=== PATIENT | male | born 1990 | race African-American/Black ===

== ENCOUNTER 2016-07-01 16:32 | Emergency (ER) | payer BC, OTHER ==
[2016-07-01 16:49] VITALS: BP 129/77; PULSE 90; RESP 16; TEMP 98.4
[2016-07-01] MEDS ORDERED: KETOROLAC 60 MG/2 ML VIAL IM STA (17:01)
[2016-07-01] MEDS ORDERED: ORPHENADRINE 30 MG/ML 2 ML VIAL IM STA (17:01)
--- NOTE | 2016-07-01 17:17 | ED ---
General Adult HPI - General Chief complaint: Back Pain/Injury Stated complaint: Back pain Time Seen by Provider: 07/01/16 16:53 Source: patient, RN notes reviewed Mode of arrival: ambulatory Limitations: no limitations - History of Present Illness Initial comments: This is a 25-year-old male who presents with lower back pain. Patient states the pain started when he bent over and stood back up this morning. Patient states he has taken Motrin 800s for the pain but this has not helped. Patient has been ambulating without difficulty. Patient denies any fall or trauma to the back. Patient denies any change in bowel or bladder function or loss of sensation to the saddle area. Patient denies any numbness/weakness/tingling to bilateral lower extremities. Patient denies any recent radicular pain, fever, chills, shortness breath, chest pain, abdominal pain, nausea/vomiting/diarrhea, hematuria, headache, or visual changes, or any other complaints. - Related Data Home Medications Medication Instructions Recorded Confirmed Insulin Detemir [Levemir] 50 unit SQ DAILY 08/29/14 07/01/16 Insulin Lispro [humaLOG Kwikpen] See Protocol SQ AC-TID 12/19/15 07/01/16 Previous Rx's Medication Instructions Recorded Cyclobenzaprine [Flexeril] 5 mg PO HS 3 Days 07/01/16 Allergies Allergy/AdvReac Type Severity Reaction Status Date / Time No Known Allergies Allergy Verified 07/01/16 18:01 Review of Systems ROS Statement: Those systems with pertinent positive or pertinent negative responses have been documented in the HPI. ROS Other: All systems not noted in ROS Statement are negative. Past Medical History Past Medical History: Diabetes Mellitus Additional Past Medical History / Comment(s): STATED HAD SEIZURE WHEN BS WAS TO LOW, History of Any Multi-Drug Resistant Organisms: None Reported Past Surgical History: No Surgical Hx Reported Additional Past Surgical History / Comment(s): TOOTH EXTRACTED IN PAST AND YESTERDAY HAD A PUS POCKET NEAR FRONT TOOTH LANCED/DRAINED. Past Anesthesia/Blood Transfusion Reactions: No Reported Reaction Past Psychological History: No Psychological Hx Reported Smoking Status: Current every day smoker Past Alcohol Use History: None Reported Additional Past Alcohol Use History / Comment(s): STARTED SMOKING AT AGE 15- SMOKES 1 PPD Past Drug Use History: None Reported - Past Family History Father Family Medical History: No Reported History Mother Family Medical History: Asthma General Exam - General Exam Comments Initial Comments: General: The patient is awake and alert, in no distress, and does not appear acutely ill. Neck: The neck is supple, there is no tenderness or JVD. Cardiovascular: There is a regular rate and rhythm. No murmur, rub or gallop is appreciated. Respiratory: Lungs are clear to auscultation, respirations are non-labored, breath sounds are equal. No wheezes, stridor, rales, or rhonchi. Musculoskeletal: There is mild tenderness to palpation of the lumbar spine, patient has full range of motion, strength 5/5 and Sensation intact. Posterior tibial pulses 2+ bilaterally. Neurological: A&O x 3. CN II-XII intact, There are no obvious motor or sensory deficits. Coordination appears grossly intact. Speech is normal. Skin: Skin is warm and dry and no rashes or lesions are noted. Psychiatric: Normal mood and affect. Limitations: no limitations Course Vital Signs 07/01/16 16:45 Temperature 98.4 F Pulse Rate 90 Respiratory 16 Rate Blood Pressure 129/77 O2 Sat by Pulse 98 Oximetry Medical Decision Making - Medical Decision Making This is a 25-year-old male who presents with lower back pain. On physical exam patient is neurologically intact. There is mild tenderness to palpation of the lumbar spine, patient has full range of motion, strength 5/5 and Sensation intact. Posterior tibial pulses 2+ bilaterally. Patient was given Toradol and Norflex in the [facility] today. I discussed continuation of Motrin and Tylenol along with heating pads and ice packs. Patient will be given a three-day prescription for Flexeril to take at night and I discussed sedation effects. I discussed return parameters.Discussed that patient should follow up with PCP in one to 2 days or return to the [facility] for any worsening symptoms or for any further concerns. Patient was receptive to this plan and patient will be discharged home. Disposition Clinical Impression: Mechanical back pain, Muscle spasm of back Disposition: HOME SELF-CARE Condition: Good Instructions: Acute Low Back Pain (ED) Additional Instructions: Please continue Motrin and Tylenol. Please use ice packs and heating pads to the area. Please use Flexeril as prescribed. Please do not take Flexeril while driving or while drinking alcohol as it can make you drowsy. Please use medication as discussed. Please follow-up with family doctor in the next 2 days of symptoms have not improved. Please return to emergency room if the symptoms increase or worsen or for any other concerns. Prescriptions: Cyclobenzaprine [Flexeril] 5 mg PO HS 3 Days Referrals: Óscar Jackson MD [Primary Care Provider] - 1-2 days Time of Disposition: 17:07
== END 2016-07-01 17:32 | disposition home or self-care (01) ==
LOC: EC 16:32
DX: M62.830 Muscle spasm of back (principal); E11.9 Type 2 diabetes mellitus without complications; F17.200 Nicotine dependence, unspecified, uncomplicated; Z79.4 Long term (current) use of insulin
CPT/HCPCS: 99282; 96372 ×2; J2360; J1885

== ENCOUNTER 2016-08-07 20:46 | Emergency (ER) | payer OTHER ==
[2016-08-07 20:56] VITALS: BP 144/88; PULSE 87; RESP 20; TEMP 99
[2016-08-07] MEDS ORDERED: ACETAMINOPHEN TAB 325 MG TAB PO STA (21:18)
[2016-08-07] MEDS ORDERED: traMADol 50 MG TAB PO STA (21:18)
--- NOTE | 2016-08-07 21:18 | ED ---
Back Pain HPI - General Chief Complaint: Back Pain/Injury Stated Complaint: Back Pain Time Seen by Provider: 08/07/16 21:03 Source: patient Limitations: no limitations - History of Present Illness Initial Comments: This patient is 25-year-old man who presents with bilateral mid back pain that is been coming on since yesterday, worse today and the patient states that it has the same sensation as "if you had scattered all day and your back was too tight to take your skates off." The patient states that the pain is constant, aching, and worse with bending or with sitting. The intensity is moderate. It is better with remaining still. He was driving to work [id number] and the sitting position made the pain worse so he came here to be evaluated. MD Complaint: back pain Onset/Timin -: days(s) Similar Symptoms Previously: Yes Place: home Radiation: none Severity: moderate Quality: aching Consistency: constant Improves With: immobilization Worsens With: sitting upright, other (Bending) Context: bending Associated Symptoms: denies other symptoms Treatments Prior to Arrival: NSAIDS (Ibuprofen resulted in minimal improvement) - Related Data Home Medications Medication Instructions Recorded Confirmed Insulin Detemir [Levemir] 50 unit SQ DAILY 08/29/14 08/07/16 Insulin Lispro [humaLOG Kwikpen] See Protocol SQ AC-TID 12/19/15 08/07/16 Previous Rx's Medication Instructions Recorded Ibuprofen [Motrin] 600 mg PO Q8HR PRN #20 tab 08/07/16 Methocarbamol [Robaxin-750] 750 mg PO TID PRN #30 tablet 08/07/16 Allergies Allergy/AdvReac Type Severity Reaction Status Date / Time No Known Allergies Allergy Verified 08/07/16 20:56 Review of Systems ROS Statement: Those systems with pertinent positive or pertinent negative responses have been documented in the HPI. ROS Other: All systems not noted in ROS Statement are negative. Constitutional: Denies: fever, chills, weakness Respiratory: Denies: cough, dyspnea Cardiovascular: Denies: chest pain, palpitations, edema Gastrointestinal: Denies: abdominal pain, vomiting, diarrhea Genitourinary: Denies: dysuria, hematuria, testicular pain Musculoskeletal: Reports: as per HPI, back pain Skin: Denies: rash Neurological: Denies: headache, weakness, numbness, paresthesias Past Medical History Past Medical History: Diabetes Mellitus Additional Past Medical History / Comment(s): STATED HAD SEIZURE WHEN BS WAS TO LOW, History of Any Multi-Drug Resistant Organisms: None Reported Past Surgical History: No Surgical Hx Reported Additional Past Surgical History / Comment(s): TOOTH EXTRACTED IN PAST AND YESTERDAY HAD A PUS POCKET NEAR FRONT TOOTH LANCED/DRAINED. Past Anesthesia/Blood Transfusion Reactions: No Reported Reaction Past Psychological History: No Psychological Hx Reported Smoking Status: Current every day smoker Past Alcohol Use History: None Reported Additional Past Alcohol Use History / Comment(s): STARTED SMOKING AT AGE 15- SMOKES 1 PPD Past Drug Use History: None Reported - Past Family History Father Family Medical History: No Reported History Mother Family Medical History: Asthma General Exam Limitations: no limitations General appearance: alert, in no apparent distress Head exam: Present: atraumatic, normocephalic Eye exam: Present: normal appearance Respiratory exam: Present: normal lung sounds bilaterally. Absent: respiratory distress, wheezes, rales, rhonchi, stridor Cardiovascular Exam: Present: regular rate, normal rhythm, normal heart sounds. Absent: systolic murmur, diastolic murmur, rubs, gallop GI/Abdominal exam: Present: soft. Absent: distended, tenderness, guarding, rebound, mass Extremities exam: Present: full ROM Back exam: Present: normal inspection, paraspinal tenderness. Absent: CVA tenderness (R), CVA tenderness (L), vertebral tenderness, rash noted Neurological exam: Present: alert, reflexes normal. Absent: motor sensory deficit Skin exam: Present: warm, dry, intact, normal color. Absent: rash Course Vital Signs 08/07/16 20:54 Temperature 99 F Pulse Rate 87 Respiratory 20 Rate Blood Pressure 144/88 O2 Sat by Pulse 98 Oximetry Disposition Clinical Impression: Strain of mid-back Disposition: HOME SELF-CARE Condition: Fair Instructions: Back Pain (ED) Prescriptions: Ibuprofen [Motrin] 600 mg PO Q8HR PRN #20 tab PRN Reason: Pain Methocarbamol [Robaxin-750] 750 mg PO TID PRN #30 tablet PRN Reason: pain Referrals: Óscar Jackson MD [Primary Care Provider] - 1-2 days
== END 2016-08-07 21:37 | disposition home or self-care (01) ==
LOC: EC 20:46
DX: S29.012A Strain of muscle and tendon of back wall of thorax, initial encounter (principal); E11.9 Type 2 diabetes mellitus without complications; F17.200 Nicotine dependence, unspecified, uncomplicated; Z79.4 Long term (current) use of insulin; X50.1XXA Overexertion from prolonged static or awkward postures, initial encounter; Y92.009 Unspecified place in unspecified non-institutional (private) residence as the place of occurrence of the external cause
CPT/HCPCS: 99283

== ENCOUNTER 2016-09-01 23:05 | Emergency (ER) | payer OTHER ==
[2016-09-01 23:10] VITALS: BP 123/72; PULSE 87; RESP 20; TEMP 98.3
[2016-09-01 23:24] LABS: Glucose,Whole Blood 112 mg/dL (75-99)
--- NOTE | 2016-09-01 23:33 | ED ---
Recheck HPI - General Chief Complaint: Recheck/Abnormal Lab/Rx Stated Complaint: low blood sugar Time Seen by Provider: 09/01/16 23:17 Source: patient, RN notes reviewed, old records reviewed Mode of arrival: ambulatory Limitations: no limitations - History of Present Illness Initial Comments: Is a 25-year-old male presents emergency Department with an episode of low blood sugar at work. Patient reports that he is an insulin-dependent diabetic. He reports that last time he took his blood sugar and check that was at 3 PM. He reports he did not eat as much as he usually does today. 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 Patient ate a Snickers and his blood sugar was checked in triage and was 112. Patient does not appear to be in any acute distress at this time. He has no other physical complaints. - Related Data Home Medications Medication Instructions Recorded Confirmed Insulin Detemir [Levemir] 50 unit SQ QAM 08/29/14 09/01/16 Insulin Lispro [humaLOG Kwikpen] See Protocol SQ AC-TID 12/19/15 09/01/16 Cyanocobalamin (Vitamin B-12) 1,000 mcg PO DAILY 09/01/16 09/01/16 [Vitamin B-12] Allergies Allergy/AdvReac Type Severity Reaction Status Date / Time No Known Allergies Allergy Verified 09/01/16 23:19 Review of Systems ROS Statement: Those systems with pertinent positive or pertinent negative responses have been documented in the HPI. ROS Other: All systems not noted in ROS Statement are negative. Past Medical History Past Medical History: Diabetes Mellitus Additional Past Medical History / Comment(s): STATED HAD SEIZURE WHEN BS WAS TO LOW, History of Any Multi-Drug Resistant Organisms: None Reported Past Surgical History: No Surgical Hx Reported Additional Past Surgical History / Comment(s): TOOTH EXTRACTED IN PAST AND YESTERDAY HAD A PUS POCKET NEAR FRONT TOOTH LANCED/DRAINED. Past Anesthesia/Blood Transfusion Reactions: No Reported Reaction Past Psychological History: No Psychological Hx Reported Smoking Status: Current every day smoker Past Alcohol Use History: None Reported Additional Past Alcohol Use History / Comment(s): STARTED SMOKING AT AGE 15- SMOKES 1 PPD Past Drug Use History: None Reported - Past Family History Father Family Medical History: No Reported History Mother Family Medical History: Asthma General Exam - General Exam Comments Initial Comments: Well-appearing 25-year-old male, no distress. Limitations: no limitations General appearance: alert, in no apparent distress Head exam: Present: atraumatic, normocephalic, normal inspection Eye exam: Present: normal appearance, PERRL, EOMI. Absent: scleral icterus, conjunctival injection, periorbital swelling ENT exam: Present: normal exam, mucous membranes moist Neck exam: Present: normal inspection. Absent: tenderness, meningismus, lymphadenopathy Respiratory exam: Present: normal lung sounds bilaterally. Absent: respiratory distress, wheezes, rales, rhonchi, stridor Cardiovascular Exam: Present: regular rate, normal rhythm, normal heart sounds. Absent: systolic murmur, diastolic murmur, rubs, gallop, clicks GI/Abdominal exam: Present: soft, normal bowel sounds. Absent: distended, tenderness, guarding, rebound, rigid Extremities exam: Present: normal inspection, full ROM, normal capillary refill. Absent: tenderness, pedal edema, joint swelling, calf tenderness Back exam: Present: normal inspection Neurological exam: Present: alert, oriented X3, CN II-XII intact Psychiatric exam: Present: normal affect, normal mood Skin exam: Present: warm, dry, intact, normal color. Absent: rash Course Vital Signs 09/01/16 23:08 Temperature 98.3 F Pulse Rate 87 Respiratory 20 Rate Blood Pressure 123/72 O2 Sat by Pulse 99 Oximetry - Reevaluation(s) Reevaluation #1: 09/01/16 23:59 Patient was reevaluated and blood sugar is now 200. Patient reports is feeling better. Patient will be discharged at this time. Medical Decision Making - Medical Decision Making This is a 25-year-old male presenting to emergency room she bled a low blood sugar work. Patient was given juice and food when he came to emergency department. Patient will be reevaluated. He has no other physical complaints at this time. was given juice and a sandwich. Patient's blood sugar now is 200. Patient will be discharged directed. Patient advised to keep glucose tablets on hand. Follow-up with her primary care physician within the next 1-2 days. Return to emergency department if any alarming signs or symptoms occur. - Lab Data Lab Results 09/01/16 Range/Units 23:12 POC Glucose (mg/dL) 112 H (75-99) mg/dL POC Glu [employer] Disposition Clinical Impression: Hypoglycemia Disposition: HOME SELF-CARE Condition: Good Instructions: Hypoglycemia in a Person with Diabetes (ED) Additional Instructions: Patient advised to rest, increase fluids and food intake. Follow-up with her primary care provider. Continue to dose insulin on a sliding scale as directed. Patient also advised to keep glucose tablets handy. Referrals: Óscar Jackson MD [Primary Care Provider] - 1-2 days Time of Disposition: 00:00
[2016-09-02] LABS: Glucose,Whole Blood 201 mg/dL (75-99)
== END 2016-09-02 00:07 | disposition home or self-care (01) ==
LOC: EC 23:05
DX: E11.649 Type 2 diabetes mellitus with hypoglycemia without coma (principal); F17.200 Nicotine dependence, unspecified, uncomplicated; Z79.4 Long term (current) use of insulin; Z79.899 Other long term (current) drug therapy
CPT/HCPCS: 36415; 99284

== ENCOUNTER 2016-10-08 04:31 | Emergency (ER) | payer OTHER ==
[2016-10-08 04:39] VITALS: BP 126/73; PULSE 66; RESP 16; TEMP 97.2
[2016-10-08 04:40] LABS: Glucose,Whole Blood 36 mg/dL (75-99)
[2016-10-08 04:40] LABS: Glucose,Whole Blood 34 mg/dL (75-99)
--- NOTE | 2016-10-08 05:04 | ED ---
General Adult HPI - General Chief complaint: Recheck/Abnormal Lab/Rx Stated complaint: low sugar Time Seen by Provider: 10/08/16 04:42 Source: patient, RN notes reviewed, old records reviewed Mode of arrival: ambulatory Limitations: no limitations - History of Present Illness Initial comments: This is a 26-year-old male the ER for evaluation of low blood sugar, diabetic hypoglycemia. Patient is on insulin. Patient has history of multiple ER visits for similar symptoms, was not acting appropriate work, checked his blood pressure and some to the ER for further evaluation and treatment. Patient is awake and alert, blood sugar on arrival to emergency room is 37 - Related Data Home Medications Medication Instructions Recorded Confirmed Insulin Detemir [Levemir] 50 unit SQ QAM 08/29/14 09/01/16 Insulin Lispro [humaLOG Kwikpen] See Protocol SQ AC-TID 12/19/15 09/01/16 Cyanocobalamin (Vitamin B-12) 1,000 mcg PO DAILY 09/01/16 09/01/16 [Vitamin B-12] Allergies Allergy/AdvReac Type Severity Reaction Status Date / Time No Known Allergies Allergy Verified 10/08/16 04:39 Review of Systems ROS Statement: Those systems with pertinent positive or pertinent negative responses have been documented in the HPI. ROS Other: All systems not noted in ROS Statement are negative. Past Medical History Past Medical History: Diabetes Mellitus Additional Past Medical History / Comment(s): STATED HAD SEIZURE WHEN BS WAS TO LOW, History of Any Multi-Drug Resistant Organisms: None Reported Past Surgical History: No Surgical Hx Reported Additional Past Surgical History / Comment(s): TOOTH EXTRACTED IN PAST AND YESTERDAY HAD A PUS POCKET NEAR FRONT TOOTH LANCED/DRAINED. Past Anesthesia/Blood Transfusion Reactions: No Reported Reaction Past Psychological History: No Psychological Hx Reported Smoking Status: Current every day smoker Past Alcohol Use History: None Reported Past Drug Use History: None Reported - Past Family History Father Family Medical History: No Reported History Mother Family Medical History: Asthma General Exam Limitations: no limitations General appearance: alert, in no apparent distress Head exam: Present: atraumatic, normocephalic, normal inspection Eye exam: Present: normal appearance, PERRL, EOMI. Absent: scleral icterus, conjunctival injection, periorbital swelling ENT exam: Present: normal exam, mucous membranes moist Neck exam: Present: normal inspection. Absent: tenderness, meningismus, lymphadenopathy Respiratory exam: Present: normal lung sounds bilaterally. Absent: respiratory distress, wheezes, rales, rhonchi, stridor Cardiovascular Exam: Present: regular rate, normal rhythm, normal heart sounds. Absent: systolic murmur, diastolic murmur, rubs, gallop, clicks GI/Abdominal exam: Present: soft, normal bowel sounds. Absent: distended, tenderness, guarding, rebound, rigid Extremities exam: Present: normal inspection, full ROM, normal capillary refill. Absent: tenderness, pedal edema, joint swelling, calf tenderness Back exam: Present: normal inspection Neurological exam: Present: alert, oriented X3, CN II-XII intact Psychiatric exam: Present: normal affect, normal mood Skin exam: Present: warm, dry, intact, normal color. Absent: rash Course Vital Signs 10/08/16 04:32 Temperature 97.2 F L Pulse Rate 66 Respiratory 16 Rate Blood Pressure 126/73 O2 Sat by Pulse 100 Oximetry Medical Decision Making - Medical Decision Making 26-year-old male to the ER with recurrent diabetic hypoglycemia, patient was able to eat here in the emergency room, completely awake alert asking to be discharged home - Lab Data Lab Results 10/08/16 10/08/16 10/08/16 Range/Units 04:36 04:37 05:06 POC Glucose (mg/dL) 34 L 36 L 63 L (75-99) mg/dL POC Glu [employer] Luis Armando Fermin David [place], [place] 10/08/16 10/08/16 Range/Units 05:31 06:07 POC Glucose (mg/dL) 165 H 231 H (75-99) mg/dL POC Glu [employer] Kelsy Chung [place] Disposition Clinical Impression: Diabetic hypoglycemia Disposition: HOME SELF-CARE Condition: Good Instructions: Hypoglycemia in a Person with Diabetes (ED) Referrals: Óscar Jackson MD [Primary Care Provider] - 1-2 days
[2016-10-08 05:09] LABS: Glucose,Whole Blood 63 mg/dL (75-99)
[2016-10-08 05:34] LABS: Glucose,Whole Blood 165 mg/dL (75-99)
[2016-10-08 06:08] LABS: Glucose,Whole Blood 231 mg/dL (75-99)
== END 2016-10-08 07:15 | disposition home or self-care (01) ==
LOC: EC 04:31
DX: E11.649 Type 2 diabetes mellitus with hypoglycemia without coma (principal); F17.200 Nicotine dependence, unspecified, uncomplicated; Z79.4 Long term (current) use of insulin; Z79.899 Other long term (current) drug therapy
CPT/HCPCS: 36415; 99283

== ENCOUNTER 2017-02-22 17:09 | Emergency (ER) | payer BC, OTHER ==
[2017-02-22 17:19] VITALS: PULSE 70; RESP 18
[2017-02-22 17:28] LABS: Glucose,Whole Blood 85 mg/dL (75-99)
--- NOTE | 2017-02-22 17:36 | ED ---
General Adult HPI - General Chief complaint: Recheck/Abnormal Lab/Rx Stated complaint: Hypoglycemia Time Seen by Provider: 02/22/17 17:26 Source: EMS Mode of arrival: EMS Limitations: no limitations - History of Present Illness Initial comments: 26-year-old male patient with past medical history significant for type 1 diabetes presents to the emergency department today for evaluation after having an unresponsive episode at home. Patient states that his girlfriend told him that he was sitting on the couch staring off into space and would not respond to her. EMS states upon arrival patient's blood sugar was 48. They state that they did administer one amp of dextrose 50%, patient's blood sugar went up to 176 and his mentation did improve. Patient states that he currently is feeling well, just chilled. He states that he occasionally does have hypoglycemic episodes. He states that he ate only a small amount of steak to eat early this morning. He states his last insulin administration was this morning before eating. He believes this occurred because he did not eat enough today. He denies any recent illness or change in medications. Patient denies any recent rash, fever, shortness breath, chest pain, abdominal pain, nausea, vomiting, diarrhea, constipation, back pain, numbness, tingling, dizziness, weakness, hematuria, dysuria, urinary urgency, urinary frequency, headache, visual changes , or any other complaints. - Related Data Home Medications Medication Instructions Recorded Confirmed Insulin Detemir [Levemir] 50 unit SQ QAM 08/29/14 02/22/17 Insulin Lispro [humaLOG Kwikpen] See Protocol SQ AC-TID 12/19/15 02/22/17 Dextroamphetamine/Amphetamine 20 mg PO DAILY 02/22/17 02/22/17 [Adderall] HYDROcodone/APAP 10-325MG [[place] 1 tab PO DAILY PRN 02/22/17 02/22/17 10-325] Multivitamins, Thera [Multivitamin 1 tab PO DAILY 02/22/17 02/22/17 (formulary)] Pregabalin [Lyrica] 100 mg PO BID 02/22/17 02/22/17 Allergies Allergy/AdvReac Type Severity Reaction Status Date / Time No Known Allergies Allergy Verified 02/22/17 18:01 Review of Systems ROS Statement: Those systems with pertinent positive or pertinent negative responses have been documented in the HPI. ROS Other: All systems not noted in ROS Statement are negative. Past Medical History Past Medical History: Diabetes Mellitus Additional Past Medical History / Comment(s): STATED HAD SEIZURE WHEN BS WAS TO LOW, History of Any Multi-Drug Resistant Organisms: None Reported Past Surgical History: No Surgical Hx Reported Additional Past Surgical History / Comment(s): TOOTH EXTRACTED IN PAST AND YESTERDAY HAD A PUS POCKET NEAR FRONT TOOTH LANCED/DRAINED. Past Anesthesia/Blood Transfusion Reactions: No Reported Reaction Past Psychological History: No Psychological Hx Reported Smoking Status: Current every day smoker Past Alcohol Use History: None Reported Past Drug Use History: None Reported - Past Family History Father Family Medical History: No Reported History Mother Family Medical History: Asthma General Exam Limitations: no limitations General appearance: alert, in no apparent distress, other (This is a well- developed, well-nourished adult male patient in no acute distress. Vital signs upon presentation are temperature 98.1F, pulse 70, respirations 18, blood pressure 138/87, pulse ox 100% on room air.) Head exam: Present: atraumatic, normocephalic, normal inspection Eye exam: Present: normal appearance, PERRL, EOMI. Absent: scleral icterus, conjunctival injection, periorbital swelling ENT exam: Present: normal exam, normal oropharynx, mucous membranes moist Respiratory exam: Present: normal lung sounds bilaterally. Absent: respiratory distress, wheezes, rales, rhonchi, stridor Cardiovascular Exam: Present: regular rate, normal rhythm, normal heart sounds. Absent: systolic murmur, diastolic murmur, rubs, gallop, clicks GI/Abdominal exam: Present: soft, normal bowel sounds. Absent: distended, tenderness, guarding, rebound, rigid Neurological exam: Present: alert, oriented X3, CN II-XII intact, other ( Strength in all 4 cavities is 5/5. Patient is acutely responsive with fluid speech.) Psychiatric exam: Present: normal affect, normal mood Skin exam: Present: warm, dry, intact, normal color. Absent: rash Course Vital Signs 02/22/17 02/22/17 17:17 18:59 Temperature 98.1 F 98.0 F Pulse Rate 70 70 Respiratory 18 18 Rate Blood Pressure 138/87 115/75 O2 Sat by Pulse 100 98 Oximetry Medical Decision Making - Medical Decision Making 26-year-old male patient presents to the emergency department today for evaluation after having an episode of unresponsiveness at home. Patient's significant other reported that he was sitting on the couch staring off into space and was unresponsive. Upon EMS arrival patient was found to be hypoglycemic at 48. He was given an amp of D50 and symptoms did improve. Physical exam was unremarkable. Patient was alert and acutely responsive. Neurologically intact. Blood sugar upon arrival to our department was 85. Patient was given food to eat. Patient remained stable throughout stay. Vital signs stable. Blood sugar at discharge is 153. Other labs were reviewed and were unremarkable. Patient did report that he had not eaten throughout the day, only meal was a small cube steak early in the morning. He'll be discharged home at this time with instructions to eat small frequent meals throughout the day. He is instructed to monitor his blood sugars closely. He is instructed to follow-up with his primary care physician for recheck in 1-2 days. He is instructed to return here immediately for any new, worsening, or concerning symptoms. He verbalizes understanding and agrees with this plan. - Lab Data Result diagrams: 02/22/17 17:43 02/22/17 17:43 Lab Results 02/22/17 02/22/17 02/22/17 Range/Units 17:26 17:43 17:43 WBC 12.3 H (3.8-10.6) k/uL RBC 5.54 (4.30-5.90) m/uL Hgb 16.7 (13.0-17.5) gm/dL Hct 53.0 (39.0-53.0) % MCV 95.7 (80.0-100.0) fL MCH 30.2 (25.0-35.0) pg MCHC 31.5 (31.0-37.0) g/dL RDW 13.1 (11.5-15.5) % Plt Count 250 (150-450) k/uL Neutrophils % 82 % Lymphocytes % 12 % Monocytes % 4 % Eosinophils % 2 % Basophils % 1 % Neutrophils # 10.1 H (1.3-7.7) k/uL Lymphocytes # 1.5 (1.0-4.8) k/uL Monocytes # 0.5 (0-1.0) k/uL Eosinophils # 0.2 (0-0.7) k/uL Basophils # 0.1 (0-0.2) k/uL Sodium 143 (137-145) mmol/L Potassium 4.2 (3.5-5.1) mmol/L Chloride 103 (98-107) mmol/L Carbon Dioxide 31 H (22-30) mmol/L Anion Gap 9 mmol/L BUN 12 (9-20) mg/dL Creatinine 0.90 (0.66-1.25) mg/dL Est GFR (MDRD) Af Amer >60 (>60 ml/min/1.73 sqM) Est GFR (MDRD) Non-Af >60 (>60 ml/min/1.73 sqM) Glucose 74 (74-99) mg/dL POC Glucose (mg/dL) 85 (75-99) mg/dL POC Glu Crusher Feeder ID Maureen Mccoy Calcium 9.8 (8.4-10.2) mg/dL Total Bilirubin 1.1 (0.2-1.3) mg/dL AST 36 (17-59) U/L ALT 38 (21-72) U/L Alkaline Phosphatase 89 (38-126) U/L Total Protein 7.7 (6.3-8.2) g/dL Albumin 4.4 (3.5-5.0) g/dL 02/22/17 Range/Units 18:29 WBC (3.8-10.6) k/uL RBC (4.30-5.90) m/uL Hgb (13.0-17.5) gm/dL Hct (39.0-53.0) % MCV (80.0-100.0) fL MCH (25.0-35.0) pg MCHC (31.0-37.0) g/dL RDW (11.5-15.5) % Plt Count (150-450) k/uL Neutrophils % % Lymphocytes % % Monocytes % % Eosinophils % % Basophils % % Neutrophils # (1.3-7.7) k/uL Lymphocytes # (1.0-4.8) k/uL Monocytes # (0-1.0) k/uL Eosinophils # (0-0.7) k/uL Basophils # (0-0.2) k/uL Sodium (137-145) mmol/L Potassium (3.5-5.1) mmol/L Chloride (98-107) mmol/L Carbon Dioxide (22-30) mmol/L Anion Gap mmol/L BUN (9-20) mg/dL Creatinine (0.66-1.25) mg/dL Est GFR (MDRD) Af Amer (>60 ml/min/1.73 sqM) Est GFR (MDRD) Non-Af (>60 ml/min/1.73 sqM) Glucose (74-99) mg/dL POC Glucose (mg/dL) 153 H (75-99) mg/dL POC Glu Crusher Feeder ID Adeola Agustin Calcium (8.4-10.2) mg/dL Total Bilirubin (0.2-1.3) mg/dL AST (17-59) U/L ALT (21-72) U/L Alkaline Phosphatase (38-126) U/L Total Protein (6.3-8.2) g/dL Albumin (3.5-5.0) g/dL Disposition Clinical Impression: Hypoglycemia Disposition: HOME SELF-CARE Condition: Good Instructions: Hypoglycemia in a Person with Diabetes (ED) Additional Instructions: Make sure you are eating appropriate amounts of food when taking insulin. Monitor blood sugars closely at home. Follow-up with your primary care physician for recheck in 1-2 days. Return here immediately for any new, worsening, or concerning symptoms. Referrals: Óscar Jackson MD [Primary Care Provider] - 1-2 days Time of Disposition: 18:33
[2017-02-22 17:52] LABS: Basophils # (A) 0.1 k/uL (0-0.2); Basophils % (A) 1 %; CH 30.6; CHCM 32.1; Eosinophils # (A) 0.2 k/uL (0-0.7); Eosinophils % (A) 2 %; HDW 2.13; HGB 16.7 gm/dL (13.0-17.5); Luc # (Auto) 0.05; Luc % (Auto) 0; Lymphocytes # (A) 1.5 k/uL (1.0-4.8); Lymphocytes % (A) 12 %; MCH 30.2 pg (25.0-35.0); MCHC 31.5 g/dL (31.0-37.0); MCV 95.7 fL (80.0-100.0); Mean Platelet Volume 7.6; Monocytes # (A) 0.5 k/uL (0-1.0); Monocytes % (A) 4 %; Neutrophils # (A) 10.1 k/uL (1.3-7.7); Neutrophils % (A) 82 %; RBC 5.54 m/uL (4.30-5.90); RDW 13.1 % (11.5-15.5); WBC 12.3 k/uL (3.8-10.6); WBC (Perox) 12.25
[2017-02-22 18:11] LABS: ALT 38 U/L (21-72); AST 36 U/L (17-59); Alkaline Phosphatase 89 U/L (38-126); Anion Gap 9 mmol/L; Blood Urea Nitrogen 12 mg/dL (9-20); Calcium 9.8 mg/dL (8.4-10.2); Carbon Dioxide 31 mmol/L (22-30); Chloride 103 mmol/L (98-107); Glucose 74 mg/dL (74-99); Non-African American GFR(MDRD) >60 (>60 ml/min/1.73 sqM); Potassium 4.2 mmol/L (3.5-5.1); Sodium 143 mmol/L (137-145); Total Bilirubin 1.1 mg/dL (0.2-1.3); Total Protein 7.7 g/dL (6.3-8.2)
[2017-02-22 18:30] LABS: Glucose,Whole Blood 153 mg/dL (75-99)
[2017-02-22 19:00] VITALS: BP 115/75; TEMP 98
== END 2017-02-22 19:00 | disposition home or self-care (01) ==
LOC: EC 17:09
DX: E10.649 Type 1 diabetes mellitus with hypoglycemia without coma (principal); F17.200 Nicotine dependence, unspecified, uncomplicated; Z79.4 Long term (current) use of insulin; Z79.899 Other long term (current) drug therapy
CPT/HCPCS: 36415; 80053; 85025; 99285

== ENCOUNTER 2017-02-26 14:51 | Emergency (ER) | payer BC, OTHER ==
[2017-02-26 14:55] LABS: Glucose,Whole Blood 88 mg/dL (75-99)
[2017-02-26 15:03] VITALS: RESP 18
--- NOTE | 2017-02-26 15:05 | ED ---
General Adult HPI - General Chief complaint: Recheck/Abnormal Lab/Rx Stated complaint: Hypoglycemia Time Seen by Provider: 02/26/17 14:56 Source: patient, EMS, RN notes reviewed, old records reviewed Mode of arrival: EMS Limitations: no limitations - History of Present Illness Initial comments: Chief complaint and history of present illness a 26-year-old male brought in because of hypoglycemic reaction. The patient has had insulin-dependent diabetes for long period of time. He reports he gave himself insulin this morning but wasn't hungry didn't eat. In the EMS was called to his location sugar was 38. IV was started he received IV glucose. Recheck blood sugar was 111 around emergency room 88. The patient will have this rechecked while here and he'll be given something to eat. The patient has no other complaints or problems. He knows that he must eat if he takes his insulin. - Related Data Home Medications Medication Instructions Recorded Confirmed Insulin Detemir [Levemir] 50 unit SQ QAM 08/29/14 02/26/17 Insulin Lispro [humaLOG Kwikpen] 25 units SQ AC-TID 12/19/15 02/26/17 Multivitamins, Thera [Multivitamin 1 tab PO DAILY 02/22/17 02/26/17 (formulary)] Allergies Allergy/AdvReac Type Severity Reaction Status Date / Time No Known Allergies Allergy Verified 02/26/17 15:21 Review of Systems ROS Statement: Those systems with pertinent positive or pertinent negative responses have been documented in the HPI. Review of systems. No complaint of headache visual acuity changes no chest pain shortness breath GI/ problems no neuro deficits. All systems were reviewed. Past medical problems significant for insulin diabetes mellitus. Patient reports family history significant for grandmother had lung cancer. Patient denies any ALLERGIES. He smokes cigarettes. Denies alcohol use. Encouraged to stop smoking. ROS Other: All systems not noted in ROS Statement are negative. Past Medical History Past Medical History: Diabetes Mellitus Additional Past Medical History / Comment(s): STATED HAD SEIZURE WHEN BS WAS TO LOW, History of Any Multi-Drug Resistant Organisms: None Reported Past Surgical History: No Surgical Hx Reported Additional Past Surgical History / Comment(s): TOOTH EXTRACTED IN PAST AND YESTERDAY HAD A PUS POCKET NEAR FRONT TOOTH LANCED/DRAINED. Past Anesthesia/Blood Transfusion Reactions: No Reported Reaction Past Psychological History: No Psychological Hx Reported Smoking Status: Current every day smoker Past Alcohol Use History: None Reported Past Drug Use History: None Reported - Past Family History Father Family Medical History: No Reported History Mother Family Medical History: Asthma General Exam - General Exam Comments Initial Comments: General: The patient is awake and alert, in no distress, and does not appear acutely ill. She was given IV glucose by EMS in response to a low blood sugar of only 38. Eye: Pupils are equal, round and reactive to light, extra-ocular movements are intact ; there is normal conjunctiva bilaterally. No signs of icterus. Ears, nose, mouth and throat: There are moist mucous membranes and no oral lesions. Neck: The neck is supple, there is no tenderness. Cardiovascular: There is a regular rate and rhythm. No murmur, rub or gallop is appreciated. Respiratory: Lungs are clear to auscultation, respirations are non-labored, breath sounds are equal. No wheezes, stridor, rales, or rhonchi. Gastrointestinal: Soft, non-distended, non-tender abdomen without masses or organomegaly noted. There is no rebound or guarding present. No CVA tenderness. Bowel sounds are unremarkable. Back: There is no tenderness to palpation in the midline. There is no obvious deformity. No rashes noted. Musculoskeletal: Normal ROM, no tenderness, There is no pedal edema. There is no calf tenderness or swelling. Sensation intact. Neurological: No neuro deficits Skin: Skin is warm and dry and no rashes or lesions are noted. Psychiatric: Cooperative, appropriate mood & affect, normal judgment. Limitations: no limitations Course Vital Signs 02/26/17 14:56 Temperature 97.6 F Pulse Rate 76 Respiratory 18 Rate Blood Pressure 135/90 O2 Sat by Pulse 99 Oximetry Medical Decision Making - Medical Decision Making Patient's blood sugar dipped slightly after coming emergency room. Recovered with food. Stabilized patient was discharged with blood sugar 146. Advised to check his sugar frequently eat properly administer insulin properly. Follow up family physician return emergency room as needed - Lab Data Lab Results 02/26/17 02/26/17 02/26/17 Range/Units 14:54 15:44 16:14 POC Glucose (mg/dL) 88 69 L 86 (75-99) mg/dL POC Glu Communications Controller Aliza Mccoy Danielle [place]heart, Aliza 02/26/17 Range/Units 16:35 POC Glucose (mg/dL) 146 H (75-99) mg/dL POC Glu Communications Controller ID Aliza Bolanos Disposition Clinical Impression: Hypoglycemic reaction to insulin Disposition: HOME SELF-CARE Condition: Stable Instructions: Hypoglycemia in a Person with Diabetes (ED) Additional Instructions: Eat regularly. Check sugar readily. Administer insulin correctly. follow-up family doctor Referrals: Ócsar Jackson MD [Primary Care Provider] - 1-2 days Time of Disposition: 17:00
[2017-02-26 15:46] LABS: Glucose,Whole Blood 69 mg/dL (75-99)
[2017-02-26 16:15] LABS: Glucose,Whole Blood 86 mg/dL (75-99)
[2017-02-26 16:37] LABS: Glucose,Whole Blood 146 mg/dL (75-99)
[2017-02-26 17:09] VITALS: BP 128/67; PULSE 84; TEMP 98.8
== END 2017-02-26 17:08 | disposition home or self-care (01) ==
LOC: EC 14:51
DX: E11.649 Type 2 diabetes mellitus with hypoglycemia without coma (principal); T38.3X5A Adverse effect of insulin and oral hypoglycemic [antidiabetic] drugs, initial encounter; F17.200 Nicotine dependence, unspecified, uncomplicated; Z79.4 Long term (current) use of insulin; Z79.899 Other long term (current) drug therapy
CPT/HCPCS: 36415; 99284

== ENCOUNTER 2017-05-24 12:59 | Inpatient (IN) | payer BC, OTHER ==
[2017-05-24] MEDS ORDERED: ONDANSETRON 4 MG/2 ML VIAL IVP STA (13:46)
--- NOTE | 2017-05-24 13:49 | ED ---
General Adult HPI - General Chief complaint: Nausea/Vomiting/Diarrhea Stated complaint: fever/vomiting Time Seen by Provider: 05/24/17 13:27 Source: patient Mode of arrival: ambulatory Limitations: no limitations - History of Present Illness Initial comments: Patient is a 26-year-old male with a history of type 1 diabetes presents with a chief complaint of nausea and vomiting since 1 this morning. Patient cannot identify any inciting incident. There are no aggravating or alleviating factors. Patient states that he can't keep anything down by mouth, and that he throws up 5 minutes after he tries to eat or drink anything. Timing is been constant since onset. - Related Data Home Medications Medication Instructions Recorded Confirmed INSULIN LISPRO (humaLOG) [humaLOG] 25 mg PO AC-TID 05/24/17 05/24/17 Insulin Glargine [Lantus] 30 units SQ DAILY 05/24/17 05/24/17 Allergies Allergy/AdvReac Type Severity Reaction Status Date / Time No Known Allergies Allergy Verified 05/24/17 13:28 Review of Systems ROS Statement: Those systems with pertinent positive or pertinent negative responses have been documented in the HPI. ROS Other: All systems not noted in ROS Statement are negative. Gastrointestinal: Reports: nausea, vomiting Past Medical History Past Medical History: Diabetes Mellitus Additional Past Medical History / Comment(s): STATED HAD SEIZURE WHEN BS WAS TO LOW, History of Any Multi-Drug Resistant Organisms: None Reported Past Surgical History: No Surgical Hx Reported Additional Past Surgical History / Comment(s): TOOTH EXTRACTED IN PAST AND YESTERDAY HAD A PUS POCKET NEAR FRONT TOOTH LANCED/DRAINED. Past Anesthesia/Blood Transfusion Reactions: No Reported Reaction Past Psychological History: No Psychological Hx Reported Smoking Status: Current every day smoker Past Alcohol Use History: None Reported Past Drug Use History: None Reported - Past Family History Father Family Medical History: No Reported History Mother Family Medical History: Asthma General Exam Limitations: no limitations General appearance: alert, in no apparent distress Head exam: Present: atraumatic, normocephalic Eye exam: Present: normal appearance ENT exam: Present: mucous membranes moist Respiratory exam: Present: normal lung sounds bilaterally, other (Tachypnea). Absent: respiratory distress Cardiovascular Exam: Present: normal rhythm, tachycardia GI/Abdominal exam: Present: soft, tenderness (Epigastric tenderness). Absent: distended Rectal exam: Present: deferred Neurological exam: Present: alert, oriented X3 Psychiatric exam: Present: normal affect, normal mood Skin exam: Present: warm, dry, intact Course Vital Signs 05/24/17 05/24/17 05/24/17 13:05 16:07 18:07 Temperature 99.0 F 98.0 F Pulse Rate 92 56 L Respiratory 22 17 Rate Blood Pressure 130/77 112/53 O2 Sat by Pulse 100 99 Oximetry 05/24/17 05/24/17 19:47 20:52 Temperature Pulse Rate 94 99 Respiratory 18 18 Rate Blood Pressure 128/63 127/68 O2 Sat by Pulse 97 98 Oximetry Medical Decision Making - Medical Decision Making Patient presents with a chief complaint of nausea and vomiting started this morning. Given a history of type 1 diabetes, the patient will basic labs and a VBG to rule out glucose currently DKA. On initial examination, patient is to, and appears uncomfortable. Patient will be given IV fluids. Lab evaluation of this patient shows evidence of DKA. Initial anion gap is 27, VBG shows acidosis with a pH of 7.21, ketones are present. Initial glucose is just over 500. Patient was given initial insulin bolus and started on a drip. IV fluid boluses were given. Patient has one hour glucose checks ordered, and every 4 hour electrolytes. Patient is admitted to Dr. Adams with consult to Dr. Garner. I spoke with Dr. Garner regarding this patient's case. Currently there are no ICU beds available. DKA management will be initiated in the emergency department. 8:59 PM Glucose currently under 300, patient was started on D5 normal. Continue insulin drip, continue monitoring electrolytes. Keep patient nothing by mouth. Currently pending repeat electrolytes. On reevaluation, the patient appears much improved. This case will be signed out to overnight provider as no ICU beds are available currently. - Lab Data Result diagrams: 05/24/17 14:30 05/24/17 18:23 Lab Results 05/24/17 05/24/17 05/24/17 Range/Units 14:30 14:30 15:25 WBC 13.6 H (3.8-10.6) k/uL RBC 5.53 (4.30-5.90) m/uL Hgb 16.9 (13.0-17.5) gm/dL Hct 54.6 H (39.0-53.0) % MCV 98.6 (80.0-100.0) fL MCH 30.6 (25.0-35.0) pg MCHC 31.0 (31.0-37.0) g/dL RDW 11.6 (11.5-15.5) % Plt Count 314 (150-450) k/uL Neutrophils % 87 % Lymphocytes % 9 % Monocytes % 2 % Eosinophils % 1 % Basophils % 0 % Neutrophils # 11.9 H (1.3-7.7) k/uL Lymphocytes # 1.2 (1.0-4.8) k/uL Monocytes # 0.3 (0-1.0) k/uL Eosinophils # 0.1 (0-0.7) k/uL Basophils # 0.0 (0-0.2) k/uL VBG pH 7.21 L (7.31-7.41) VBG pCO2 37 (37-51) mmHg VBG HCO3 14 L (24-28) mmol/L Sodium 137 (137-145) mmol/L Potassium 5.5 H (3.5-5.1) mmol/L Chloride 96 L (98-107) mmol/L Carbon Dioxide 14 L (22-30) mmol/L Anion Gap 27 mmol/L BUN 24 H (9-20) mg/dL Creatinine 1.18 (0.66-1.25) mg/dL Est GFR (MDRD) Af Amer >60 (>60 ml/min/1.73 sqM) Est GFR (MDRD) Non-Af >60 (>60 ml/min/1.73 sqM) Glucose 508 H* (74-99) mg/dL Calcium 10.6 H (8.4-10.2) mg/dL Urine Color Urine Appearance (Clear) Urine pH (5.0-8.0) Ur Specific [place] (1.001-1.035) Urine Protein (Negative) Urine Glucose (UA) (Negative) Urine Ketones (Negative) Urine Blood (Negative) Urine Nitrite (Negative) Urine Bilirubin (Negative) Urine Urobilinogen (<2.0) mg/dL Ur Leukocyte Esterase (Negative) Acetone, Qual Positive (Negative) 05/24/17 Range/Units 15:25 WBC (3.8-10.6) k/uL RBC (4.30-5.90) m/uL Hgb (13.0-17.5) gm/dL Hct (39.0-53.0) % MCV (80.0-100.0) fL MCH (25.0-35.0) pg MCHC (31.0-37.0) g/dL RDW (11.5-15.5) % Plt Count (150-450) k/uL Neutrophils % % Lymphocytes % % Monocytes % % Eosinophils % % Basophils % % Neutrophils # (1.3-7.7) k/uL Lymphocytes # (1.0-4.8) k/uL Monocytes # (0-1.0) k/uL Eosinophils # (0-0.7) k/uL Basophils # (0-0.2) k/uL VBG pH (7.31-7.41) VBG pCO2 (37-51) mmHg VBG HCO3 (24-28) mmol/L Sodium (137-145) mmol/L Potassium (3.5-5.1) mmol/L Chloride (98-107) mmol/L Carbon Dioxide (22-30) mmol/L Anion Gap mmol/L BUN (9-20) mg/dL Creatinine (0.66-1.25) mg/dL Est GFR (MDRD) Af Amer (>60 ml/min/1.73 sqM) Est GFR (MDRD) Non-Af (>60 ml/min/1.73 sqM) Glucose (74-99) mg/dL Calcium (8.4-10.2) mg/dL Urine Color Light Yellow Urine Appearance Clear (Clear) Urine pH 5.0 (5.0-8.0) Ur Specific [place] 1.018 (1.001-1.035) Urine Protein Trace H (Negative) Urine Glucose (UA) 4+ H (Negative) Urine Ketones 4+ H (Negative) Urine Blood Negative (Negative) Urine Nitrite Negative (Negative) Urine Bilirubin Negative (Negative) Urine Urobilinogen <2.0 (<2.0) mg/dL Ur Leukocyte Esterase Negative (Negative) Acetone, Qual (Negative) Disposition Clinical Impression: DKA, type 1, DKA (diabetic ketoacidoses) Disposition: ADMITTED IP TO THIS HOSP Condition: Fair Decision to Admit Reason: Admit from EC - Out of Hospital Transfer - Req. Specs Out of Hospital Transfer - Requested Specifics: Adult ICU
[2017-05-24 14:41] LABS: Basophils % (A) 0 %; Eosinophils # (A) 0.1 k/uL (0-0.7); Eosinophils % (A) 1 %; HCT 54.6 % (39.0-53.0); HGB 16.9 gm/dL (13.0-17.5); Lymphocytes # (A) 1.2 k/uL (1.0-4.8); Lymphocytes % (A) 9 %; MCH 30.6 pg (25.0-35.0); MCV 98.6 fL (80.0-100.0); Mean Platelet Volume 7.5; Monocytes # (A) 0.3 k/uL (0-1.0); Monocytes % (A) 2 %; Neutrophils # (A) 11.9 k/uL (1.3-7.7); Neutrophils % (A) 87 %; Platelet Count 314 k/uL (150-450); RBC 5.53 m/uL (4.30-5.90); RDW 11.6 % (11.5-15.5); WBC 13.6 k/uL (3.8-10.6)
[2017-05-24 14:53] LABS: Anion Gap 27 mmol/L; Blood Urea Nitrogen 24 mg/dL (9-20); Calcium 10.6 mg/dL (8.4-10.2); Carbon Dioxide 14 mmol/L (22-30); Chloride 96 mmol/L (98-107); Potassium 5.5 mmol/L (3.5-5.1); Sodium 137 mmol/L (137-145)
[2017-05-24 15:01] LABS: Glucose 508 mg/dL (74-99)
[2017-05-24] MEDS ORDERED: INSULIN REGULAR BOLUS (FROM DRIP BAG) IV ONE (15:08)
[2017-05-24] MEDS ORDERED: Magnesium Replacement Protocol 1 EACH MISC MISCELLANE PRN (15:08)
[2017-05-24] MEDS ORDERED: Potassium Replacement Protocol 1 EACH MISC MISCELLANE PRN (15:08)
[2017-05-24] MEDS ORDERED: INSULIN REGULAR 100 UNIT in SODIUM CHLORIDE 0.9% 100 ML IV SCH (15:15)
[2017-05-24] MEDS ORDERED: SODIUM CHLORIDE 0.9% 1,000 ML IV SCH (15:15)
[2017-05-24] MEDS ORDERED: NALOXONE 0.4 MG/ML 1 ML VIAL IV PRN (15:32)
[2017-05-24 17:24] LABS: Glucose,Whole Blood 396 mg/dL (75-99)
[2017-05-24 17:25] LABS: VBG PH 7.21 (7.31-7.41)
[2017-05-24 17:29] LABS: Glucose,Whole Blood 396 mg/dL (75-99)
[2017-05-24 17:33] LABS: Appearance,Urine Clear (Clear); Bilirubin,Urine Negative (Negative); Blood,Urine Negative (Negative); Color,Urine Light Yellow; Glucose,Urine (UA) 4+ (Negative); Leukocyte Esterase,Urine Negative (Negative); Nitrite,Urine Negative (Negative); Protein,Urine Trace (Negative); Specific Gravity,Urine 1.018 (1.001-1.035); Urobilinogen,Urine <2.0 mg/dL (<2.0)
[2017-05-24 17:36] LABS: Ketones,Urine 4+ (Negative)
[2017-05-24 18:49] LABS: Glucose,Whole Blood 260 mg/dL (75-99)
[2017-05-24] MEDS: D5-0.45% NACL WITH KCL 20MEQ/L 1,000 ML IV SCH (19:01)
[2017-05-24 19:02] LABS: Anion Gap 20 mmol/L; Calcium 9.6 mg/dL (8.4-10.2); Carbon Dioxide 14 mmol/L (22-30); Chloride 100 mmol/L (98-107); Glucose 257 mg/dL (74-99); Magnesium 1.9 mg/dL (1.6-2.3); Phosphorus 4.7 mg/dL (2.5-4.5); Sodium 134 mmol/L (137-145)
[2017-05-24 19:07] LABS: Blood Urea Nitrogen 23 mg/dL (9-20); Potassium 5.3 mmol/L (3.5-5.1)
[2017-05-24 19:58] LABS: Glucose,Whole Blood 273 mg/dL (75-99)
[2017-05-24 20:56] LABS: Magnesium 1.8 mg/dL (1.6-2.3); Phosphorus 4.2 mg/dL (2.5-4.5)
[2017-05-24 20:58] LABS: Glucose,Whole Blood 270 mg/dL (75-99)
[2017-05-24 21:55] LABS: Glucose,Whole Blood 243 mg/dL (75-99)
[2017-05-24 22:45] LABS: Glucose,Whole Blood 202 mg/dL (75-99)
[2017-05-24 22:57] VITALS: BMI 24.2
[2017-05-24 23:04] LABS: Anion Gap 13 mmol/L; Blood Urea Nitrogen 21 mg/dL (9-20); Calcium 10.1 mg/dL (8.4-10.2); Carbon Dioxide 22 mmol/L (22-30); Chloride 98 mmol/L (98-107); Glucose 197 mg/dL (74-99); Magnesium 1.8 mg/dL (1.6-2.3); Phosphorus 3.5 mg/dL (2.5-4.5); Potassium 4.7 mmol/L (3.5-5.1); Sodium 133 mmol/L (137-145)
[2017-05-25 00:04] LABS: Glucose,Whole Blood 103 mg/dL (75-99)
[2017-05-25] MEDS: MAGNESIUM SULFATE-D5W PMX 1 GM in DEXTROSE/WATER 1 100ML.BAG IVPB SCH ×2 (00:07→02:05)
--- NOTE | 2017-05-25 00:10 | P.HPIM ---
History of Present Illness H&P Date: 05/24/17 Chief Complaint: Nausea and vomiting Patient is a 26-year-old male with a history of type 1 diabetes presents with a chief complaint of nausea and vomiting since 1 this morning. Patient cannot identify any inciting incident. There are no aggravating or alleviating factors. Patient states that he can't keep anything down by mouth, and that he throws up 5 minutes after he tries to eat or drink anything. Timing is been constant since onset. Denied any abdominal pain. No complaint of chest pain or shortness of breath. Patient recently had cough and congestion and upper respiratory infection like symptoms which haven't resolved at this time. Currently denied any cough or sputum production. No headache or dizziness or lightheadedness. Denied any alcohol use. Patient does take insulin at home. Patient is not taking his insulin dose last 2 days since he is not eating due to nausea and vomiting. Patient was found to have DKA with anion gap 27 and acetone positive. Review of Systems Constitutional: Patient denies any fever or chills . No generalized weakness or weight loss. Abdomen: Nausea vomiting. No abdominal pain. No diarrhea Cardiovascular: Patient denies any chest pain or short of breath no palpitations. Respiratory: patient denied any cough is from production. No shortness of breath Neurologic: Patient denied any numbness or tingling headache. Musculoskeletal: Patient denies any complaints of joint swelling or deformity. Skin: Negative Psychiatric: Negative Endocrine: No heat or cold intolerance. No recent weight gain. Genitourinary: No dysuria or hematuria. All other 14 point ROS negative except the above Past Medical History Past Medical History: Diabetes Mellitus Additional Past Medical History / Comment(s): STATED HAD SEIZURE WHEN BS WAS TO LOW, History of Any Multi-Drug Resistant Organisms: None Reported Past Surgical History: No Surgical Hx Reported Additional Past Surgical History / Comment(s): TOOTH EXTRACTED IN PAST AND YESTERDAY HAD A PUS POCKET NEAR FRONT TOOTH LANCED/DRAINED. Past Anesthesia/Blood Transfusion Reactions: No Reported Reaction Past Psychological History: No Psychological Hx Reported Smoking Status: Current every day smoker Past Alcohol Use History: None Reported Past Drug Use History: None Reported - Past Family History Father Family Medical History: No Reported History Mother Family Medical History: Asthma Medications and Allergies Home Medications Medication Instructions Recorded Confirmed Type INSULIN LISPRO (humaLOG) [humaLOG] 25 mg PO AC-TID 05/24/17 05/24/17 History Insulin Glargine [Lantus] 30 units SQ DAILY 05/24/17 05/24/17 History Allergies Allergy/AdvReac Type Severity Reaction Status Date / Time No Known Allergies Allergy Verified 05/24/17 13:28 Physical Exam Vitals: Vital Signs Temp Pulse Resp BP Pulse Ox 05/24/17 18:07 56 L 17 112/53 99 05/24/17 16:07 98.0 F 05/24/17 13:05 99.0 F 92 22 130/77 100 Intake and Output 05/24/17 05/24/17 05/24/17 06:59 14:59 22:59 Other: Weight 68.039 kg Patient Weight 05/25/17 06:59 Weight 68.039 kg PHYSICAL EXAMINATION: Patient is lying in the bed comfortably, no acute distress, awake alert and oriented.. HEENT: Normocephalic. Neck is supple. Pupils reactive. Nostrils clear. Oral cavity is moist. Ears reveal no drainage. Neck reveals no JVD, carotid bruits, or thyromegaly. CHEST EXAMINATION: Trachea is central. Symmetrical expansion. Lung polk clear to auscultation and percussion. CARDIAC: Normal S1, S2 with no gallops. No murmurs ABDOMEN: Soft. Bowel sounds normal. No organomegaly. No abdominal bruits. Extremities: reveal no edema. No clubbing or cyanosis Neurologically awake, alert, oriented x3 with well-coordinated movements. No focal deficits noted Skin: No rash or skin lesions. Psychiatric: Coperative. Nonsuicidal Musculoskeletal: No joint swelling or deformity. Normal range of motion. Results CBC & Chem 7: 05/24/17 14:30 05/24/17 22:45 Labs: Abnormal Lab Results - Last 24 Hours (Table) 05/24/17 05/24/17 05/24/17 Range/Units 14:30 14:30 15:25 WBC 13.6 H (3.8-10.6) k/uL Hct 54.6 H (39.0-53.0) % Neutrophils # 11.9 H (1.3-7.7) k/uL VBG pH 7.21 L (7.31-7.41) VBG HCO3 14 L (24-28) mmol/L Potassium 5.5 H (3.5-5.1) mmol/L Chloride 96 L (98-107) mmol/L Carbon Dioxide 14 L (22-30) mmol/L BUN 24 H (9-20) mg/dL Glucose 508 H* (74-99) mg/dL POC Glucose (mg/dL) (75-99) mg/dL Calcium 10.6 H (8.4-10.2) mg/dL Urine Protein (Negative) Urine Glucose (UA) (Negative) Urine Ketones (Negative) 05/24/17 05/24/17 05/24/17 Range/Units 15:25 16:43 17:25 WBC (3.8-10.6) k/uL Hct (39.0-53.0) % Neutrophils # (1.3-7.7) k/uL VBG pH (7.31-7.41) VBG HCO3 (24-28) mmol/L Potassium (3.5-5.1) mmol/L Chloride (98-107) mmol/L Carbon Dioxide (22-30) mmol/L BUN (9-20) mg/dL Glucose (74-99) mg/dL POC Glucose (mg/dL) 396 H 396 H (75-99) mg/dL Calcium (8.4-10.2) mg/dL Urine Protein Trace H (Negative) Urine Glucose (UA) 4+ H (Negative) Urine Ketones 4+ H (Negative) Thrombosis Risk Factor Assmnt - DVT/VTE Prophylaxis DVT/VTE Prophylaxis: Pharmacologic Prophylaxis ordered Assessment and Plan Assessment: Acute diabetic ketoacidosis Intractable nausea and vomiting Hyperglycemia due to uncontrolled diabetes type 1 Diabetes type 1 Hyperkalemia due to acidosis Mild leukocytosis likely reactive Plan: Patient will be continued on insulin drip and check electrolytes every 4 until DKA resolves. Symptomatic management for nausea and vomiting. Continue with IV fluids and monitor closely. Patient does take Lantus and preprandial aspart at home. Continue with current management and further recommendations based on the clinical course. Time with Patient: Greater than 30
[2017-05-25 00:38] LABS: Glucose,Whole Blood 84 mg/dL (75-99)
[2017-05-25 01:06] LABS: Glucose,Whole Blood 84 mg/dL (75-99)
[2017-05-25 01:34] LABS: Glucose,Whole Blood 94 mg/dL (75-99)
[2017-05-25 02:05] LABS: Glucose,Whole Blood 118 mg/dL (75-99)
[2017-05-25] MEDS: D5-0.45% NACL WITH KCL 20MEQ/L 1,000 ML IV SCH (02:12)
[2017-05-25 02:33] LABS: Glucose,Whole Blood 140 mg/dL (75-99)
[2017-05-25 02:39] LABS: Basophils # (A) 0.1 k/uL (0-0.2); Basophils % (A) 1 %; Eosinophils # (A) 0.2 k/uL (0-0.7); Eosinophils % (A) 1 %; HCT 44.9 % (39.0-53.0); Lymphocytes # (A) 3.2 k/uL (1.0-4.8); Lymphocytes % (A) 19 %; MCH 31.1 pg (25.0-35.0); MCHC 33.5 g/dL (31.0-37.0); Mean Platelet Volume 7.2; Monocytes # (A) 1.1 k/uL (0-1.0); Monocytes % (A) 6 %; Neutrophils # (A) 12.2 k/uL (1.3-7.7); Neutrophils % (A) 71 %; Platelet Count 313 k/uL (150-450); RBC 4.83 m/uL (4.30-5.90); RDW 11.7 % (11.5-15.5); WBC 17.1 k/uL (3.8-10.6)
[2017-05-25 02:49] LABS: ALT 31 U/L (21-72); AST 23 U/L (17-59); Albumin 3.9 g/dL (3.5-5.0); Alkaline Phosphatase 71 U/L (38-126); Anion Gap 10 mmol/L; Blood Urea Nitrogen 18 mg/dL (9-20); Calcium 9.6 mg/dL (8.4-10.2); Carbon Dioxide 23 mmol/L (22-30); Chloride 101 mmol/L (98-107); Glucose 126 mg/dL (74-99); Magnesium 2.4 mg/dL (1.6-2.3); Phosphorus 3.2 mg/dL (2.5-4.5); Potassium 4.6 mmol/L (3.5-5.1); Sodium 134 mmol/L (137-145); Total Bilirubin 2.3 mg/dL (0.2-1.3); Total Protein 6.5 g/dL (6.3-8.2)
[2017-05-25 03:10] LABS: Glucose,Whole Blood 174 mg/dL (75-99)
[2017-05-25] MEDS ORDERED: INSULIN DETEMIR 100 UNIT/ML 10 ML VIAL SQ SCH (03:30)
[2017-05-25] MEDS ORDERED: DEXTROSE 5%-0.45% NACL 1,000 ML with POTASSIUM CHLORIDE 20 MEQ IV SCH ×2 (03:30)
[2017-05-25 05:03] LABS: Hemoglobin A1C 8.9 % (4.0-6.0)
[2017-05-25 05:16] LABS: Glucose,Whole Blood 222 mg/dL (75-99)
[2017-05-25 06:46] LABS: Glucose,Whole Blood 231 mg/dL (75-99)
[2017-05-25 07:22] LABS: Glucose,Whole Blood 268 mg/dL (75-99)
[2017-05-25] MEDS ORDERED: INSULIN ASPART 100 UNIT/ML 1 ML 10 ML VIAL SQ SCH (07:30)
[2017-05-25 07:52] VITALS: BP 124/77; PULSE 85; RESP 16; TEMP 97.3
[2017-05-25 08:17] LABS: Basophils % (A) 0 %; Eosinophils # (A) 0.1 k/uL (0-0.7); Eosinophils % (A) 1 %; HCT 50.6 % (39.0-53.0); HGB 15.8 gm/dL (13.0-17.5); Lymphocytes % (A) 16 %; MCH 30.3 pg (25.0-35.0); MCHC 31.2 g/dL (31.0-37.0); MCV 97.2 fL (80.0-100.0); Mean Platelet Volume 7.3; Monocytes # (A) 0.7 k/uL (0-1.0); Monocytes % (A) 5 %; Neutrophils # (A) 9.8 k/uL (1.3-7.7); Neutrophils % (A) 77 %; Platelet Count 309 k/uL (150-450); RDW 11.7 % (11.5-15.5); WBC 12.7 k/uL (3.8-10.6)
[2017-05-25 08:29] LABS: ALT 34 U/L (21-72); AST 22 U/L (17-59); Albumin 4.5 g/dL (3.5-5.0); Alkaline Phosphatase 89 U/L (38-126); Anion Gap 13 mmol/L; Blood Urea Nitrogen 16 mg/dL (9-20); Calcium 9.8 mg/dL (8.4-10.2); Carbon Dioxide 23 mmol/L (22-30); Chloride 99 mmol/L (98-107); Glucose 282 mg/dL (74-99); Sodium 135 mmol/L (137-145); Total Bilirubin 3.3 mg/dL (0.2-1.3); Total Protein 7.1 g/dL (6.3-8.2)
--- NOTE | 2017-06-10 21:46 | P.DS ---
Providers Date of admission: 05/24/17 15:32 Expected date of discharge: 05/25/17 Attending physician: Xander Adams Primary care physician: Manuel Cantrell [facility] Course: Discharge diagnosis Acute diabetic ketoacidosis. Resolved Intractable nausea and vomiting Hyperglycemia due to uncontrolled diabetes type 1 Diabetes type 1 Hyperkalemia due to acidosis Mild leukocytosis likely reactive Hospital course Patient is a 26-year-old male with a history of type 1 diabetes presents with a chief complaint of nausea and vomiting since 1 this morning. Patient cannot identify any inciting incident. There are no aggravating or alleviating factors. Patient states that he can't keep anything down by mouth, and that he throws up 5 minutes after he tries to eat or drink anything. Timing is been constant since onset. Denied any abdominal pain. No complaint of chest pain or shortness of breath. Patient recently had cough and congestion and upper respiratory infection like symptoms which haven't resolved at this time. Currently denied any cough or sputum production. No headache or dizziness or lightheadedness. Denied any alcohol use. Patient does take insulin at home. Patient is not taking his insulin dose last 2 days since he is not eating due to nausea and vomiting. Patient was found to have DKA with anion gap 27 and acetone positive. Patient was continued on insulin drip and check electrolytes every 4 until DKA resolves. Symptomatic management for nausea and vomiting. Continue with IV fluids and monitor closely. Patient does take Lantus and preprandial aspart at home. Currently patient is tolerating oral diet. Symptomatically improved. Otherwise blood sugars controlled and is stable to be discharged home. PHYSICAL EXAMINATION: Patient is lying in the bed comfortably, no acute distress, awake alert and oriented.. HEENT: Normocephalic. Neck is supple. Pupils reactive. Nostrils clear. Oral cavity is moist. Ears reveal no drainage. Neck reveals no JVD, carotid bruits, or thyromegaly. CHEST EXAMINATION: Trachea is central. Symmetrical expansion. Lung polk clear to auscultation and percussion. CARDIAC: Normal S1, S2 with no gallops. No murmurs ABDOMEN: Soft. Bowel sounds normal. No organomegaly. No abdominal bruits. Extremities: reveal no edema. No clubbing or cyanosis Neurologically awake, alert, oriented x3 with well-coordinated movements. No focal deficits noted Skin: No rash or skin lesions. Psychiatric: Coperative. Nonsuicidal Musculoskeletal: No joint swelling or deformity. Normal range of motion. Patient Condition at Discharge: Fair Plan - Discharge Summary New Discharge Prescriptions: Continue Insulin Glargine [Lantus] 30 units SQ DAILY Changed INSULIN LISPRO (humaLOG) [humaLOG] 10 units SQ AC-TID #0 Discharge Medication List Insulin Glargine [Lantus] 30 units SQ DAILY 05/24/17 [History] INSULIN LISPRO (humaLOG) [humaLOG] 10 units SQ AC-TID #0 05/25/17 [Rx] Follow up Appointment(s)/Referral(s): Óscar Jackson MD [Primary Care Provider] - 05/31/17 10:40 am Patient Instructions/Handouts: Diabetic Ketoacidosis (DC) Discharge Disposition: HOME SELF-CARE
== END 2017-05-25 11:35 | disposition home or self-care (01) | DRG 639 ==
LOC: EC 12:59 → 6ICU 15:32 → 4MS4W 05-25 03:10 → 5MS5E 05-25 06:13
PROVIDERS: ADMIT Internal Medicine; ATTEND Internal Medicine
DX: E10.10 Type 1 diabetes mellitus with ketoacidosis without coma (principal); F17.200 Nicotine dependence, unspecified, uncomplicated; Z79.4 Long term (current) use of insulin; Z82.5 Family history of asthma and other chronic lower respiratory diseases
CPT/HCPCS: 36415; 80048; 80053; 81003; 82009; 82803; 83036; 83735; 83880; 84100; 85025; 96365; 96366; 96367; 96375; 99285

== ENCOUNTER 2017-09-07 06:50 | Emergency (ER) | payer OTHER ==
[2017-09-07 06:57] VITALS: RESP 20
--- NOTE | 2017-09-07 07:10 | ED ---
General Adult HPI - General Chief complaint: Upper Respiratory Infection Stated complaint: cough, chest pain Time Seen by Provider: 09/07/17 07:02 Source: patient, RN notes reviewed, old records reviewed Mode of arrival: ambulatory Limitations: no limitations - History of Present Illness Initial comments: 26-year-old male presents for evaluation of cough. The patient states he developed a cough over the past 2 days. This cough has been dry and nonproductive. He has had some associated anterior chest pain which is worse with cough. Sharp in nature. Patient has past medical history of insulin- dependent diabetes. Patient denies rhinorrhea, states he has had sore throat as well. No fever or chills. No abdominal pain nausea vomiting or diarrhea. No rash. No lower extremity pain or swelling. - Related Data Home Medications Medication Instructions Recorded Confirmed Insulin Glargine [Lantus] 30 units SQ HS 05/24/17 09/07/17 INSULIN LISPRO (humaLOG) [humaLOG] 25 units SQ AC-TID 09/07/17 09/07/17 Allergies Allergy/AdvReac Type Severity Reaction Status Date / Time No Known Allergies Allergy Verified 09/07/17 08:01 Review of Systems ROS Statement: Those systems with pertinent positive or pertinent negative responses have been documented in the HPI. ROS Other: All systems not noted in ROS Statement are negative. Past Medical History Past Medical History: Diabetes Mellitus Additional Past Medical History / Comment(s): STATED HAD SEIZURE WHEN BS WAS TO LOW, History of Any Multi-Drug Resistant Organisms: None Reported Past Surgical History: No Surgical Hx Reported Additional Past Surgical History / Comment(s): TOOTH EXTRACTED IN PAST AND YESTERDAY HAD A PUS POCKET NEAR FRONT TOOTH LANCED/DRAINED. Past Anesthesia/Blood Transfusion Reactions: No Reported Reaction Past Psychological History: No Psychological Hx Reported Smoking Status: Current every day smoker Past Alcohol Use History: None Reported Past Drug Use History: None Reported - Past Family History Father Family Medical History: No Reported History Mother Family Medical History: Asthma General Exam Limitations: no limitations General appearance: alert, in no apparent distress Head exam: Present: atraumatic, normocephalic Eye exam: Present: normal appearance, PERRL, EOMI ENT exam: Present: normal exam Neck exam: Present: normal inspection. Absent: tenderness, meningismus Respiratory exam: Present: normal lung sounds bilaterally. Absent: respiratory distress, wheezes, rales Cardiovascular Exam: Present: regular rate, normal rhythm GI/Abdominal exam: Present: soft. Absent: distended, tenderness Extremities exam: Present: normal inspection, normal capillary refill. Absent: pedal edema, calf tenderness Back exam: Present: normal inspection Neurological exam: Present: alert, oriented X3, CN II-XII intact. Absent: motor sensory deficit Psychiatric exam: Present: normal affect, normal mood Skin exam: Present: warm, dry, intact. Absent: cyanosis, diaphoretic Course Vital Signs 09/07/17 06:54 Temperature 98.8 F Pulse Rate 91 Respiratory 20 Rate Blood Pressure 127/74 O2 Sat by Pulse 100 Oximetry EKG Findings - EKG Comments: EKG Findings:: EKG: Normal sinus rhythm rate of 88, RI interval 142, QRS duration 86, QTC 401 no signs of acute ischemia Medical Decision Making - Medical Decision Making 26-year-old male presenting with chief complaint of cough. Patient is a type I diabetic and has not taken his insulin over the past several days. Laboratory studies are obtained. Initial glucose is the 500s. White blood cell count normal, hemoglobin stable, urinalysis is negative for ketones, does show 4+ glucose. BMP shows hyponatremia 132 which is likely pseudohyponatremia. Glucose is elevated 385. Acetone is negative. Normal anion gap. No signs of DKA. Patient receives 2 L of IV hydration and 5 units of subcutaneous insulin. Regarding his cough and mild sore throat. This likely viral in nature. Patient will follow-up with his primary care physician. - Lab Data Result diagrams: 09/07/17 07:34 09/07/17 07:34 Lab Results 09/07/17 09/07/17 09/07/17 Range/Units 07:12 07:34 07:34 WBC 9.1 (3.8-10.6) k/uL RBC 5.34 (4.30-5.90) m/uL Hgb 17.1 (13.0-17.5) gm/dL Hct 52.1 (39.0-53.0) % MCV 97.5 (80.0-100.0) fL MCH 32.0 (25.0-35.0) pg MCHC 32.8 (31.0-37.0) g/dL RDW 12.0 (11.5-15.5) % Plt Count 219 (150-450) k/uL Neutrophils % 84 % Lymphocytes % 7 % Monocytes % 3 % Eosinophils % 4 % Basophils % 1 % Neutrophils # 7.6 (1.3-7.7) k/uL Lymphocytes # 0.7 L (1.0-4.8) k/uL Monocytes # 0.3 (0-1.0) k/uL Eosinophils # 0.4 (0-0.7) k/uL Basophils # 0.0 (0-0.2) k/uL Sodium 132 L (137-145) mmol/L Potassium 4.8 (3.5-5.1) mmol/L Chloride 95 L (98-107) mmol/L Carbon Dioxide 25 (22-30) mmol/L Anion Gap 12 mmol/L BUN 12 (9-20) mg/dL Creatinine 0.80 (0.66-1.25) mg/dL Est GFR (CKD-EPI)AfAm >90 (>60 ml/min/1.73 sqM) Est GFR (CKD-EPI)NonAf >90 (>60 ml/min/1.73 sqM) Glucose 548 H* (74-99) mg/dL POC Glucose (mg/dL) 591 H (75-99) mg/dL POC Glu Block Trimmer ID Lorena Darling Calcium 9.5 (8.4-10.2) mg/dL Total Bilirubin 1.5 H (0.2-1.3) mg/dL AST 27 (17-59) U/L ALT 30 (21-72) U/L Alkaline Phosphatase 157 H (38-126) U/L Total Protein 6.8 (6.3-8.2) g/dL Albumin 4.3 (3.5-5.0) g/dL Urine Color Urine Appearance (Clear) Urine pH (5.0-8.0) Ur Specific [place] (1.001-1.035) Urine Protein (Negative) Urine Glucose (UA) (Negative) Urine Ketones (Negative) Urine Blood (Negative) Urine Nitrite (Negative) Urine Bilirubin (Negative) Urine Urobilinogen (<2.0) mg/dL Ur Leukocyte Esterase (Negative) Acetone, Qual Negative (Negative) 09/07/17 09/07/17 Range/Units 07:43 08:43 WBC (3.8-10.6) k/uL RBC (4.30-5.90) m/uL Hgb (13.0-17.5) gm/dL Hct (39.0-53.0) % MCV (80.0-100.0) fL MCH (25.0-35.0) pg MCHC (31.0-37.0) g/dL RDW (11.5-15.5) % Plt Count (150-450) k/uL Neutrophils % % Lymphocytes % % Monocytes % % Eosinophils % % Basophils % % Neutrophils # (1.3-7.7) k/uL Lymphocytes # (1.0-4.8) k/uL Monocytes # (0-1.0) k/uL Eosinophils # (0-0.7) k/uL Basophils # (0-0.2) k/uL Sodium (137-145) mmol/L Potassium (3.5-5.1) mmol/L Chloride (98-107) mmol/L Carbon Dioxide (22-30) mmol/L Anion Gap mmol/L BUN (9-20) mg/dL Creatinine (0.66-1.25) mg/dL Est GFR (CKD-EPI)AfAm (>60 ml/min/1.73 sqM) Est GFR (CKD-EPI)NonAf (>60 ml/min/1.73 sqM) Glucose (74-99) mg/dL POC Glucose (mg/dL) 385 H (75-99) mg/dL POC Glu Block Trimmer ID Petitpren, Mirna Calcium (8.4-10.2) mg/dL Total Bilirubin (0.2-1.3) mg/dL AST (17-59) U/L ALT (21-72) U/L Alkaline Phosphatase (38-126) U/L Total Protein (6.3-8.2) g/dL Albumin (3.5-5.0) g/dL Urine Color Colorless Urine Appearance Clear (Clear) Urine pH 6.0 (5.0-8.0) Ur Specific [place] 1.026 (1.001-1.035) Urine Protein Negative (Negative) Urine Glucose (UA) 4+ H (Negative) Urine Ketones Negative (Negative) Urine Blood Negative (Negative) Urine Nitrite Negative (Negative) Urine Bilirubin Negative (Negative) Urine Urobilinogen <2.0 (<2.0) mg/dL Ur Leukocyte Esterase Negative (Negative) Acetone, Qual (Negative) Disposition Clinical Impression: Upper respiratory infection, Hyperglycemia Disposition: HOME SELF-CARE Condition: Good Instructions: Upper Respiratory Infection (ED) Is patient prescribed a controlled substance at d/c from ED?: No Referrals: Óscar Jackson MD [Primary Care Provider] - 1-2 days Time of Disposition: 08:57
[2017-09-07 07:14] LABS: Glucose,Whole Blood 591 mg/dL (75-99)
[2017-09-07] MEDS ORDERED: SODIUM CHLORIDE 0.9% 1,000 ML IV ONE ×2 (07:16→08:14)
--- NOTE | 2017-09-07 07:35 | XR ---
EXAMINATION TYPE: XR chest 2V DATE OF EXAM: 09/07/2017 COMPARISON: 12/19/2015 INDICATION: Pain, cough TECHNIQUE: Frontal and lateral views of the chest are obtained. FINDINGS: The heart size is normal. The pulmonary vasculature is normal. The lungs are clear. IMPRESSION: 1. No acute pulmonary process.
[2017-09-07 07:47] LABS: Basophils % (A) 1 %; Eosinophils # (A) 0.4 k/uL (0-0.7); Eosinophils % (A) 4 %; HCT 52.1 % (39.0-53.0); HGB 17.1 gm/dL (13.0-17.5); Lymphocytes # (A) 0.7 k/uL (1.0-4.8); Lymphocytes % (A) 7 %; MCHC 32.8 g/dL (31.0-37.0); MCV 97.5 fL (80.0-100.0); Mean Platelet Volume 7.4; Monocytes # (A) 0.3 k/uL (0-1.0); Monocytes % (A) 3 %; Neutrophils # (A) 7.6 k/uL (1.3-7.7); Neutrophils % (A) 84 %; Platelet Count 219 k/uL (150-450); RBC 5.34 m/uL (4.30-5.90); WBC 9.1 k/uL (3.8-10.6)
[2017-09-07 07:50] LABS: Appearance,Urine Clear (Clear); Bilirubin,Urine Negative (Negative); Blood,Urine Negative (Negative); Color,Urine Colorless; Glucose,Urine (UA) 4+ (Negative); Ketones,Urine Negative (Negative); Leukocyte Esterase,Urine Negative (Negative); Nitrite,Urine Negative (Negative); Protein,Urine Negative (Negative); Specific Gravity,Urine 1.026 (1.001-1.035); Urobilinogen,Urine <2.0 mg/dL (<2.0)
[2017-09-07 08:01] LABS: ALT 30 U/L (21-72); AST 27 U/L (17-59); Albumin 4.3 g/dL (3.5-5.0); Alkaline Phosphatase 157 U/L (38-126); Anion Gap 12 mmol/L; Blood Urea Nitrogen 12 mg/dL (9-20); Calcium 9.5 mg/dL (8.4-10.2); Carbon Dioxide 25 mmol/L (22-30); Chloride 95 mmol/L (98-107); Potassium 4.8 mmol/L (3.5-5.1); Sodium 132 mmol/L (137-145); Total Bilirubin 1.5 mg/dL (0.2-1.3); Total Protein 6.8 g/dL (6.3-8.2)
[2017-09-07 08:11] LABS: Glucose 548 mg/dL (74-99)
[2017-09-07] MEDS ORDERED: INSULIN REGULAR 100 UNIT/ML VIAL SQ ONE (08:14)
[2017-09-07 08:44] LABS: Glucose,Whole Blood 385 mg/dL (75-99)
[2017-09-07 09:30] LABS: Glucose,Whole Blood 347 mg/dL (75-99)
[2017-09-07 09:32] VITALS: BP 115/59; PULSE 99; TEMP 98.5
== END 2017-09-07 09:48 | disposition home or self-care (01) ==
LOC: EC 06:50
DX: J06.9 Acute upper respiratory infection, unspecified (principal); E11.65 Type 2 diabetes mellitus with hyperglycemia; J02.9 Acute pharyngitis, unspecified; F17.200 Nicotine dependence, unspecified, uncomplicated; Z79.4 Long term (current) use of insulin
CPT/HCPCS: 36415; 71046; 80053; 81003; 82009; 85025; 93005; 96360; 96361; 99284

== ENCOUNTER 2018-02-12 17:43 | Emergency (ER) | payer OTHER ==
[2018-02-12 18:00] VITALS: RESP 16; TEMP 97.9
[2018-02-12 18:24] LABS: Glucose,Whole Blood 146 mg/dL (75-99)
--- NOTE | 2018-02-12 18:29 | ED ---
General Adult HPI - General Chief complaint: Recheck/Abnormal Lab/Rx Stated complaint: hypoglycemia Time Seen by Provider: 02/12/18 18:09 Source: patient, EMS Mode of arrival: EMS Limitations: no limitations - History of Present Illness Initial comments: 27-year-old male patient presents to the emergency department today for evaluation after having an episode of hypoglycemia. Patient states he is a type I diabetic and does take NovoLog and a long-acting insulin similar to Lantus. Patient states that he did have breakfast this morning and then this afternoon he laid down to take a nap and then next thing he knew he woke up in the emergency department. EMS reported that his blood sugar was 28. Patient was given an amp of dextrose and blood sugar came up to a little over 200. Patient states he currently is feeling well. He denies any dizziness, blurred vision, double vision, weakness, headache, nausea, or vomiting. Patient states he has not had any recent illnesses. Patient denies any recent rash, fever, chills, shortness breath, chest pain, abdominal pain, diarrhea, constipation, back pain, numbness, tingling, hematuria, dysuria, urinary urgency, urinary frequency, headache, visual changes, or any other complaints. - Related Data Home Medications Medication Instructions Recorded Confirmed Insulin Glargine [Lantus] 30 units SQ HS 05/24/17 09/07/17 INSULIN LISPRO (humaLOG) [humaLOG] 25 units SQ AC-TID 09/07/17 09/07/17 Allergies Allergy/AdvReac Type Severity Reaction Status Date / Time No Known Allergies Allergy Verified 02/12/18 17:58 Review of Systems ROS Statement: Those systems with pertinent positive or pertinent negative responses have been documented in the HPI. ROS Other: All systems not noted in ROS Statement are negative. Past Medical History Past Medical History: Diabetes Mellitus Additional Past Medical History / Comment(s): STATED HAD SEIZURE WHEN BS WAS TO LOW, History of Any Multi-Drug Resistant Organisms: None Reported Past Surgical History: No Surgical Hx Reported Additional Past Surgical History / Comment(s): TOOTH EXTRACTED IN PAST AND YESTERDAY HAD A PUS POCKET NEAR FRONT TOOTH LANCED/DRAINED. Past Anesthesia/Blood Transfusion Reactions: No Reported Reaction Past Psychological History: No Psychological Hx Reported Smoking Status: Current every day smoker Past Alcohol Use History: None Reported Past Drug Use History: None Reported - Past Family History Father Family Medical History: No Reported History Mother Family Medical History: Asthma General Exam Limitations: no limitations General appearance: alert, in no apparent distress, other (This is a well- developed, well-nourished adult male patient in no acute distress. Vital signs upon presentation are temperature 97.9F, pulse 79, respirations 16, blood pressure 137/86, pulse ox 99% on room air.) Eye exam: Present: normal appearance, PERRL, EOMI. Absent: scleral icterus, conjunctival injection, periorbital swelling ENT exam: Present: normal exam, normal oropharynx, mucous membranes moist Respiratory exam: Present: normal lung sounds bilaterally. Absent: respiratory distress, wheezes, rales, rhonchi, stridor Cardiovascular Exam: Present: regular rate, normal rhythm, normal heart sounds. Absent: systolic murmur, diastolic murmur, rubs, gallop, clicks GI/Abdominal exam: Present: soft, normal bowel sounds. Absent: distended, tenderness, guarding, rebound, rigid Neurological exam: Present: alert, oriented X3, CN II-XII intact Psychiatric exam: Present: normal affect, normal mood Skin exam: Present: warm, dry, intact, normal color. Absent: rash Course Vital Signs 02/12/18 02/12/18 17:58 20:12 Temperature 97.9 F Pulse Rate 79 80 Respiratory 16 16 Rate Blood Pressure 137/86 126/79 O2 Sat by Pulse 99 100 Oximetry Medical Decision Making - Medical Decision Making 27-year-old male patient presented to the emergency department today for evaluation of hypoglycemia. He is brought in by ambulance after being found unresponsive, had blood sugar of 28. Physical examination upon arrival was unremarkable. He is tolerating oral food and fluids without difficulty. Labs reviewed and are unremarkable. Did discuss findings results with the patient. He is instructed to eat small frequent meals throughout the day and to monitor his blood sugars closely. He is instructed to follow-up with his primary care physician for recheck in 1-2 days. Return parameters discussed in detail. He verbalizes understanding and agrees with this plan. - Lab Data Result diagrams: 02/12/18 18:57 02/12/18 18:57 Lab Results 02/12/18 02/12/18 02/12/18 Range/Units 18:08 18:57 18:57 WBC 10.3 (3.8-10.6) k/uL RBC 5.35 (4.30-5.90) m/uL Hgb 17.0 (13.0-17.5) gm/dL Hct 50.7 (39.0-53.0) % MCV 94.9 (80.0-100.0) fL MCH 31.8 (25.0-35.0) pg MCHC 33.5 (31.0-37.0) g/dL RDW 12.0 (11.5-15.5) % Plt Count 271 (150-450) k/uL Neutrophils % 80 % Lymphocytes % 15 % Monocytes % 3 % Eosinophils % 1 % Basophils % 0 % Neutrophils # 8.3 H (1.3-7.7) k/uL Lymphocytes # 1.5 (1.0-4.8) k/uL Monocytes # 0.3 (0-1.0) k/uL Eosinophils # 0.2 (0-0.7) k/uL Basophils # 0.0 (0-0.2) k/uL Sodium 139 (137-145) mmol/L Potassium 4.5 (3.5-5.1) mmol/L Chloride 100 (98-107) mmol/L Carbon Dioxide 30 (22-30) mmol/L Anion Gap 9 mmol/L BUN 10 (9-20) mg/dL Creatinine 0.86 (0.66-1.25) mg/dL Est GFR (CKD-EPI)AfAm >90 (>60 ml/min/1.73 sqM) Est GFR (CKD-EPI)NonAf >90 (>60 ml/min/1.73 sqM) Glucose 225 H (74-99) mg/dL POC Glucose (mg/dL) 146 H (75-99) mg/dL POC Glu Associate [employer] Director ID July Calcium 9.8 (8.4-10.2) mg/dL Total Bilirubin 0.8 (0.2-1.3) mg/dL AST 25 (17-59) U/L ALT 25 (21-72) U/L Alkaline Phosphatase 87 (38-126) U/L Total Protein 7.4 (6.3-8.2) g/dL Albumin 4.4 (3.5-5.0) g/dL Urine Color Urine Appearance (Clear) Urine pH (5.0-8.0) Ur Specific [place] (1.001-1.035) Urine Protein (Negative) Urine Glucose (UA) (Negative) Urine Ketones (Negative) Urine Blood (Negative) Urine Nitrite (Negative) Urine Bilirubin (Negative) Urine Urobilinogen (<2.0) mg/dL Ur Leukocyte Esterase (Negative) Urine RBC (0-5) /hpf Urine WBC (0-5) /hpf Urine Mucus (None) /hpf 02/12/18 02/12/18 Range/Units 18:57 19:03 WBC (3.8-10.6) k/uL RBC (4.30-5.90) m/uL Hgb (13.0-17.5) gm/dL Hct (39.0-53.0) % MCV (80.0-100.0) fL MCH (25.0-35.0) pg MCHC (31.0-37.0) g/dL RDW (11.5-15.5) % Plt Count (150-450) k/uL Neutrophils % % Lymphocytes % % Monocytes % % Eosinophils % % Basophils % % Neutrophils # (1.3-7.7) k/uL Lymphocytes # (1.0-4.8) k/uL Monocytes # (0-1.0) k/uL Eosinophils # (0-0.7) k/uL Basophils # (0-0.2) k/uL Sodium (137-145) mmol/L Potassium (3.5-5.1) mmol/L Chloride (98-107) mmol/L Carbon Dioxide (22-30) mmol/L Anion Gap mmol/L BUN (9-20) mg/dL Creatinine (0.66-1.25) mg/dL Est GFR (CKD-EPI)AfAm (>60 ml/min/1.73 sqM) Est GFR (CKD-EPI)NonAf (>60 ml/min/1.73 sqM) Glucose (74-99) mg/dL POC Glucose (mg/dL) 234 H (75-99) mg/dL POC Glu Associate [employer] Director ID Jeff Giraldo Calcium (8.4-10.2) mg/dL Total Bilirubin (0.2-1.3) mg/dL AST (17-59) U/L ALT (21-72) U/L Alkaline Phosphatase (38-126) U/L Total Protein (6.3-8.2) g/dL Albumin (3.5-5.0) g/dL Urine Color Yellow Urine Appearance Clear (Clear) Urine pH 6.5 (5.0-8.0) Ur Specific [place] 1.011 (1.001-1.035) Urine Protein 1+ H (Negative) Urine Glucose (UA) 4+ H (Negative) Urine Ketones Negative (Negative) Urine Blood Negative (Negative) Urine Nitrite Negative (Negative) Urine Bilirubin Negative (Negative) Urine Urobilinogen <2.0 (<2.0) mg/dL Ur Leukocyte Esterase Negative (Negative) Urine RBC <1 (0-5) /hpf Urine WBC <1 (0-5) /hpf Urine Mucus Rare H (None) /hpf Disposition Clinical Impression: Hypoglycemia Disposition: HOME SELF-CARE Condition: Good Instructions: Hypoglycemia in a Person with Diabetes (ED) Additional Instructions: Eat small frequent meals throughout the day. Monitor blood sugars closely. Follow-up through primary care physician for recheck in 1-2 days. Return immediately for any new, worsening, or concerning symptoms. Is patient prescribed a controlled substance at d/c from ED?: No Referrals: Óscar Jackson MD [Primary Care Provider] - 1-2 days Time of Disposition: 20:01
[2018-02-12 19:13] LABS: Basophils % (A) 0 %; Eosinophils # (A) 0.2 k/uL (0-0.7); Eosinophils % (A) 1 %; HCT 50.7 % (39.0-53.0); Lymphocytes # (A) 1.5 k/uL (1.0-4.8); Lymphocytes % (A) 15 %; MCH 31.8 pg (25.0-35.0); MCHC 33.5 g/dL (31.0-37.0); MCV 94.9 fL (80.0-100.0); Mean Platelet Volume 7.2; Monocytes # (A) 0.3 k/uL (0-1.0); Monocytes % (A) 3 %; Neutrophils # (A) 8.3 k/uL (1.3-7.7); Neutrophils % (A) 80 %; Platelet Count 271 k/uL (150-450); RBC 5.35 m/uL (4.30-5.90); WBC 10.3 k/uL (3.8-10.6)
[2018-02-12 19:24] LABS: ALT 25 U/L (21-72); AST 25 U/L (17-59); Albumin 4.4 g/dL (3.5-5.0); Alkaline Phosphatase 87 U/L (38-126); Anion Gap 9 mmol/L; Blood Urea Nitrogen 10 mg/dL (9-20); Calcium 9.8 mg/dL (8.4-10.2); Carbon Dioxide 30 mmol/L (22-30); Chloride 100 mmol/L (98-107); Glucose 225 mg/dL (74-99); Potassium 4.5 mmol/L (3.5-5.1); Sodium 139 mmol/L (137-145); Total Bilirubin 0.8 mg/dL (0.2-1.3); Total Protein 7.4 g/dL (6.3-8.2)
[2018-02-12 19:31] LABS: Appearance,Urine Clear (Clear); Bilirubin,Urine Negative (Negative); Blood,Urine Negative (Negative); Color,Urine Yellow; Glucose,Urine (UA) 4+ (Negative); Ketones,Urine Negative (Negative); Leukocyte Esterase,Urine Negative (Negative); Mucus,Urine Rare /hpf; Nitrite,Urine Negative (Negative); PH, Urine 6.5 (5.0-8.0); Protein,Urine 1+ (Negative); RBC,Urine <1 /hpf (0-5); Specific Gravity,Urine 1.011 (1.001-1.035); Urobilinogen,Urine <2.0 mg/dL (<2.0); WBC,Urine <1 /hpf (0-5)
[2018-02-12 19:37] LABS: Glucose,Whole Blood 234 mg/dL (75-99)
[2018-02-12 20:13] VITALS: BP 126/79; PULSE 80
[2018-02-13 16:02] LABS: Hemoglobin A1C 9.3 % (4.0-6.0)
== END 2018-02-12 20:12 | disposition home or self-care (01) ==
LOC: EC 17:43
DX: E10.649 Type 1 diabetes mellitus with hypoglycemia without coma (principal); F17.200 Nicotine dependence, unspecified, uncomplicated; Z79.4 Long term (current) use of insulin
CPT/HCPCS: 36415; 80053; 81001; 83036; 85025; 99285

== ENCOUNTER 2018-02-14 20:38 | Emergency (ER) | payer OTHER ==
[2018-02-14 20:51] VITALS: RESP 17
[2018-02-14 20:54] LABS: Glucose,Whole Blood 70 mg/dL (75-99)
--- NOTE | 2018-02-14 22:04 | ED ---
Recheck HPI - General Chief Complaint: Recheck/Abnormal Lab/Rx Stated Complaint: Diabtic issues Time Seen by Provider: 02/14/18 21:06 Source: patient, EMS Mode of arrival: EMS Limitations: no limitations - History of Present Illness Initial Comments: Howard is a 27-year-old insulin-dependent diabetic male who presents to the ER today for evaluation of hypoglycemia. Patient reports that earlier in the week his primary care physician increased his long-acting insulin from 35 units nightly to 45 units nightly. With this there is also no decrease in a short acting insulin. Patient states that he hasn't eaten much this week because he hasn't like the food this been prepared for him. He states that today he ate a small lunch and took his usual amount of short acting insulin, he states he took 20 units. This evening he did not eat any dinner and he began to feel kind of lightheaded and unwell. He then called 911 arrived on scene. Patient was noted to be hypoglycemic at that time but was awake and alert and oriented and talking. Upon arrival in the ER the patient has been drinking juice and is walking around in no distress. She denies any additional complaints. - Related Data Home Medications Medication Instructions Recorded Confirmed Insulin Glargine,Hum.rec.anlog 45 unit SQ HS 02/14/18 02/14/18 [Basaglar Kwikpen U-100] Insulin Glulisine [Apidra] 20 - 25 unit SQ TID 02/14/18 02/14/18 Allergies Allergy/AdvReac Type Severity Reaction Status Date / Time No Known Allergies Allergy Verified 02/14/18 21:27 Review of Systems ROS Statement: Those systems with pertinent positive or pertinent negative responses have been documented in the HPI. ROS Other: All systems not noted in ROS Statement are negative. Past Medical History Past Medical History: Diabetes Mellitus Additional Past Medical History / Comment(s): STATED HAD SEIZURE WHEN BS WAS TO LOW, History of Any Multi-Drug Resistant Organisms: None Reported Past Surgical History: No Surgical Hx Reported Additional Past Surgical History / Comment(s): TOOTH EXTRACTED IN PAST AND YESTERDAY HAD A PUS POCKET NEAR FRONT TOOTH LANCED/DRAINED. Past Anesthesia/Blood Transfusion Reactions: No Reported Reaction Past Psychological History: No Psychological Hx Reported Smoking Status: Current every day smoker Past Alcohol Use History: None Reported Past Drug Use History: None Reported - Past Family History Father Family Medical History: No Reported History Mother Family Medical History: Asthma General Exam - General Exam Comments Initial Comments: Physical Exam GENERAL: Patient is well-developed and well-nourished. Patient is nontoxic and well- hydrated and is in no distress. HENT: Normocephalic, Atraumatic. EYES: PERRL, EOMI PULMONARY: Unlabored respirations. No audible rales rhonchi or wheezing was noted. CARDIOVASCULAR: There is a regular rate and rhythm without any murmurs gallops or rubs. ABDOMEN: Soft and nontender with normal bowel sounds. SKIN: Skin is clear with no lesions or rashes and otherwise unremarkable. : Deferred NEUROLOGIC: Patient is alert and oriented x3. Moving all extremities spontaneously MUSCULOSKELETAL: Normal extremities with adequate strength and full range of motion. No lower extremity swelling or edema. No calf tenderness. PSYCHIATRIC: Normal psychiatric evaluation. Limitations: no limitations Limitations: no limitations Course Vital Signs 02/14/18 02/14/18 20:46 23:20 Temperature 98.2 F 99.3 F Pulse Rate 65 84 Respiratory 17 17 Rate Blood Pressure 125/87 138/76 O2 Sat by Pulse 98 99 Oximetry Medical Decision Making - Medical Decision Making The patient was seen and evaluated, patient admits to not eating much, taking his usual dose of short acting insulin in addition to having increased his long- acting insulin. Patient states he hasn't been eating [place] like the food gets been prepared for him. Advised is hungry and asking for a sandwich. Patient was given food here in the emergency department. Repeat blood glucose was in the 70s. We'll continue to monitor. Patient was given a chocolate pudding. Patient declined the ache salad sandwich , we were able to find a turkey sandwich with the patient agreed to eat. Patient does admit that he is a picky eater and this contributes to him not eating well. Patient resting comfortably throughout his ER stay, states he like to be discharged home so he can eat dinner. Decreasing his sliding scale insulin based on his carbohydrate intake was discussed with patient. In addition decreasing his long-acting insulin back to 35 nightly was advised. Patient was advised to contact his primary care physician in the morning to discuss his insulin dosing. All questions pertaining to care were answered best my ability patient was discharged home in stable condition. 's repeat blood glucose upon time of discharge >200 - Lab Data Lab Results 02/14/18 02/14/18 Range/Units 20:52 23:08 POC Glucose (mg/dL) 70 L 241 H (75-99) mg/dL POC Glu Lugger ID Adeola Saenz Ellie Disposition Clinical Impression: Hypoglycemia Disposition: HOME SELF-CARE Condition: Good Instructions: Hypoglycemia in a Person with Diabetes (ED), What to Do if Your Blood Sugar is Low (ED) Additional Instructions: Make sure he her eating multiple meals throughout the day, check her blood glucose frequently, called Dr. Jackson tomorrow to discuss your insulin dosing Is patient prescribed a controlled substance at d/c from ED?: No Referrals: Óscar Jackson MD [Primary Care Provider] - 1-2 days
[2018-02-14 23:23] LABS: Glucose,Whole Blood 241 mg/dL (75-99)
[2018-02-14 23:31] VITALS: BP 138/76; PULSE 84; TEMP 99.3
== END 2018-02-14 23:49 | disposition home or self-care (01) ==
LOC: EC 20:38
DX: E11.649 Type 2 diabetes mellitus with hypoglycemia without coma (principal); R42 Dizziness and giddiness; F17.200 Nicotine dependence, unspecified, uncomplicated; Z79.4 Long term (current) use of insulin
CPT/HCPCS: 36415; 99285

== ENCOUNTER 2018-06-21 01:09 | Emergency (ER) | payer OTHER ==
[2018-06-21 01:20] VITALS: TEMP 98.5
--- NOTE | 2018-06-21 01:46 | ED ---
URI HPI - General Source: patient Mode of arrival: ambulatory Limitations: no limitations <Henny Estrada - Last Filed: 06/21/18 03:16> <Tatianna Enrique - Last Filed: 06/21/18 05:57> - General Chief Complaint: Upper Respiratory Infection Stated Complaint: Cough, Time Seen by Provider: 06/21/18 01:28 - History of Present Illness Initial Comments: 27-year-old male status post medical history presenting today for chief complaint of cough and congestion. Patient states he has been coughing congested for the past 2 days. He states it worsened this evening. Patient states he has sinus pressure. He states he did have a mild headache earlier however is since subsided. Patient states he's had chills he denies recording fever. Patient denies any recent shortness of breath, chest pain, back pain, abdominal pain, nausea or vomiting, numbness or tingling, dysuria or hematuria, constipation or diarrhea, visual changes, or any other complaints. Upon arrival patient appears well, no signs of toxicity or distress. VS WNL. (Henny Estrada) - Related Data Home Medications Medication Instructions Recorded Confirmed Insulin Glargine,Hum.rec.anlog 45 unit SQ HS 02/14/18 02/14/18 [Basaglar Kwikpen U-100] Insulin Glulisine [Apidra] 20 - 25 unit SQ TID 02/14/18 02/14/18 Previous Rx's Medication Instructions Recorded Azithromycin [Zithromax Z-pack] 0 mg PO DIRECTED #6 tab 06/21/18 predniSONE 20 mg PO DAILY 5 Days #5 tab 06/21/18 Allergies Allergy/AdvReac Type Severity Reaction Status Date / Time No Known Allergies Allergy Verified 06/21/18 01:20 Review of Systems ROS Other: All systems not noted in ROS Statement are negative. <Henny Estrada - Last Filed: 06/21/18 03:16> ROS Other: All systems not noted in ROS Statement are negative. <Tatianna Enrique - Last Filed: 06/21/18 05:57> ROS Statement: Those systems with pertinent positive or pertinent negative responses have been documented in the HPI. Past Medical History Past Medical History: Diabetes Mellitus Additional Past Medical History / Comment(s): STATED HAD SEIZURE WHEN BS WAS TO LOW, History of Any Multi-Drug Resistant Organisms: None Reported Past Surgical History: No Surgical Hx Reported Additional Past Surgical History / Comment(s): TOOTH EXTRACTED IN PAST AND YESTERDAY HAD A PUS POCKET NEAR FRONT TOOTH LANCED/DRAINED. Past Anesthesia/Blood Transfusion Reactions: No Reported Reaction Past Psychological History: No Psychological Hx Reported Smoking Status: Current every day smoker Past Alcohol Use History: None Reported Past Drug Use History: None Reported - Past Family History Father Family Medical History: No Reported History Mother Family Medical History: Asthma <Henny Estrada - Last Filed: 06/21/18 03:16> General Exam Limitations: no limitations <Henny Estrada - Last Filed: 06/21/18 03:16> - General Exam Comments Initial Comments: General: The patient is awake and alert, in no distress, and does not appear acutely ill. Eye: +3 mm pupils are equal, round and reactive to light, extra-ocular movements are intact. No nystagmus. There is normal conjunctiva bilaterally. No signs of icterus. No photophobia Ears, nose, mouth and throat: There are moist mucous membranes and no oral lesions. Oropharynx was not erythematous there is no tonsillar enlargement exudates or lesions. Uvula midline. Tympanic membranes are not erythematous or is no effusions bulging or retraction. No tenderness to palpation of the mastoid. No anterior cervical lymphadenopathy. Rhinorrhea, clear and bilateral nares. No tripoding, no drooling. Very mild tenderness to palpation of maxillary sinuses. Neck: The neck is supple, there is no tenderness or JVD. No nuchal rigidity negative Brudzinski and Kernig Cardiovascular: There is a regular rate and rhythm. No murmur, rub or gallop is appreciated. Respiratory: Lungs are clear to auscultation, respirations are non-labored, breath sounds are equal. No wheezes, stridor, rales, or rhonchi. No retractions or abdominal breathing. Gastrointestinal: Soft, non-distended, non-tender abdomen without masses or organomegaly noted. There is no rebound or guarding present. Bowel sounds are unremarkable. Musculoskeletal: Normal ROM, no tenderness. Strength 5/5. Sensation intact. Radial pulses equal bilaterally 2+. Neurological: A&O x 3. CN II-XII intact, There are no obvious motor or sensory deficits. Coordination appears grossly intact. Speech appears normal, no muffling. Skin: Skin is warm and dry and no rashes or lesions are noted. No extremity edema Psychiatric: Cooperative (Henny Estrada) Course Vital Signs 06/21/18 06/21/18 01:17 03:14 Temperature 98.5 F Pulse Rate 92 70 Respiratory 18 16 Rate Blood Pressure 125/82 130/81 O2 Sat by Pulse 100 96 Oximetry Medical Decision Making <Henny Estrada - Last Filed: 06/21/18 03:16> <Tatianna Enrique - Last Filed: 06/21/18 05:57> - Medical Decision Making 27-year-old male presenting for upper respiratory symptoms. Influenza negative. Patient afebrile with vital signs within normal limits. Appears nontoxic. Chest x-ray negative for acute cardiopulmonary process. This was reviewed by myself as well as attending provider. Patient's lungs clear on auscultation. Patient given Z-Teddy, current every day smoker as well as a steroid. Patient will be treated symptomatically for bronchitis. All findings were discussed the patient, as well as return parameters. Patient verbalized understanding. Patient provided work note. Did consult Dr. Enrique prior to patients discharge. (Henny Estrada) I was available for consultation in the emergency department. The history and physical exam were done by the midlevel provider. I was consulted for this patient's care. I reviewed the case with the midlevel provider and based on their presentation of the patient, I agree with the assessment, medical decision making and plan of care as documented. (Tatianna Enrique) - Lab Data Lab Results 06/21/18 Range/Units 01:58 Influenza Type A RNA Not Detected (Not Detectd) Influenza Type B (PCR) Not Detected (Not Detectd) Disposition Is patient prescribed a controlled substance at d/c from ED?: No Time of Disposition: 02:36 <Henny Estrada - Last Filed: 06/21/18 03:16> <Tatianna Enrique - Last Filed: 06/21/18 05:57> Clinical Impression: Bronchitis Disposition: HOME SELF-CARE Condition: Good Instructions (If sedation given, give patient instructions): Acute Bronchitis (ED) Additional Instructions: Please use medication as discussed. Please follow-up with family doctor in the next 2 days.. Please return to emergency room if the symptoms increase or worsen or for any other concerns. Prescriptions: predniSONE 20 mg PO DAILY 5 Days #5 tab Azithromycin [Zithromax Z-pack] 0 mg PO DIRECTED #6 tab Referrals: Óscar Jackson MD [Primary Care Provider] - 1-2 days
--- NOTE | 2018-06-21 02:18 | XR ---
EXAM: XR Chest, 2 Views CLINICAL HISTORY: ITS.REASON XR Reason: Pain TECHNIQUE: Frontal and lateral views of the chest. COMPARISON: 09/07/17. FINDINGS: Lungs: Mild perihilar/infrahilar opacities. No consolidation. Pleural space: Unremarkable. No pneumothorax. Heart: Unremarkable. Mediastinum: Unremarkable. Bones/joints: No acute fracture. IMPRESSION: Mild perihilar/infrahilar opacities. Correlate clinically for inflammatory/infectious process.
[2018-06-21] MEDS ORDERED: IBUPROFEN 600 MG TAB PO STA (02:32)
[2018-06-21 03:17] VITALS: BP 130/81; PULSE 70; RESP 16
== END 2018-06-21 03:17 | disposition home or self-care (01) ==
LOC: EC 01:09
DX: J40 Bronchitis, not specified as acute or chronic (principal); E11.9 Type 2 diabetes mellitus without complications; F17.200 Nicotine dependence, unspecified, uncomplicated; Z82.5 Family history of asthma and other chronic lower respiratory diseases; Z79.4 Long term (current) use of insulin
CPT/HCPCS: 71046; 87502; 99283

== ENCOUNTER 2018-06-30 00:40 | Emergency (ER) | payer OTHER ==
[2018-06-30 00:55] VITALS: TEMP 98.3
[2018-06-30 01:34] LABS: Basophils # (A) 0.1 k/uL (0-0.2); Basophils % (A) 1 %; Eosinophils # (A) 0.2 k/uL (0-0.7); Eosinophils % (A) 2 %; HGB 16.8 gm/dL (13.0-17.5); Lymphocytes # (A) 0.4 k/uL (1.0-4.8); Lymphocytes % (A) 4 %; MCH 30.3 pg (25.0-35.0); MCHC 31.6 g/dL (31.0-37.0); MCV 95.9 fL (80.0-100.0); Mean Platelet Volume 7.8; Monocytes # (A) 0.4 k/uL (0-1.0); Monocytes % (A) 4 %; Neutrophils # (A) 8.9 k/uL (1.3-7.7); Neutrophils % (A) 90 %; Platelet Count 287 k/uL (150-450); RBC 5.53 m/uL (4.30-5.90); RDW 12.1 % (11.5-15.5); WBC 9.9 k/uL (3.8-10.6)
[2018-06-30] MEDS ORDERED: SODIUM CHLORIDE 0.9% 1,000 ML IV ONE ×2 (01:34→02:05)
[2018-06-30] MEDS ORDERED: IBUPROFEN 600 MG STARTER PACK 4 TAB BTL PO STA (01:34)
[2018-06-30 01:53] LABS: ALT 30 U/L (21-72); AST 41 U/L (17-59); Albumin 4.5 g/dL (3.5-5.0); Alkaline Phosphatase 104 U/L (38-126); Anion Gap 17 mmol/L; Blood Urea Nitrogen 15 mg/dL (9-20); Calcium 9.9 mg/dL (8.4-10.2); Carbon Dioxide 19 mmol/L (22-30); Chloride 92 mmol/L (98-107); Magnesium 1.5 mg/dL (1.6-2.3); Sodium 128 mmol/L (137-145); Total Bilirubin 2.2 mg/dL (0.2-1.3); Total Protein 7.3 g/dL (6.3-8.2)
--- NOTE | 2018-06-30 01:57 | ED ---
SOB HPI - General Chief Complaint: Shortness of Breath Stated Complaint: JOSEPH Time Seen by Provider: 06/30/18 00:59 Source: patient Mode of arrival: ambulatory Limitations: no limitations - History of Present Illness Initial Comments: Howard is a previously healthy 27-year-old male presents the emergency department today for evaluation of fever, cough, body aches and subjective shortness of breath. Per the patient he was in his usual state of health throughout the day yesterday this evening he began to feel that he is having trouble breathing he used his daughter's nebulizer no improvement. He reports he feels exhausted and feels short of breath and like his heart is racing anytime he starts walking which prompted him come the ER for evaluation. Patient reports sharp chest pains with coughing no exertional pain no cardiac history. - Related Data Home Medications Medication Instructions Recorded Confirmed Insulin Glargine,Hum.rec.anlog 45 unit SQ HS 02/14/18 02/14/18 [Basaglar Kwikpen U-100] Insulin Glulisine [Apidra] 20 - 25 unit SQ TID 02/14/18 02/14/18 Previous Rx's Medication Instructions Recorded Azithromycin [Zithromax Z-pack] 0 mg PO DIRECTED #6 tab 06/21/18 predniSONE 20 mg PO DAILY 5 Days #5 tab 06/21/18 Allergies Allergy/AdvReac Type Severity Reaction Status Date / Time bee venom protein (honey bee) Allergy Anaphylaxis Verified 06/30/18 00:55 Review of Systems ROS Statement: Those systems with pertinent positive or pertinent negative responses have been documented in the HPI. ROS Other: All systems not noted in ROS Statement are negative. Past Medical History Past Medical History: Diabetes Mellitus Additional Past Medical History / Comment(s): STATED HAD SEIZURE WHEN BS WAS TO LOW, History of Any Multi-Drug Resistant Organisms: None Reported Past Surgical History: No Surgical Hx Reported Additional Past Surgical History / Comment(s): TOOTH EXTRACTED IN PAST AND YESTERDAY HAD A PUS POCKET NEAR FRONT TOOTH LANCED/DRAINED. Past Anesthesia/Blood Transfusion Reactions: No Reported Reaction Past Psychological History: No Psychological Hx Reported Smoking Status: Current every day smoker Past Alcohol Use History: None Reported Past Drug Use History: None Reported - Past Family History Father Family Medical History: No Reported History Mother Family Medical History: Asthma General Exam - General Exam Comments Initial Comments: Physical Exam GENERAL: Patient is well-developed and well-nourished. Patient is nontoxic and well- hydrated and is in no distress. HENT: Normocephalic, Atraumatic. EYES: PERRL, EOMI PULMONARY: Unlabored respirations. No audible rales rhonchi or wheezing was noted. CARDIOVASCULAR: There is a regular rate and rhythm without any murmurs gallops or rubs. ABDOMEN: Soft and nontender with normal bowel sounds. SKIN: Skin is clear with no lesions or rashes and otherwise unremarkable. : Deferred NEUROLOGIC: Patient is alert and oriented x3. Moving all extremities spontaneously MUSCULOSKELETAL: Normal extremities with adequate strength and full range of motion. No lower extremity swelling or edema. No calf tenderness. PSYCHIATRIC: Normal psychiatric evaluation. Limitations: no limitations Limitations: no limitations Course Vital Signs 06/30/18 00:52 Temperature 98.3 F Pulse Rate 92 Respiratory 28 H Rate Blood Pressure 117/77 O2 Sat by Pulse 99 Oximetry Medical Decision Making - Medical Decision Making Patient was seen and evaluated history is obtained from the patient and review of medical record Patient with flulike illness Labs and imaging were ordered Influenza swab was negative Labs are consistent with hyperglycemia, pseudohyponatremia an elevated potassium IV fluids and insulin were ordered and blood glucose is improving after fluids and insulin at this time I will plan to discharge patient home - Lab Data Result diagrams: 06/30/18 01:15 06/30/18 01:15 Lab Results 06/30/18 06/30/18 06/30/18 Range/Units 01:15 01:15 01:15 WBC 9.9 (3.8-10.6) k/uL RBC 5.53 (4.30-5.90) m/uL Hgb 16.8 (13.0-17.5) gm/dL Hct 53.0 (39.0-53.0) % MCV 95.9 (80.0-100.0) fL MCH 30.3 (25.0-35.0) pg MCHC 31.6 (31.0-37.0) g/dL RDW 12.1 (11.5-15.5) % Plt Count 287 (150-450) k/uL Neutrophils % 90 % Lymphocytes % 4 % Monocytes % 4 % Eosinophils % 2 % Basophils % 1 % Neutrophils # 8.9 H (1.3-7.7) k/uL Lymphocytes # 0.4 L (1.0-4.8) k/uL Monocytes # 0.4 (0-1.0) k/uL Eosinophils # 0.2 (0-0.7) k/uL Basophils # 0.1 (0-0.2) k/uL PT 10.1 (9.0-12.0) sec INR 0.9 (<1.2) APTT 25.1 (22.0-30.0) sec D-Dimer 0.22 (<0.60) mg/L FEU Sodium 128 L (137-145) mmol/L Potassium 5.5 H (3.5-5.1) mmol/L Chloride 92 L (98-107) mmol/L Carbon Dioxide 19 L (22-30) mmol/L Anion Gap 17 mmol/L BUN 15 (9-20) mg/dL Creatinine 1.01 (0.66-1.25) mg/dL Est GFR (CKD-EPI)AfAm >90 (>60 ml/min/1.73 sqM) Est GFR (CKD-EPI)NonAf >90 (>60 ml/min/1.73 sqM) Glucose 587 H* (74-99) mg/dL POC Glucose (mg/dL) (75-99) mg/dL POC Glu Chemical Process Engineer ID Calcium 9.9 (8.4-10.2) mg/dL Magnesium 1.5 L (1.6-2.3) mg/dL Total Bilirubin 2.2 H (0.2-1.3) mg/dL AST 41 (17-59) U/L ALT 30 (21-72) U/L Alkaline Phosphatase 104 (38-126) U/L Troponin I (0.000-0.034) ng/mL NT-Pro-B Natriuret Pep pg/mL Total Protein 7.3 (6.3-8.2) g/dL Albumin 4.5 (3.5-5.0) g/dL Influenza Type A RNA (Not Detectd) Influenza Type B (PCR) (Not Detectd) 06/30/18 06/30/18 06/30/18 Range/Units 01:15 01:15 01:15 WBC (3.8-10.6) k/uL RBC (4.30-5.90) m/uL Hgb (13.0-17.5) gm/dL Hct (39.0-53.0) % MCV (80.0-100.0) fL MCH (25.0-35.0) pg MCHC (31.0-37.0) g/dL RDW (11.5-15.5) % Plt Count (150-450) k/uL Neutrophils % % Lymphocytes % % Monocytes % % Eosinophils % % Basophils % % Neutrophils # (1.3-7.7) k/uL Lymphocytes # (1.0-4.8) k/uL Monocytes # (0-1.0) k/uL Eosinophils # (0-0.7) k/uL Basophils # (0-0.2) k/uL PT (9.0-12.0) sec INR (<1.2) APTT (22.0-30.0) sec D-Dimer (<0.60) mg/L FEU Sodium (137-145) mmol/L Potassium (3.5-5.1) mmol/L Chloride (98-107) mmol/L Carbon Dioxide (22-30) mmol/L Anion Gap mmol/L BUN (9-20) mg/dL Creatinine (0.66-1.25) mg/dL Est GFR (CKD-EPI)AfAm (>60 ml/min/1.73 sqM) Est GFR (CKD-EPI)NonAf (>60 ml/min/1.73 sqM) Glucose (74-99) mg/dL POC Glucose (mg/dL) (75-99) mg/dL POC Glu Chemical Process Engineer ID Calcium (8.4-10.2) mg/dL Magnesium (1.6-2.3) mg/dL Total Bilirubin (0.2-1.3) mg/dL AST (17-59) U/L ALT (21-72) U/L Alkaline Phosphatase (38-126) U/L Troponin I <0.012 (0.000-0.034) ng/mL NT-Pro-B Natriuret Pep 13 pg/mL Total Protein (6.3-8.2) g/dL Albumin (3.5-5.0) g/dL Influenza Type A RNA Not Detected (Not Detectd) Influenza Type B (PCR) Not Detected (Not Detectd) 06/30/18 Range/Units 03:24 WBC (3.8-10.6) k/uL RBC (4.30-5.90) m/uL Hgb (13.0-17.5) gm/dL Hct (39.0-53.0) % MCV (80.0-100.0) fL MCH (25.0-35.0) pg MCHC (31.0-37.0) g/dL RDW (11.5-15.5) % Plt Count (150-450) k/uL Neutrophils % % Lymphocytes % % Monocytes % % Eosinophils % % Basophils % % Neutrophils # (1.3-7.7) k/uL Lymphocytes # (1.0-4.8) k/uL Monocytes # (0-1.0) k/uL Eosinophils # (0-0.7) k/uL Basophils # (0-0.2) k/uL PT (9.0-12.0) sec INR (<1.2) APTT (22.0-30.0) sec D-Dimer (<0.60) mg/L FEU Sodium (137-145) mmol/L Potassium (3.5-5.1) mmol/L Chloride (98-107) mmol/L Carbon Dioxide (22-30) mmol/L Anion Gap mmol/L BUN (9-20) mg/dL Creatinine (0.66-1.25) mg/dL Est GFR (CKD-EPI)AfAm (>60 ml/min/1.73 sqM) Est GFR (CKD-EPI)NonAf (>60 ml/min/1.73 sqM) Glucose (74-99) mg/dL POC Glucose (mg/dL) 335 H (75-99) mg/dL POC Glu Chemical Process Engineer ID Debbie [place] A Calcium (8.4-10.2) mg/dL Magnesium (1.6-2.3) mg/dL Total Bilirubin (0.2-1.3) mg/dL AST (17-59) U/L ALT (21-72) U/L Alkaline Phosphatase (38-126) U/L Troponin I (0.000-0.034) ng/mL NT-Pro-B Natriuret Pep pg/mL Total Protein (6.3-8.2) g/dL Albumin (3.5-5.0) g/dL Influenza Type A RNA (Not Detectd) Influenza Type B (PCR) (Not Detectd) Disposition Clinical Impression: URI (upper respiratory infection), Hyperglycemia Disposition: HOME SELF-CARE Condition: Stable Is patient prescribed a controlled substance at d/c from ED?: No Referrals: Óscar Jackson MD [Primary Care Provider] - 1-2 days
[2018-06-30 02:01] LABS: Glucose 587 mg/dL (74-99)
[2018-06-30 02:02] LABS: Potassium 5.5 mmol/L (3.5-5.1)
[2018-06-30] MEDS ORDERED: INSULIN REGULAR 100 UNIT/ML VIAL IV ONE (02:05)
[2018-06-30 02:08] LABS: D-Dimer 0.22 mg/L FEU (<0.60); INR 0.9 (<1.2); Partial Thromboplastin Time 25.1 sec (22.0-30.0); Prothrombin Time 10.1 sec (9.0-12.0)
[2018-06-30] MEDS: MAGNESIUM SULFATE-D5W PMX 1 GM in DEXTROSE/WATER 1 100ML.BAG IVPB SCH ×2 (02:12→03:20)
--- NOTE | 2018-06-30 02:33 | XR ---
EXAM: XR Chest, 2 Views CLINICAL HISTORY: ITS.REASON XR Reason: Chest Pain TECHNIQUE: Frontal and lateral views of the chest. COMPARISON: 06/30/18 chest radiography FINDINGS: Lungs: Unremarkable. No consolidation. Pleural space: Unremarkable. No pneumothorax. Heart: Unremarkable. No cardiomegaly. Mediastinum: Unremarkable. Bones/joints: Unremarkable. IMPRESSION: Normal chest x-rays.
[2018-06-30 03:25] LABS: Glucose,Whole Blood 335 mg/dL (75-99)
[2018-06-30 04:32] VITALS: BP 107/50; PULSE 80; RESP 16
== END 2018-06-30 04:37 | disposition home or self-care (01) ==
LOC: EC 00:40
DX: J06.9 Acute upper respiratory infection, unspecified (principal); E11.65 Type 2 diabetes mellitus with hyperglycemia; E87.1 Hypo-osmolality and hyponatremia; E87.5 Hyperkalemia; F17.200 Nicotine dependence, unspecified, uncomplicated; Z91.018 Allergy to other foods; Z79.4 Long term (current) use of insulin
CPT/HCPCS: 36415; 93005; 85379; 83880; 80053; 83735; 84484; 85025; 85610; 85730; 87502; 71046; 99285; 96365; 96366; J3475

== ENCOUNTER 2018-10-20 01:19 | Emergency (ER) | payer OTHER ==
[2018-10-20 01:39] VITALS: TEMP 97.2
[2018-10-20 01:40] LABS: Glucose,Whole Blood 560 mg/dL (75-99)
[2018-10-20] MEDS ORDERED: MORPHINE SULFATE 4 MG/ML SYRINGE IVP STA (02:20)
[2018-10-20] MEDS ORDERED: SODIUM CHLORIDE 0.9% 500 ML 500 ML IV STA (02:20)
[2018-10-20] MEDS ORDERED: ONDANSETRON 4 MG/2 ML VIAL IVP STA (02:20)
[2018-10-20] MEDS ORDERED: SODIUM CHLORIDE 0.9% 1,000 ML IV STA (02:20)
[2018-10-20 02:40] LABS: Basophils # (A) 0.1 k/uL (0-0.2); Basophils % (A) 1 %; Eosinophils # (A) 0.1 k/uL (0-0.7); Eosinophils % (A) 1 %; HCT 49.8 % (39.0-53.0); HGB 16.2 gm/dL (13.0-17.5); Lymphocytes # (A) 2.7 k/uL (1.0-4.8); Lymphocytes % (A) 25 %; MCH 31.2 pg (25.0-35.0); MCHC 32.6 g/dL (31.0-37.0); MCV 95.7 fL (80.0-100.0); Mean Platelet Volume 8.1; Monocytes # (A) 0.6 k/uL (0-1.0); Monocytes % (A) 6 %; Neutrophils # (A) 7.1 k/uL (1.3-7.7); Neutrophils % (A) 66 %; Platelet Count 272 k/uL (150-450); RDW 12.7 % (11.5-15.5); WBC 10.8 k/uL (3.8-10.6)
[2018-10-20 02:52] LABS: ALT 59 U/L (21-72); AST 112 U/L (17-59); African American GFR (CKD) >90 (>60 ml/min/1.73 sqM); Albumin 4.6 g/dL (3.5-5.0); Alkaline Phosphatase 135 U/L (38-126); Amylase 110 U/L (30-110); Anion Gap 16 mmol/L; Blood Urea Nitrogen 18 mg/dL (9-20); Calcium 10.1 mg/dL (8.4-10.2); Carbon Dioxide 23 mmol/L (22-30); Chloride 93 mmol/L (98-107); Lipase 53 U/L (23-300); Potassium 5.4 mmol/L (3.5-5.1); Sodium 132 mmol/L (137-145); Total Bilirubin 2.1 mg/dL (0.2-1.3); Total Protein 7.1 g/dL (6.3-8.2)
[2018-10-20 03:01] LABS: Glucose 637 mg/dL (74-99)
--- NOTE | 2018-10-20 03:51 | XR ---
EXAM: XR Abdomen, 1 View CLINICAL HISTORY: ITS.REASON XR Reason: abdominal pain TECHNIQUE: Frontal supine view of the abdomen/pelvis. COMPARISON: No relevant prior studies available. FINDINGS: Gastrointestinal tract: Unremarkable. No dilation. Bones/joints: Unremarkable. IMPRESSION: Normal abdominal x-ray.
[2018-10-20 04:09] LABS: Glucose,Whole Blood 540 mg/dL (75-99)
[2018-10-20] MEDS ORDERED: INSULIN REGULAR 100 UNIT/ML VIAL IV STA (04:09)
--- NOTE | 2018-10-20 05:07 | ED ---
Abdominal Pain HPI - General Chief Complaint: Abdominal Pain Stated Complaint: Abd Pain Time Seen by Provider: 10/20/18 02:02 Source: patient Mode of arrival: EMS Limitations: no limitations - History of Present Illness Initial Comments: 28-year-old male patient with past medical history significant for type 1 diabetes mellitus presents to the emergency department today for evaluation of abdominal pain and vomiting. Patient states that abdominal pain which started around midnight this evening. States he has had 7 episodes of vomiting since its onset. Denies any fever or chills. Denies any constipation or diarrhea. Denies any hematochezia or melena. States his emesis has been bilious. Patient states that prior to onset of symptoms he was doing well. Denies any recent travel, sick contacts, or ingestion of questionable foods. Patient states that his blood sugars have been high throughout the day today. Patient denies any recent rash, shortness breath, chest pain, back pain, numbness, tingling, dizziness, weakness, hematuria, dysuria, urinary urgency, urinary frequency, headache, visual changes, or any other complaints. - Related Data Home Medications Medication Instructions Recorded Confirmed Insulin Glargine,Hum.rec.anlog 45 unit SQ HS 02/14/18 02/14/18 [Basaglar Kwikpen U-100] Insulin Glulisine [Apidra] 20 - 25 unit SQ TID 02/14/18 02/14/18 Previous Rx's Medication Instructions Recorded Azithromycin [Zithromax Z-pack] 0 mg PO DIRECTED #6 tab 06/21/18 predniSONE 20 mg PO DAILY 5 Days #5 tab 06/21/18 Allergies Allergy/AdvReac Type Severity Reaction Status Date / Time bee venom protein (honey bee) Allergy Anaphylaxis Verified 06/30/18 00:55 Review of Systems ROS Statement: Those systems with pertinent positive or pertinent negative responses have been documented in the HPI. ROS Other: All systems not noted in ROS Statement are negative. Past Medical History Past Medical History: Diabetes Mellitus Additional Past Medical History / Comment(s): STATED HAD SEIZURE WHEN BS WAS TO LOW, History of Any Multi-Drug Resistant Organisms: None Reported Past Surgical History: No Surgical Hx Reported Additional Past Surgical History / Comment(s): TOOTH EXTRACTED IN PAST AND YESTERDAY HAD A PUS POCKET NEAR FRONT TOOTH LANCED/DRAINED. Past Anesthesia/Blood Transfusion Reactions: No Reported Reaction Past Psychological History: No Psychological Hx Reported Smoking Status: Current every day smoker Past Alcohol Use History: None Reported Past Drug Use History: None Reported - Past Family History Father Family Medical History: No Reported History Mother Family Medical History: Asthma General Exam Limitations: no limitations General appearance: alert, in no apparent distress, other (Physical well- developed, well-nourished adult male patient in mild distress related to pain. Vital signs upon presentation are temperature 97.2F, pulse 72, respirations 20, blood pressure 145/97, pulse ox 100% on room air.) Eye exam: Present: normal appearance, PERRL, EOMI. Absent: scleral icterus, conjunctival injection, periorbital swelling ENT exam: Present: normal exam, normal oropharynx, mucous membranes moist Respiratory exam: Present: normal lung sounds bilaterally. Absent: respiratory distress, wheezes, rales, rhonchi, stridor Cardiovascular Exam: Present: regular rate, normal rhythm, normal heart sounds. Absent: systolic murmur, diastolic murmur, rubs, gallop, clicks GI/Abdominal exam: Present: soft, tenderness (Periumbilical), normal bowel sounds. Absent: distended, guarding, rebound, rigid Neurological exam: Present: alert, oriented X3, CN II-XII intact Psychiatric exam: Present: normal affect, normal mood Skin exam: Present: warm, dry, intact, normal color. Absent: rash Course Vital Signs 10/20/18 10/20/18 10/20/18 01:33 02:09 05:24 Temperature 97.2 F L Pulse Rate 72 73 71 Respiratory 20 20 18 Rate Blood Pressure 145/97 129/71 108/59 O2 Sat by Pulse 100 100 100 Oximetry Medical Decision Making - Medical Decision Making 28-year-old male patient with past medical history significant for type 1 diabetes presents to the emergency department today for evaluation of abdominal pain and vomiting. Physical examination reveals mild. Umbilical tenderness. Labs reviewed and did reveal elevated potassium of 5.4, anion gap 16, blood glucose 637, negative acetone. Patient is given IV fluids, IV insulin. He is also given pain medication and nausea medication. Blood sugar has improved to 369. Upon reevaluation patient does report improvement of symptoms. He'll be discharged home at this time to follow-up with his primary care physician for recheck in 1-2 days. He is instructed to monitor blood sugars closely and a dose insulin as prescribed. Return parameters were discussed in detail. He verbalizes understanding and agrees with this plan. - Lab Data Result diagrams: 10/20/18 02:05 10/20/18 02:05 Lab Results 10/20/18 10/20/18 10/20/18 Range/Units 01:38 02:05 02:05 WBC 10.8 H (3.8-10.6) k/uL RBC 5.20 (4.30-5.90) m/uL Hgb 16.2 (13.0-17.5) gm/dL Hct 49.8 (39.0-53.0) % MCV 95.7 (80.0-100.0) fL MCH 31.2 (25.0-35.0) pg MCHC 32.6 (31.0-37.0) g/dL RDW 12.7 (11.5-15.5) % Plt Count 272 (150-450) k/uL Neutrophils % 66 % Lymphocytes % 25 % Monocytes % 6 % Eosinophils % 1 % Basophils % 1 % Neutrophils # 7.1 (1.3-7.7) k/uL Lymphocytes # 2.7 (1.0-4.8) k/uL Monocytes # 0.6 (0-1.0) k/uL Eosinophils # 0.1 (0-0.7) k/uL Basophils # 0.1 (0-0.2) k/uL Sodium 132 L (137-145) mmol/L Potassium 5.4 H (3.5-5.1) mmol/L Chloride 93 L (98-107) mmol/L Carbon Dioxide 23 (22-30) mmol/L Anion Gap 16 mmol/L BUN 18 (9-20) mg/dL Creatinine 1.02 (0.66-1.25) mg/dL Est GFR (CKD-EPI)AfAm >90 (>60 ml/min/1.73 sqM) Est GFR (CKD-EPI)NonAf >90 (>60 ml/min/1.73 sqM) Glucose 637 H* (74-99) mg/dL POC Glucose (mg/dL) 560 H (75-99) mg/dL POC Glu Reagent Tender Helper ID Lydia Garcia Calcium 10.1 (8.4-10.2) mg/dL Total Bilirubin 2.1 H (0.2-1.3) mg/dL AST 112 H (17-59) U/L ALT 59 (21-72) U/L Alkaline Phosphatase 135 H (38-126) U/L Total Protein 7.1 (6.3-8.2) g/dL Albumin 4.6 (3.5-5.0) g/dL Amylase 110 (30-110) U/L Lipase 53 (23-300) U/L Acetone, Qual Negative (Negative) 10/20/18 10/20/18 Range/Units 04:07 05:21 WBC (3.8-10.6) k/uL RBC (4.30-5.90) m/uL Hgb (13.0-17.5) gm/dL Hct (39.0-53.0) % MCV (80.0-100.0) fL MCH (25.0-35.0) pg MCHC (31.0-37.0) g/dL RDW (11.5-15.5) % Plt Count (150-450) k/uL Neutrophils % % Lymphocytes % % Monocytes % % Eosinophils % % Basophils % % Neutrophils # (1.3-7.7) k/uL Lymphocytes # (1.0-4.8) k/uL Monocytes # (0-1.0) k/uL Eosinophils # (0-0.7) k/uL Basophils # (0-0.2) k/uL Sodium (137-145) mmol/L Potassium (3.5-5.1) mmol/L Chloride (98-107) mmol/L Carbon Dioxide (22-30) mmol/L Anion Gap mmol/L BUN (9-20) mg/dL Creatinine (0.66-1.25) mg/dL Est GFR (CKD-EPI)AfAm (>60 ml/min/1.73 sqM) Est GFR (CKD-EPI)NonAf (>60 ml/min/1.73 sqM) Glucose (74-99) mg/dL POC Glucose (mg/dL) 540 H 369 H (75-99) mg/dL POC Glu Reagent Tender Helper Theresa Daley Jessica Calcium (8.4-10.2) mg/dL Total Bilirubin (0.2-1.3) mg/dL AST (17-59) U/L ALT (21-72) U/L Alkaline Phosphatase (38-126) U/L Total Protein (6.3-8.2) g/dL Albumin (3.5-5.0) g/dL Amylase (30-110) U/L Lipase (23-300) U/L Acetone, Qual (Negative) - EKG Data -: EKG Interpreted by Me EKG Comments: EKG obtained at 01 46 shows normal sinus rhythm with a ventricular rate of 73, ID interval 124, QRS duration 96, QT 364, QTC 41. No evidence of ST elevation or depression. - Radiology Data Radiology results: report reviewed, image reviewed One view x-ray of the abdomen is obtained. Report was reviewed in its entirety. Impression by Dr. Valdes shows normal abdominal xray. Disposition Clinical Impression: Abdominal pain, Hyperglycemia Disposition: HOME SELF-CARE Condition: Good Instructions (If sedation given, give patient instructions): Abdominal Pain (ED), Diabetic Hyperglycemia (ED) Additional Instructions: Increase fluids. Follow clear liquid diet until tolerating oral intake. Monitor blood sugars closely and also insulin as directed. Follow-up with your primary care physician for recheck in 1-2 days. Return to the emergency department immediately for any new, worsening, or concerning symptoms Is patient prescribed a controlled substance at d/c from ED?: No Referrals: Óscar Jackson MD [Primary Care Provider] - 1-2 days Time of Disposition: 05:33
[2018-10-20 05:22] LABS: Glucose,Whole Blood 369 mg/dL (75-99)
[2018-10-20 05:26] VITALS: BP 108/59; PULSE 71; RESP 18
== END 2018-10-20 05:53 | disposition home or self-care (01) ==
LOC: EC 01:19
DX: E10.65 Type 1 diabetes mellitus with hyperglycemia (principal); R10.9 Unspecified abdominal pain; F17.200 Nicotine dependence, unspecified, uncomplicated; Z79.4 Long term (current) use of insulin; Z91.030 Bee allergy status
CPT/HCPCS: 36415; 93005; 80053; 82150; 82009; 83690; 85025; 74018; 99284; 96374; 96375; 96361 ×3; J2270; J2405

== ENCOUNTER 2019-03-03 00:19 | Emergency (ER) | payer OTHER ==
--- NOTE | 2019-03-03 00:49 | XR ---
EXAMINATION TYPE: XR soft tissue neck DATE OF EXAM: 03/03/2019 COMPARISON: NONE HISTORY: Sore throat TECHNIQUE: 2 views FINDINGS: Epiglottis is normal. Tonsils and adenoids appear normal. Prevertebral soft tissues appear normal. Subglottic trachea is normal. IMPRESSION: Normal cervical soft tissue exam. Adenoids measure 11 mm.
--- NOTE | 2019-03-03 00:57 | ED ---
General Adult HPI - General Chief complaint: ENT Stated complaint: Sore throat, neck pain Time Seen by Provider: 03/03/19 00:27 Source: patient, RN notes reviewed, old records reviewed Mode of arrival: ambulatory Limitations: no limitations - History of Present Illness Initial comments: 28-year-old male patient fully vaccinated past medical history of type 1 diabetes presents ED chief complaint of sore throat painful swallowing. Has been ongoing for approximately 2 days. Patient reports that he has had fevers and chills at home. Denies any cough, congestion, denies other complaints. Systemic: Pt denies fatigue, fever/chills, rash. Pt denies weakness, night sweats, weight loss. Neuro: Pt denies headache, visual disturbances, syncope or pre-syncope. HEENT: Pt denies ocular discharge or irritation, otalgia, rhinorrhea, notable lymphadenopathy. Cardiopulmonary: Pt denies chest pain, SOB, heart palpitations, dyspnea on exertion. Abdominal/GI: Pt denies abdominal pain, n/v/d. : Pt denies dysuria, burning w/ urination, frequency/urgency. Denies new onset urinary or bowel incontinence. MSK: Pt denies myalgia, loss of strength or function in extremities. Neuro: Pt denies new onset weakness, paresthesias. - Related Data Home Medications Medication Instructions Recorded Confirmed Insulin Glargine,Hum.rec.anlog 45 unit SQ HS 02/14/18 02/14/18 [Basaglar Kwikpen U-100] Insulin Glulisine [Apidra] 20 - 25 unit SQ TID 02/14/18 02/14/18 Previous Rx's Medication Instructions Recorded Azithromycin [Zithromax Z-pack] 0 mg PO DIRECTED #6 tab 06/21/18 predniSONE 20 mg PO DAILY 5 Days #5 tab 06/21/18 Allergies Allergy/AdvReac Type Severity Reaction Status Date / Time bee venom protein (honey bee) Allergy Anaphylaxis Verified 03/03/19 00:31 Review of Systems ROS Statement: Those systems with pertinent positive or pertinent negative responses have been documented in the HPI. ROS Other: All systems not noted in ROS Statement are negative. Past Medical History Past Medical History: Diabetes Mellitus Additional Past Medical History / Comment(s): STATED HAD SEIZURE WHEN BS WAS TO LOW, History of Any Multi-Drug Resistant Organisms: None Reported Past Surgical History: No Surgical Hx Reported Additional Past Surgical History / Comment(s): TOOTH EXTRACTED IN PAST AND YESTERDAY HAD A PUS POCKET NEAR FRONT TOOTH LANCED/DRAINED. Past Anesthesia/Blood Transfusion Reactions: No Reported Reaction Past Psychological History: No Psychological Hx Reported Smoking Status: Current every day smoker Past Alcohol Use History: None Reported Past Drug Use History: None Reported - Past Family History Father Family Medical History: No Reported History Mother Family Medical History: Asthma General Exam - General Exam Comments Initial Comments: Constitutional: NAD, AOX3, Pt has pleasant affect. HEENT: NC/AT, trachea midline, neck supple, no lymphadenopathy. Posterior pharynx mildly erythematous, without exudates.. External ears appear normal, without discharge. Mucous membranes moist. Eyes PERRLA, EOM intact. There is no scleral icterus. No pallor noted. Cardiopulmonary: RRR, no murmurs, rubs or gallops, no JVD noted. Lungs CTAB in anterior and posterior polk. No peripheral edema. Abdominal exam: Abdomen soft and non-distended. Abdomen non-tender to palpation in all 4 quadrants. Bowel sounds active in LLQ. No hepatosplenomegaly. No ecchymosis Neuro: CN II-XII grossly intact. No nuchal rigidity. No raccon eyes, no chavarria sign, no hemotympanum. No cervical spinal tenderness. MSK: No posterior calf tenderness bilaterally, homans sign negative bilaterally. Posterior tibialis and radial pulse +2 bilaterally. Sensation intact in upper and lower extremities. Full active ROM in upper and lower extremities, 5/5 stregnth. Limitations: no limitations Course Vital Signs 03/03/19 00:29 Temperature 99.3 F Pulse Rate 87 Respiratory 20 Rate Blood Pressure 136/79 O2 Sat by Pulse 98 Oximetry Medical Decision Making - Medical Decision Making 28-year-old male patient fully vaccinated past medical history of type 1 diabetes presents ED chief complaint of sore throat painful swallowing. Has been ongoing for approximately 2 days. Patient reports that he has had fevers and chills at home. Denies any cough, congestion, denies other complaints. Patient vital signs stable, afebrile. Physical exam displayed mildly erythematous posterior pharynx. No exudates. Soft tissue neck x-ray acute pathology. Group A strep negative. juice to drink.patient with a experiencing a viral pharyngitis-like syndrome. Patient will use Tylenol and Motrin as needed for pain. will follow-up with primary care provider will return to ER if patient worsens. Case discussed with Dr. Mcdonald. - Lab Data Lab Results 03/03/19 03/03/19 Range/Units 00:52 02:02 POC Glucose (mg/dL) 62 L (75-99) mg/dL POC Glu [id number] Java Developer ID Theresa Humphrey Strep Rapid Negative (Negative) Disposition Clinical Impression: Pharyngitis Disposition: HOME SELF-CARE Condition: Stable Instructions (If sedation given, give patient instructions): Pharyngitis (ED) Additional Instructions: Patient to adhere to previously discussed treatment plan and will take medication(s) as directed. Patient to follow up with PCP in 1-2 days. Patient to return to ED if symptoms do not improve. Return to ER if condition worsens. Is patient prescribed a controlled substance at d/c from ED?: No Referrals: Óscar Jackson MD [Primary Care Provider] - 1-2 days
[2019-03-03] MEDS ORDERED: DEXAMETHASONE ORAL 4 MG/ML VIAL PO ONE (01:14)
[2019-03-03 02:04] LABS: Glucose,Whole Blood 62 mg/dL (75-99)
[2019-03-03 02:39] LABS: Glucose,Whole Blood 58 mg/dL (75-99)
[2019-03-03 03:05] LABS: Glucose,Whole Blood 84 mg/dL (75-99)
[2019-03-03 03:56] LABS: Glucose,Whole Blood 76 mg/dL (75-99)
[2019-03-03 04:01] VITALS: BP 112/72; PULSE 70; RESP 16; TEMP 98.1
== END 2019-03-03 04:01 | disposition home or self-care (01) ==
LOC: EC 00:19
DX: J02.9 Acute pharyngitis, unspecified (principal); E10.9 Type 1 diabetes mellitus without complications; F17.200 Nicotine dependence, unspecified, uncomplicated; Z79.4 Long term (current) use of insulin; Z91.030 Bee allergy status
CPT/HCPCS: 36415; 87081; 87430; 70360; 99284; J8540

== ENCOUNTER 2019-05-14 09:07 | Inpatient (IN) | payer OTHER ==
[2019-05-14 09:38] LABS: Glucose,Whole Blood 506 mg/dL (75-99)
[2019-05-14] MEDS ORDERED: SODIUM CHLORIDE 0.9% 1,000 ML IV STA ×2 (09:46)
[2019-05-14] MEDS ORDERED: ONDANSETRON 4 MG/2 ML VIAL IVP STA (09:46)
[2019-05-14] MEDS ORDERED: INSULIN REGULAR BOLUS (FROM DRIP BAG) IV ONE (09:48)
[2019-05-14] MEDS ORDERED: KETOROLAC 30 MG/ML 1 ML VIAL IVP STA (09:49)
[2019-05-14] MEDS ORDERED: INSULIN REGULAR 100 UNIT in SODIUM CHLORIDE 0.9% 100 ML IV SCH (10:00)
[2019-05-14 10:01] LABS: Basophils # (A) 0.1 k/uL (0-0.2); Basophils % (A) 1 %; Eosinophils # (A) 0.1 k/uL (0-0.7); Eosinophils % (A) 1 %; HCT 53.8 % (39.0-53.0); HGB 16.9 gm/dL (13.0-17.5); Lymphocytes # (A) 3.9 k/uL (1.0-4.8); Lymphocytes % (A) 21 %; MCHC 31.5 g/dL (31.0-37.0); MCV 98.7 fL (80.0-100.0); Mean Platelet Volume 8.9; Monocytes # (A) 0.3 k/uL (0-1.0); Monocytes % (A) 2 %; Neutrophils # (A) 13.8 k/uL (1.3-7.7); Neutrophils % (A) 75 %; Platelet Count 281 k/uL (150-450); RBC 5.45 m/uL (4.30-5.90); RDW 11.8 % (11.5-15.5); WBC 18.4 k/uL (3.8-10.6)
[2019-05-14 10:02] LABS: Appearance,Urine Clear (Clear); Bilirubin,Urine Negative (Negative); Blood,Urine Negative (Negative); Color,Urine Light Yellow; Glucose,Urine (UA) 4+ (Negative); Leukocyte Esterase,Urine Negative (Negative); Nitrite,Urine Negative (Negative); Protein,Urine Negative (Negative); Specific Gravity,Urine 1.027 (1.001-1.035); Urobilinogen,Urine <2.0 mg/dL (<2.0)
[2019-05-14 10:04] LABS: VBG PH 7.26 (7.31-7.41)
[2019-05-14 10:17] LABS: ALT 42 U/L (4-49); African American GFR (CKD) >90 (>60 ml/min/1.73 sqM); Amylase 93 U/L (30-110); Anion Gap 22 mmol/L; Blood Urea Nitrogen 24 mg/dL (9-20); Calcium 10.4 mg/dL (8.4-10.2); Carbon Dioxide 20 mmol/L (22-30); Chloride 93 mmol/L (98-107); Non-African American GFR(CKD) >90 (>60 ml/min/1.73 sqM); Sodium 135 mmol/L (137-145); Total Bilirubin 1.8 mg/dL (0.2-1.3); Total Protein 7.9 g/dL (6.3-8.2)
--- NOTE | 2019-05-14 10:19 | ED ---
Nausea/Vomiting/Diarrhea HPI - General Chief complaint: Nausea/Vomiting/Diarrhea Stated complaint: vomiting Time Seen by Provider: 05/14/19 09:23 Source: patient, RN notes reviewed, old records reviewed Mode of arrival: ambulatory Limitations: no limitations - History of Present Illness Initial comments: Patient is a 28-year-old male, type I diabetic. He presents today with nausea vomiting abdominal pain. He reports that his blood sugars have been reading too high to be detected at home for the past 24 hours. He did not dose insulin at home. Patient states he has not been able to eat or drink much due to the vomiting and abdominal pain. He denies any upper respiratory symptoms including fever or cough or congestion. - Related Data Home Medications Medication Instructions Recorded Confirmed Insulin Glargine,Hum.rec.anlog 45 unit SQ HS 02/14/18 02/14/18 [Basaglar Kwikpen U-100] Insulin Glulisine [Apidra] 20 - 25 unit SQ TID 02/14/18 02/14/18 Previous Rx's Medication Instructions Recorded Azithromycin [Zithromax Z-pack] 0 mg PO DIRECTED #6 tab 06/21/18 predniSONE [Deltasone] 20 mg PO DAILY 5 Days #5 tab 06/21/18 Allergies Allergy/AdvReac Type Severity Reaction Status Date / Time bee venom protein (honey bee) Allergy Anaphylaxis Verified 03/03/19 00:31 Review of Systems ROS Statement: Those systems with pertinent positive or pertinent negative responses have been documented in the HPI. ROS Other: All systems not noted in ROS Statement are negative. Past Medical History Past Medical History: Diabetes Mellitus Additional Past Medical History / Comment(s): STATED HAD SEIZURE WHEN BS WAS TO LOW, History of Any Multi-Drug Resistant Organisms: None Reported Past Surgical History: No Surgical Hx Reported Additional Past Surgical History / Comment(s): TOOTH EXTRACTED IN PAST AND YESTERDAY HAD A PUS POCKET NEAR FRONT TOOTH LANCED/DRAINED. Past Anesthesia/Blood Transfusion Reactions: No Reported Reaction Past Psychological History: No Psychological Hx Reported Smoking Status: Current every day smoker Past Alcohol Use History: None Reported Past Drug Use History: None Reported - Past Family History Father Family Medical History: No Reported History Mother Family Medical History: Asthma General Exam - General Exam Comments Initial Comments: 8-year-old male. Alert and oriented 3. Patient is resting in bed. Limitations: no limitations General appearance: alert, in no apparent distress Head exam: Present: atraumatic, normocephalic, normal inspection Eye exam: Present: normal appearance, PERRL, EOMI. Absent: scleral icterus, conjunctival injection, periorbital swelling ENT exam: Present: normal exam, mucous membranes moist Neck exam: Present: normal inspection. Absent: tenderness, meningismus, lymphadenopathy Respiratory exam: Present: normal lung sounds bilaterally. Absent: respiratory distress, wheezes, rales, rhonchi, stridor Cardiovascular Exam: Present: regular rate, normal rhythm, normal heart sounds. Absent: systolic murmur, diastolic murmur, rubs, gallop, clicks GI/Abdominal exam: Present: soft, tenderness (epigastric ), normal bowel sounds. Absent: distended, guarding, rebound, rigid Extremities exam: Present: normal inspection, full ROM, normal capillary refill. Absent: tenderness, pedal edema, joint swelling, calf tenderness Back exam: Present: normal inspection Neurological exam: Present: alert, oriented X3, CN II-XII intact Psychiatric exam: Present: normal affect, normal mood Course Vital Signs 05/14/19 09:14 Temperature 97.4 F L Pulse Rate 96 Respiratory 19 Rate Blood Pressure 127/83 O2 Sat by Pulse 100 Oximetry Medical Decision Making - Medical Decision Making 28-year-old male history of diabetes presents with nausea vomiting elevated blood sugars for the past 24 hours. Patient has no specific abdominal tenderness at this time. Started on 2 L bolus, and then given insulin drip. He does appear to be in DKA. Also, is elevated at 18,000 unclear active nausea and vomiting. He has no fever at this time. No focal tenderness. I discussed at this time Patient admitted for DKA. [facility] - Lab Data Result diagrams: 05/14/19 09:34 05/14/19 09:34 Lab Results 05/14/19 05/14/19 05/14/19 Range/Units 09:28 09:34 09:34 WBC 18.4 H (3.8-10.6) k/uL RBC 5.45 (4.30-5.90) m/uL Hgb 16.9 (13.0-17.5) gm/dL Hct 53.8 H (39.0-53.0) % MCV 98.7 (80.0-100.0) fL MCH 31.0 (25.0-35.0) pg MCHC 31.5 (31.0-37.0) g/dL RDW 11.8 (11.5-15.5) % Plt Count 281 (150-450) k/uL Neutrophils % 75 % Lymphocytes % 21 % Monocytes % 2 % Eosinophils % 1 % Basophils % 1 % Neutrophils # 13.8 H (1.3-7.7) k/uL Lymphocytes # 3.9 (1.0-4.8) k/uL Monocytes # 0.3 (0-1.0) k/uL Eosinophils # 0.1 (0-0.7) k/uL Basophils # 0.1 (0-0.2) k/uL VBG pH (7.31-7.41) VBG pCO2 (37-51) mmHg VBG HCO3 (24-28) mmol/L Sodium 135 L (137-145) mmol/L Potassium 5.5 H (3.5-5.1) mmol/L Chloride 93 L (98-107) mmol/L Carbon Dioxide 20 L (22-30) mmol/L Anion Gap 22 mmol/L BUN 24 H (9-20) mg/dL Creatinine 1.05 (0.66-1.25) mg/dL Est GFR (CKD-EPI)AfAm >90 (>60 ml/min/1.73 sqM) Est GFR (CKD-EPI)NonAf >90 (>60 ml/min/1.73 sqM) Glucose 530 H* (74-99) mg/dL POC Glucose (mg/dL) 506 H (75-99) mg/dL POC Glu Project Control Officer ID Blanton, Janet Calcium 10.4 H (8.4-10.2) mg/dL Total Bilirubin 1.8 H (0.2-1.3) mg/dL AST 47 (17-59) U/L ALT 42 (4-49) U/L Alkaline Phosphatase 200 H (38-126) U/L Total Protein 7.9 (6.3-8.2) g/dL Albumin 5.0 (3.5-5.0) g/dL Amylase 93 (30-110) U/L Lipase 41 (23-300) U/L Urine Color Urine Appearance (Clear) Urine pH (5.0-8.0) Ur Specific [place] (1.001-1.035) Urine Protein (Negative) Urine Glucose (UA) (Negative) Urine Ketones (Negative) Urine Blood (Negative) Urine Nitrite (Negative) Urine Bilirubin (Negative) Urine Urobilinogen (<2.0) mg/dL Ur Leukocyte Esterase (Negative) Acetone, Qual Positive (Negative) 05/14/19 05/14/19 Range/Units 09:34 09:34 WBC (3.8-10.6) k/uL RBC (4.30-5.90) m/uL Hgb (13.0-17.5) gm/dL Hct (39.0-53.0) % MCV (80.0-100.0) fL MCH (25.0-35.0) pg MCHC (31.0-37.0) g/dL RDW (11.5-15.5) % Plt Count (150-450) k/uL Neutrophils % % Lymphocytes % % Monocytes % % Eosinophils % % Basophils % % Neutrophils # (1.3-7.7) k/uL Lymphocytes # (1.0-4.8) k/uL Monocytes # (0-1.0) k/uL Eosinophils # (0-0.7) k/uL Basophils # (0-0.2) k/uL VBG pH 7.26 L (7.31-7.41) VBG pCO2 48 (37-51) mmHg VBG HCO3 21 L (24-28) mmol/L Sodium (137-145) mmol/L Potassium (3.5-5.1) mmol/L Chloride (98-107) mmol/L Carbon Dioxide (22-30) mmol/L Anion Gap mmol/L BUN (9-20) mg/dL Creatinine (0.66-1.25) mg/dL Est GFR (CKD-EPI)AfAm (>60 ml/min/1.73 sqM) Est GFR (CKD-EPI)NonAf (>60 ml/min/1.73 sqM) Glucose (74-99) mg/dL POC Glucose (mg/dL) (75-99) mg/dL POC Glu Project Control Officer ID Calcium (8.4-10.2) mg/dL Total Bilirubin (0.2-1.3) mg/dL AST (17-59) U/L ALT (4-49) U/L Alkaline Phosphatase (38-126) U/L Total Protein (6.3-8.2) g/dL Albumin (3.5-5.0) g/dL Amylase (30-110) U/L Lipase (23-300) U/L Urine Color Light Yellow Urine Appearance Clear (Clear) Urine pH 5.0 (5.0-8.0) Ur Specific [place] 1.027 (1.001-1.035) Urine Protein Negative (Negative) Urine Glucose (UA) 4+ H (Negative) Urine Ketones 4+ H (Negative) Urine Blood Negative (Negative) Urine Nitrite Negative (Negative) Urine Bilirubin Negative (Negative) Urine Urobilinogen <2.0 (<2.0) mg/dL Ur Leukocyte Esterase Negative (Negative) Acetone, Qual (Negative) Disposition Clinical Impression: DKA (diabetic ketoacidoses) Disposition: ADMITTED IP TO THIS [facility] Condition: Stable Instructions (If sedation given, give patient instructions): Diabetic Ketoacidosis (DC) Is patient prescribed a controlled substance at d/c from ED?: No Referrals: Óscar Jackson MD [Primary Care Provider] - 1-2 days Time of Disposition: 11:08
[2019-05-14 10:43] LABS: Ketones,Urine 4+ (Negative)
[2019-05-14] MEDS ORDERED: SODIUM CHLORIDE 0.9% 1,000 ML IV ONE (10:43)
[2019-05-14 10:44] LABS: AST 47 U/L (17-59); Alkaline Phosphatase 200 U/L (38-126); Glucose 530 mg/dL (74-99); Potassium 5.5 mmol/L (3.5-5.1)
[2019-05-14] MEDS: SODIUM CHLORIDE 0.9% 1,000 ML IV SCH ×3 (10:56→23:42)
[2019-05-14 12:03] LABS: Glucose,Whole Blood 375 mg/dL (75-99)
--- NOTE | 2019-05-14 12:15 | P.HPIM ---
History of Present Illness This is a pleasant 28 years old male with past medical history of insulin- dependent diabetes mellitus, cigarette smoker about 1 pack per day. He is a patient of Dr. Shannon. He presents because of recurrent nausea vomiting since yesterday associated with some discomfort but no overt abdominal pain. No chest pain. Patient was complaining from dyspnea since yesterday however he was breathing quietly on room air when I saw him, no current dyspnea or tachypnea. No palpitation or dizziness. No change in urine or bowel habits. Last bowel movement was about 2 days ago and was regular Usually patient takes long-acting insulin Basalar 50 units daily plus NovoLog sliding scale with each meal as per patient. Patient states he was adherent to therapy Vitals looks stable and patient is afebrile. On admission his WBC is elevated at 18.4 K, VBG pH low at 7.26, pCO2 is normal at 48. Sodium 135, potassium 5.5, creatinine 1.05 edges normal limits. Anion gap Is elevated at 22. Potassium is elevated to 5.5, however specimen is a slightly hemolyzed, glucose 530. Calcium 10.4, total bilirubin is 1.8, liver enzymes not elevated. Lipase is normal. In the emergency room he received 3 L of normal saline and started on normal saline at 200 mL per hour motor vehicle Toradol one-time dose Review of Systems CONSTITUTIONAL: No fever, no malaise, no fatigue. HEENT: No recent visual problems or hearing problems. Denied any sore throat. CARDIOVASCULAR: No orthopnea, PND, no palpitations, no syncope. PULMONARY: No shortness of breath, no cough, no hemoptysis. GASTROINTESTINAL: No diarrhea, no abdominal pain. Normoactive bowel sounds. NEUROLOGICAL: No headaches, no weakness, no numbness. HEMATOLOGICAL: Denies any bleeding or petechiae. GENITOURINARY: Denies any burning micturition, frequency, or urgency. MUSCULOSKELETAL/RHEUMATOLOGICAL: Denies any joint pain, swelling, or any muscle pain. ENDOCRINE: Denies any polyuria or polydipsia. Past Medical History Past Medical History: Diabetes Mellitus Additional Past Medical History / Comment(s): STATED HAD SEIZURE WHEN BS WAS TO LOW, History of Any Multi-Drug Resistant Organisms: None Reported Past Surgical History: No Surgical Hx Reported Additional Past Surgical History / Comment(s): TOOTH EXTRACTED IN PAST AND YESTERDAY HAD A PUS POCKET NEAR FRONT TOOTH LANCED/DRAINED. Past Anesthesia/Blood Transfusion Reactions: No Reported Reaction Past Psychological History: No Psychological Hx Reported Smoking Status: Current every day smoker Past Alcohol Use History: None Reported Past Drug Use History: None Reported - Past Family History Father Family Medical History: No Reported History Mother Family Medical History: Asthma Medications and Allergies Home Medications Medication Instructions Recorded Confirmed Type Insulin Glargine,Hum.rec.anlog 60 unit SQ HS 02/14/18 05/14/19 History [Basaglar Kwikpen U-100] Insulin Regular, Human [NovoLIN R] 5 - 15 unit SQ AC-TID 05/14/19 05/14/19 History Allergies Allergy/AdvReac Type Severity Reaction Status Date / Time bee venom protein (honey bee) Allergy Anaphylaxis Verified 05/14/19 11:19 Physical Exam Vitals: Vital Signs Temp Pulse Resp BP Pulse Ox 05/14/19 11:00 98 18 05/14/19 10:00 96 18 05/14/19 09:14 97.4 F L 96 19 127/83 100 Intake and Output 05/13/19 05/14/19 05/14/19 22:59 06:59 14:59 Other: Weight 63.095 kg GENERAL: The patient is alert and oriented x3, not in any acute distress. Well developed, well nourished. HEENT: Pupils are round and equally reacting to light. EOMI. No scleral icterus. No conjunctival pallor. Normocephalic, atraumatic. No pharyngeal erythema. No thyromegaly. CARDIOVASCULAR: S1 and S2 present. No murmurs, rubs, or gallops. PULMONARY: Chest is clear to auscultation, no wheezing or crackles. ABDOMEN: Soft, nontender, nondistended, normoactive bowel sounds. No palpable organomegaly. MUSCULOSKELETAL: No joint swelling or deformity. EXTREMITIES: No cyanosis, clubbing, or pedal edema. NEUROLOGICAL: Gross neurological examination did not reveal any focal deficits. SKIN: No rashes. No petechiae Results CBC & Chem 7: 05/14/19 09:34 05/14/19 09:34 Labs: Abnormal Lab Results - Last 24 Hours (Table) 05/14/19 05/14/19 05/14/19 Range/Units 09:28 09:34 09:34 WBC 18.4 H (3.8-10.6) k/uL Hct 53.8 H (39.0-53.0) % Neutrophils # 13.8 H (1.3-7.7) k/uL VBG pH (7.31-7.41) VBG HCO3 (24-28) mmol/L Sodium 135 L (137-145) mmol/L Potassium 5.5 H (3.5-5.1) mmol/L Chloride 93 L (98-107) mmol/L Carbon Dioxide 20 L (22-30) mmol/L BUN 24 H (9-20) mg/dL Glucose 530 H* (74-99) mg/dL POC Glucose (mg/dL) 506 H (75-99) mg/dL Calcium 10.4 H (8.4-10.2) mg/dL Total Bilirubin 1.8 H (0.2-1.3) mg/dL Alkaline Phosphatase 200 H (38-126) U/L Urine Glucose (UA) (Negative) Urine Ketones (Negative) 05/14/19 05/14/19 Range/Units 09:34 09:34 WBC (3.8-10.6) k/uL Hct (39.0-53.0) % Neutrophils # (1.3-7.7) k/uL VBG pH 7.26 L (7.31-7.41) VBG HCO3 21 L (24-28) mmol/L Sodium (137-145) mmol/L Potassium (3.5-5.1) mmol/L Chloride (98-107) mmol/L Carbon Dioxide (22-30) mmol/L BUN (9-20) mg/dL Glucose (74-99) mg/dL POC Glucose (mg/dL) (75-99) mg/dL Calcium (8.4-10.2) mg/dL Total Bilirubin (0.2-1.3) mg/dL Alkaline Phosphatase (38-126) U/L Urine Glucose (UA) 4+ H (Negative) Urine Ketones 4+ H (Negative) Assessment and Plan Assessment: Diabetic ketoacidosis Leukocytosis recurrent nausea vomiting Dehydration Insulin-dependent diabetes mellitus Plan: This is a pleasant 48 years old male who presents with diabetic ketoacidosis, continue with parenteral hydration and insulin drip with the Electrolytes placement as per protocol. Check hemoglobin A1c Labs and medication were reviewed.. Continue same treatment. Continue with symptomatic treatment. Resume home medication. Monitor lytes and vitals. DVT and GI prophylaxis. Further recommendations of the clinical course of the patient DVT prophylaxis: Subcutaneous heparin GI Prophylaxis: Pepcid Prognosis is guarded
[2019-05-14 13:13] LABS: Glucose,Whole Blood 404 mg/dL (75-99)
[2019-05-14 14:03] LABS: Glucose,Whole Blood 333 mg/dL (75-99)
[2019-05-14 14:38] LABS: African American GFR (CKD) >90 (>60 ml/min/1.73 sqM); Anion Gap 10 mmol/L; Blood Urea Nitrogen 22 mg/dL (9-20); Carbon Dioxide 24 mmol/L (22-30); Chloride 98 mmol/L (98-107); Glucose 344 mg/dL (74-99); Non-African American GFR(CKD) >90 (>60 ml/min/1.73 sqM); Phosphorus 3.4 mg/dL (2.5-4.5); Potassium 4.1 mmol/L (3.5-5.1); Sodium 132 mmol/L (137-145)
[2019-05-14 15:44] LABS: Glucose,Whole Blood 303 mg/dL (75-99)
[2019-05-14 16:45] LABS: Glucose,Whole Blood 275 mg/dL (75-99)
[2019-05-14] MEDS: D5-0.45% NACL WITH KCL 20MEQ/L 1,000 ML IV SCH ×2 (17:04→23:41)
[2019-05-14 18:10] LABS: African American GFR (CKD) >90 (>60 ml/min/1.73 sqM); Anion Gap 7 mmol/L; Blood Urea Nitrogen 22 mg/dL (9-20); Carbon Dioxide 23 mmol/L (22-30); Chloride 102 mmol/L (98-107); Glucose 231 mg/dL (74-99); Non-African American GFR(CKD) >90 (>60 ml/min/1.73 sqM); Phosphorus 3.1 mg/dL (2.5-4.5); Potassium 4.5 mmol/L (3.5-5.1); Sodium 132 mmol/L (137-145)
[2019-05-14 18:37] LABS: Glucose,Whole Blood 214 mg/dL (75-99)
[2019-05-14 20:22] LABS: Glucose,Whole Blood 274 mg/dL (75-99)
[2019-05-14 22:06] LABS: Glucose,Whole Blood 105 mg/dL (75-99)
[2019-05-14] MEDS ORDERED: INSULIN DETEMIR (LEVEMIR) 100 UNIT/ML SYR SQ SCH (23:30)
[2019-05-14] MEDS: HEPARIN SODIUM,PORCINE 5,000 UNIT/ML 1 ML VIAL SQ SCH (23:32)
[2019-05-14] MEDS: FAMOTIDINE 20 MG/2 ML VIAL IV SCH (23:32)
[2019-05-15 06:04] LABS: Glucose,Whole Blood 177 mg/dL (75-99)
[2019-05-15 06:25] LABS: HCT 45.7 % (39.0-53.0); HGB 14.7 gm/dL (13.0-17.5); MCH 30.8 pg (25.0-35.0); MCHC 32.2 g/dL (31.0-37.0); MCV 95.6 fL (80.0-100.0); Mean Platelet Volume 8.1; Platelet Count 285 k/uL (150-450); RBC 4.78 m/uL (4.30-5.90); RDW 11.9 % (11.5-15.5); WBC 16.4 k/uL (3.8-10.6)
[2019-05-15 06:34] LABS: African American GFR (CKD) >90 (>60 ml/min/1.73 sqM); Anion Gap 3 mmol/L; Blood Urea Nitrogen 17 mg/dL (9-20); Carbon Dioxide 29 mmol/L (22-30); Chloride 104 mmol/L (98-107); Glucose 227 mg/dL (74-99); Magnesium 1.9 mg/dL (1.6-2.3); Non-African American GFR(CKD) >90 (>60 ml/min/1.73 sqM); Potassium 4.3 mmol/L (3.5-5.1); Sodium 136 mmol/L (137-145)
[2019-05-15] MEDS: INSULIN ASPART (NovoLOG) 100 UNIT/ML VIAL SQ SCH ×5 (06:56→20:10)
[2019-05-15 06:58] LABS: Eosinophils # (M) 0.16 k/uL (0-0.7); Lymphocytes # (M) 5.58 k/uL (1.0-4.8); Monocytes # (M) 1.48 k/uL (0-1.0); Neutrophils # (M) 9.18 k/uL (1.3-7.7); Neutrophils % (M) 56 %; Nucleated Red Blood Cells 0 /100 WBC (0-0); Total Cells Counted 100
[2019-05-15] MEDS ORDERED: INSULIN ASPART (NovoLOG) 100 UNIT/ML VIAL SQ SCH ×2 (07:30→12:30)
--- NOTE | 2019-05-15 08:35 | P.PN ---
Subjective This is a pleasant 28 years old male with past medical history of insulin- dependent diabetes mellitus, cigarette smoker about 1 pack per day. He is a patient of Dr. Shannon. He presents because of recurrent nausea vomiting since yesterday associated with some discomfort but no overt abdominal pain. No chest pain. Patient was complaining from dyspnea since yesterday however he was breathing quietly on room air when I saw him, no current dyspnea or tachypnea. No palpitation or dizziness. No change in urine or bowel habits. Last bowel movement was about 2 days ago and was regular Usually patient takes long-acting insulin Basalar 50 units daily plus NovoLog sliding scale with each meal as per patient. Patient states he was adherent to therapy Vitals looks stable and patient is afebrile. On admission his WBC is elevated at 18.4 K, VBG pH low at 7.26, pCO2 is normal at 48. Sodium 135, potassium 5.5, creatinine 1.05 edges normal limits. Anion gap Is elevated at 22. Potassium is elevated to 5.5, however specimen is a slightly hemolyzed, glucose 530. Calcium 10.4, total bilirubin is 1.8, liver enzymes not elevated. Lipase is normal. In the emergency room he received 3 L of normal saline and started on normal saline at 200 mL per hour motor vehicle Toradol one-time dose 05/15/2019 Patient anion gap is closed and his insulin drip was stopped last night, he was started on Levemir 14 units at bedtime compared to 50 units at home, however his blood sugar was controlled this morning 105 and 177. His hemoglobin A1c was 11% which is quite elevated and Patient states he was not adherent to therapy, he said he was on long-acting insulin 50 units at bedtime for the last 2 years, however at times he had low sugar for example it was in the 40s on March 2019, the last time he had low sugar, and states he was taken roughly 10 units of NovoLog with meals. Because of this we we will keep the patient on 40 units of Levemir at bedtime and NovoLog 10 units with meals, we'll keep the patient to monitor his sugar today, also the patient has leukocytosis of 16 K although is improving. Patient denies any specific symptoms, his nausea vomiting has stopped, no chest pain or dyspnea, no rash no diarrhea. Patient was instructed to follow up with his PCP and mold maker as an outpatient and he agrees Discussed with staff Review of systems CONSTITUTIONAL: No fever, no malaise, no fatigue. HEENT: No recent visual problems or hearing problems. Denied any sore throat. CARDIOVASCULAR: No orthopnea, PND, no palpitations, no syncope. PULMONARY: No shortness of breath, no cough, no hemoptysis. GASTROINTESTINAL: No diarrhea, no abdominal pain. Normoactive bowel sounds. NEUROLOGICAL: No headaches, no weakness, no numbness. HEMATOLOGICAL: Denies any bleeding or petechiae. GENITOURINARY: Denies any burning micturition, frequency, or urgency. MUSCULOSKELETAL/RHEUMATOLOGICAL: Denies any joint pain, swelling, or any muscle pain. ENDOCRINE: Denies any polyuria or polydipsia. Objective - Vital Signs Vital signs: Vital Signs Temp 98.1 F 05/15/19 08:00 Pulse 86 05/15/19 08:00 Resp 16 05/15/19 08:00 BP 129/90 05/15/19 08:00 Pulse Ox 100 05/15/19 08:00 Intake & Output 05/14/19 05/15/19 05/15/19 18:59 06:59 18:59 Intake Total 278.769 23.333 Output Total 800 Balance 278.769 -776.667 Weight 63.095 kg 67.9 kg Intake: Intake, IV Titration 38.769 23.333 Amount Insulin Regular 100 unit 38.769 23.333 In Sodium Chloride 0.9% 100 ml @ 0.1 UNITS/KG/HR 6.373 mls/hr IV .[id number] [facility] Rx#:[id number] Oral 240 Output: Urine 800 Other: # Voids 2 - Exam GENERAL: The patient is alert and oriented x3, not in any acute distress. Well developed, well nourished. HEENT: Pupils are round and equally reacting to light. EOMI. No scleral icterus. No conjunctival pallor. Normocephalic, atraumatic. No pharyngeal erythema. No thyromegaly. CARDIOVASCULAR: S1 and S2 present. No murmurs, rubs, or gallops. PULMONARY: Chest is clear to auscultation, no wheezing or crackles. ABDOMEN: Soft, nontender, nondistended, normoactive bowel sounds. No palpable organomegaly. MUSCULOSKELETAL: No joint swelling or deformity. EXTREMITIES: No cyanosis, clubbing, or pedal edema. NEUROLOGICAL: Gross neurological examination did not reveal any focal deficits. SKIN: No rashes. No petechiae - Labs CBC & Chem 7: 05/15/19 05:50 05/15/19 05:50 Labs: Abnormal Lab Results - Last 24 Hours (Table) 05/14/19 05/14/19 05/14/19 Range/Units 09:28 09:34 09:34 WBC 18.4 H (3.8-10.6) k/uL Hct 53.8 H (39.0-53.0) % Neutrophils # 13.8 H (1.3-7.7) k/uL Neutrophils # (Manual) (1.3-7.7) k/uL Lymphocytes # (Manual) (1.0-4.8) k/uL Monocytes # (Manual) (0-1.0) k/uL VBG pH (7.31-7.41) VBG HCO3 (24-28) mmol/L Sodium 135 L (137-145) mmol/L Potassium 5.5 H (3.5-5.1) mmol/L Chloride 93 L (98-107) mmol/L Carbon Dioxide 20 L (22-30) mmol/L BUN 24 H (9-20) mg/dL Glucose 530 H* (74-99) mg/dL POC Glucose (mg/dL) 506 H (75-99) mg/dL Hemoglobin A1c (4.0-6.0) % Calcium 10.4 H (8.4-10.2) mg/dL Total Bilirubin 1.8 H (0.2-1.3) mg/dL Alkaline Phosphatase 200 H (38-126) U/L Urine Glucose (UA) (Negative) Urine Ketones (Negative) 05/14/19 05/14/19 05/14/19 Range/Units 09:34 09:34 12:02 WBC (3.8-10.6) k/uL Hct (39.0-53.0) % Neutrophils # (1.3-7.7) k/uL Neutrophils # (Manual) (1.3-7.7) k/uL Lymphocytes # (Manual) (1.0-4.8) k/uL Monocytes # (Manual) (0-1.0) k/uL VBG pH 7.26 L (7.31-7.41) VBG HCO3 21 L (24-28) mmol/L Sodium (137-145) mmol/L Potassium (3.5-5.1) mmol/L Chloride (98-107) mmol/L Carbon Dioxide (22-30) mmol/L BUN (9-20) mg/dL Glucose (74-99) mg/dL POC Glucose (mg/dL) 375 H (75-99) mg/dL Hemoglobin A1c (4.0-6.0) % Calcium (8.4-10.2) mg/dL Total Bilirubin (0.2-1.3) mg/dL Alkaline Phosphatase (38-126) U/L Urine Glucose (UA) 4+ H (Negative) Urine Ketones 4+ H (Negative) 05/14/19 05/14/19 05/14/19 Range/Units 13:10 13:34 13:34 WBC (3.8-10.6) k/uL Hct (39.0-53.0) % Neutrophils # (1.3-7.7) k/uL Neutrophils # (Manual) (1.3-7.7) k/uL Lymphocytes # (Manual) (1.0-4.8) k/uL Monocytes # (Manual) (0-1.0) k/uL VBG pH (7.31-7.41) VBG HCO3 (24-28) mmol/L Sodium 132 L (137-145) mmol/L Potassium (3.5-5.1) mmol/L Chloride (98-107) mmol/L Carbon Dioxide (22-30) mmol/L BUN 22 H (9-20) mg/dL Glucose 344 H (74-99) mg/dL POC Glucose (mg/dL) 404 H (75-99) mg/dL Hemoglobin A1c 11.0 H (4.0-6.0) % Calcium (8.4-10.2) mg/dL Total Bilirubin (0.2-1.3) mg/dL Alkaline Phosphatase (38-126) U/L Urine Glucose (UA) (Negative) Urine Ketones (Negative) 05/14/19 05/14/19 05/14/19 Range/Units 14:02 15:42 16:44 WBC (3.8-10.6) k/uL Hct (39.0-53.0) % Neutrophils # (1.3-7.7) k/uL Neutrophils # (Manual) (1.3-7.7) k/uL Lymphocytes # (Manual) (1.0-4.8) k/uL Monocytes # (Manual) (0-1.0) k/uL VBG pH (7.31-7.41) VBG HCO3 (24-28) mmol/L Sodium (137-145) mmol/L Potassium (3.5-5.1) mmol/L Chloride (98-107) mmol/L Carbon Dioxide (22-30) mmol/L BUN (9-20) mg/dL Glucose (74-99) mg/dL POC Glucose (mg/dL) 333 H 303 H 275 H (75-99) mg/dL Hemoglobin A1c (4.0-6.0) % Calcium (8.4-10.2) mg/dL Total Bilirubin (0.2-1.3) mg/dL Alkaline Phosphatase (38-126) U/L Urine Glucose (UA) (Negative) Urine Ketones (Negative) 05/14/19 05/14/19 05/14/19 Range/Units 17:41 18:35 20:21 WBC (3.8-10.6) k/uL Hct (39.0-53.0) % Neutrophils # (1.3-7.7) k/uL Neutrophils # (Manual) (1.3-7.7) k/uL Lymphocytes # (Manual) (1.0-4.8) k/uL Monocytes # (Manual) (0-1.0) k/uL VBG pH (7.31-7.41) VBG HCO3 (24-28) mmol/L Sodium 132 L (137-145) mmol/L Potassium (3.5-5.1) mmol/L Chloride (98-107) mmol/L Carbon Dioxide (22-30) mmol/L BUN 22 H (9-20) mg/dL Glucose 231 H (74-99) mg/dL POC Glucose (mg/dL) 214 H 274 H (75-99) mg/dL Hemoglobin A1c (4.0-6.0) % Calcium (8.4-10.2) mg/dL Total Bilirubin (0.2-1.3) mg/dL Alkaline Phosphatase (38-126) U/L Urine Glucose (UA) (Negative) Urine Ketones (Negative) 05/14/19 05/15/19 05/15/19 Range/Units 22:05 05:50 05:50 WBC 16.4 H (3.8-10.6) k/uL Hct (39.0-53.0) % Neutrophils # (1.3-7.7) k/uL Neutrophils # (Manual) 9.18 H (1.3-7.7) k/uL Lymphocytes # (Manual) 5.58 H (1.0-4.8) k/uL Monocytes # (Manual) 1.48 H (0-1.0) k/uL VBG pH (7.31-7.41) VBG HCO3 (24-28) mmol/L Sodium 136 L (137-145) mmol/L Potassium (3.5-5.1) mmol/L Chloride (98-107) mmol/L Carbon Dioxide (22-30) mmol/L BUN (9-20) mg/dL Glucose 227 H (74-99) mg/dL POC Glucose (mg/dL) 105 H (75-99) mg/dL Hemoglobin A1c (4.0-6.0) % Calcium (8.4-10.2) mg/dL Total Bilirubin (0.2-1.3) mg/dL Alkaline Phosphatase (38-126) U/L Urine Glucose (UA) (Negative) Urine Ketones (Negative) 05/15/19 Range/Units 06:03 WBC (3.8-10.6) k/uL Hct (39.0-53.0) % Neutrophils # (1.3-7.7) k/uL Neutrophils # (Manual) (1.3-7.7) k/uL Lymphocytes # (Manual) (1.0-4.8) k/uL Monocytes # (Manual) (0-1.0) k/uL VBG pH (7.31-7.41) VBG HCO3 (24-28) mmol/L Sodium (137-145) mmol/L Potassium (3.5-5.1) mmol/L Chloride (98-107) mmol/L Carbon Dioxide (22-30) mmol/L BUN (9-20) mg/dL Glucose (74-99) mg/dL POC Glucose (mg/dL) 177 H (75-99) mg/dL Hemoglobin A1c (4.0-6.0) % Calcium (8.4-10.2) mg/dL Total Bilirubin (0.2-1.3) mg/dL Alkaline Phosphatase (38-126) U/L Urine Glucose (UA) (Negative) Urine Ketones (Negative) Assessment and Plan Assessment: Diabetic ketoacidosis, improved Insulin-dependent diabetes mellitus with hyperglycemia Leukocytosis recurrent nausea vomiting, improved Dehydration, improved Plan: This is a pleasant 48 years old male who presents with diabetic ketoacidosis, continue with Levemir 40 units at bedtime and NovoLog with meals. Monitor s ugar. Monitor WBC Labs and medication were reviewed.. Continue same treatment. Continue with symptomatic treatment. Resume home medication. Monitor lytes and vitals. DVT and GI prophylaxis. Further recommendations of the clinical course of the patient DVT prophylaxis: Subcutaneous heparin GI Prophylaxis: Pepcid Prognosis is guarded
[2019-05-15 09:03] VITALS: BMI 24.1
[2019-05-15] MEDS: HEPARIN SODIUM,PORCINE 5,000 UNIT/ML 1 ML VIAL SQ SCH ×2 (11:07→20:18)
[2019-05-15] MEDS: FAMOTIDINE 20 MG/2 ML VIAL IV SCH (11:08)
[2019-05-15 11:53] LABS: Glucose,Whole Blood 48 mg/dL (75-99)
[2019-05-15 11:53] LABS: Glucose,Whole Blood 44 mg/dL (75-99)
[2019-05-15 12:04] LABS: Glucose,Whole Blood 88 mg/dL (75-99)
[2019-05-15 17:01] LABS: Glucose,Whole Blood 356 mg/dL (75-99)
[2019-05-15 20:08] LABS: Glucose,Whole Blood 105 mg/dL (75-99)
[2019-05-15] MEDS: FAMOTIDINE 20 MG TAB PO SCH (20:21)
[2019-05-15] MEDS ORDERED: INSULIN DETEMIR (LEVEMIR) 100 UNIT/ML SYR SQ SCH ×2 (21:00)
[2019-05-15 21:58] LABS: Basophils # (A) 0.2 k/uL (0-0.2); Basophils % (A) 1 %; Eosinophils # (A) 0.2 k/uL (0-0.7); Eosinophils % (A) 2 %; HCT 48.8 % (39.0-53.0); HGB 15.5 gm/dL (13.0-17.5); Lymphocytes # (A) 4.7 k/uL (1.0-4.8); Lymphocytes % (A) 43 %; MCH 30.4 pg (25.0-35.0); MCHC 31.8 g/dL (31.0-37.0); MCV 95.5 fL (80.0-100.0); Mean Platelet Volume 7.9; Monocytes # (A) 0.4 k/uL (0-1.0); Monocytes % (A) 3 %; Neutrophils # (A) 5.4 k/uL (1.3-7.7); Neutrophils % (A) 49 %; Platelet Count 309 k/uL (150-450); RDW 11.9 % (11.5-15.5); WBC 11.1 k/uL (3.8-10.6)
[2019-05-16 00:29] LABS: Glucose,Whole Blood 119 mg/dL (75-99)
[2019-05-16 02:21] LABS: Glucose,Whole Blood 107 mg/dL (75-99)
[2019-05-16 07:06] LABS: Glucose,Whole Blood 129 mg/dL (75-99)
[2019-05-16] MEDS: INSULIN ASPART (NovoLOG) 100 UNIT/ML VIAL SQ SCH ×4 (07:07→11:57)
[2019-05-16] MEDS: FAMOTIDINE 20 MG TAB PO SCH (07:21)
[2019-05-16] MEDS: HEPARIN SODIUM,PORCINE 5,000 UNIT/ML 1 ML VIAL SQ SCH (07:21)
[2019-05-16 07:45] LABS: Basophils # (A) 0.1 k/uL (0-0.2); Basophils % (A) 1 %; Eosinophils # (A) 0.2 k/uL (0-0.7); Eosinophils % (A) 2 %; HCT 48.4 % (39.0-53.0); HGB 15.7 gm/dL (13.0-17.5); Lymphocytes # (A) 5.1 k/uL (1.0-4.8); Lymphocytes % (A) 53 %; MCH 31.1 pg (25.0-35.0); MCHC 32.4 g/dL (31.0-37.0); Monocytes # (A) 0.5 k/uL (0-1.0); Monocytes % (A) 5 %; Neutrophils # (A) 3.5 k/uL (1.3-7.7); Neutrophils % (A) 36 %; Platelet Count 281 k/uL (150-450); RBC 5.04 m/uL (4.30-5.90); WBC 9.6 k/uL (3.8-10.6)
[2019-05-16 08:08] VITALS: BP 118/76; PULSE 79; RESP 18; TEMP 98.3
[2019-05-16 08:48] LABS: Anisocytosis (M) Present
[2019-05-16 11:53] LABS: Glucose,Whole Blood 197 mg/dL (75-99)
[2019-05-16 14:12] LABS: Glucose,Whole Blood 120 mg/dL (75-99)
--- NOTE | 2019-05-16 14:18 | P.DS ---
Providers Date of admission: 05/14/19 11:45 Attending physician: Marcelino Gongora Primary care physician: Manuel Jones [facility] Course: Diagnoses: Diabetic ketoacidosis, improved. Mostly secondary to non-adherence to therapy Insulin-dependent diabetes mellitus with hyperglycemia and diabetic neuropathy Leukocytosis , reactive. Came back to normal recurrentt nausea vomiting, improved Dehydration, improved Hospital course: This is a pleasant 28 years old male with past medical history of insulin- dependent diabetes mellitus, cigarette smoker about 1 pack per day. He is a patient of Dr. Foss. He presents because of recurrent nausea vomiting of one-day duration associated with some discomfort but no overt abdominal pain. No chest pain. Patient was found in DKA. He was treated with insulin drips as per protocol and his anion gap closed in his symptoms improved, no more nausea vomiting, no abdominal pain. No chest pain or dyspnea, no other symptoms Patient hemoglobin A1c was 11% at home he takes long-acting insulin Basalar 50 units daily plus NovoLog sliding scale with each meal as per patient about 5-10 units. Patient states he was very adherent to therapy, He told me he was not taking his insulin regularly for half of the month days because sometimes his sugar drops and sometimes because of his diet his sugar goes up. Patient was restarted on Levemir 40 units and bedtime and next day his sugar dropped to 44, so we lowered his Levemir to 30 units + 5 units of NovoLog with meals, the sugar remained stable. Patient was instructed to check his sugar/glucose 4 times a day before each meal and at bedtime and to bring the sugar level results to his doctor and his appointment and he agrees. Patient has glucometer and prescription for accessory is provided for him. Patient feels it is ready to be discharged home Problems and management plan were discussed with the patient and he verbalized understanding and acceptance Patient was found stable and can be discharged home however he needs follow-up as an outpatient. Patient was instructed to follow up with PCP Dr. Shannon within one week and patient agrees. Patient agrees with the appointments and [place] assessment follow-up Also patient was instructed to follow up with endocri nologist Dr. Street in 1-2 weeks and he agrees Gen: patient is a AAOx3, no distress CVS: S1-S2, RRR, no murmur Lungs: B/L CTA, no wheezing Abdomen: soft, no distention, no tenderness, positive bowel sounds Extremity: no leg edema or induration Time spent more than 35 minutes Patient Condition at Discharge: Stable Plan - Discharge Summary Discharge Rx Participant: No New Discharge Prescriptions: Changed Insulin Glargine,Hum.rec.anlog [Basaglar Kwikpen U-100] 30 unit SQ HS #1 vial Insulin Regular, Human [NovoLIN R] 5 unit SQ AC-TID #1 vial Discharge Medication List Insulin Glargine,Hum.rec.anlog [Basaglar Kwikpen U-100] 30 unit SQ HS #1 vial 05/16/19 [Rx] Insulin Regular, Human [NovoLIN R] 5 unit SQ AC-TID #1 vial 05/16/19 [Rx] Follow up Appointment(s)/Referral(s): Óscar Jackson MD [Primary Care Provider] - 05/22/19 2:30 pm (Tuesday) Young Street MD [REFERRING] - 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 Office currently closed to make appointment - please call after 0830am 05/17/2019 to make appointment) Patient Instructions/Handouts: Diabetic Ketoacidosis (DC) Activity/Diet/Wound Care/Special Instructions: Low carbohydrate diet Activity as tolerated Discharge Disposition: HOME SELF-CARE
[2019-05-16] MEDS ORDERED: INSULIN DETEMIR (LEVEMIR) 100 UNIT/ML SYR SQ SCH (21:00)
== END 2019-05-16 14:37 | disposition home or self-care (01) | DRG 639 ==
LOC: EC 09:07 → 3SCARD 11:45 → 4SSUR 05-15 21:09
PROVIDERS: ADMIT Hospitalist; ATTEND Hospitalist
DX: E10.10 Type 1 diabetes mellitus with ketoacidosis without coma (principal); E10.40 Type 1 diabetes mellitus with diabetic neuropathy, unspecified; D72.829 Elevated white blood cell count, unspecified; E86.0 Dehydration; F17.210 Nicotine dependence, cigarettes, uncomplicated; Z79.4 Long term (current) use of insulin; Z91.030 Bee allergy status; T38.3X6A Underdosing of insulin and oral hypoglycemic [antidiabetic] drugs, initial encounter; Z91.128 Patient's intentional underdosing of medication regimen for other reason; Z82.5 Family history of asthma and other chronic lower respiratory diseases; Z83.3 Family history of diabetes mellitus
CPT/HCPCS: 36415; 80048; 80051; 80053; 81003; 82009; 82150; 82565; 82803; 82947; 83036; 83690; 83735; 84100; 84520; 85025; 96361; 96374; 96375; 99285

== ENCOUNTER 2019-06-19 15:38 | Emergency (ER) | payer OTHER ==
[2019-06-19 15:44] VITALS: TEMP 97.8
[2019-06-19] MEDS ORDERED: SODIUM CHLORIDE 0.9% 1,000 ML IV STA ×2 (15:56)
[2019-06-19] MEDS ORDERED: IPRATROPIUM-ALBUTEROL 3 ML NEB INHALATION STA (15:56)
--- NOTE | 2019-06-19 16:06 | ED ---
General Adult HPI - General Chief complaint: Shortness of Breath Stated complaint: chest pain, diabetic Time Seen by Provider: 06/19/19 15:42 Source: EMS, RN notes reviewed, old records reviewed Mode of arrival: EMS Limitations: no limitations - History of Present Illness Initial comments: Patient is a 28-year-old male who presents today for eval for concern for acute shortness of breath and coughing for the past day. Symptoms are significantly worse when he walked into work today. EMS contacted and presented. He is a type I diabetic but tonight take his insulin today. Patient reports that yesterday he had some diarrhea. He denies any specific fevers. - Related Data Previous Rx's Medication Instructions Recorded Insulin Glargine,Hum.rec.anlog 30 unit SQ HS #1 vial 05/16/19 [Basaglar Kwikpen U-100] Insulin Regular, Human [NovoLIN R] 5 unit SQ AC-TID #1 vial 05/16/19 Albuterol Inhaler [Ventolin Hfa 1 - 2 puff INHALATION RT-Q6H PRN 06/19/19 Inhaler] #1 inhaler Promethazine/Dextromethorphan 5 ml PO TID #120 ml 06/19/19 [Phenergan DM Syrup] methylPREDNISolone Dose Pack 4 mg PO DIRECTED #21 package 06/19/19 [Medrol Dose Pack] Allergies Allergy/AdvReac Type Severity Reaction Status Date / Time bee venom protein (honey bee) Allergy Anaphylaxis Verified 06/19/19 15:44 Review of Systems ROS Statement: Those systems with pertinent positive or pertinent negative responses have been documented in the HPI. ROS Other: All systems not noted in ROS Statement are negative. Past Medical History Past Medical History: Diabetes Mellitus, Pneumonia, Seizure Disorder Additional Past Medical History / Comment(s): IDDM type I, DKA, seizures with hypoglycemia-last time April 2019, bronchitis. History of Any Multi-Drug Resistant Organisms: None Reported Past Surgical History: No Surgical Hx Reported Additional Past Surgical History / Comment(s): TOOTH EXTRACTED IN PAST AND YESTERDAY HAD A PUS POCKET NEAR FRONT TOOTH LANCED/DRAINED. Past Anesthesia/Blood Transfusion Reactions: No Reported Reaction Past Psychological History: No Psychological Hx Reported Smoking Status: Current every day smoker Past Alcohol Use History: None Reported Past Drug Use History: None Reported - Past Family History Father Family Medical History: No Reported History Additional Family Medical History / Comment(s): Father is healthy Mother Family Medical History: Asthma General Exam - General Exam Comments Initial Comments: 28-year-old male. Alert and oriented. No distress. Limitations: no limitations General appearance: alert, in no apparent distress Head exam: Present: atraumatic, normocephalic, normal inspection Eye exam: Present: normal appearance, PERRL, EOMI. Absent: scleral icterus, conjunctival injection, periorbital swelling ENT exam: Present: normal exam, mucous membranes moist Neck exam: Present: normal inspection. Absent: tenderness, meningismus, lymphadenopathy Respiratory exam: Present: normal lung sounds bilaterally. Absent: respiratory distress, wheezes, rales, rhonchi, stridor Cardiovascular Exam: Present: regular rate, normal rhythm, normal heart sounds. Absent: systolic murmur, diastolic murmur, rubs, gallop, clicks GI/Abdominal exam: Present: soft, normal bowel sounds. Absent: distended, tenderness, guarding, rebound, rigid Extremities exam: Present: normal inspection, full ROM, normal capillary refill. Absent: tenderness, pedal edema, joint swelling, calf tenderness Back exam: Present: normal inspection Neurological exam: Present: alert, oriented X3, CN II-XII intact Psychiatric exam: Present: normal affect, normal mood Skin exam: Present: warm, dry, intact, normal color. Absent: rash Course Vital Signs 06/19/19 06/19/19 06/19/19 15:40 16:18 16:30 Temperature 97.8 F Pulse Rate 95 88 90 Respiratory 24 Rate Blood Pressure 121/61 O2 Sat by Pulse 100 Oximetry 06/19/19 06/19/19 17:40 18:54 Temperature 97.8 F Pulse Rate 106 H 99 Respiratory 16 16 Rate Blood Pressure 104/84 112/77 O2 Sat by Pulse 99 99 Oximetry Medical Decision Making - Medical Decision Making 28-year-old diabetic presents today with chest pain shortness breath work and work. Presentation of short onset of shortness of breath is on asthma exacerbation or anxiety. Patient's EKG was negative for any acute process. Blood work is evidence of elevated blood glucose. Is given fluids and insulin. Patient advised to take his insulin as discussed. Discussed treatment with this time for asthma exacerbation with bronchitis with steroids and inhaler. All questions were answered return parameters were discussed. - Lab Data Result diagrams: 06/19/19 16:01 06/19/19 16:01 Lab Results 06/19/19 06/19/19 06/19/19 Range/Units 16:01 16:01 16:01 WBC 8.2 (3.8-10.6) k/uL RBC 4.88 (4.30-5.90) m/uL Hgb 15.5 (13.0-17.5) gm/dL Hct 46.7 (39.0-53.0) % MCV 95.8 (80.0-100.0) fL MCH 31.7 (25.0-35.0) pg MCHC 33.1 (31.0-37.0) g/dL RDW 11.8 (11.5-15.5) % Plt Count 205 (150-450) k/uL Neutrophils % 67 % Lymphocytes % 23 % Monocytes % 5 % Eosinophils % 3 % Basophils % 0 % Neutrophils # 5.5 (1.3-7.7) k/uL Lymphocytes # 1.9 (1.0-4.8) k/uL Monocytes # 0.4 (0-1.0) k/uL Eosinophils # 0.2 (0-0.7) k/uL Basophils # 0.0 (0-0.2) k/uL PT 10.6 (9.0-12.0) sec INR 1.0 (<1.2) APTT 26.8 (22.0-30.0) sec Sodium 128 L (137-145) mmol/L Potassium 4.4 (3.5-5.1) mmol/L Chloride 96 L (98-107) mmol/L Carbon Dioxide 22 (22-30) mmol/L Anion Gap 10 mmol/L BUN 12 (9-20) mg/dL Creatinine 0.93 (0.66-1.25) mg/dL Est GFR (CKD-EPI)AfAm >90 (>60 ml/min/1.73 sqM) Est GFR (CKD-EPI)NonAf >90 (>60 ml/min/1.73 sqM) Glucose 551 H* (74-99) mg/dL POC Glucose (mg/dL) (75-99) mg/dL POC 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 Lactic Ac Sepsis Rflx Plasma Lactic Acid Jonas (0.7-2.0) mmol/L Calcium 9.2 (8.4-10.2) mg/dL Magnesium 1.2 L (1.6-2.3) mg/dL Total Bilirubin 1.9 H (0.2-1.3) mg/dL AST 33 (17-59) U/L ALT 19 (4-49) U/L Alkaline Phosphatase 93 (38-126) U/L Troponin I (0.000-0.034) ng/mL Total Protein 6.7 (6.3-8.2) g/dL Albumin 4.1 (3.5-5.0) g/dL Acetone, Qual (Negative) Influenza Type A RNA (Not Detectd) Influenza Type B (PCR) (Not Detectd) 06/19/19 06/19/19 06/19/19 Range/Units 16:01 16:01 16:01 WBC (3.8-10.6) k/uL RBC (4.30-5.90) m/uL Hgb (13.0-17.5) gm/dL Hct (39.0-53.0) % MCV (80.0-100.0) fL MCH (25.0-35.0) pg MCHC (31.0-37.0) g/dL RDW (11.5-15.5) % Plt Count (150-450) k/uL Neutrophils % % Lymphocytes % % Monocytes % % Eosinophils % % Basophils % % Neutrophils # (1.3-7.7) k/uL Lymphocytes # (1.0-4.8) k/uL Monocytes # (0-1.0) k/uL Eosinophils # (0-0.7) k/uL Basophils # (0-0.2) k/uL PT (9.0-12.0) sec INR (<1.2) APTT (22.0-30.0) sec Sodium (137-145) mmol/L Potassium (3.5-5.1) mmol/L Chloride (98-107) mmol/L Carbon Dioxide (22-30) mmol/L Anion Gap mmol/L BUN (9-20) mg/dL Creatinine (0.66-1.25) mg/dL Est GFR (CKD-EPI)AfAm (>60 ml/min/1.73 sqM) Est GFR (CKD-EPI)NonAf (>60 ml/min/1.73 sqM) Glucose (74-99) mg/dL POC Glucose (mg/dL) (75-99) mg/dL POC 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 Lactic Ac Sepsis Rflx Plasma Lactic Acid Jonas 2.7 H* (0.7-2.0) mmol/L Calcium (8.4-10.2) mg/dL Magnesium (1.6-2.3) mg/dL Total Bilirubin (0.2-1.3) mg/dL AST (17-59) U/L ALT (4-49) U/L Alkaline Phosphatase (38-126) U/L Troponin I <0.012 (0.000-0.034) ng/mL Total Protein (6.3-8.2) g/dL Albumin (3.5-5.0) g/dL Acetone, Qual Negative (Negative) Influenza Type A RNA (Not Detectd) Influenza Type B (PCR) (Not Detectd) 06/19/19 06/19/19 06/19/19 Range/Units 16:03 16:36 18:33 WBC (3.8-10.6) k/uL RBC (4.30-5.90) m/uL Hgb (13.0-17.5) gm/dL Hct (39.0-53.0) % MCV (80.0-100.0) fL MCH (25.0-35.0) pg MCHC (31.0-37.0) g/dL RDW (11.5-15.5) % Plt Count (150-450) k/uL Neutrophils % % Lymphocytes % % Monocytes % % Eosinophils % % Basophils % % Neutrophils # (1.3-7.7) k/uL Lymphocytes # (1.0-4.8) k/uL Monocytes # (0-1.0) k/uL Eosinophils # (0-0.7) k/uL Basophils # (0-0.2) k/uL PT (9.0-12.0) sec INR (<1.2) APTT (22.0-30.0) sec Sodium (137-145) mmol/L Potassium (3.5-5.1) mmol/L Chloride (98-107) mmol/L Carbon Dioxide (22-30) mmol/L Anion Gap mmol/L BUN (9-20) mg/dL Creatinine (0.66-1.25) mg/dL Est GFR (CKD-EPI)AfAm (>60 ml/min/1.73 sqM) Est GFR (CKD-EPI)NonAf (>60 ml/min/1.73 sqM) Glucose (74-99) mg/dL POC Glucose (mg/dL) 188 H (75-99) mg/dL POC 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 Disposition Clinical Impression: Bronchitis, Hyperglycemia, Cough Disposition: HOME SELF-CARE Condition: Good Instructions (If sedation given, give patient instructions): Acute Bronchitis (ED) Additional Instructions: Patient advised to adjust insulin per sliding scale. Follow-up with your PCP. Monitor the her blood sugars can be mildly elevated when taking steroids. Prescriptions: methylPREDNISolone Dose Pack [Medrol Dose Pack] 4 mg PO DIRECTED #21 package Promethazine/Dextromethorphan [Phenergan DM Syrup] 5 ml PO TID #120 ml Albuterol Inhaler [Ventolin Hfa Inhaler] 1 - 2 puff INHALATION RT-Q6H PRN #1 inhaler PRN Reason: Shortness Of Breath Is patient prescribed a controlled substance at d/c from ED?: No Referrals: Óscar Jackson MD [Primary Care Provider] - 1-2 days Time of Disposition: 18:35
[2019-06-19] MEDS ORDERED: INSULIN REGULAR 100 UNIT/ML VIAL IV ONE (16:08)
--- NOTE | 2019-06-19 16:13 | XR ---
EXAMINATION TYPE: XR chest 2V DATE OF EXAM: 06/19/2019 COMPARISON: 06/30/2018 HISTORY: Difficulty breathing. Chest pain. TECHNIQUE: Frontal and lateral views of the chest are obtained. FINDINGS: There is no focal air space opacity, pleural effusion, or pneumothorax seen. The cardiac silhouette size is within normal limits. The osseous structures are intact. IMPRESSION: No acute cardiopulmonary process.
[2019-06-19 16:21] LABS: Basophils % (A) 0 %; Eosinophils # (A) 0.2 k/uL (0-0.7); Eosinophils % (A) 3 %; HCT 46.7 % (39.0-53.0); HGB 15.5 gm/dL (13.0-17.5); Lymphocytes # (A) 1.9 k/uL (1.0-4.8); Lymphocytes % (A) 23 %; MCH 31.7 pg (25.0-35.0); MCHC 33.1 g/dL (31.0-37.0); MCV 95.8 fL (80.0-100.0); Mean Platelet Volume 8.1; Monocytes # (A) 0.4 k/uL (0-1.0); Monocytes % (A) 5 %; Neutrophils # (A) 5.5 k/uL (1.3-7.7); Neutrophils % (A) 67 %; Platelet Count 205 k/uL (150-450); RBC 4.88 m/uL (4.30-5.90); RDW 11.8 % (11.5-15.5); WBC 8.2 k/uL (3.8-10.6)
[2019-06-19 16:31] LABS: ALT 19 U/L (4-49); AST 33 U/L (17-59); African American GFR (CKD) >90 (>60 ml/min/1.73 sqM); Albumin 4.1 g/dL (3.5-5.0); Alkaline Phosphatase 93 U/L (38-126); Anion Gap 10 mmol/L; Blood Urea Nitrogen 12 mg/dL (9-20); Calcium 9.2 mg/dL (8.4-10.2); Carbon Dioxide 22 mmol/L (22-30); Chloride 96 mmol/L (98-107); Magnesium 1.2 mg/dL (1.6-2.3); Non-African American GFR(CKD) >90 (>60 ml/min/1.73 sqM); Potassium 4.4 mmol/L (3.5-5.1); Sodium 128 mmol/L (137-145); Total Bilirubin 1.9 mg/dL (0.2-1.3); Total Protein 6.7 g/dL (6.3-8.2)
[2019-06-19 16:35] LABS: Partial Thromboplastin Time 26.8 sec (22.0-30.0); Prothrombin Time 10.6 sec (9.0-12.0)
[2019-06-19 16:36] LABS: Glucose 551 mg/dL (74-99)
[2019-06-19] MEDS ORDERED: ACETAMINOPHEN TAB 500 MG TAB PO STA (16:36)
[2019-06-19] MEDS ORDERED: KETOROLAC 30 MG/ML 1 ML VIAL IVP STA (16:37)
[2019-06-19] MEDS ORDERED: SODIUM CHLORIDE 0.9% 1,000 ML IV ONE (16:59)
[2019-06-19 17:41] VITALS: RESP 16
[2019-06-19] MEDS ORDERED: MAGNESIUM SULFATE-D5W PMX 1 GM in DEXTROSE/WATER 1 100ML.BAG IVPB SCH (18:00)
[2019-06-19 18:35] LABS: Glucose,Whole Blood 188 mg/dL (75-99)
[2019-06-19 18:55] VITALS: BP 112/77; PULSE 99
== END 2019-06-19 18:55 | disposition home or self-care (01) ==
LOC: EC 15:38
DX: J40 Bronchitis, not specified as acute or chronic (principal); E10.65 Type 1 diabetes mellitus with hyperglycemia; F17.200 Nicotine dependence, unspecified, uncomplicated; Z79.4 Long term (current) use of insulin; Z91.030 Bee allergy status
CPT/HCPCS: 36415; 94640; 93005; 80053; 82009; 83605; 83735; 84484; 85025; 85610; 85730; 87502; 71046; 96365; 96375; 96361 ×3; 99285; J1885; J3475

== ENCOUNTER 2021-02-12 09:54 | Inpatient (IN) | payer OTHER ==
[2021-02-12 10:00] VITALS: TEMP 97.6
[2021-02-12] MEDS ORDERED: SODIUM CHLORIDE 0.9% 1,000 ML IV STA (10:13)
[2021-02-12 11:02] LABS: Appearance,Urine Clear (Clear); Bilirubin,Urine Negative (Negative); Blood,Urine Negative (Negative); Color,Urine Light Yellow; Glucose,Urine (UA) 4+ (Negative); Leukocyte Esterase,Urine Negative (Negative); Nitrite,Urine Negative (Negative); Protein,Urine Negative (Negative); Specific Gravity,Urine 1.028 (1.001-1.035); Urobilinogen,Urine <2.0 mg/dL (<2.0)
[2021-02-12 11:07] LABS: ALT 40 U/L (4-49); AST 44 U/L (17-59); African American GFR (CKD) >90 (>60 ml/min/1.73 sqM); Albumin 5.2 g/dL (3.5-5.0); Alkaline Phosphatase 202 U/L (38-126); Anion Gap 24 mmol/L; Blood Urea Nitrogen 23 mg/dL (9-20); Calcium 11.1 mg/dL (8.4-10.2); Carbon Dioxide 16 mmol/L (22-30); Chloride 94 mmol/L (98-107); Non-African American GFR(CKD) >90 (>60 ml/min/1.73 sqM); Potassium 5.2 mmol/L (3.5-5.1); Sodium 134 mmol/L (137-145); Total Bilirubin 2.6 mg/dL (0.2-1.3); Total Protein 8.2 g/dL (6.3-8.2)
[2021-02-12 11:10] LABS: Glucose 568 mg/dL (74-99)
--- NOTE | 2021-02-12 11:15 | XR ---
EXAMINATION TYPE: XR chest 2V DATE OF EXAM: 02/12/2021 COMPARISON: None HISTORY: 30-year-old male shortness of breath, cough, difficulty breathing TECHNIQUE: AP and lateral views FINDINGS: The cardiomediastinal silhouette, aorta, and pulmonary vasculature are within normal limits. There is central peribronchial cuffing. No consolidation or pleural effusion. IMPRESSION: Central peribronchial cuffing suggests bronchitis or asthma. No focal infiltrate seen.
[2021-02-12 11:29] LABS: Prothrombin Time 10.3 sec (9.0-12.0)
[2021-02-12 11:33] LABS: Ketones,Urine 4+ (Negative)
--- NOTE | 2021-02-12 11:43 | ED ---
General Adult HPI - General Chief complaint: Shortness of Breath Stated complaint: Chest Pain/JOSEPH Time Seen by Provider: 02/12/21 10:09 Source: patient, RN notes reviewed Mode of arrival: ambulatory Limitations: no limitations - History of Present Illness Initial comments: Patient is a 30-year-old male that presents to emergency room complaining of shortness of breath and chest discomfort. He notes that he is diabetic and has not taken his insulin today. He notes that this feels very similar to last time he went to diabetic ketoacidosis. Patient was otherwise in moderate amount of distress and cannot get comfortable lying in bed. Patient denied any sick contacts Covid. He notes that he's been feeling under the weather for the past several days but progressively got worse as of this morning. Did note several bouts of nausea and vomiting. He denied any headache diarrhea constipation fever fatigue chills. - Related Data Previous Rx's Medication Instructions Recorded Insulin Glargine,Hum.rec.anlog 30 unit SQ HS #1 vial 05/16/19 [Basaglar Kwikpen U-100] Insulin Regular, Human [NovoLIN R] 5 unit SQ AC-TID #1 vial 05/16/19 Albuterol Inhaler (Mhu) [Ventolin 1 - 2 puff INHALATION RT-Q6H PRN 06/19/19 Hfa Inhaler (Mhu)] #1 inhaler Promethazine/Dextromethorphan 5 ml PO TID #120 ml 06/19/19 [Phenergan DM Syrup] methylPREDNISolone Dose Pack 4 mg PO DIRECTED #21 package 06/19/19 [Medrol Dose Pack] Allergies Allergy/AdvReac Type Severity Reaction Status Date / Time bee venom protein (honey bee) Allergy Anaphylaxis Verified 02/12/21 10:00 Review of Systems ROS Statement: Those systems with pertinent positive or pertinent negative responses have been documented in the HPI. ROS Other: All systems not noted in ROS Statement are negative. Past Medical History Past Medical History: Diabetes Mellitus, Pneumonia, Seizure Disorder Additional Past Medical History / Comment(s): IDDM type I, DKA, seizures with hypoglycemia-last time April 2019, bronchitis. History of Any Multi-Drug Resistant Organisms: None Reported Past Surgical History: No Surgical Hx Reported Additional Past Surgical History / Comment(s): TOOTH EXTRACTED IN PAST AND YESTERDAY HAD A PUS POCKET NEAR FRONT TOOTH LANCED/DRAINED. Past Anesthesia/Blood Transfusion Reactions: No Reported Reaction Past Psychological History: No Psychological Hx Reported Smoking Status: Current every day smoker Past Alcohol Use History: None Reported Past Drug Use History: None Reported - Past Family History Father Family Medical History: No Reported History Additional Family Medical History / Comment(s): Father is healthy Mother Family Medical History: Asthma General Exam Limitations: no limitations General appearance: alert, in no apparent distress Head exam: Present: atraumatic, normocephalic, normal inspection Eye exam: Present: normal appearance, PERRL, EOMI. Absent: scleral icterus, conjunctival injection, periorbital swelling ENT exam: Present: normal exam, mucous membranes moist Neck exam: Present: normal inspection Respiratory exam: Present: normal lung sounds bilaterally. Absent: respiratory distress, wheezes, rales, rhonchi, stridor Cardiovascular Exam: Present: regular rate, normal rhythm, normal heart sounds. Absent: systolic murmur, diastolic murmur, rubs, gallop, clicks GI/Abdominal exam: Present: soft, normal bowel sounds. Absent: distended, tenderness, guarding, rebound, rigid Extremities exam: Present: normal inspection, full ROM, normal capillary refill. Absent: tenderness, pedal edema, joint swelling, calf tenderness Neurological exam: Present: alert, oriented X3 Psychiatric exam: Present: normal affect, normal mood Skin exam: Present: warm, dry, intact, normal color. Absent: rash Course Vital Signs 02/12/21 09:57 Temperature 97.6 F Pulse Rate 110 H Respiratory 32 H Rate Blood Pressure 131/69 O2 Sat by Pulse 98 Oximetry EKG Findings - EKG Comments: EKG Findings:: Ventricular rate 84 bpm, DE interval 120 ms, QRS duration 82 ms, QTC 480 ms, PRT axes 69/62/37. Normal sinus rhythm, normal ECG. Medical Decision Making - Medical Decision Making 30-year-old male complaint shortness of breath chest discomfort. History of DKA, type I diabetic. Labs, 1 L normal saline, chest x-ray, Covid test ordered. Chest x-ray shows no acute cardiopulmonary process. Labs: Glucose 568, plasma lactic acid 4.6 and anion gap 24 4+ ketones and glucose in urine, acetone positive. Case discussed with Dr. Hawthorne, patient be admitted for diabetic ketoacidosis. Dr. Culver was consulted AT the admit. - Lab Data Result diagrams: 02/12/21 10:28 Lab Results 02/12/21 02/12/21 02/12/21 Range/Units 10:28 10:28 10:28 PT 10.3 (9.0-12.0) sec INR 1.0 (<1.2) APTT 22.0 (22.0-30.0) sec Sodium 134 L (137-145) mmol/L Potassium 5.2 H (3.5-5.1) mmol/L Chloride 94 L (98-107) mmol/L Carbon Dioxide 16 L (22-30) mmol/L Anion Gap 24 mmol/L BUN 23 H (9-20) mg/dL Creatinine 1.02 (0.66-1.25) mg/dL Est GFR (CKD-EPI)AfAm >90 (>60 ml/min/1.73 sqM) Est GFR (CKD-EPI)NonAf >90 (>60 ml/min/1.73 sqM) Glucose 568 H* (74-99) mg/dL Plasma Lactic Acid Jonas 4.6 H* (0.7-2.0) mmol/L Calcium 11.1 H (8.4-10.2) mg/dL Total Bilirubin 2.6 H (0.2-1.3) mg/dL AST 44 (17-59) U/L ALT 40 (4-49) U/L Alkaline Phosphatase 202 H (38-126) U/L Troponin I (0.000-0.034) ng/mL Total Protein 8.2 (6.3-8.2) g/dL Albumin 5.2 H (3.5-5.0) g/dL Urine Color Urine Appearance (Clear) Urine pH (5.0-8.0) Ur Specific [place] (1.001-1.035) Urine Protein (Negative) Urine Glucose (UA) (Negative) Urine Ketones (Negative) Urine Blood (Negative) Urine Nitrite (Negative) Urine Bilirubin (Negative) Urine Urobilinogen (<2.0) mg/dL Ur Leukocyte Esterase (Negative) Acetone, Qual Positive (Negative) Coronavirus (PCR) (Not Detectd) 02/12/21 02/12/21 02/12/21 Range/Units 10:28 10:28 10:39 PT (9.0-12.0) sec INR (<1.2) APTT (22.0-30.0) sec Sodium (137-145) mmol/L Potassium (3.5-5.1) mmol/L Chloride (98-107) mmol/L Carbon Dioxide (22-30) mmol/L Anion Gap mmol/L BUN (9-20) mg/dL Creatinine (0.66-1.25) mg/dL Est GFR (CKD-EPI)AfAm (>60 ml/min/1.73 sqM) Est GFR (CKD-EPI)NonAf (>60 ml/min/1.73 sqM) Glucose (74-99) mg/dL Plasma Lactic Acid Jonas (0.7-2.0) mmol/L Calcium (8.4-10.2) mg/dL Total Bilirubin (0.2-1.3) mg/dL AST (17-59) U/L ALT (4-49) U/L Alkaline Phosphatase (38-126) U/L Troponin I <0.012 (0.000-0.034) ng/mL Total Protein (6.3-8.2) g/dL Albumin (3.5-5.0) g/dL Urine Color Light Yellow Urine Appearance Clear (Clear) Urine pH 5.0 (5.0-8.0) Ur Specific [place] 1.028 (1.001-1.035) Urine Protein Negative (Negative) Urine Glucose (UA) 4+ H (Negative) Urine Ketones 4+ H (Negative) Urine Blood Negative (Negative) Urine Nitrite Negative (Negative) Urine Bilirubin Negative (Negative) Urine Urobilinogen <2.0 (<2.0) mg/dL Ur Leukocyte Esterase Negative (Negative) Acetone, Qual (Negative) Coronavirus (PCR) Not Detected (Not Detectd) - Radiology Data Radiology results: report reviewed, image reviewed Chest x-ray: No acute cardiopulmonary process. Disposition Clinical Impression: DKA, type 1 Disposition: ADMITTED IP TO THIS HOSP Condition: Stable Is patient prescribed a controlled substance at d/c from ED?: No Referrals: Óscar Jackson MD [Primary Care Provider] - 1-2 days Time of Disposition: 11:42
[2021-02-12] MEDS ORDERED: INSULIN REGULAR 100 UNIT in SODIUM CHLORIDE 0.9% 100 ML IV SCH (11:45)
[2021-02-12 12:29] LABS: Basophils # (A) 0.1 k/uL (0-0.2); Basophils % (A) 1 %; Eosinophils % (A) 0 %; HCT 54.7 % (39.0-53.0); HGB 17.8 gm/dL (13.0-17.5); Lymphocytes # (A) 0.9 k/uL (1.0-4.8); Lymphocytes % (A) 8 %; MCH 32.5 pg (25.0-35.0); MCHC 32.5 g/dL (31.0-37.0); MCV 100.1 fL (80.0-100.0); Mean Platelet Volume 8.5; Monocytes # (A) 0.3 k/uL (0-1.0); Monocytes % (A) 3 %; Neutrophils # (A) 9.8 k/uL (1.3-7.7); Neutrophils % (A) 88 %; Platelet Count 306 k/uL (150-450); RBC 5.47 m/uL (4.30-5.90); RDW 11.3 % (11.5-15.5); WBC 11.3 k/uL (3.8-10.6)
[2021-02-12 12:37] VITALS: RESP 18
[2021-02-12] MEDS: SODIUM CHLORIDE 0.9% 1,000 ML IV SCH ×2 (12:38→17:39)
[2021-02-12 12:52] LABS: African American GFR (CKD) >90 (>60 ml/min/1.73 sqM); Anion Gap 20 mmol/L; Blood Urea Nitrogen 23 mg/dL (9-20); Carbon Dioxide 14 mmol/L (22-30); Chloride 100 mmol/L (98-107); Glucose 492 mg/dL (74-99); Non-African American GFR(CKD) >90 (>60 ml/min/1.73 sqM); Sodium 134 mmol/L (137-145)
[2021-02-12 12:57] LABS: Phosphorus 4.5 mg/dL (2.5-4.5); Potassium 6.1 mmol/L (3.5-5.1)
--- NOTE | 2021-02-12 14:18 | P.HPIM ---
History of Present Illness Patient is a pleasant 30-year-old the known type I diabetic came in with complaints of shortness of breath, chest discomfort along with uncontrollable nausea vomiting. Patient is found to be in diabetic acidosis with highly elevated anion gap was given IV fluid with complete resolution of the symptoms patient is presently in DKA protocol receiving IV insulin. Patient did miss today morning and yesterday his insulin as he was feeling sick she didn't take those medications. Patient appears to be competent with the diet and medication regimen. Patient is hyponatremic hypokalemic C secondary to metabolic acidosis. Patient denied any fever chills patient doesn't have any evidence of sepsis at this time patient was having abdominal pain which improved now. Patient does have leukocytosis. Patient was having polyuria and polydipsia. REVIEW OF SYSTEMS: CONSTITUTIONAL: No fever. HEENT: No recent visual problems or hearing problems. Denied any sore throat. CARDIOVASCULAR: No orthopnea, PND, no palpitations, no syncope. PULMONARY: no cough, no hemoptysis. GASTROINTESTINAL: As mentioned in HPI NEUROLOGICAL: No headaches, no weakness, no numbness. HEMATOLOGICAL: Denies any bleeding or petechiae. GENITOURINARY: Denies any burning micturition, frequency, or urgency. MUSCULOSKELETAL/RHEUMATOLOGICAL: Denies any joint pain, swelling, or any muscle pain. ENDOCRINE: As mentioned in HPI The rest of the 14-point review of systems is negative. PHYSICAL EXAMINATION: GENERAL: The patient is alert and oriented x3, not in any acute distress. Well developed, well nourished. HEENT: Pupils are round and equally reacting to light. EOMI. No scleral icterus. No conjunctival pallor. Normocephalic, atraumatic. No pharyngeal erythema. No thyromegaly. Dry mucous membranes CARDIOVASCULAR: S1 and S2 present. No murmurs, rubs, or gallops. PULMONARY: Chest is clear to auscultation, no wheezing or crackles. ABDOMEN: Soft, nontender, nondistended, normoactive bowel sounds. No palpable organomegaly. MUSCULOSKELETAL: No joint swelling or deformity. EXTREMITIES: No cyanosis, clubbing, or pedal edema. NEUROLOGICAL: Gross neurological examination did not reveal any focal deficits. SKIN: No rashes. Assessment and plan -Diabetic ketoacidosis: Patient is presently in DKA protocol, continue with the D5 insulin, normal saline will cut a valid provided abnormalities. Was anion gap resolves and is below 12 patient will be transitioned to long-acting insulin patient usually takes 50 units of long-acting insulin, after giving him long- acting insulin hourly the patient can eat and he is IV insulin drip can be discontinued and patient usually uses 20 units of short-acting insulin with each meal which she will be resumed on. IV fluids will be switched to normal saline at 1 50 mL at the time. His blood sugars are and 400s as opposed to 600 700 on admission -Hyponatremia: Pseudohyponatremia secondary to hyperglycemia as well as the hypovolemic hyponatremia from dehydration -Nausea vomiting abdominal pain and chest discomfort: Secondary to diabetic ketoacidosis -Anion gap metabolic acidosis leading to hyperkalemia: Secondary to DKA -Type 2 diabetes mellitus we'll obtain hemoglobin A1c DVT prophylaxis: Early ambulation Past Medical History Past Medical History: Diabetes Mellitus, Pneumonia, Seizure Disorder Additional Past Medical History / Comment(s): IDDM type I, DKA, seizures with hypoglycemia-last time April 2019, bronchitis. History of Any Multi-Drug Resistant Organisms: None Reported Past Surgical History: No Surgical Hx Reported Additional Past Surgical History / Comment(s): TOOTH EXTRACTED IN PAST AND YESTERDAY HAD A PUS POCKET NEAR FRONT TOOTH LANCED/DRAINED. Past Anesthesia/Blood Transfusion Reactions: No Reported Reaction Past Psychological History: No Psychological Hx Reported Smoking Status: Current every day smoker Past Alcohol Use History: None Reported Past Drug Use History: None Reported - Past Family History Father Family Medical History: No Reported History Additional Family Medical History / Comment(s): Father is healthy Mother Family Medical History: Asthma Medications and Allergies Home Medications Medication Instructions Recorded Confirmed Type Insulin Aspart [NovoLOG Flexpen] 20 units SQ TID 02/12/21 02/12/21 History Insulin Detemir [Levemir Flextouch 50 units SQ HS 02/12/21 02/12/21 History Pen] Allergies Allergy/AdvReac Type Severity Reaction Status Date / Time bee venom protein (honey bee) Allergy Anaphylaxis Verified 02/12/21 11:52 Physical Exam Vitals: Vital Signs Temp Pulse Resp BP Pulse Ox 02/12/21 12:36 98 18 113/46 99 02/12/21 09:57 97.6 F 110 H 32 H 131/69 98 Intake and Output 02/11/21 02/12/21 02/12/21 22:59 06:59 14:59 Other: Weight 70.307 kg Results CBC & Chem 7: 02/12/21 10:28 02/12/21 11:56 Labs: Abnormal Lab Results - Last 24 Hours (Table) 02/12/21 02/12/21 02/12/21 Range/Units 10:28 10:28 10:28 WBC 11.3 H (3.8-10.6) k/uL Hgb 17.8 H (13.0-17.5) gm/dL Hct 54.7 H (39.0-53.0) % MCV 100.1 H (80.0-100.0) fL RDW 11.3 L (11.5-15.5) % Neutrophils # 9.8 H (1.3-7.7) k/uL Lymphocytes # 0.9 L (1.0-4.8) k/uL Sodium 134 L (137-145) mmol/L Potassium 5.2 H (3.5-5.1) mmol/L Chloride 94 L (98-107) mmol/L Carbon Dioxide 16 L (22-30) mmol/L BUN 23 H (9-20) mg/dL Glucose 568 H* (74-99) mg/dL Plasma Lactic Acid Jonas 4.6 H* (0.7-2.0) mmol/L Calcium 11.1 H (8.4-10.2) mg/dL Total Bilirubin 2.6 H (0.2-1.3) mg/dL Alkaline Phosphatase 202 H (38-126) U/L Albumin 5.2 H (3.5-5.0) g/dL Urine Glucose (UA) (Negative) Urine Ketones (Negative) 02/12/21 02/12/21 Range/Units 10:39 11:56 WBC (3.8-10.6) k/uL Hgb (13.0-17.5) gm/dL Hct (39.0-53.0) % MCV (80.0-100.0) fL RDW (11.5-15.5) % Neutrophils # (1.3-7.7) k/uL Lymphocytes # (1.0-4.8) k/uL Sodium 134 L (137-145) mmol/L Potassium 6.1 H* (3.5-5.1) mmol/L Chloride (98-107) mmol/L Carbon Dioxide 14 L (22-30) mmol/L BUN 23 H (9-20) mg/dL Glucose 492 H (74-99) mg/dL Plasma Lactic Acid Jonas (0.7-2.0) mmol/L Calcium (8.4-10.2) mg/dL Total Bilirubin (0.2-1.3) mg/dL Alkaline Phosphatase (38-126) U/L Albumin (3.5-5.0) g/dL Urine Glucose (UA) 4+ H (Negative) Urine Ketones 4+ H (Negative)
[2021-02-12 14:45] LABS: Glucose,Whole Blood 249 mg/dL (75-99)
[2021-02-12 16:35] LABS: Glucose,Whole Blood 166 mg/dL (75-99)
[2021-02-12 17:21] LABS: African American GFR (CKD) >90 (>60 ml/min/1.73 sqM); Anion Gap 10 mmol/L; Blood Urea Nitrogen 19 mg/dL (9-20); Carbon Dioxide 21 mmol/L (22-30); Chloride 104 mmol/L (98-107); Glucose 184 mg/dL (74-99); Non-African American GFR(CKD) >90 (>60 ml/min/1.73 sqM); Potassium 4.4 mmol/L (3.5-5.1); Sodium 135 mmol/L (137-145)
[2021-02-12 17:37] LABS: Glucose,Whole Blood 127 mg/dL (75-99)
[2021-02-12] MEDS ORDERED: NAPROXEN 250 MG TAB PO STA (17:38)
[2021-02-12] MEDS ORDERED: SODIUM CHLORIDE 0.9% 1,000 ML IV SCH (17:45)
[2021-02-12 17:47] VITALS: BP 144/74; PULSE 91
[2021-02-12 20:23] LABS: Glucose,Whole Blood 348 mg/dL (75-99)
[2021-02-12] MEDS ORDERED: INSULIN DETEMIR (LEVEMIR) 100 UNIT/ML SYR SQ SCH (21:00)
[2021-02-13] MEDS ORDERED: INSULIN ASPART (NovoLOG) 100 UNIT/ML VIAL SQ SCH (07:30)
--- NOTE | 2021-02-14 10:42 | P.DS ---
Providers Date of admission: 02/12/21 11:44 Expected date of discharge: 02/13/21 Attending physician: Yanet Culver Primary care physician: Manuel Cantrell [facility] Course: Patient left AGAINST MEDICAL ADVICE Patient Condition at Discharge: Stable Plan - Discharge Summary New Discharge Prescriptions: No Action Insulin Detemir [Levemir Flextouch Pen] 50 units SQ HS Insulin Aspart [NovoLOG Flexpen] 20 units SQ TID Discharge Medication List Insulin Aspart [NovoLOG Flexpen] 20 units SQ TID 02/12/21 [History] Insulin Detemir [Levemir Flextouch Pen] 50 units SQ HS 02/12/21 [History] Follow up Appointment(s)/Referral(s): Óscar Jackson MD [Primary Care Provider] - 1-2 days Discharge Disposition: Left Against Medical Advice
== END 2021-02-12 21:30 | disposition left against medical advice (07) | DRG 639 ==
LOC: EC 09:54 → 3SCARD 11:44 → 5NMEDONC 17:31
PROVIDERS: ADMIT Internal Medicine; ATTEND Internal Medicine
DX: E10.10 Type 1 diabetes mellitus with ketoacidosis without coma (principal); D72.829 Elevated white blood cell count, unspecified; G40.909 Epilepsy, unspecified, not intractable, without status epilepticus; J40 Bronchitis, not specified as acute or chronic; Z20.822 Contact with and (suspected) exposure to COVID-19; R11.2 Nausea with vomiting, unspecified; R10.9 Unspecified abdominal pain; E86.0 Dehydration; E86.1 Hypovolemia; E87.6 Hypokalemia; F17.210 Nicotine dependence, cigarettes, uncomplicated; Z79.4 Long term (current) use of insulin; Z79.899 Other long term (current) drug therapy; Z87.01 Personal history of pneumonia (recurrent); Z91.030 Bee allergy status
CPT/HCPCS: 36415; 71046; 80051; 80053; 81003; 82009; 82565; 82947; 83605; 84100; 84484; 84520; 85025; 85610; 85730; 87635; 93005; 96360; 99285

== ENCOUNTER 2021-03-14 07:02 | Inpatient (IN) | payer OTHER ==
[2021-03-14] MEDS ORDERED: SODIUM CHLORIDE 0.9% 2,000 ML IV ONE (07:33)
[2021-03-14 07:49] LABS: Glucose,Whole Blood 411 mg/dL (75-99)
[2021-03-14 08:01] LABS: Appearance,Urine Clear (Clear); Bilirubin,Urine Negative (Negative); Blood,Urine Negative (Negative); Color,Urine Light Yellow; Glucose,Urine (UA) 4+ (Negative); Leukocyte Esterase,Urine Negative (Negative); Nitrite,Urine Negative (Negative); PH, Urine 6.5 (5.0-8.0); Protein,Urine Negative (Negative); Specific Gravity,Urine 1.019 (1.001-1.035); Urobilinogen,Urine <2.0 mg/dL (<2.0)
[2021-03-14 08:02] LABS: Basophils # (A) 0.1 k/uL (0-0.2); Basophils % (A) 1 %; Eosinophils % (A) 1 %; HCT 44.7 % (39.0-53.0); Lymphocytes # (A) 1.2 k/uL (1.0-4.8); Lymphocytes % (A) 27 %; MCHC 33.4 g/dL (31.0-37.0); MCV 95.8 fL (80.0-100.0); Mean Platelet Volume 8.2; Monocytes # (A) 0.5 k/uL (0-1.0); Monocytes % (A) 12 %; Neutrophils # (A) 2.6 k/uL (1.3-7.7); Neutrophils % (A) 58 %; Platelet Count 235 k/uL (150-450); RBC 4.67 m/uL (4.30-5.90); RDW 11.6 % (11.5-15.5); WBC 4.5 k/uL (3.8-10.6)
[2021-03-14 08:21] LABS: Ketones,Urine 3+ (Negative)
--- NOTE | 2021-03-14 08:26 | XR ---
EXAMINATION TYPE: XR chest 2V DATE OF EXAM: 03/14/2021 COMPARISON: 02/12/2021 HISTORY: Shortness of breath TECHNIQUE: Frontal and lateral views of the chest are obtained. FINDINGS: There is no focal air space opacity, pleural effusion, or pneumothorax seen. The cardiac silhouette size is within normal limits. The osseous structures are intact. As noted previously, th ere may be some mild peribronchial cuffing which is unchanged. IMPRESSION: No acute lung infiltrate. Suggestion of mild peribronchial cuffing which was seen previo usly and is stable.
[2021-03-14 08:36] LABS: ALT 32 U/L (4-49); AST 39 U/L (17-59); African American GFR (CKD) >90 (>60 ml/min/1.73 sqM); Alkaline Phosphatase 106 U/L (38-126); Amylase 61 U/L (30-110); Anion Gap 11 mmol/L; Blood Urea Nitrogen 14 mg/dL (9-20); Carbon Dioxide 19 mmol/L (22-30); Chloride 97 mmol/L (98-107); Glucose 379 mg/dL (74-99); Lipase 42 U/L (23-300); Non-African American GFR(CKD) >90 (>60 ml/min/1.73 sqM); Sodium 127 mmol/L (137-145); Total Bilirubin 0.9 mg/dL (0.2-1.3); Total Protein 6.8 g/dL (6.3-8.2)
[2021-03-14] MEDS ORDERED: SODIUM CHLORIDE 0.9% 1,000 ML IV SCH (09:15)
[2021-03-14] MEDS ORDERED: INSULIN REGULAR 100 UNIT in SODIUM CHLORIDE 0.9% 100 ML IV SCH (09:30)
[2021-03-14 09:32] LABS: Glucose,Whole Blood 330 mg/dL (75-99)
[2021-03-14] MEDS ORDERED: SODIUM CHLORIDE 0.9% 50 ML IVPB ONE (09:45)
--- NOTE | 2021-03-14 09:55 | ED ---
General Adult HPI - General Chief complaint: Shortness of Breath Stated complaint: JOSEPH Time Seen by Provider: 03/14/21 07:20 Source: EMS, RN notes reviewed Mode of arrival: EMS Limitations: no limitations - History of Present Illness Initial comments: This a 30-year-old male presents emergency from chief complaint of shortness of breath. Patient states that he hasn't felt well today. Patient's found to be hypertensive by EMS. Patient is known diabetic on insulin injections. Patient states he has not checked his blood sugar. Denies any nausea vomiting diarrhea constipation states she just doesn't feel well. - Related Data Home Medications Medication Instructions Recorded Confirmed Insulin Aspart [NovoLOG Flexpen] 20 units SQ TID 02/12/21 02/12/21 Insulin Detemir [Levemir Flextouch 50 units SQ HS 02/12/21 02/12/21 Pen] Allergies Allergy/AdvReac Type Severity Reaction Status Date / Time bee venom protein (honey bee) Allergy Anaphylaxis Verified 03/14/21 07:25 Review of Systems ROS Statement: Those systems with pertinent positive or pertinent negative responses have been documented in the HPI. ROS Other: All systems not noted in ROS Statement are negative. Past Medical History Past Medical History: Diabetes Mellitus, Pneumonia, Seizure Disorder Additional Past Medical History / Comment(s): IDDM type I, DKA, seizures with hypoglycemia-last time April 2019, bronchitis. History of Any Multi-Drug Resistant Organisms: None Reported Past Surgical History: No Surgical Hx Reported Additional Past Surgical History / Comment(s): TOOTH EXTRACTED IN PAST AND YESTERDAY HAD A PUS POCKET NEAR FRONT TOOTH LANCED/DRAINED. Past Anesthesia/Blood Transfusion Reactions: No Reported Reaction Past Psychological History: No Psychological Hx Reported Smoking Status: Current every day smoker Past Alcohol Use History: None Reported Past Drug Use History: None Reported - Past Family History Father Family Medical History: No Reported History Additional Family Medical History / Comment(s): Father is healthy Mother Family Medical History: Asthma General Exam Limitations: no limitations General appearance: alert, in no apparent distress Head exam: Present: atraumatic, normocephalic, normal inspection Eye exam: Present: normal appearance, PERRL, EOMI. Absent: scleral icterus, conjunctival injection, periorbital swelling Respiratory exam: Present: normal lung sounds bilaterally. Absent: respiratory distress, wheezes, rales, rhonchi, stridor Cardiovascular Exam: Present: regular rate, normal rhythm, normal heart sounds. Absent: systolic murmur, diastolic murmur, rubs, gallop, clicks Course Vital Signs 03/14/21 07:25 Temperature 98.3 F Pulse Rate 87 Respiratory 18 Rate Blood Pressure 123/76 O2 Sat by Pulse 99 Oximetry Medical Decision Making - Medical Decision Making Patient is COVID-19 positive, patient appears to be in hyperglycemia, rule out DKA. Patient was given IV fluid hydration, start insulin drip patient will be admitted for DKA not COVID-19 patient did receive grenadian buttocks. - Lab Data Result diagrams: 03/14/21 07:37 03/14/21 07:37 Lab Results 03/14/21 03/14/21 03/14/21 Range/Units 07:37 07:37 07:37 WBC 4.5 (3.8-10.6) k/uL RBC 4.67 (4.30-5.90) m/uL Hgb 15.0 (13.0-17.5) gm/dL Hct 44.7 (39.0-53.0) % MCV 95.8 (80.0-100.0) fL MCH 32.0 (25.0-35.0) pg MCHC 33.4 (31.0-37.0) g/dL RDW 11.6 (11.5-15.5) % Plt Count 235 (150-450) k/uL MPV 8.2 Neutrophils % 58 % Lymphocytes % 27 % Monocytes % 12 % Eosinophils % 1 % Basophils % 1 % Neutrophils # 2.6 (1.3-7.7) k/uL Lymphocytes # 1.2 (1.0-4.8) k/uL Monocytes # 0.5 (0-1.0) k/uL Eosinophils # 0.0 (0-0.7) k/uL Basophils # 0.1 (0-0.2) k/uL Sodium 127 L (137-145) mmol/L Potassium 5.0 (3.5-5.1) mmol/L Chloride 97 L (98-107) mmol/L Carbon Dioxide 19 L (22-30) mmol/L Anion Gap 11 mmol/L BUN 14 (9-20) mg/dL Creatinine 0.84 (0.66-1.25) mg/dL Est GFR (CKD-EPI)AfAm >90 (>60 ml/min/1.73 sqM) Est GFR (CKD-EPI)NonAf >90 (>60 ml/min/1.73 sqM) Glucose 379 H (74-99) mg/dL POC Glucose (mg/dL) (75-99) mg/dL POC Glu Panel Laminator ID Plasma Lactic Acid Jonas (0.7-2.0) mmol/L Calcium 9.0 (8.4-10.2) mg/dL Total Bilirubin 0.9 (0.2-1.3) mg/dL AST 39 (17-59) U/L ALT 32 (4-49) U/L Alkaline Phosphatase 106 (38-126) U/L Total Protein 6.8 (6.3-8.2) g/dL Albumin 4.0 (3.5-5.0) g/dL Amylase 61 (30-110) U/L Lipase 42 (23-300) U/L Urine Color Light Yellow Urine Appearance Clear (Clear) Urine pH 6.5 (5.0-8.0) Ur Specific [place] 1.019 (1.001-1.035) Urine Protein Negative (Negative) Urine Glucose (UA) 4+ H (Negative) Urine Ketones 3+ H (Negative) Urine Blood Negative (Negative) Urine Nitrite Negative (Negative) Urine Bilirubin Negative (Negative) Urine Urobilinogen <2.0 (<2.0) mg/dL Ur Leukocyte Esterase Negative (Negative) Acetone, Qual Positive (Negative) Coronavirus (PCR) (Not Detectd) 03/14/21 03/14/21 03/14/21 Range/Units 07:37 07:37 08:10 WBC (3.8-10.6) k/uL RBC (4.30-5.90) m/uL Hgb (13.0-17.5) gm/dL Hct (39.0-53.0) % MCV (80.0-100.0) fL MCH (25.0-35.0) pg MCHC (31.0-37.0) g/dL RDW (11.5-15.5) % Plt Count (150-450) k/uL MPV Neutrophils % % Lymphocytes % % Monocytes % % Eosinophils % % Basophils % % Neutrophils # (1.3-7.7) k/uL Lymphocytes # (1.0-4.8) k/uL Monocytes # (0-1.0) k/uL Eosinophils # (0-0.7) k/uL Basophils # (0-0.2) k/uL Sodium (137-145) mmol/L Potassium (3.5-5.1) mmol/L Chloride (98-107) mmol/L Carbon Dioxide (22-30) mmol/L Anion Gap mmol/L BUN (9-20) mg/dL Creatinine (0.66-1.25) mg/dL Est GFR (CKD-EPI)AfAm (>60 ml/min/1.73 sqM) Est GFR (CKD-EPI)NonAf (>60 ml/min/1.73 sqM) Glucose (74-99) mg/dL POC Glucose (mg/dL) 411 H (75-99) mg/dL POC Glu Panel Laminator ID Foreman, Guadalupe Plasma Lactic Acid Jonas 1.5 (0.7-2.0) mmol/L Calcium (8.4-10.2) mg/dL Total Bilirubin (0.2-1.3) mg/dL AST (17-59) U/L ALT (4-49) U/L Alkaline Phosphatase (38-126) U/L Total Protein (6.3-8.2) g/dL Albumin (3.5-5.0) g/dL Amylase (30-110) U/L Lipase (23-300) U/L Urine Color Urine Appearance (Clear) Urine pH (5.0-8.0) Ur Specific [place] (1.001-1.035) Urine Protein (Negative) Urine Glucose (UA) (Negative) Urine Ketones (Negative) Urine Blood (Negative) Urine Nitrite (Negative) Urine Bilirubin (Negative) Urine Urobilinogen (<2.0) mg/dL Ur Leukocyte Esterase (Negative) Acetone, Qual (Negative) Coronavirus (PCR) Detected A (Not Detectd) 03/14/21 Range/Units 09:21 WBC (3.8-10.6) k/uL RBC (4.30-5.90) m/uL Hgb (13.0-17.5) gm/dL Hct (39.0-53.0) % MCV (80.0-100.0) fL MCH (25.0-35.0) pg MCHC (31.0-37.0) g/dL RDW (11.5-15.5) % Plt Count (150-450) k/uL MPV Neutrophils % % Lymphocytes % % Monocytes % % Eosinophils % % Basophils % % Neutrophils # (1.3-7.7) k/uL Lymphocytes # (1.0-4.8) k/uL Monocytes # (0-1.0) k/uL Eosinophils # (0-0.7) k/uL Basophils # (0-0.2) k/uL Sodium (137-145) mmol/L Potassium (3.5-5.1) mmol/L Chloride (98-107) mmol/L Carbon Dioxide (22-30) mmol/L Anion Gap mmol/L BUN (9-20) mg/dL Creatinine (0.66-1.25) mg/dL Est GFR (CKD-EPI)AfAm (>60 ml/min/1.73 sqM) Est GFR (CKD-EPI)NonAf (>60 ml/min/1.73 sqM) Glucose (74-99) mg/dL POC Glucose (mg/dL) 330 H (75-99) mg/dL POC Glu Panel Laminator ID Guadalupe Foreman Plasma Lactic Acid Jonas (0.7-2.0) mmol/L Calcium (8.4-10.2) mg/dL Total Bilirubin (0.2-1.3) mg/dL AST (17-59) U/L ALT (4-49) U/L Alkaline Phosphatase (38-126) U/L Total Protein (6.3-8.2) g/dL Albumin (3.5-5.0) g/dL Amylase (30-110) U/L Lipase (23-300) U/L Urine Color Urine Appearance (Clear) Urine pH (5.0-8.0) Ur Specific [place] (1.001-1.035) Urine Protein (Negative) Urine Glucose (UA) (Negative) Urine Ketones (Negative) Urine Blood (Negative) Urine Nitrite (Negative) Urine Bilirubin (Negative) Urine Urobilinogen (<2.0) mg/dL Ur Leukocyte Esterase (Negative) Acetone, Qual (Negative) Coronavirus (PCR) (Not Detectd) Critical Care Time Critical Care Time: Yes Total Critical Care Time: 35 Disposition Clinical Impression: DKA (diabetic ketoacidoses), COVID-19 Disposition: ADMITTED IP TO THIS HOSP Condition: Fair Referrals: Óscar Jackson MD [Primary Care Provider] - 1-2 days
[2021-03-14] MEDS ORDERED: SOTROVIMAB (EUA) 500 MG in SODIUM CHLORIDE 0.9% 100 ML IVPB ONE (10:00)
[2021-03-14] MEDS: ACETAMINOPHEN TAB 325 MG TAB PO PRN (10:20)
[2021-03-14] MEDS ORDERED: D5-0.45% NACL WITH KCL 20MEQ/L 1,000 ML IV SCH (10:45)
[2021-03-14 10:51] LABS: Glucose,Whole Blood 287 mg/dL (75-99)
[2021-03-14 11:44] LABS: Glucose,Whole Blood 407 mg/dL (75-99)
[2021-03-14 12:32] LABS: African American GFR (CKD) >90 (>60 ml/min/1.73 sqM); Anion Gap 8 mmol/L; Blood Urea Nitrogen 14 mg/dL (9-20); Carbon Dioxide 21 mmol/L (22-30); Chloride 100 mmol/L (98-107); Glucose 372 mg/dL (74-99); Non-African American GFR(CKD) >90 (>60 ml/min/1.73 sqM); Phosphorus 2.7 mg/dL (2.5-4.5); Potassium 4.7 mmol/L (3.5-5.1); Sodium 129 mmol/L (137-145)
[2021-03-14 12:53] LABS: Glucose,Whole Blood 310 mg/dL (75-99)
[2021-03-14] MEDS ORDERED: INSULIN DETEMIR (LEVEMIR) 100 UNIT/ML SYR SQ SCH (13:30)
[2021-03-14 13:46] LABS: Glucose,Whole Blood 194 mg/dL (75-99)
[2021-03-14] MEDS: INSULIN ASPART (NovoLOG) 100 UNIT/ML VIAL SQ SCH ×3 (15:09→22:07)
[2021-03-14] MEDS: SODIUM CHLORIDE 0.9% 1,000 ML IV SCH (15:12)
[2021-03-14 16:24] LABS: African American GFR (CKD) >90 (>60 ml/min/1.73 sqM); Anion Gap 9 mmol/L; Blood Urea Nitrogen 13 mg/dL (9-20); Carbon Dioxide 22 mmol/L (22-30); Chloride 99 mmol/L (98-107); Glucose 289 mg/dL (74-99); Non-African American GFR(CKD) >90 (>60 ml/min/1.73 sqM); Potassium 4.6 mmol/L (3.5-5.1); Sodium 130 mmol/L (137-145)
[2021-03-14 18:05] LABS: Glucose,Whole Blood 231 mg/dL (75-99)
[2021-03-14 20:58] LABS: Glucose,Whole Blood 70 mg/dL (75-99)
[2021-03-14 20:58] LABS: Glucose,Whole Blood 77 mg/dL (75-99)
[2021-03-14] MEDS ORDERED: INSULIN DETEMIR (LEVEMIR) 100 UNIT/ML SYR SQ ONE (21:00)
--- NOTE | 2021-03-14 23:17 | P.HPIM ---
History of Present Illness H&P Date: 03/14/21 Chief Complaint: Shortness of breath Patient is a 30-year-old male with a known history of diabetes type 1 currently on subcu insulin, seizure disorder, history of DKA and currently everyday smoker presents to ER with complaints of shortness of breath started this morning. Patient states that he has not been feeling well last couple of days and not eating well. Patient not able to take insulin due to poor appetite. Otherwise denied any nausea vomiting abdominal pain or diarrhea. Denied any dysuria or hematuria. No chest pain. No headache or dizziness or lightheadedness. In the ER blood pressure was 123/76 pulse 87 respiration 18 pulse ox 99% on room air. Laboratory data showed WBC 4.4 hemoglobin 15.0 Sodium 137 potassium 5.0, chloride 97 bicarb is 19 BUN 14 and creatinine 0.84 blood sugar is 379 and lactic acid 1.5 liver enzymes are not elevated. Lipase 42 urinalysis showed 4+ glucose and 3+ ketones Acetone positive and COVID-19 PCR detected. Review of Systems Constitutional: Patient denies any fever or chills . No generalized weakness or weight loss. Abdomen: Patient denied nausea vomiting and diarrhea and abdominal pain. Cardiovascular: Patient denies any chest pain, no palpitations. Respiratory: patient denied any cough or sputum production. + shortness of breath Neurologic: Patient denied any numbness or tingling headache. Musculoskeletal: Patient denies any complaints of joint swelling or deformity. Skin: Negative Psychiatric: Negative Endocrine: No heat or cold intolerance. No recent weight gain. Genitourinary: No dysuria or hematuria. All other 14 point ROS negative except the above Past Medical History Past Medical History: Diabetes Mellitus, Pneumonia, Seizure Disorder Additional Past Medical History / Comment(s): IDDM type I, DKA, seizures with hypoglycemia-last time April 2019, bronchitis. History of Any Multi-Drug Resistant Organisms: None Reported Past Surgical History: No Surgical Hx Reported Additional Past Surgical History / Comment(s): TOOTH EXTRACTED IN PAST AND YESTERDAY HAD A PUS POCKET NEAR FRONT TOOTH LANCED/DRAINED. Past Anesthesia/Blood Transfusion Reactions: No Reported Reaction Past Psychological History: No Psychological Hx Reported Smoking Status: Current every day smoker Past Alcohol Use History: None Reported Past Drug Use History: None Reported - Past Family History Father Family Medical History: No Reported History Additional Family Medical History / Comment(s): Father is healthy Mother Family Medical History: Asthma Medications and Allergies Home Medications Medication Instructions Recorded Confirmed Type Insulin Aspart [NovoLOG Flexpen] 20 units SQ TID 02/12/21 03/14/21 History Insulin Detemir [Levemir Flextouch 50 units SQ HS 02/12/21 03/14/21 History Pen] Nicotine 21Mg/24Hr Patch [Habitrol] 1 patch TRANSDERM DAILY PRN 03/14/21 03/14/21 History Penicillin V Potassium [Pen Vee K] 500 mg PO Q6H 03/14/21 03/14/21 History Allergies Allergy/AdvReac Type Severity Reaction Status Date / Time bee venom protein (honey bee) Allergy Anaphylaxis Verified 03/14/21 10:48 Physical Exam Vitals: Vital Signs Temp Pulse Resp BP Pulse Ox 03/14/21 12:00 65 18 129/71 99 03/14/21 07:25 98.3 F 87 18 123/76 99 Intake and Output 03/13/21 03/14/21 03/14/21 22:59 06:59 14:59 Intake Total 13.096 Balance 13.096 Intake: Intake, IV Titration 13.096 Amount Insulin Regular 100 unit 13.096 In Sodium Chloride 0.9% 100 ml @ 0.05 UNITS/KG/HR 3.551 mls/hr IV .Q24H [facility] Rx#:[id number] Other: Weight 70.307 kg PHYSICAL EXAMINATION: Patient is lying in the bed comfortably, no acute distress, awake alert and oriented.. HEENT: Normocephalic. Neck is supple. Pupils reactive. Nostrils clear. Oral cavity is moist. Neck reveals no JVD, carotid bruits, or thyromegaly. CHEST EXAMINATION: Trachea is central. Symmetrical expansion. Lung polk clear to auscultation and percussion. CARDIAC: Normal S1, S2 with no gallops. No murmurs ABDOMEN: Soft. Bowel sounds normal. No organomegaly. No abdominal bruits. Extremities: reveal no edema. No clubbing or cyanosis Neurologically awake, alert, oriented x3 with well-coordinated movements. No focal deficits noted Skin: No rash or skin lesions. Psychiatric: Cooperative. Nonsuicidal Musculoskeletal: No joint swelling or deformity. Normal range of motion. Results CBC & Chem 7: 03/14/21 07:37 03/14/21 16:02 Labs: Abnormal Lab Results - Last 24 Hours (Table) 03/14/21 03/14/21 03/14/21 Range/Units 07:37 07:37 07:37 Sodium 127 L (137-145) mmol/L Chloride 97 L (98-107) mmol/L Carbon Dioxide 19 L (22-30) mmol/L Glucose 379 H (74-99) mg/dL POC Glucose (mg/dL) (75-99) mg/dL Urine Glucose (UA) 4+ H (Negative) Urine Ketones 3+ H (Negative) Coronavirus (PCR) Detected A (Not Detectd) 03/14/21 03/14/21 03/14/21 Range/Units 07:37 09:21 10:33 Sodium (137-145) mmol/L Chloride (98-107) mmol/L Carbon Dioxide (22-30) mmol/L Glucose (74-99) mg/dL POC Glucose (mg/dL) 411 H 330 H 287 H (75-99) mg/dL Urine Glucose (UA) (Negative) Urine Ketones (Negative) Coronavirus (PCR) (Not Detectd) 03/14/21 03/14/21 03/14/21 Range/Units 11:41 12:03 12:45 Sodium 129 L (137-145) mmol/L Chloride (98-107) mmol/L Carbon Dioxide 21 L (22-30) mmol/L Glucose 372 H (74-99) mg/dL POC Glucose (mg/dL) 407 H 310 H (75-99) mg/dL Urine Glucose (UA) (Negative) Urine Ketones (Negative) Coronavirus (PCR) (Not Detectd) Thrombosis Risk Factor Assmnt - DVT/VTE Prophylaxis DVT/VTE Prophylaxis: Pharmacologic Prophylaxis ordered Assessment and Plan Assessment: Acute diabetic ketoacidosis Hypovolemic hyponatremia and pseudohyponatremia Acute COVID-19 infection Diabetes type 1 insulin-dependent. History of seizure disorder Currently everyday smoker DVT prophylaxis with Lovenox subcu Plan: Patient will depend on IV hydration and was started on insulin drip. Continue with insulin drip until anion gap closes. Monitor electrolytes every 4 hourly and replace potassium as needed. Patient is currently saturating well on room air. Patient received monoclonal antibody dose x1 in the ER. Continue with Lovenox subcu and patient does not need dexamethasone. Continue with multivitamins and follow-up closely. Patient is vaccinated. Time with Patient: Greater than 30
[2021-03-15 01:06] LABS: Glucose,Whole Blood 120 mg/dL (75-99)
[2021-03-15] MEDS: SODIUM CHLORIDE 0.9% 1,000 ML IV SCH ×3 (03:36→20:16)
[2021-03-15] MEDS ORDERED: ONDANSETRON 4 MG/2 ML VIAL IVP PRN (06:11)
[2021-03-15 06:20] LABS: Basophils # (A) 0.1 k/uL (0-0.2); Basophils % (A) 1 %; Eosinophils % (A) 1 %; HCT 47.5 % (39.0-53.0); HGB 15.8 gm/dL (13.0-17.5); Lymphocytes # (A) 1.7 k/uL (1.0-4.8); Lymphocytes % (A) 31 %; MCH 31.8 pg (25.0-35.0); MCHC 33.3 g/dL (31.0-37.0); MCV 95.6 fL (80.0-100.0); Mean Platelet Volume 7.7; Monocytes # (A) 0.4 k/uL (0-1.0); Monocytes % (A) 7 %; Neutrophils # (A) 3.3 k/uL (1.3-7.7); Neutrophils % (A) 59 %; Platelet Count 276 k/uL (150-450); RBC 4.97 m/uL (4.30-5.90); RDW 11.9 % (11.5-15.5); WBC 5.7 k/uL (3.8-10.6)
[2021-03-15 07:24] LABS: Glucose,Whole Blood 39 mg/dL (75-99)
[2021-03-15 07:37] LABS: Glucose,Whole Blood 33 mg/dL (75-99)
[2021-03-15 07:50] LABS: Glucose,Whole Blood 50 mg/dL (75-99)
[2021-03-15] MEDS: INSULIN ASPART (NovoLOG) 100 UNIT/ML VIAL SQ SCH ×8 (07:51→20:43)
[2021-03-15] MEDS: ENOXAPARIN 40 MG/0.4 ML SYRINGE SQ SCH (11:44)
[2021-03-15 11:49] LABS: Glucose,Whole Blood 233 mg/dL (75-99)
[2021-03-15 12:47] LABS: C Reactive Protein 0.5 mg/dL (0.00-0.80)
[2021-03-15 13:21] LABS: African American GFR (CKD) 121.6 (60.0-200.0); Albumin 4.4 g/dL (3.8-4.9); Albumin/Globulin Ratio 1.86 (1.60-3.17); Anion Gap 15.5 mmol/L (10.00-18.00); BUN/Creat Ratio 10.63 Ratio (12.00-20.00); Blood Urea Nitrogen 10.2 mg/dL (9.0-27.0); Calcium 9.2 mg/dL (8.7-10.3); Carbon Dioxide 23.2 mmol/L (20.0-27.5); Globulin 2.4 g/dL (1.6-3.3); Non-African American GFR(CKD) 104.9 (60.0-200.0); Potassium 3.8 mmol/L (3.5-5.5); Total Bilirubin 0.3 mg/dL (0.30-1.20); Total Protein 6.8 g/dL (6.2-8.2)
[2021-03-15 16:49] LABS: Glucose,Whole Blood 46 mg/dL (75-99)
[2021-03-15 16:49] LABS: Glucose,Whole Blood 41 mg/dL (75-99)
[2021-03-15 17:41] LABS: Glucose,Whole Blood 80 mg/dL (75-99)
[2021-03-15 19:41] LABS: Glucose,Whole Blood 265 mg/dL (75-99)
[2021-03-15] MEDS ORDERED: INSULIN DETEMIR (LEVEMIR) 100 UNIT/ML SYR SQ SCH ×2 (21:00)
--- NOTE | 2021-03-15 21:12 | P.PN ---
Subjective Progress Note Date: 03/15/21 Principal diagnosis: Acute DKA COVID-19 infection status post monoclonal antibody therapy Patient is a 30-year-old male with a known history of diabetes type 1 currently on subcu insulin, seizure disorder, history of DKA and currently everyday smoker presents to ER with complaints of shortness of breath started this morning. Patient states that he has not been feeling well last couple of days and not eating well. Patient not able to take insulin due to poor appetite. Otherwise denied any nausea vomiting abdominal pain or diarrhea. Denied any dysuria or hematuria. No chest pain. No headache or dizziness or lightheadedness. In the ER blood pressure was 123/76 pulse 87 respiration 18 pulse ox 99% on room air. Laboratory data showed WBC 4.4 hemoglobin 15.0 Sodium 137 potassium 5.0, chloride 97 bicarb is 19 BUN 14 and creatinine 0.84 blood sugar is 379 and lactic acid 1.5 liver enzymes are not elevated. Lipase 42 urinalysis showed 4+ glucose and 3+ ketones Acetone positive and COVID-19 PCR detected. 03/15/2021 Patient is currently resting in bed. DKA resolved. Awake alert and oriented x3. No complaints of chest pain. Saturating well on room air. Patient was started back on home insulin regimen of Levemir 50 units and aspart 20 units 3 times daily AC. Patient was hypoglycemic this morning and also during dinnertime today. Insulin dose reduced to 36 units at bedtime and aspart 12 units 3 times daily AC. Continue to monitor blood sugars for the next 24 hours and possible discharge. Patient has been afebrile otherwise. No no nausea vomiting or abdominal pain or diarrhea. Current medications reviewed. Objective - Vital Signs Vital signs: Vital Signs Temp 99.9 F H 03/15/21 18:53 Pulse 96 03/15/21 18:53 Resp 18 03/15/21 18:53 BP 129/72 03/15/21 18:53 Pulse Ox 97 03/15/21 18:53 Intake & Output 03/15/21 03/15/21 03/16/21 06:59 18:59 06:59 Intake Total 290 3070 Output Total 500 500 Balance -210 2570 Weight 70.307 kg Intake: Intake, IV Titration 650 Amount Sodium Chloride 0.9% 1, 650 000 ml @ 75 mls/hr IV . [id number] [facility] Rx#:[id number] Oral 290 2420 Output: Emesis 500 500 Other: Voiding Method Toilet # Voids 1 4 - Exam PHYSICAL EXAMINATION: Patient is lying in the bed comfortably, no acute distress, awake alert and oriented.. HEENT: Normocephalic. Neck is supple. Pupils reactive. Nostrils clear. Oral cavity is moist. Neck reveals no JVD, carotid bruits, or thyromegaly. CHEST EXAMINATION: Trachea is central. Symmetrical expansion. Lung polk clear to auscultation and percussion. CARDIAC: Normal S1, S2 with no gallops. No murmurs ABDOMEN: Soft. Bowel sounds normal. No organomegaly. No abdominal bruits. Extremities: reveal no edema. No clubbing or cyanosis Neurologically awake, alert, oriented x3 with well-coordinated movements. No focal deficits noted Skin: No rash or skin lesions. Psychiatric: Cooperative. Nonsuicidal Musculoskeletal: No joint swelling or deformity. Normal range of motion. - Labs CBC & Chem 7: 03/15/21 05:48 03/15/21 09:33 Labs: Abnormal Lab Results - Last 24 Hours (Table) 03/15/21 03/15/21 03/15/21 Range/Units 01:04 05:48 07:16 BUN/Creatinine Ratio 10.63 L (12.00-20.00) Ratio Glucose 33 L* (70-110) mg/dL POC Glucose (mg/dL) 120 H 39 L (75-99) mg/dL AST 37 H (14-35) U/L 03/15/21 03/15/21 03/15/21 Range/Units 07:35 07:42 09:33 BUN/Creatinine Ratio (12.00-20.00) Ratio Glucose 221 H (70-110) mg/dL POC Glucose (mg/dL) 33 L 50 L (75-99) mg/dL AST (14-35) U/L 03/15/21 03/15/21 03/15/21 Range/Units 11:46 16:45 16:48 BUN/Creatinine Ratio (12.00-20.00) Ratio Glucose (70-110) mg/dL POC Glucose (mg/dL) 233 H 41 L 46 L (75-99) mg/dL AST (14-35) U/L 03/15/21 Range/Units 19:39 BUN/Creatinine Ratio (12.00-20.00) Ratio Glucose (70-110) mg/dL POC Glucose (mg/dL) 265 H (75-99) mg/dL AST (14-35) U/L Assessment and Plan Assessment: Acute diabetic ketoacidosis Hypovolemic hyponatremia and pseudohyponatremia Acute COVID-19 infection Diabetes type 1 insulin-dependent. History of seizure disorder Currently everyday smoker DVT prophylaxis with Lovenox subcu Plan: DKA has resolved. Insulin drip has been discontinued. Patient began IV hydration and monitor blood sugars closely. Patient was started back on subcu insulin with reduced dose due to hypoglycemic episodes. Monitor CBC and BMP tomorrow. Patient received monoclonal antibody therapy due to COVID-19 infection yesterday. Breathing status is stable. Dissipate discharge in next 24 hours. Continue with Lovenox subcu and patient does not need dexamethasone. Continue with multivitamins and follow-up closely. Patient is vaccinated.
[2021-03-16 02:36] LABS: Glucose,Whole Blood 40 mg/dL (75-99)
[2021-03-16 02:36] LABS: Glucose,Whole Blood 41 mg/dL (75-99)
[2021-03-16] MEDS ORDERED: DEXTROSE 50% SYRINGE 50 ML IVP ONE (02:51)
[2021-03-16 02:55] LABS: Glucose,Whole Blood 40 mg/dL (75-99)
[2021-03-16 03:27] LABS: Glucose,Whole Blood 103 mg/dL (75-99)
[2021-03-16 07:23] LABS: Glucose,Whole Blood 80 mg/dL (75-99)
[2021-03-16] MEDS: INSULIN ASPART (NovoLOG) 100 UNIT/ML VIAL SQ SCH ×4 (07:30→12:03)
[2021-03-16 08:31] LABS: Basophils % (A) 1 %; Eosinophils % (A) 1 %; HCT 46.5 % (39.0-53.0); HGB 15.8 gm/dL (13.0-17.5); Lymphocytes # (A) 1.8 k/uL (1.0-4.8); Lymphocytes % (A) 37 %; MCH 32.3 pg (25.0-35.0); MCHC 34.1 g/dL (31.0-37.0); MCV 94.8 fL (80.0-100.0); Mean Platelet Volume 7.8; Monocytes # (A) 0.4 k/uL (0-1.0); Monocytes % (A) 8 %; Neutrophils # (A) 2.5 k/uL (1.3-7.7); Neutrophils % (A) 52 %; Platelet Count 229 k/uL (150-450); RDW 11.7 % (11.5-15.5); WBC 4.9 k/uL (3.8-10.6)
[2021-03-16 08:48] LABS: African American GFR (CKD) >90 (>60 ml/min/1.73 sqM); Anion Gap 8 mmol/L; Blood Urea Nitrogen 9 mg/dL (9-20); Calcium 9.1 mg/dL (8.4-10.2); Carbon Dioxide 29 mmol/L (22-30); Chloride 101 mmol/L (98-107); Glucose 107 mg/dL (74-99); Non-African American GFR(CKD) >90 (>60 ml/min/1.73 sqM); Potassium 4.1 mmol/L (3.5-5.1); Sodium 138 mmol/L (137-145)
[2021-03-16] MEDS: ENOXAPARIN 40 MG/0.4 ML SYRINGE SQ SCH (09:16)
[2021-03-16 11:59] LABS: Glucose,Whole Blood 235 mg/dL (75-99)
[2021-03-16 14:40] VITALS: BP 127/69; PULSE 85; RESP 18; TEMP 98.9
[2021-03-16] MEDS: ACETAMINOPHEN TAB 325 MG TAB PO PRN (14:42)
[2021-03-16 15:17] VITALS: BMI 25.0
== END 2021-03-16 17:22 | disposition home or self-care (01) | DRG 177 ==
LOC: EC 07:02 → 3SCARD 09:07 → 4SSUR 20:18 → 1SOBS 03-15 00:33
PROVIDERS: ADMIT Internal Medicine; ATTEND Internal Medicine
DX: U07.1 COVID-19 (principal); E10.10 Type 1 diabetes mellitus with ketoacidosis without coma; E87.1 Hypo-osmolality and hyponatremia; E10.649 Type 1 diabetes mellitus with hypoglycemia without coma; E86.1 Hypovolemia; G40.909 Epilepsy, unspecified, not intractable, without status epilepticus; F17.200 Nicotine dependence, unspecified, uncomplicated; Z87.01 Personal history of pneumonia (recurrent); Z79.4 Long term (current) use of insulin; Z82.5 Family history of asthma and other chronic lower respiratory diseases
CPT/HCPCS: 36415; 71046; 80048; 80051; 80053; 81003; 82009; 82150; 82565; 82947; 83036; 83605; 83615; 83690; 84100; 84520; 85025; 85379; 86140; 87635; 93005; 96360; 99291

== ENCOUNTER 2021-04-23 21:40 | Emergency (ER) | payer OTHER ==
[2021-04-23 21:52] VITALS: BP 149/79; PULSE 60; RESP 20; TEMP 98.9
[2021-04-23] MEDS ORDERED: KETOROLAC 15 MG/ML 1 ML VIAL IM STA (21:59)
[2021-04-23] MEDS ORDERED: MORPHINE SULFATE 4 MG/ML SYRINGE IM STA (21:59)
[2021-04-23] MEDS ORDERED: AMOXIC-POT CLAV 875MG STARTER PACK 2 TAB BTL PO STA (22:00)
[2021-04-23 22:01] LABS: Glucose,Whole Blood 225 mg/dL (75-99)
[2021-04-23] MEDS ORDERED: HYDROcodone/APAP 5-325MG 1 EACH TAB PO STA (22:06)
--- NOTE | 2021-04-23 22:07 | ED ---
General Adult HPI - General Chief complaint: Dental/Oral Stated complaint: Toothache,N/V Time Seen by Provider: 04/23/21 21:53 Source: patient, family, RN notes reviewed, old records reviewed Mode of arrival: ambulatory Limitations: no limitations - History of Present Illness Initial comments: 30-year-old male with right lower dental pain. No fevers. Patient is a type I diabetic. He had a fractured tooth and had a partial filling that he accidentally removed with tooth brushing. Patient is scheduled to see his dentist tomorrow afternoon. - Related Data Home Medications Medication Instructions Recorded Confirmed Nicotine 21Mg/24Hr Patch [Habitrol] 1 patch TRANSDERM DAILY PRN 03/14/21 03/14/21 Previous Rx's Medication Instructions Recorded INSULIN ASPART (NovoLOG) [NovoLOG 15 unit SQ AC-TID ml 03/16/21 (formulary)] Insulin Detemir (Levemir) [Levemir] 36 unit SQ HS ml 03/16/21 Amoxicillin/Potassium Clav 1 tab PO Q12HR 10 Days #20 tab 04/23/21 [Augmentin 875-125 Tablet] HYDROcodone/APAP 5-325MG [[place] 1 tab PO Q6HR PRN #12 tab 04/23/21 5-325] Ibuprofen [Motrin] 600 mg PO Q8HR PRN #24 tab 04/23/21 Allergies Allergy/AdvReac Type Severity Reaction Status Date / Time bee venom protein (honey bee) Allergy Anaphylaxis Verified 04/23/21 21:52 Review of Systems ROS Statement: Those systems with pertinent positive or pertinent negative responses have been documented in the HPI. ROS Other: All systems not noted in ROS Statement are negative. Past Medical History Past Medical History: Diabetes Mellitus, Pneumonia, Seizure Disorder Additional Past Medical History / Comment(s): IDDM type I, DKA, seizures with hypoglycemia-last time April 2019, Covid 03/14/21 History of Any Multi-Drug Resistant Organisms: None Reported Past Surgical History: No Surgical Hx Reported Additional Past Surgical History / Comment(s): TOOTH EXTRACTED IN PAST AND YESTERDAY HAD A PUS POCKET NEAR FRONT TOOTH LANCED/DRAINED. Past Anesthesia/Blood Transfusion Reactions: No Reported Reaction Past Psychological History: No Psychological Hx Reported Smoking Status: Current every day smoker Past Alcohol Use History: None Reported Past Drug Use History: None Reported - Past Family History Father Family Medical History: No Reported History Additional Family Medical History / Comment(s): Father is healthy Mother Family Medical History: Asthma General Exam Limitations: no limitations General appearance: alert, in no apparent distress Head exam: Present: atraumatic, normocephalic Eye exam: Present: normal appearance, PERRL ENT exam: Present: other (Patient has a fracture. Right lower canine with temporary filling. No drainable abscess) Neck exam: Present: normal inspection. Absent: tenderness Respiratory exam: Present: normal lung sounds bilaterally. Absent: respiratory distress, wheezes Cardiovascular Exam: Present: regular rate, normal rhythm GI/Abdominal exam: Present: soft. Absent: distended, tenderness Extremities exam: Present: normal inspection, normal capillary refill. Absent: pedal edema Neurological exam: Present: alert, oriented X3 Psychiatric exam: Present: normal affect, normal mood Course Vital Signs 04/23/21 21:50 Temperature 98.9 F Pulse Rate 60 Respiratory 20 Rate Blood Pressure 149/79 O2 Sat by Pulse 97 Oximetry Medical Decision Making - Medical Decision Making 30-year-old male with acute dental pain. Patient scheduled to see his dentist tomorrow. He is given pain medication and antibiotics. He will maintain his appointment and return as needed. - Lab Data Lab Results 04/23/21 Range/Units 21:58 POC Glucose (mg/dL) 225 H (75-99) mg/dL POC Glu Curator ID Jalen Balbuena Disposition Clinical Impression: Fracture of tooth, Toothache Disposition: HOME SELF-CARE Condition: Good Instructions (If sedation given, give patient instructions): Toothache (ED) Prescriptions: Amoxicillin/Potassium Clav [Augmentin 875-125 Tablet] 1 tab PO Q12HR 10 Days #20 tab Ibuprofen [Motrin] 600 mg PO Q8HR PRN #24 tab PRN Reason: Pain HYDROcodone/APAP 5-325MG [[place] 5-325] 1 tab PO Q6HR PRN #12 tab PRN Reason: Pain Is patient prescribed a controlled substance at d/c from ED?: No Referrals: Óscar Jackson MD [Primary Care Provider] - 1-2 days Time of Disposition: 22:06
== END 2021-04-23 22:14 | disposition home or self-care (01) ==
LOC: EC 21:40
DX: S02.5XXA Fracture of tooth (traumatic), initial encounter for closed fracture (principal); E10.9 Type 1 diabetes mellitus without complications; F17.200 Nicotine dependence, unspecified, uncomplicated; Z79.4 Long term (current) use of insulin; X58.XXXA Exposure to other specified factors, initial encounter
CPT/HCPCS: 99283; 96372 ×2; 36415; J2270; J1885

== ENCOUNTER 2021-09-21 14:05 | Emergency (ER) | payer OTHER ==
[2021-09-21 14:12] LABS: Glucose,Whole Blood 134 mg/dL (75-99)
--- NOTE | 2021-09-21 14:26 | ED ---
General Adult HPI - General Stated complaint: hypoglycemia Time Seen by Provider: 09/21/21 14:10 Source: patient, RN notes reviewed, old records reviewed - History of Present Illness Initial comments: This is a 31-year-old male who presents emergency Department stating that he takes insulin noon and he decided to take a shower or try to get ready for the day the next he knows he woke up in an ambulance. EMS states his blood sugar was 27 and they gave him 1 amp of glucose and he came back to his baseline. Patient has no complaints. Patient denies any recent fever chills or cough per patient denies abdominal pain patient denies nausea vomiting diarrhea. - Related Data Home Medications Medication Instructions Recorded Confirmed Albuterol Inhaler [Ventolin Hfa 2 puff INHALATION RT-QID PRN 04/24/21 04/24/21 Inhaler] Previous Rx's Medication Instructions Recorded Amoxic-Pot Clav 875-125Mg 1 tab PO BID 14 Days #28 tab 04/27/21 [Augmentin 875-125] Famotidine [Pepcid] 20 mg PO BID 14 Days #28 tablet 04/27/21 INSULIN ASPART (NovoLOG) [NovoLOG 0 unit SQ ACHS #8 ml 04/27/21 (formulary)] Insulin Aspart [NovoLOG Flexpen] 3 units SQ AC-TID #0 04/27/21 Insulin Detemir [Levemir Flextouch 20 units SQ DAILY #0 04/27/21 Pen] Naproxen [EC-Naproxen] 500 mg PO Q12HR 3 Days #6 tab 04/27/21 Allergies Allergy/AdvReac Type Severity Reaction Status Date / Time bee venom protein (honey bee) Allergy Anaphylaxis Verified 09/21/21 14:20 Review of Systems ROS Statement: Those systems with pertinent positive or pertinent negative responses have been documented in the HPI. ROS Other: All systems not noted in ROS Statement are negative. Past Medical History Past Medical History: Diabetes Mellitus, Pneumonia, Seizure Disorder Additional Past Medical History / Comment(s): IDDM type I, DKA, seizures with hypoglycemia-last time April 2019, Covid 03/14/21 History of Any Multi-Drug Resistant Organisms: None Reported Past Surgical History: No Surgical Hx Reported Additional Past Surgical History / Comment(s): TOOTH EXTRACTED IN PAST AND YESTERDAY HAD A PUS POCKET NEAR FRONT TOOTH LANCED/DRAINED. Past Anesthesia/Blood Transfusion Reactions: No Reported Reaction Past Psychological History: No Psychological Hx Reported Smoking Status: Current every day smoker Past Alcohol Use History: None Reported Past Drug Use History: None Reported - Past Family History Father Family Medical History: No Reported History Additional Family Medical History / Comment(s): Father is healthy Mother Family Medical History: Asthma General Exam - General Exam Comments Initial Comments: GENERAL: Patient is well-developed and well-nourished. Patient is nontoxic and well- hydrated and is in no acute distress. ENT: Neck is soft and supple. No significant lymphadenopathy is noted. Oropharynx is clear. Moist mucous membranes. Neck has full range of motion without eliciting any pain. EYES: The sclera were anicteric and conjunctiva were pink and moist. Extraocular movements were intact and pupils were equal round and reactive to light. Eyelids were unremarkable. PULMONARY: Unlabored respirations. Good breath sounds bilaterally. No audible rales rhonchi or wheezing was noted. CARDIOVASCULAR: There is a regular rate and rhythm without any murmurs gallops or rubs. ABDOMEN: Soft and nontender with normal bowel sounds. SKIN: Skin is clear with no lesions or rashes and otherwise unremarkable. NEUROLOGIC: Patient is alert and oriented x3. Cranial nerves II through XII are grossly i ntact. Motor and sensory are also intact. Normal speech, volume and content. Symmetrical smile. MUSCULOSKELETAL: Normal extremities with adequate strength and full range of motion. No lower extremity swelling or edema. No calf tenderness. LYMPHATICS: No significant lymphadenopathy is noted PSYCHIATRIC: Normal psychiatric evaluation. Course Vital Signs 09/21/21 14:23 Temperature 97.1 F L Pulse Rate 70 Respiratory 16 Rate Blood Pressure 137/87 O2 Sat by Pulse 98 Oximetry Medical Decision Making - Lab Data Result diagrams: 09/21/21 14:50 09/21/21 14:50 Lab Results 09/21/21 09/21/21 09/21/21 Range/Units 14:08 14:50 14:50 WBC 11.8 H (3.8-10.6) k/uL RBC 5.56 (4.30-5.90) m/uL Hgb 17.4 (13.0-17.5) gm/dL Hct 54.8 H (39.0-53.0) % MCV 98.6 (80.0-100.0) fL MCH 31.2 (25.0-35.0) pg MCHC 31.7 (31.0-37.0) g/dL RDW 11.4 L (11.5-15.5) % Plt Count 296 (150-450) k/uL MPV 7.9 Neutrophils % 83 % Lymphocytes % 11 % Monocytes % 3 % Eosinophils % 2 % Basophils % 1 % Neutrophils # 9.8 H (1.3-7.7) k/uL Lymphocytes # 1.3 (1.0-4.8) k/uL Monocytes # 0.3 (0-1.0) k/uL Eosinophils # 0.2 (0-0.7) k/uL Basophils # 0.1 (0-0.2) k/uL Sodium 140 (137-145) mmol/L Potassium 3.9 (3.5-5.1) mmol/L Chloride 104 (98-107) mmol/L Carbon Dioxide 27 (22-30) mmol/L Anion Gap 9 mmol/L BUN 8 L (9-20) mg/dL Creatinine 0.84 (0.66-1.25) mg/dL Est GFR (CKD-EPI)AfAm >90 (>60 ml/min/1.73 sqM) Est GFR (CKD-EPI)NonAf >90 (>60 ml/min/1.73 sqM) Glucose 50 L (74-99) mg/dL POC Glucose (mg/dL) 134 H (75-99) mg/dL POC Glu Technical Publications Manager [facility] Calcium 9.6 (8.4-10.2) mg/dL Total Bilirubin 0.6 (0.2-1.3) mg/dL AST 31 (17-59) U/L ALT 26 (4-49) U/L Alkaline Phosphatase 107 (38-126) U/L Total Protein 8.1 (6.3-8.2) g/dL Albumin 4.7 (3.5-5.0) g/dL 09/21/21 Range/Units 15:27 WBC (3.8-10.6) k/uL RBC (4.30-5.90) m/uL Hgb (13.0-17.5) gm/dL Hct (39.0-53.0) % MCV (80.0-100.0) fL MCH (25.0-35.0) pg MCHC (31.0-37.0) g/dL RDW (11.5-15.5) % Plt Count (150-450) k/uL MPV Neutrophils % % Lymphocytes % % Monocytes % % Eosinophils % % Basophils % % Neutrophils # (1.3-7.7) k/uL Lymphocytes # (1.0-4.8) k/uL Monocytes # (0-1.0) k/uL Eosinophils # (0-0.7) k/uL Basophils # (0-0.2) k/uL Sodium (137-145) mmol/L Potassium (3.5-5.1) mmol/L Chloride (98-107) mmol/L Carbon Dioxide (22-30) mmol/L Anion Gap mmol/L BUN (9-20) mg/dL Creatinine (0.66-1.25) mg/dL Est GFR (CKD-EPI)AfAm (>60 ml/min/1.73 sqM) Est GFR (CKD-EPI)NonAf (>60 ml/min/1.73 sqM) Glucose (74-99) mg/dL POC Glucose (mg/dL) 131 H (75-99) mg/dL POC Glu Technical Publications Manager ID Virgil Lombardi Calcium (8.4-10.2) mg/dL Total Bilirubin (0.2-1.3) mg/dL AST (17-59) U/L ALT (4-49) U/L Alkaline Phosphatase (38-126) U/L Total Protein (6.3-8.2) g/dL Albumin (3.5-5.0) g/dL Disposition Clinical Impression: Hypoglycemia Disposition: HOME SELF-CARE Condition: Good Instructions (If sedation given, give patient instructions): Hypoglycemia in a Person with Diabetes (ED) Is patient prescribed a controlled substance at d/c from ED?: No Referrals: None,Stated [Primary Care Provider] - 1-2 days Time of Disposition: 15:42
[2021-09-21 15:06] LABS: Basophils # (A) 0.1 k/uL (0-0.2); Basophils % (A) 1 %; Eosinophils # (A) 0.2 k/uL (0-0.7); Eosinophils % (A) 2 %; HCT 54.8 % (39.0-53.0); HGB 17.4 gm/dL (13.0-17.5); Lymphocytes # (A) 1.3 k/uL (1.0-4.8); Lymphocytes % (A) 11 %; MCH 31.2 pg (25.0-35.0); MCHC 31.7 g/dL (31.0-37.0); MCV 98.6 fL (80.0-100.0); Mean Platelet Volume 7.9; Monocytes # (A) 0.3 k/uL (0-1.0); Monocytes % (A) 3 %; Neutrophils # (A) 9.8 k/uL (1.3-7.7); Neutrophils % (A) 83 %; Platelet Count 296 k/uL (150-450); RBC 5.56 m/uL (4.30-5.90); RDW 11.4 % (11.5-15.5); WBC 11.8 k/uL (3.8-10.6)
[2021-09-21 15:17] LABS: ALT 26 U/L (4-49); AST 31 U/L (17-59); African American GFR (CKD) >90 (>60 ml/min/1.73 sqM); Albumin 4.7 g/dL (3.5-5.0); Alkaline Phosphatase 107 U/L (38-126); Anion Gap 9 mmol/L; Blood Urea Nitrogen 8 mg/dL (9-20); Calcium 9.6 mg/dL (8.4-10.2); Carbon Dioxide 27 mmol/L (22-30); Chloride 104 mmol/L (98-107); Glucose 50 mg/dL (74-99); Non-African American GFR(CKD) >90 (>60 ml/min/1.73 sqM); Potassium 3.9 mmol/L (3.5-5.1); Sodium 140 mmol/L (137-145); Total Bilirubin 0.6 mg/dL (0.2-1.3); Total Protein 8.1 g/dL (6.3-8.2)
[2021-09-21 15:30] LABS: Glucose,Whole Blood 131 mg/dL (75-99)
[2021-09-21 16:04] VITALS: BP 135/85; PULSE 77; RESP 18; TEMP 97.8
== END 2021-09-21 16:04 | disposition home or self-care (01) ==
LOC: EC 14:05
DX: E10.649 Type 1 diabetes mellitus with hypoglycemia without coma (principal); F17.200 Nicotine dependence, unspecified, uncomplicated; Z86.16 Personal history of COVID-19; Z91.030 Bee allergy status
CPT/HCPCS: 36415; 80053; 85025; 99285

== ENCOUNTER 2021-12-23 07:31 | Inpatient (IN) | payer OTHER ==
[2021-12-23] MEDS ORDERED: SODIUM CHLORIDE 0.9% 1,000 ML IV STA (07:38)
[2021-12-23 07:39] VITALS: TEMP 98.3
[2021-12-23 07:52] LABS: Glucose,Whole Blood 442 mg/dL (70-110)
--- NOTE | 2021-12-23 08:07 | ED ---
SOB HPI - General Chief Complaint: Shortness of Breath Stated Complaint: SOB Time Seen by Provider: 12/23/21 07:35 Source: patient, EMS Mode of arrival: EMS Limitations: no limitations - History of Present Illness Initial Comments: 31-year-old male with History of Type 1 Diabetes on Insulin Who Presents to the Emergency Department with Chest Pain Shortness of Breath. States That While He Was Getting Ready for Work This Morning around 6 AM He Was Having Exertional Dyspnea. When he ambulates, his chest feels tight. He denies previous history of cardiac or pulmonary issues. He has been around a coworker who witnessed sick with Covid and return to work on Tuesday. Patient is having diffuse myalgias, nonproductive cough and diarrhea. Denies calf pain or swelling. No fevers but admits to chills. When EMS arrived to pick him up at his work today they found his glucose to be in the 400s. This is abnormal for the patient as he normally has hypoglycemia. He did not take his insulin today because he knew he wasn't going to be able to eat. No other alleviating, precipitating or modifying factors MD Complaint: shortness of breath - Related Data Home Medications Medication Instructions Recorded Confirmed Insulin Aspart [NovoLOG Flexpen] 20 units SQ AC-TID 12/23/21 12/23/21 Insulin Detemir [Levemir Flextouch 50 units SQ BID 12/23/21 12/23/21 Pen] Allergies Allergy/AdvReac Type Severity Reaction Status Date / Time bee venom protein (honey bee) Allergy Anaphylaxis Verified 12/23/21 10:58 Review of Systems ROS Statement: Those systems with pertinent positive or pertinent negative responses have been documented in the HPI. ROS Other: All systems not noted in ROS Statement are negative. Past Medical History Past Medical History: Diabetes Mellitus, Pneumonia, Seizure Disorder Additional Past Medical History / Comment(s): IDDM type I, DKA, seizures with hypoglycemia-last time April 2019, Covid 03/14/21 History of Any Multi-Drug Resistant Organisms: None Reported Past Surgical History: No Surgical Hx Reported Additional Past Surgical History / Comment(s): TOOTH EXTRACTED IN PAST AND YESTERDAY HAD A PUS POCKET NEAR FRONT TOOTH LANCED/DRAINED. Past Anesthesia/Blood Transfusion Reactions: No Reported Reaction Past Psychological History: No Psychological Hx Reported Smoking Status: Current every day smoker Past Alcohol Use History: None Reported Past Drug Use History: None Reported - Past Family History Father Family Medical History: No Reported History Additional Family Medical History / Comment(s): Father is healthy Mother Family Medical History: Asthma General Exam Limitations: no limitations General appearance: alert, in no apparent distress Head exam: Present: atraumatic, normocephalic, normal inspection Eye exam: Present: normal appearance, PERRL, EOMI. Absent: scleral icterus, conjunctival injection, periorbital swelling ENT exam: Present: normal exam, mucous membranes moist Neck exam: Present: normal inspection. Absent: tenderness, meningismus, lymphadenopathy Respiratory exam: Present: normal lung sounds bilaterally. Absent: respiratory distress, wheezes, rales, rhonchi, stridor Cardiovascular Exam: Present: regular rate, normal rhythm, normal heart sounds. Absent: systolic murmur, diastolic murmur, rubs, gallop, clicks GI/Abdominal exam: Present: soft, normal bowel sounds. Absent: distended, tenderness, guarding, rebound, rigid Extremities exam: Present: normal inspection, full ROM, normal capillary refill. Absent: tenderness, pedal edema, joint swelling, calf tenderness Back exam: Present: normal inspection Neurological exam: Present: alert, oriented X3, CN II-XII intact Psychiatric exam: Present: normal affect, normal mood Skin exam: Present: warm, dry, intact, normal color. Absent: rash Course Vital Signs 12/23/21 12/23/21 12/23/21 07:32 07:55 19:34 Temperature 98.3 F Pulse Rate 74 77 Respiratory 16 18 15 Rate Blood Pressure 142/67 137/69 O2 Sat by Pulse 100 100 Oximetry Medical Decision Making - Medical Decision Making Upon arrival patient is placed into room 2. History and physical exam is performed. IV access established. Laboratory studies are conducted. Glucose 442. Patient does have a low CO2 at 18. Anion gap is 15. Patient had been given 10 units of insulin. He has been started on an insulin drip. Chest x-ray demonstrates no acute process. Patient will be admitted for DKA on insulin drip. Spoke with Dr. Culver who accepted patient. - Lab Data Result diagrams: 12/23/21 07:45 12/23/21 16:42 Lab Results 12/23/21 12/23/21 12/23/21 Range/Units 07:45 07:45 07:45 WBC 6.8 (3.8-10.6) k/uL RBC 5.32 (4.30-5.90) m/uL Hgb 17.5 (13.0-17.5) gm/dL Hct 52.8 (39.0-53.0) % MCV 99.3 (80.0-100.0) fL MCH 32.9 (25.0-35.0) pg MCHC 33.1 (31.0-37.0) g/dL RDW 12.0 (11.5-15.5) % Plt Count 250 (150-450) k/uL MPV 8.8 Neutrophils % (Manual) 70 % Band Neuts % (Manual) 1 % Lymphocytes % (Manual) 16 % Monocytes % (Manual) 13 % Neutrophils # (Manual) 4.80 (1.3-7.7) k/uL Lymphocytes # (Manual) 1.09 (1.0-4.8) k/uL Monocytes # (Manual) 0.88 (0-1.0) k/uL Nucleated RBCs 0 (0-0) /100 WBC Manual Slide Review Performed RBC Morphology Normal PT 10.6 (9.0-12.0) sec INR 1.0 (<1.2) APTT 25.1 (22.0-30.0) sec D-Dimer 0.34 (<0.60) mg/L FEU Sodium (137-145) mmol/L Potassium (3.5-5.1) mmol/L Chloride (98-107) mmol/L Carbon Dioxide (22-30) mmol/L Anion Gap mmol/L BUN (9-20) mg/dL Creatinine (0.66-1.25) mg/dL Est GFR (CKD-EPI)AfAm (>60 ml/min/1.73 sqM) Est GFR (CKD-EPI)NonAf (>60 ml/min/1.73 sqM) Glucose (74-99) mg/dL POC Glucose (mg/dL) (70-110) mg/dL POC Glu [employer] ID Calcium (8.4-10.2) mg/dL Total Bilirubin (0.2-1.3) mg/dL AST (17-59) U/L ALT (4-49) U/L Alkaline Phosphatase (38-126) U/L Troponin I (0.000-0.034) ng/mL Total Protein (6.3-8.2) g/dL Albumin (3.5-5.0) g/dL Urine Color Colorless Urine Appearance Clear (Clear) Urine pH 5.0 (5.0-8.0) Ur Specific Holmes 1.021 (1.001-1.035) Urine Protein Negative (Negative) Urine Glucose (UA) 4+ H (Negative) Urine Ketones 3+ H (Negative) Urine Blood Negative (Negative) Urine Nitrite Negative (Negative) Urine Bilirubin Negative (Negative) Urine Urobilinogen <2.0 (<2.0) mg/dL Ur Leukocyte Esterase Negative (Negative) Acetone, Qual (Negative) Coronavirus (PCR) (Not Detectd) 12/23/21 12/23/21 12/23/21 Range/Units 07:45 07:50 09:40 WBC (3.8-10.6) k/uL RBC (4.30-5.90) m/uL Hgb (13.0-17.5) gm/dL Hct (39.0-53.0) % MCV (80.0-100.0) fL MCH (25.0-35.0) pg MCHC (31.0-37.0) g/dL RDW (11.5-15.5) % Plt Count (150-450) k/uL MPV Neutrophils % (Manual) % Band Neuts % (Manual) % Lymphocytes % (Manual) % Monocytes % (Manual) % Neutrophils # (Manual) (1.3-7.7) k/uL Lymphocytes # (Manual) (1.0-4.8) k/uL Monocytes # (Manual) (0-1.0) k/uL Nucleated RBCs (0-0) /100 WBC Manual Slide Review RBC Morphology PT (9.0-12.0) sec INR (<1.2) APTT (22.0-30.0) sec D-Dimer (<0.60) mg/L FEU Sodium (137-145) mmol/L Potassium (3.5-5.1) mmol/L Chloride (98-107) mmol/L Carbon Dioxide (22-30) mmol/L Anion Gap mmol/L BUN (9-20) mg/dL Creatinine (0.66-1.25) mg/dL Est GFR (CKD-EPI)AfAm (>60 ml/min/1.73 sqM) Est GFR (CKD-EPI)NonAf (>60 ml/min/1.73 sqM) Glucose (74-99) mg/dL POC Glucose (mg/dL) 442 H (70-110) mg/dL POC Glu [employer] ID Belval, Erin Calcium (8.4-10.2) mg/dL Total Bilirubin (0.2-1.3) mg/dL AST (17-59) U/L ALT (4-49) U/L Alkaline Phosphatase (38-126) U/L Troponin I <0.012 (0.000-0.034) ng/mL Total Protein (6.3-8.2) g/dL Albumin (3.5-5.0) g/dL Urine Color Urine Appearance (Clear) Urine pH (5.0-8.0) Ur Specific Holmes (1.001-1.035) Urine Protein (Negative) Urine Glucose (UA) (Negative) Urine Ketones (Negative) Urine Blood (Negative) Urine Nitrite (Negative) Urine Bilirubin (Negative) Urine Urobilinogen (<2.0) mg/dL Ur Leukocyte Esterase (Negative) Acetone, Qual (Negative) Coronavirus (PCR) Detected A (Not Detectd) 12/23/21 Range/Units 09:40 WBC (3.8-10.6) k/uL RBC (4.30-5.90) m/uL Hgb (13.0-17.5) gm/dL Hct (39.0-53.0) % MCV (80.0-100.0) fL MCH (25.0-35.0) pg MCHC (31.0-37.0) g/dL RDW (11.5-15.5) % Plt Count (150-450) k/uL MPV Neutrophils % (Manual) % Band Neuts % (Manual) % Lymphocytes % (Manual) % Monocytes % (Manual) % Neutrophils # (Manual) (1.3-7.7) k/uL Lymphocytes # (Manual) (1.0-4.8) k/uL Monocytes # (Manual) (0-1.0) k/uL Nucleated RBCs (0-0) /100 WBC Manual Slide Review RBC Morphology PT (9.0-12.0) sec INR (<1.2) APTT (22.0-30.0) sec D-Dimer (<0.60) mg/L FEU Sodium 132 L (137-145) mmol/L Potassium 4.3 (3.5-5.1) mmol/L Chloride 99 (98-107) mmol/L Carbon Dioxide 18 L (22-30) mmol/L Anion Gap 15 mmol/L BUN 12 (9-20) mg/dL Creatinine 0.81 (0.66-1.25) mg/dL Est GFR (CKD-EPI)AfAm >90 (>60 ml/min/1.73 sqM) Est GFR (CKD-EPI)NonAf >90 (>60 ml/min/1.73 sqM) Glucose 387 H (74-99) mg/dL POC Glucose (mg/dL) (70-110) mg/dL POC Glu [employer] ID Calcium 8.1 L (8.4-10.2) mg/dL Total Bilirubin 1.2 (0.2-1.3) mg/dL AST 31 (17-59) U/L ALT 21 (4-49) U/L Alkaline Phosphatase 120 (38-126) U/L Troponin I (0.000-0.034) ng/mL Total Protein 6.1 L (6.3-8.2) g/dL Albumin 3.8 (3.5-5.0) g/dL Urine Color Urine Appearance (Clear) Urine pH (5.0-8.0) Ur Specific Holmes (1.001-1.035) Urine Protein (Negative) Urine Glucose (UA) (Negative) Urine Ketones (Negative) Urine Blood (Negative) Urine Nitrite (Negative) Urine Bilirubin (Negative) Urine Urobilinogen (<2.0) mg/dL Ur Leukocyte Esterase (Negative) Acetone, Qual Positive (Negative) Coronavirus (PCR) (Not Detectd) - EKG Data EKG Comments: EKG demonstrates sinus rhythm with a rate of 66. AR interval 119. QRS 94. QTC of 376. There is T waves V2 through V5. No ST segment elevations Critical Care Time Critical Care Time: Yes Critical Care Time: 32 minutes for DKA Disposition Clinical Impression: DKA, type 1, COVID-19, DKA (diabetic ketoacidoses) Disposition: ADMITTED IP TO THIS HOSP Condition: Stable Is patient prescribed a controlled substance at d/c from ED?: No Time of Disposition: 10:32 Decision to Admit Reason: Admit from EC Decision Date: 12/23/21 Decision Time: 10:32
[2021-12-23 08:47] LABS: HCT 52.8 % (39.0-53.0); HGB 17.5 gm/dL (13.0-17.5); MCH 32.9 pg (25.0-35.0); MCHC 33.1 g/dL (31.0-37.0); MCV 99.3 fL (80.0-100.0); Mean Platelet Volume 8.8; Platelet Count 250 k/uL (150-450); RBC 5.32 m/uL (4.30-5.90); WBC 6.8 k/uL (3.8-10.6)
[2021-12-23 08:49] LABS: Partial Thromboplastin Time 25.1 sec (22.0-30.0); Prothrombin Time 10.6 sec (9.0-12.0)
--- NOTE | 2021-12-23 09:26 | XR ---
EXAMINATION TYPE: XR chest 2V DATE OF EXAM: 12/23/2021 8:40 AM COMPARISON: Chest radiographs from 03/14/2021 TECHNIQUE: XR chest 2V Frontal and lateral views of the chest. CLINICAL INDICATION:Male, 31 years old with history of difficulty breathing; FINDINGS: Lungs/Pleura: There is no evidence of pleural effusion, focal consolidation, or pneumothorax. Pulmonary vascularity: Unremarkable. Heart/mediastinum: Cardiomediastinal silhouette is unremarkable. Musculoskeletal: No acute osseous pathology. IMPRESSION: No acute cardiopulmonary disease/process.
[2021-12-23 09:28] LABS: Band Neutrophils % 1 %; Lymphocytes # (M) 1.09 k/uL (1.0-4.8); Monocytes # (M) 0.88 k/uL (0-1.0); Neutrophils % (M) 70 %; Nucleated Red Blood Cells 0 /100 WBC (0-0); RBC Morphology Normal; Total Cells Counted 100
[2021-12-23 10:00] LABS: ALT 21 U/L (4-49); AST 31 U/L (17-59); African American GFR (CKD) >90 (>60 ml/min/1.73 sqM); Albumin 3.8 g/dL (3.5-5.0); Alkaline Phosphatase 120 U/L (38-126); Anion Gap 15 mmol/L; Blood Urea Nitrogen 12 mg/dL (9-20); Calcium 8.1 mg/dL (8.4-10.2); Carbon Dioxide 18 mmol/L (22-30); Chloride 99 mmol/L (98-107); Glucose 387 mg/dL (74-99); Non-African American GFR(CKD) >90 (>60 ml/min/1.73 sqM); Potassium 4.3 mmol/L (3.5-5.1); Sodium 132 mmol/L (137-145); Total Bilirubin 1.2 mg/dL (0.2-1.3); Total Protein 6.1 g/dL (6.3-8.2)
[2021-12-23] MEDS ORDERED: INSULIN REGULAR 100 UNIT/ML VIAL (IM/SQ) SQ ONE (10:03)
[2021-12-23] MEDS ORDERED: SODIUM CHLORIDE 0.9% 1,000 ML IV ONE (10:04)
[2021-12-23] MEDS ORDERED: INSULIN REGULAR 100 UNIT in SODIUM CHLORIDE 0.9% 100 ML IV SCH (10:45)
[2021-12-23 11:10] LABS: Appearance,Urine Clear (Clear); Bilirubin,Urine Negative (Negative); Blood,Urine Negative (Negative); Color,Urine Colorless; Glucose,Urine (UA) 4+ (Negative); Leukocyte Esterase,Urine Negative (Negative); Nitrite,Urine Negative (Negative); Protein,Urine Negative (Negative); Specific Gravity,Urine 1.021 (1.001-1.035); Urobilinogen,Urine <2.0 mg/dL (<2.0)
[2021-12-23] MEDS ORDERED: KETOROLAC 15 MG/ML 1 ML VIAL IVP PRN (11:27)
[2021-12-23] MEDS ORDERED: ACETAMINOPHEN TAB 325 MG TAB PO PRN (11:28)
[2021-12-23] MEDS ORDERED: PANTOPRAZOLE 40 MG/10 ML VIAL IVP SCH (11:30)
[2021-12-23 11:42] LABS: Ketones,Urine 3+ (Negative)
[2021-12-23 11:48] LABS: Glucose,Whole Blood 366 mg/dL (70-110)
--- NOTE | 2021-12-23 11:48 | P.HPIM ---
History of Present Illness 31-year-old pleasant male came in with the complaints of generalized body aches and shortness of breath. Patient was complaining of some cough to patient does smoke about half a pack of cigarette per day patient is found to have COVID-19. Chest x-ray did not show any significant abnormality patient does have history of type 1 diabetes mellitus uses 15 units of long-acting insulin along with 20 units with each meal. Patient did sugars are usually under control as per the patient. Patient is found to have highly elevated blood sugars of 400 mild DKA and hyponatremia and patient is being admitted for that reason and patient was started on IV insulin drip with IV fluids. REVIEW OF SYSTEMS: CONSTITUTIONAL: As mentioned in HPI HEENT: No recent visual problems or hearing problems. Denied any sore throat. CARDIOVASCULAR: No chest pain, orthopnea, PND, no palpitations, no syncope. PULMONARY: no hemoptysis. GASTROINTESTINAL: No diarrhea, no nausea, no vomiting, no abdominal pain. NEUROLOGICAL: No headaches, no weakness, no numbness. HEMATOLOGICAL: Denies any bleeding or petechiae. GENITOURINARY: Denies any burning micturition, frequency, or urgency. MUSCULOSKELETAL/RHEUMATOLOGICAL: Denies any joint pain, swelling, or any muscle pain. ENDOCRINE: Denies any polyuria or polydipsia. The rest of the 14-point review of systems is negative. PHYSICAL EXAMINATION: GENERAL: The patient is alert and oriented x3, not in any acute distress. Well developed, well nourished. HEENT: Pupils are round and equally reacting to light. EOMI. No scleral icterus. No conjunctival pallor. Normocephalic, atraumatic. No pharyngeal erythema. No thyromegaly. CARDIOVASCULAR: S1 and S2 present. No murmurs, rubs, or gallops. PULMONARY: Chest is clear to auscultation, no wheezing or crackles. ABDOMEN: Soft, nontender, nondistended, normoactive bowel sounds. No palpable organomegaly. MUSCULOSKELETAL: No joint swelling or deformity. EXTREMITIES: No cyanosis, clubbing, or pedal edema. NEUROLOGICAL: Gross neurological examination did not reveal any focal deficits. SKIN: No rashes. Assessment and plan -Diabetic ketoacidosis: Patient will continued IV insulin drip patient will be nothing by mouth once his anion gap resolves patient will be transitioned to use cutaneous insulin patient can eat at that time and patient can be discharged at that time patient will report his blood sugars he is a DKA is secondary to infection that is COVID-19 -Hyponatremia secondary to hyperglycemia, hyper osmolar hyponatremia. Continue with IV fluids -Anion gap metabolic acidosis secondary to diabetic ketoacidosis -GI prophylaxis Protonix Patient probably can be discharged later today or tomorrow if his DKA resolves. Past Medical History Past Medical History: Diabetes Mellitus, Pneumonia, Seizure Disorder Additional Past Medical History / Comment(s): IDDM type I, DKA, seizures with hypoglycemia-last time April 2019, Covid 03/14/21 History of Any Multi-Drug Resistant Organisms: None Reported Past Surgical History: No Surgical Hx Reported Additional Past Surgical History / Comment(s): TOOTH EXTRACTED IN PAST AND YESTERDAY HAD A PUS POCKET NEAR FRONT TOOTH LANCED/DRAINED. Past Anesthesia/Blood Transfusion Reactions: No Reported Reaction Past Psychological History: No Psychological Hx Reported Smoking Status: Current every day smoker Past Alcohol Use History: None Reported Past Drug Use History: None Reported - Past Family History Father Family Medical History: No Reported History Additional Family Medical History / Comment(s): Father is healthy Mother Family Medical History: Asthma Medications and Allergies Home Medications Medication Instructions Recorded Confirmed Type Insulin Aspart [NovoLOG Flexpen] 20 units SQ AC-TID 12/23/21 12/23/21 History Insulin Detemir [Levemir Flextouch 50 units SQ BID 12/23/21 12/23/21 History Pen] Allergies Allergy/AdvReac Type Severity Reaction Status Date / Time bee venom protein (honey bee) Allergy Anaphylaxis Verified 12/23/21 10:58 Physical Exam Vitals: Vital Signs Temp Pulse Resp BP Pulse Ox 12/23/21 07:55 18 12/23/21 07:32 98.3 F 74 16 142/67 100 Intake and Output 12/22/21 12/23/21 12/23/21 22:59 06:59 14:59 Other: Weight 77.111 kg Results CBC & Chem 7: 12/23/21 07:45 12/23/21 09:40 Labs: Abnormal Lab Results - Last 24 Hours (Table) 12/23/21 12/23/21 12/23/21 Range/Units 07:45 07:45 07:50 Sodium (137-145) mmol/L Carbon Dioxide (22-30) mmol/L Glucose (74-99) mg/dL POC Glucose (mg/dL) 442 H (70-110) mg/dL Calcium (8.4-10.2) mg/dL Total Protein (6.3-8.2) g/dL Urine Glucose (UA) 4+ H (Negative) Urine Ketones 3+ H (Negative) Coronavirus (PCR) Detected A (Not Detectd) 12/23/21 Range/Units 09:40 Sodium 132 L (137-145) mmol/L Carbon Dioxide 18 L (22-30) mmol/L Glucose 387 H (74-99) mg/dL POC Glucose (mg/dL) (70-110) mg/dL Calcium 8.1 L (8.4-10.2) mg/dL Total Protein 6.1 L (6.3-8.2) g/dL Urine Glucose (UA) (Negative) Urine Ketones (Negative) Coronavirus (PCR) (Not Detectd)
[2021-12-23 14:11] LABS: African American GFR (CKD) >90 (>60 ml/min/1.73 sqM); Anion Gap 13 mmol/L; Blood Urea Nitrogen 15 mg/dL (9-20); Calcium 8.6 mg/dL (8.4-10.2); Carbon Dioxide 21 mmol/L (22-30); Chloride 98 mmol/L (98-107); Glucose 306 mg/dL (74-99); Non-African American GFR(CKD) >90 (>60 ml/min/1.73 sqM); Phosphorus 3.1 mg/dL (2.5-4.5); Potassium 4.5 mmol/L (3.5-5.1); Sodium 132 mmol/L (137-145)
[2021-12-23] MEDS: SODIUM CHLORIDE 0.9% 1,000 ML IV SCH ×2 (14:35→18:52)
--- NOTE | 2021-12-23 14:49 | P.DS ---
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 Patient takes 50 units of long-acting insulin twice a day along with 20 units with each meal which he'll continue. For rest of medical problems and hospital physician course please refer to HPI for further details Patient Condition at Discharge: Stable Plan - Discharge Summary New Discharge Prescriptions: Continue Insulin Detemir [Levemir Flextouch Pen] 50 units SQ BID Insulin Aspart [NovoLOG Flexpen] 20 units SQ AC-TID Discharge Medication List Insulin Aspart [NovoLOG Flexpen] 20 units SQ AC-TID 12/23/21 [History] Insulin Detemir [Levemir Flextouch Pen] 50 units SQ BID 12/23/21 [History] Follow up Appointment(s)/Referral(s): Young Street MD [REFERRING] - 1 Week Discharge Disposition: HOME SELF-CARE
[2021-12-23] MEDS ORDERED: SODIUM CHLORIDE 0.9% 1,000 ML IV SCH (15:15)
[2021-12-23] MEDS ORDERED: INSULIN DETEMIR (LEVEMIR) 100 UNIT/ML SYR SQ ONE (17:00)
[2021-12-23 17:14] LABS: Glucose,Whole Blood 256 mg/dL (70-110)
[2021-12-23 17:23] LABS: African American GFR (CKD) >90 (>60 ml/min/1.73 sqM); Anion Gap 9 mmol/L; Blood Urea Nitrogen 14 mg/dL (9-20); Calcium 8.6 mg/dL (8.4-10.2); Carbon Dioxide 22 mmol/L (22-30); Chloride 99 mmol/L (98-107); Glucose 307 mg/dL (74-99); Non-African American GFR(CKD) >90 (>60 ml/min/1.73 sqM); Potassium 4.6 mmol/L (3.5-5.1); Sodium 130 mmol/L (137-145)
[2021-12-23] MEDS ORDERED: INSULIN ASPART (NovoLOG) 100 UNIT/ML VIAL SQ ONE (18:00)
[2021-12-23 19:36] VITALS: BP 137/69; PULSE 77; RESP 15
--- NOTE | 2021-12-25 23:36 | CDI ---
Physicians Documentation Request This Form is Not a Permanent Document in the Medical Record Pt Name: Howard Ospina MR #: [id number] [facility] [place] Unit/Bed: [id number] Adm Date: 12/23/2021 10:38:00 AM Reviewer: Digna Jordan. Query Date: 12/25/2021 11:30:34 PM COVID-19 Clinical Validity By submitting this query, we are merely seeking further clarification of documentation to accurately reflect all conditions that you are monitoring, evaluating, treating or that extend the hospitalization or utilize additional resources of care. Please utilize your independent clinical judgment when addressing the question(s) below. Dear Doctor Yanet Culver, Clinical Indicators: Patient is found to have COVID-19 per H&P. Coronavirus (PCR) Detected A (Not Detectd) per H&P COVID-19 is documented in the medical record as found in: Please provide additional documentation in the patients medical record in the next progress note and/or discharge summary supportive of your documented diagnosis of COVID-19. COVID-19 was evident/ruled in because: COVID-19 was ruled out and amended documentation provided in the medical record Other explanation of clinical findings (please specify): Clinically unable to provide additional clarity regarding the diagnosis of COVID-19 Unknown PLEASE DOCUMENT ANY ADDITIONAL DIAGNOSES AND/OR SPECIFICITY IN THE PROGRESS NOTES AND/OR DISCHARGE SUMMARY. Agreed & documented Clinically unable to determine/unknown Disagree with the above request Need to discuss Appropriate documentation is already documented no need for this query MTDD
== END 2021-12-23 19:44 | disposition home or self-care (01) | DRG 177 ==
LOC: EC 07:31 → 3SCARD 10:38
PROVIDERS: ADMIT Hospitalist; ATTEND Hospitalist
DX: U07.1 COVID-19 (principal); E10.10 Type 1 diabetes mellitus with ketoacidosis without coma; E87.1 Hypo-osmolality and hyponatremia; G40.909 Epilepsy, unspecified, not intractable, without status epilepticus; F17.210 Nicotine dependence, cigarettes, uncomplicated; Z86.16 Personal history of COVID-19; Z79.4 Long term (current) use of insulin; Z87.01 Personal history of pneumonia (recurrent); Z91.030 Bee allergy status; Z82.5 Family history of asthma and other chronic lower respiratory diseases
CPT/HCPCS: 36415; 71046; 80048; 80053; 81003; 82009; 84100; 84484; 85025; 85379; 85610; 85730; 87635; 93005; 96360; 96361; 99285

== ENCOUNTER 2022-04-29 11:19 | Observation (INO) | payer OTHER ==
[2022-04-29 11:25] LABS: Glucose,Whole Blood 582 mg/dL (70-110)
[2022-04-29] MEDS ORDERED: ONDANSETRON 4 MG/2 ML VIAL IVP STA (11:37)
[2022-04-29] MEDS ORDERED: SODIUM CHLORIDE 0.9% 2,000 ML IV STA (11:37)
[2022-04-29 12:25] LABS: Basophils # (A) 0.1 k/uL (0-0.2); Basophils % (A) 0 %; Eosinophils # (A) 0.1 k/uL (0-0.7); Eosinophils % (A) 1 %; HCT 51.6 % (39.0-53.0); HGB 16.4 gm/dL (13.0-17.5); Lymphocytes # (A) 0.7 k/uL (1.0-4.8); Lymphocytes % (A) 4 %; MCH 32.1 pg (25.0-35.0); MCHC 31.8 g/dL (31.0-37.0); MCV 100.9 fL (80.0-100.0); Mean Platelet Volume 8.3; Monocytes # (A) 0.3 k/uL (0-1.0); Monocytes % (A) 2 %; Neutrophils # (A) 13.7 k/uL (1.3-7.7); Neutrophils % (A) 92 %; Platelet Count 298 k/uL (150-450); RBC 5.11 m/uL (4.30-5.90); RDW 11.5 % (11.5-15.5); WBC 14.9 k/uL (3.8-10.6)
[2022-04-29 12:26] LABS: Appearance,Urine Clear (Clear); Bilirubin,Urine Negative (Negative); Blood,Urine Negative (Negative); Color,Urine Colorless; Glucose,Urine (UA) 4+ (Negative); Leukocyte Esterase,Urine Negative (Negative); Nitrite,Urine Negative (Negative); Protein,Urine Negative (Negative); Specific Gravity,Urine 1.022 (1.001-1.035); Urobilinogen,Urine <2.0 mg/dL (<2.0)
[2022-04-29 12:29] LABS: VBG PH 7.25 (7.31-7.41)
[2022-04-29 12:35] LABS: ALT 49 U/L (4-49); African American GFR (CKD) >90 (>60 ml/min/1.73 sqM); Albumin 5.2 g/dL (3.5-5.0); Amylase 118 U/L (30-110); Anion Gap 21 mmol/L; Blood Urea Nitrogen 19 mg/dL (9-20); Calcium 10.2 mg/dL (8.4-10.2); Carbon Dioxide 16 mmol/L (22-30); Chloride 98 mmol/L (98-107); Lipase 43 U/L (23-300); Non-African American GFR(CKD) >90 (>60 ml/min/1.73 sqM); Sodium 135 mmol/L (137-145); Total Bilirubin 2.6 mg/dL (0.2-1.3); Total Protein 8.1 g/dL (6.3-8.2)
[2022-04-29 12:51] LABS: AST 77 U/L (17-59); Alkaline Phosphatase 165 U/L (38-126); Glucose 621 mg/dL (74-99); Potassium 5.7 mmol/L (3.5-5.1)
[2022-04-29 13:02] LABS: Ketones,Urine 4+ (Negative)
--- NOTE | 2022-04-29 13:32 | ED ---
Abdominal Pain HPI - General Chief Complaint: Abdominal Pain Stated Complaint: Vomiting Time Seen by Provider: 04/29/22 11:22 Source: patient, RN notes reviewed Mode of arrival: wheelchair Limitations: no limitations - History of Present Illness Initial Comments: 31-year-old male presents emergency from chief complaint nausea vomiting hyperglycemia. Symptoms started this morning. Patient states he just doesn't feel well. Denies any cough congestion no sick contacts. No significant diarrhea. Patient denies any associated complaints. Is a known type I diabetic he did not taking his medications this morning. Patient offers no complaints. - Related Data Home Medications Medication Instructions Recorded Confirmed Insulin Aspart [NovoLOG Flexpen] 15 units SQ AC-TID 12/23/21 04/29/22 Insulin Detemir [Levemir Flextouch 50 units SQ HS 12/23/21 04/29/22 Pen] Allergies Allergy/AdvReac Type Severity Reaction Status Date / Time bee venom protein (honey bee) Allergy Anaphylaxis Verified 04/29/22 12:48 Review of Systems ROS Statement: Those systems with pertinent positive or pertinent negative responses have been documented in the HPI. ROS Other: All systems not noted in ROS Statement are negative. Past Medical History Past Medical History: Diabetes Mellitus, Pneumonia, Seizure Disorder Additional Past Medical History / Comment(s): IDDM type I, DKA, seizures with hypoglycemia-last time April 2019, Covid 03/14/21 History of Any Multi-Drug Resistant Organisms: None Reported Past Surgical History: No Surgical Hx Reported Additional Past Surgical History / Comment(s): TOOTH EXTRACTED IN PAST AND YESTERDAY HAD A PUS POCKET NEAR FRONT TOOTH LANCED/DRAINED. Past Anesthesia/Blood Transfusion Reactions: No Reported Reaction Past Psychological History: No Psychological Hx Reported Smoking Status: Current every day smoker Past Alcohol Use History: None Reported Past Drug Use History: None Reported - Past Family History Father Family Medical History: No Reported History Additional Family Medical History / Comment(s): Father is healthy Mother Family Medical History: Asthma General Exam Limitations: no limitations General appearance: alert, in no apparent distress Head exam: Present: atraumatic, normocephalic, normal inspection Eye exam: Present: normal appearance, PERRL, EOMI. Absent: scleral icterus, conjunctival injection, periorbital swelling ENT exam: Present: normal exam, mucous membranes moist Neck exam: Present: normal inspection. Absent: tenderness, meningismus, lymphadenopathy Respiratory exam: Present: normal lung sounds bilaterally. Absent: respiratory distress, wheezes, rales, rhonchi, stridor Cardiovascular Exam: Present: regular rate, normal rhythm, normal heart sounds. Absent: systolic murmur, diastolic murmur, rubs, gallop, clicks GI/Abdominal exam: Present: soft, normal bowel sounds. Absent: distended, tenderness, guarding, rebound, rigid Course Vital Signs 04/29/22 11:21 Temperature 99 F Pulse Rate 95 Respiratory 28 H Rate Blood Pressure 133/85 O2 Sat by Pulse 100 Oximetry Procedures - [place] Protocol (Time Out) Nurse: Ruby Goyal Medical Decision Making - Medical Decision Making Was pt. sent in by a medical professional or institution (BRITNEY López, RU[employer]ER [employer] TUBES SUPERVISOR, urgent care, hospital, or senior care...) When possible be specific @ -No Did you speak to anyone other than the patient for history (EMS, parent, family, police, friend...)? What history was obtained from this source @ -No Did you review nursing and triage notes (agree or disagree)? Why? @ -I reviewed and agree with nursing and triage notes Were old charts reviewed (outside hosp., previous admission, EMS record, old EKG, old radiological studies, urgent care reports/EKG's, senior care records)? Report findings @ -No old charts were reviewed Differential Diagnosis (chest pain, altered mental status, abdominal pain women, abdominal pain men, vaginal bleeding, weakness, fever, dyspnea, syncope, headache, dizziness, GI bleed, back pain, seizure, CVA, palpatations, mental health)? @ -[Gastroenteritis, DKA, hyperglycemia, nausea vomiting, this list is not all inclusive EKG interpreted by me (3pts min.). @ -As above X-rays interpreted by me (1pt min.). @ -None done CT interpreted by me (1pt min.). @ -None done U/S interpreted by me (1pt. min.). @ -None done What testing was considered but not performed or refused? (CT, X-rays, U/S, labs)? Why? @ -None What meds were considered but not given or refused? Why? @ -None Did you discuss the management of the patient with other professionals (professionals i.e. Dr., PA, RU[employer] SUPERVISOR, lab, RT, psych nurse, social services specialist, ordnance equipment worker, teacher, preventive medicine officer, manager of case management)? Give summary @ -Dr. Low Was smoking cessation discussed for >3mins.? @ -No Was critical care preformed (if so, how long)? @ -[35 patient had pulsatile labs, IV fluids, antiemetics, certainly insulin drip along with continuation of orders. Were there social determinants of health that impacted care today? How? (Homelessness, low income, unemployed, alcoholism, drug addiction, transportation, low edu. Level, literacy, decrease access to med. care, long-term, rehab)? @ -No Was there de-escalation of care discussed even if they declined (Discuss DNR or withdrawal of care, Hospice)? DNR status @ -No What co-morbidities impacted this encounter? (DM, HTN, Smoking, COPD, CAD, Cancer, CVA, ARF, Chemo, Hep., AIDS, mental health diagnosis, sleep apnea, morbid obesity)? @ -Type I diabetic Was patient admitted / discharged? Hospital course, mention meds given and route, prescriptions, significant lab abnormalities, going to OR and other pertinent info. @ -Admitted - patient presented from for nausea vomiting hyperglycemia. Patient's found to be in DKA. Patient anion gap is 21, bicarbonate 16. Patient started insulin drip, IV fluid bolus. Patient admitted to stepdown case discussed with Dr. Low. Undiagnosed new problem with uncertain prognosis? @ -No Drug Therapy requiring intensive monitoring for toxicity (Heparin, Nitro, Insulin, Cardizem)? @ -No Were any procedures done? @ -No Diagnosis/symptom? @ -DKA Acute, or Chronic, or Acute on Chronic? @ -Acute Uncomplicated (without systemic symptoms) or Complicated (systemic symptoms)? @ -Complicated Side effects of treatment? @ -No Exacerbation, Progression, or Severe Exacerbation? @ -Severe exacerbation Poses a threat to life or bodily function? How? (Chest pain, [place], ND, pneumonia, PE, COPD, DKA, ARF, appy, cholecystitis, CVA, Diverticulitis, Homicidal, Suicidal, threat to staff... and all critical care pts) @ -yes - Lab Data Result diagrams: 04/29/22 11:37 04/29/22 11:37 Lab Results 04/29/22 04/29/22 04/29/22 Range/Units 11:21 11:37 11:37 WBC 14.9 H (3.8-10.6) k/uL RBC 5.11 (4.30-5.90) m/uL Hgb 16.4 (13.0-17.5) gm/dL Hct 51.6 (39.0-53.0) % MCV 100.9 H (80.0-100.0) fL MCH 32.1 (25.0-35.0) pg MCHC 31.8 (31.0-37.0) g/dL RDW 11.5 (11.5-15.5) % Plt Count 298 (150-450) k/uL MPV 8.3 Neutrophils % 92 % Lymphocytes % 4 % Monocytes % 2 % Eosinophils % 1 % Basophils % 0 % Neutrophils # 13.7 H (1.3-7.7) k/uL Lymphocytes # 0.7 L (1.0-4.8) k/uL Monocytes # 0.3 (0-1.0) k/uL Eosinophils # 0.1 (0-0.7) k/uL Basophils # 0.1 (0-0.2) k/uL VBG pH (7.31-7.41) VBG pCO2 (37-51) mmHg VBG HCO3 (24-28) mmol/L Sodium 135 L (137-145) mmol/L Potassium 5.7 H (3.5-5.1) mmol/L Chloride 98 (98-107) mmol/L Carbon Dioxide 16 L (22-30) mmol/L Anion Gap 21 mmol/L BUN 19 (9-20) mg/dL Creatinine 1.01 (0.66-1.25) mg/dL Est GFR (CKD-EPI)AfAm >90 (>60 ml/min/1.73 sqM) Est GFR (CKD-EPI)NonAf >90 (>60 ml/min/1.73 sqM) Glucose 621 H* (74-99) mg/dL POC Glucose (mg/dL) 582 H (70-110) mg/dL POC Glu Automatic Pinsetter Mechanic ID [place], [place] Plasma Lactic Acid Jonas (0.7-2.0) mmol/L Calcium 10.2 (8.4-10.2) mg/dL Total Bilirubin 2.6 H (0.2-1.3) mg/dL AST 77 H (17-59) U/L ALT 49 (4-49) U/L Alkaline Phosphatase 165 H (38-126) U/L Total Protein 8.1 (6.3-8.2) g/dL Albumin 5.2 H (3.5-5.0) g/dL Amylase 118 H (30-110) U/L Lipase 43 (23-300) U/L Urine Color Urine Appearance (Clear) Urine pH (5.0-8.0) Ur Specific [place] (1.001-1.035) Urine Protein (Negative) Urine Glucose (UA) (Negative) Urine Ketones (Negative) Urine Blood (Negative) Urine Nitrite (Negative) Urine Bilirubin (Negative) Urine Urobilinogen (<2.0) mg/dL Ur Leukocyte Esterase (Negative) Influenza Type A (PCR) (Not Detectd) Influenza Type B (PCR) (Not Detectd) RSV (PCR) (Not Detectd) SARS-CoV-2 (PCR) (Not Detectd) 04/29/22 04/29/22 04/29/22 Range/Units 11:37 11:38 11:38 WBC (3.8-10.6) k/uL RBC (4.30-5.90) m/uL Hgb (13.0-17.5) gm/dL Hct (39.0-53.0) % MCV (80.0-100.0) fL MCH (25.0-35.0) pg MCHC (31.0-37.0) g/dL RDW (11.5-15.5) % Plt Count (150-450) k/uL MPV Neutrophils % % Lymphocytes % % Monocytes % % Eosinophils % % Basophils % % Neutrophils # (1.3-7.7) k/uL Lymphocytes # (1.0-4.8) k/uL Monocytes # (0-1.0) k/uL Eosinophils # (0-0.7) k/uL Basophils # (0-0.2) k/uL VBG pH 7.25 L (7.31-7.41) VBG pCO2 44 (37-51) mmHg VBG HCO3 19 L (24-28) mmol/L Sodium (137-145) mmol/L Potassium (3.5-5.1) mmol/L Chloride (98-107) mmol/L Carbon Dioxide (22-30) mmol/L Anion Gap mmol/L BUN (9-20) mg/dL Creatinine (0.66-1.25) mg/dL Est GFR (CKD-EPI)AfAm (>60 ml/min/1.73 sqM) Est GFR (CKD-EPI)NonAf (>60 ml/min/1.73 sqM) Glucose (74-99) mg/dL POC Glucose (mg/dL) (70-110) mg/dL POC Glu Automatic Pinsetter Mechanic ID Plasma Lactic Acid Jonas 4.8 H* (0.7-2.0) mmol/L Calcium (8.4-10.2) mg/dL Total Bilirubin (0.2-1.3) mg/dL AST (17-59) U/L ALT (4-49) U/L Alkaline Phosphatase (38-126) U/L Total Protein (6.3-8.2) g/dL Albumin (3.5-5.0) g/dL Amylase (30-110) U/L Lipase (23-300) U/L Urine Color Urine Appearance (Clear) Urine pH (5.0-8.0) Ur Specific [place] (1.001-1.035) Urine Protein (Negative) Urine Glucose (UA) (Negative) Urine Ketones (Negative) Urine Blood (Negative) Urine Nitrite (Negative) Urine Bilirubin (Negative) Urine Urobilinogen (<2.0) mg/dL Ur Leukocyte Esterase (Negative) Influenza Type A (PCR) Not Detected (Not Detectd) Influenza Type B (PCR) Not Detected (Not Detectd) RSV (PCR) Not Detected (Not Detectd) SARS-CoV-2 (PCR) Not Detected (Not Detectd) 04/29/22 Range/Units 11:52 WBC (3.8-10.6) k/uL RBC (4.30-5.90) m/uL Hgb (13.0-17.5) gm/dL Hct (39.0-53.0) % MCV (80.0-100.0) fL MCH (25.0-35.0) pg MCHC (31.0-37.0) g/dL RDW (11.5-15.5) % Plt Count (150-450) k/uL MPV Neutrophils % % Lymphocytes % % Monocytes % % Eosinophils % % Basophils % % Neutrophils # (1.3-7.7) k/uL Lymphocytes # (1.0-4.8) k/uL Monocytes # (0-1.0) k/uL Eosinophils # (0-0.7) k/uL Basophils # (0-0.2) k/uL VBG pH (7.31-7.41) VBG pCO2 (37-51) mmHg VBG HCO3 (24-28) mmol/L Sodium (137-145) mmol/L Potassium (3.5-5.1) mmol/L Chloride (98-107) mmol/L Carbon Dioxide (22-30) mmol/L Anion Gap mmol/L BUN (9-20) mg/dL Creatinine (0.66-1.25) mg/dL Est GFR (CKD-EPI)AfAm (>60 ml/min/1.73 sqM) Est GFR (CKD-EPI)NonAf (>60 ml/min/1.73 sqM) Glucose (74-99) mg/dL POC Glucose (mg/dL) (70-110) mg/dL POC Glu Automatic Pinsetter Mechanic ID Plasma Lactic Acid Jonas (0.7-2.0) mmol/L Calcium (8.4-10.2) mg/dL Total Bilirubin (0.2-1.3) mg/dL AST (17-59) U/L ALT (4-49) U/L Alkaline Phosphatase (38-126) U/L Total Protein (6.3-8.2) g/dL Albumin (3.5-5.0) g/dL Amylase (30-110) U/L Lipase (23-300) U/L Urine Color Colorless Urine Appearance Clear (Clear) Urine pH 5.0 (5.0-8.0) Ur Specific [place] 1.022 (1.001-1.035) Urine Protein Negative (Negative) Urine Glucose (UA) 4+ H (Negative) Urine Ketones 4+ H (Negative) Urine Blood Negative (Negative) Urine Nitrite Negative (Negative) Urine Bilirubin Negative (Negative) Urine Urobilinogen <2.0 (<2.0) mg/dL Ur Leukocyte Esterase Negative (Negative) Influenza Type A (PCR) (Not Detectd) Influenza Type B (PCR) (Not Detectd) RSV (PCR) (Not Detectd) SARS-CoV-2 (PCR) (Not Detectd) Critical Care Time Critical Care Time: Yes Total Critical Care Time: 35 Disposition Clinical Impression: DKA, type 1 Disposition: ADMITTED IP TO THIS [facility] Condition: Fair Referrals: None,Stated [Primary Care Provider] - 1-2 days Time of Disposition: 13:01
[2022-04-29 14:01] LABS: Glucose,Whole Blood 588 mg/dL (70-110)
[2022-04-29] MEDS: SODIUM CHLORIDE 0.9% 1,000 ML IV SCH ×3 (14:08→17:40)
[2022-04-29] MEDS: INSULIN REGULAR 100 UNIT in SODIUM CHLORIDE 0.9% 100 ML IV SCH (14:10)
[2022-04-29 15:13] LABS: Glucose,Whole Blood 440 mg/dL (70-110)
[2022-04-29 15:56] LABS: African American GFR (CKD) >90 (>60 ml/min/1.73 sqM); Anion Gap 18 mmol/L; Blood Urea Nitrogen 19 mg/dL (9-20); Carbon Dioxide 18 mmol/L (22-30); Chloride 103 mmol/L (98-107); Glucose 387 mg/dL (74-99); Non-African American GFR(CKD) >90 (>60 ml/min/1.73 sqM); Potassium 4.6 mmol/L (3.5-5.1); Sodium 139 mmol/L (137-145)
[2022-04-29 16:32] LABS: Glucose,Whole Blood 276 mg/dL (70-110)
[2022-04-29] MEDS: D5-0.45% NACL WITH KCL 20MEQ/L 1,000 ML IV SCH (16:58)
[2022-04-29 17:43] LABS: Glucose,Whole Blood 311 mg/dL (70-110)
[2022-04-29 18:36] LABS: Glucose,Whole Blood 296 mg/dL (70-110)
[2022-04-29 19:40] LABS: Glucose,Whole Blood 248 mg/dL (70-110)
[2022-04-29 20:57] LABS: Glucose,Whole Blood 178 mg/dL (70-110)
--- NOTE | 2022-04-29 21:10 | P.HPIM ---
History of Present Illness H&P Date: 04/29/22 Chief Complaint: Vomiting This is a 31-year-old patient with no family doctor. Normally takes Lantus 45- 50 units at night and Humalog 15 to to 20 units 3 times a day. Has been a diabetic since age of 9. He says his family doctor's currently not writing prescriptions. This morning while he was at work he started vomiting. No fever no chills. No cough no shortness of breath no urinary symptoms. No fever no chills. Presently the ER. Found to be in diabetic ketoacidosis. His started insulin drip. This evening feeling better. He last vomited around 10:00 this m orning. She was given a sandwich and some milk to drink but patient does not want food from the hospital. He is currently running on insulin drip. Review of systems: GEN.: Tired EYES: None HEENT: None NECK: None RESPIRATORY: None CARDIOVASCULAR: None GASTROINTESTINAL: As above GENITOURINARY: None MUSCULOSKELETAL: None LYMPHATICS: None HEMATOLOGICAL: None PSYCHIATRY: None NEUROLOGICAL: None Past medical history to include: Diabetes mellitus type 1 since age of 9. Social history: Smokes a pack a day last 16 years. Works in the [employer]. Has a girlfriend. Denies alcohol or drugs. Physical examination: VITAL SIGNS: 99, 95, 28, 1 33 x 85, 100% room air upon presentation GENERAL: BMI 24.2, laying in bed appears comfortable. EYES: Pupils equal. Conjunctiva normal. HEENT: External appearance of nose and ears normal, oral cavity dry. NECK: JVD not raised; masses not palpable. HEART: First and second heart sounds are normal; no edema. LUNGS: Respiratory rate normal; clear to auscultation. ABDOMEN: Soft, nontender, liver spleen not palpable, no masses palpable. PSYCH: Alert and oriented x3; mood and affect normal. MUSCULOSKELETAL:No Clubbing/cyanosis;muscles-grossly intact NEUROLOGICAL: Cranial nerves grossly intact; no facial asymmetry, power and sensation grossly intact. LYMPHATICS: No lymph nodes palpable in the axilla and neck INVESTIGATIONS, reviewed in the clinical context: White count 14.9 hemoglobin 16.4 platelets 298 potassium 5.7 BUN 19 creatinine 1.01 blood glucose 621 lactic acid 4.8; anion gap 21. Bicarbonate 16 Influenza type A/type B/RSV/COVID-19: Not detected Assessment and plan: -Nonketotic hyperosmolar hyperglycemia. Anion gap 21. Started on insulin drip. IV fluids. Patient refusing to eat hospital food. Will continue for drip at the current time. -Chronic nicotine dependence, single smoker Nicotine patch -Hyperkalemia from acidotic state. Patient to remain on insulin drip Patient refusing to eat hospital food. Hopefully his girlfriend brings him for tomorrow morning. We'll decide from there. Meantime insulin drip to continue. IV fluids. Repeat labs in the morning. Past Medical History Past Medical History: Diabetes Mellitus, Pneumonia, Seizure Disorder Additional Past Medical History / Comment(s): IDDM type I, DKA, seizures with hypoglycemia-last time April 2019, Covid 03/14/21 History of Any Multi-Drug Resistant Organisms: None Reported Past Surgical History: No Surgical Hx Reported Additional Past Surgical History / Comment(s): TOOTH EXTRACTED IN PAST AND YESTERDAY HAD A PUS POCKET NEAR FRONT TOOTH LANCED/DRAINED. Past Anesthesia/Blood Transfusion Reactions: No Reported Reaction Past Psychological History: No Psychological Hx Reported Smoking Status: Current every day smoker Past Alcohol Use History: None Reported Additional Past Alcohol Use History / Comment(s): STARTED SMOKING AT AGE 15- SMOKES 1 PPD Past Drug Use History: None Reported - Past Family History Father Family Medical History: No Reported History Additional Family Medical History / Comment(s): Father is healthy Mother Family Medical History: Asthma Medications and Allergies Home Medications Medication Instructions Recorded Confirmed Type Insulin Aspart [NovoLOG Flexpen] 15 units SQ AC-TID 12/23/21 04/29/22 History Insulin Detemir [Levemir Flextouch 50 units SQ HS 12/23/21 04/29/22 History Pen] Allergies Allergy/AdvReac Type Severity Reaction Status Date / Time bee venom protein (honey bee) Allergy Anaphylaxis Verified 04/29/22 12:48 Physical Exam Vitals: Vital Signs Temp Pulse Pulse Resp BP BP Pulse Ox 04/29/22 15:22 86 17 147/87 100 04/29/22 15:00 98.9 F 89 16 127/82 98 04/29/22 11:21 99 F 95 28 H 133/85 100 Intake and Output 04/29/22 04/29/22 04/29/22 06:59 14:59 22:59 Intake Total 68.142 Balance 68.142 Intake: Intake, IV Titration 68.142 Amount Insulin Regular 100 unit 68.142 In Sodium Chloride 0.9% 100 ml @ 0.1 UNITS/KG/HR 6.872 mls/hr IV .[id number] [facility] Rx#:[id number] Other: Voiding Method Toilet Weight 68.039 kg 68.039 kg Results CBC & Chem 7: 04/29/22 11:37 04/29/22 15:29 Labs: Abnormal Lab Results - Last 24 Hours (Table) 04/29/22 04/29/22 04/29/22 Range/Units 11:21 11:37 11:37 WBC 14.9 H (3.8-10.6) k/uL MCV 100.9 H (80.0-100.0) fL Neutrophils # 13.7 H (1.3-7.7) k/uL Lymphocytes # 0.7 L (1.0-4.8) k/uL VBG pH (7.31-7.41) VBG HCO3 (24-28) mmol/L Sodium 135 L (137-145) mmol/L Potassium 5.7 H (3.5-5.1) mmol/L Carbon Dioxide 16 L (22-30) mmol/L Glucose 621 H* (74-99) mg/dL POC Glucose (mg/dL) 582 H (70-110) mg/dL Plasma Lactic Acid Jonas (0.7-2.0) mmol/L Total Bilirubin 2.6 H (0.2-1.3) mg/dL AST 77 H (17-59) U/L Alkaline Phosphatase 165 H (38-126) U/L Albumin 5.2 H (3.5-5.0) g/dL Amylase 118 H (30-110) U/L Urine Glucose (UA) (Negative) Urine Ketones (Negative) 04/29/22 04/29/22 04/29/22 Range/Units 11:37 11:38 11:52 WBC (3.8-10.6) k/uL MCV (80.0-100.0) fL Neutrophils # (1.3-7.7) k/uL Lymphocytes # (1.0-4.8) k/uL VBG pH 7.25 L (7.31-7.41) VBG HCO3 19 L (24-28) mmol/L Sodium (137-145) mmol/L Potassium (3.5-5.1) mmol/L Carbon Dioxide (22-30) mmol/L Glucose (74-99) mg/dL POC Glucose (mg/dL) (70-110) mg/dL Plasma Lactic Acid Jonas 4.8 H* (0.7-2.0) mmol/L Total Bilirubin (0.2-1.3) mg/dL AST (17-59) U/L Alkaline Phosphatase (38-126) U/L Albumin (3.5-5.0) g/dL Amylase (30-110) U/L Urine Glucose (UA) 4+ H (Negative) Urine Ketones 4+ H (Negative) 04/29/22 04/29/22 04/29/22 Range/Units 14:00 15:10 15:29 WBC (3.8-10.6) k/uL MCV (80.0-100.0) fL Neutrophils # (1.3-7.7) k/uL Lymphocytes # (1.0-4.8) k/uL VBG pH (7.31-7.41) VBG HCO3 (24-28) mmol/L Sodium (137-145) mmol/L Potassium (3.5-5.1) mmol/L Carbon Dioxide 18 L (22-30) mmol/L Glucose 387 H (74-99) mg/dL POC Glucose (mg/dL) 588 H 440 H (70-110) mg/dL Plasma Lactic Acid Jonas (0.7-2.0) mmol/L Total Bilirubin (0.2-1.3) mg/dL AST (17-59) U/L Alkaline Phosphatase (38-126) U/L Albumin (3.5-5.0) g/dL Amylase (30-110) U/L Urine Glucose (UA) (Negative) Urine Ketones (Negative) 04/29/22 04/29/22 04/29/22 Range/Units 15:29 16:31 17:38 WBC (3.8-10.6) k/uL MCV (80.0-100.0) fL Neutrophils # (1.3-7.7) k/uL Lymphocytes # (1.0-4.8) k/uL VBG pH (7.31-7.41) VBG HCO3 (24-28) mmol/L Sodium (137-145) mmol/L Potassium (3.5-5.1) mmol/L Carbon Dioxide (22-30) mmol/L Glucose (74-99) mg/dL POC Glucose (mg/dL) 276 H 311 H (70-110) mg/dL Plasma Lactic Acid Jonas 2.8 H* (0.7-2.0) mmol/L Total Bilirubin (0.2-1.3) mg/dL AST (17-59) U/L Alkaline Phosphatase (38-126) U/L Albumin (3.5-5.0) g/dL Amylase (30-110) U/L Urine Glucose (UA) (Negative) Urine Ketones (Negative) 04/29/22 04/29/22 04/29/22 Range/Units 18:17 18:35 19:38 WBC (3.8-10.6) k/uL MCV (80.0-100.0) fL Neutrophils # (1.3-7.7) k/uL Lymphocytes # (1.0-4.8) k/uL VBG pH (7.31-7.41) VBG HCO3 (24-28) mmol/L Sodium (137-145) mmol/L Potassium (3.5-5.1) mmol/L Carbon Dioxide (22-30) mmol/L Glucose (74-99) mg/dL POC Glucose (mg/dL) 296 H 248 H (70-110) mg/dL Plasma Lactic Acid Jonas 3.4 H* (0.7-2.0) mmol/L Total Bilirubin (0.2-1.3) mg/dL AST (17-59) U/L Alkaline Phosphatase (38-126) U/L Albumin (3.5-5.0) g/dL Amylase (30-110) U/L Urine Glucose (UA) (Negative) Urine Ketones (Negative) 04/29/22 Range/Units 20:45 WBC (3.8-10.6) k/uL MCV (80.0-100.0) fL Neutrophils # (1.3-7.7) k/uL Lymphocytes # (1.0-4.8) k/uL VBG pH (7.31-7.41) VBG HCO3 (24-28) mmol/L Sodium (137-145) mmol/L Potassium (3.5-5.1) mmol/L Carbon Dioxide (22-30) mmol/L Glucose (74-99) mg/dL POC Glucose (mg/dL) 178 H (70-110) mg/dL Plasma Lactic Acid Jonas (0.7-2.0) mmol/L Total Bilirubin (0.2-1.3) mg/dL AST (17-59) U/L Alkaline Phosphatase (38-126) U/L Albumin (3.5-5.0) g/dL Amylase (30-110) U/L Urine Glucose (UA) (Negative) Urine Ketones (Negative) Thrombosis Risk Factor Assmnt - Choose All That Apply Any of the Below Risk Factors Present?: No Other Risk Factors: No Other congenital or acquired thrombophilia - If yes, enter type in comment: No Thrombosis Risk Factor Assessment Level: Very Low Risk
[2022-04-29 21:27] LABS: African American GFR (CKD) >90 (>60 ml/min/1.73 sqM); Anion Gap 5 mmol/L; Blood Urea Nitrogen 16 mg/dL (9-20); Carbon Dioxide 23 mmol/L (22-30); Chloride 103 mmol/L (98-107); Glucose 209 mg/dL (74-99); Non-African American GFR(CKD) >90 (>60 ml/min/1.73 sqM); Potassium 4.1 mmol/L (3.5-5.1); Sodium 131 mmol/L (137-145)
[2022-04-29 22:01] LABS: Glucose,Whole Blood 105 mg/dL (70-110)
[2022-04-29] MEDS: ENOXAPARIN 40 MG/0.4 ML SYRINGE SQ SCH (22:11)
[2022-04-29] MEDS: NICOTINE 21MG/24HR PATCH TRANSDERM SCH (22:12)
[2022-04-29] MEDS ORDERED: INSULIN DETEMIR (LEVEMIR) 100 UNIT/ML SYR SQ ONE (22:15)
[2022-04-30] MEDS: D5-0.45% NACL WITH KCL 20MEQ/L 1,000 ML IV SCH ×2 (03:28→03:55)
[2022-04-30] MEDS: INSULIN REGULAR 100 UNIT in SODIUM CHLORIDE 0.9% 100 ML IV SCH (03:54)
[2022-04-30] MEDS: SODIUM CHLORIDE 0.9% 1,000 ML IV SCH (03:55)
[2022-04-30 06:08] LABS: Glucose,Whole Blood 85 mg/dL (70-110)
[2022-04-30 07:56] LABS: African American GFR (CKD) >90 (>60 ml/min/1.73 sqM); Anion Gap 2 mmol/L; Blood Urea Nitrogen 13 mg/dL (9-20); Calcium 9.1 mg/dL (8.4-10.2); Carbon Dioxide 28 mmol/L (22-30); Chloride 106 mmol/L (98-107); Glucose 76 mg/dL (74-99); Non-African American GFR(CKD) >90 (>60 ml/min/1.73 sqM); Potassium 4.1 mmol/L (3.5-5.1); Sodium 136 mmol/L (137-145)
[2022-04-30 09:14] VITALS: RESP 18; TEMP 98.1
[2022-04-30] MEDS: INSULIN ASPART (NovoLOG) 100 UNIT/ML VIAL SQ SCH ×2 (09:14→14:40)
[2022-04-30] MEDS: NICOTINE 21MG/24HR PATCH TRANSDERM SCH (09:14)
[2022-04-30] MEDS: ENOXAPARIN 40 MG/0.4 ML SYRINGE SQ SCH (09:15)
[2022-04-30 11:52] LABS: Glucose,Whole Blood 61 mg/dL (70-110)
[2022-04-30 12:09] LABS: Glucose,Whole Blood 68 mg/dL (70-110)
[2022-04-30 12:22] VITALS: BMI 24.2
[2022-04-30 14:18] VITALS: BP 138/82; PULSE 87
--- NOTE | 2022-04-30 18:46 | P.DS ---
Providers Date of admission: 04/29/22 13:20 Expected date of discharge: 04/30/22 Attending physician: Tre Low Primary care physician: Stated None Hospital Course: Chief Complaint: Vomiting This is a 31-year-old patient with no family doctor. Normally takes Lantus 45- 50 units at night and Humalog 15 to to 20 units 3 times a day. Has been a diabetic since age of 9. He says his family doctor's currently not writing prescriptions. This morning while he was at work he started vomiting. No fever no chills. No cough no shortness of breath no urinary symptoms. No fever no chills. Presently the ER. Found to be in diabetic ketoacidosis. His started insulin drip. This evening feeling better. He last vomited around 10:00 this morning. She was given a sandwich and some milk to drink but patient does not want food from the hospital. He is currently running on insulin drip. 04/30/2022: Patient eating well. Patient insulin to the current dose was discussed. Patient unable to get into a family doctor. He will call us and see Dr. Jose Luis Snyder or Dr luciano. Also follow with supervisor [employer] storage Dr. Street Past medical history to include: Diabetes mellitus type 1 since age of 9. Social history: Smokes a pack a day last 16 years. Works in the [employer]. Has a girlfriend. Denies alcohol or drugs. Physical examination: VITAL SIGNS: 98.1, 87, 18, 05[birth year]08/1979, 96% room air GENERAL: Sitting up, comfortable EYES: Pupils equal. Conjunctiva normal. HEENT: External appearance of nose and ears normal, oral cavity dry. NECK: JVD not raised; masses not palpable. HEART: First and second heart sounds are normal; no edema. LUNGS: Respiratory rate normal; clear to auscultation. ABDOMEN: Soft, nontender, liver spleen not palpable, no masses palpable. PSYCH: Alert and oriented x3; mood and affect normal. INVESTIGATIONS, reviewed in the clinical context: April 302022 potassium 4.1 creatinine 0.84 White count 14.9 hemoglobin 16.4 platelets 298 potassium 5.7 BUN 19 creatinine 1.01 blood glucose 621 lactic acid 4.8; anion gap 21. Bicarbonate 16 Influenza type A/type B/RSV/COVID-19: Not detected Assessment and plan: -Nonketotic hyperosmolar hyperglycemia. Anion gap 21: Better. -Diabetes mellitus type 1, chronic insulin Levemir 28 units subcu daily at bedtime. NovoLog insulin 5 units with meals 3 times a day. -Chronic nicotine dependence, single smoker Nicotine patch -Hyperkalemia from acidotic state.: Corrected Disposition: Home Plan - Discharge Summary New Discharge Prescriptions: New Nicotine 21Mg/24Hr Patch [Habitrol] 1 patch TRANSDERM DAILY #14 patch Changed Insulin Aspart [NovoLOG Flexpen] 5 units SQ AC-TID #1 each Insulin Detemir [Levemir Flextouch Pen] 28 units SQ HS #1 each Discharge Medication List Insulin Aspart [NovoLOG Flexpen] 5 units SQ AC-TID #1 each 04/30/22 [Rx] Insulin Detemir [Levemir Flextouch Pen] 28 units SQ HS #1 each 04/30/22 [Rx] Nicotine 21Mg/24Hr Patch [Habitrol] 1 patch TRANSDERM DAILY #14 patch 04/30/22 [Rx] Follow up Appointment(s)/Referral(s): Young Street MD [REFERRING] - 1 Week (Office was closed, not open on Fridays. Please call to make an appointment, this is the supervisor [facility]!) Eloisa Luciano MD [STAFF PHYSICIAN] - 1 Week (Call [phone] and press extension [phone] or ask for Fabrice. She will help you get set up as a new patient.) Patient Instructions/Handouts: Diabetic Ketoacidosis (DC) Discharge Disposition: HOME SELF-CARE
== END 2022-04-30 15:18 | disposition home or self-care (01) ==
LOC: EC 11:19 → 3SCARD 13:20 → INTOOBSV 13:20 → 3SCARD 14:05 → UNDODISIN 04-30 15:18
PROVIDERS: ADMIT Hospitalist; ATTEND Hospitalist
DX: E10.10 Type 1 diabetes mellitus with ketoacidosis without coma (principal); E87.5 Hyperkalemia; G40.909 Epilepsy, unspecified, not intractable, without status epilepticus; F17.200 Nicotine dependence, unspecified, uncomplicated; Z79.85 Long-term (current) use of injectable non-insulin antidiabetic drugs; Z79.4 Long term (current) use of insulin; Z86.16 Personal history of COVID-19; Z82.5 Family history of asthma and other chronic lower respiratory diseases; Z20.822 Contact with and (suspected) exposure to COVID-19
CPT/HCPCS: 96372; 96361; 96374; 99291; 36415; 80051; 80053; 80048; 82150; 82565; 82803; 83605; 83690; 84100; 82947; 84520; 85025; 81003; 87636; G0378 ×2; S4990 ×2; J2405; J1650

== ENCOUNTER 2022-05-04 20:03 | Observation (INO) | payer OTHER ==
[2022-05-04 20:10] LABS: Glucose,Whole Blood 119 mg/dL (70-110)
--- NOTE | 2022-05-04 20:23 | ED ---
General Adult HPI - General Stated complaint: hypoglycemia Time Seen by Provider: 05/04/22 20:04 Source: patient, RN/MD (Transferring practitioner), EMS, RN notes reviewed, old records reviewed (Review of records from [facility] with limited information) Mode of arrival: EMS Limitations: no limitations - History of Present Illness Initial comments: Patient is a pleasant 31-year-old male presenting to the emergency department with concerns for hypoglycemia and A. fib. Patient was transferred from [place] and wanted. Patient did have at least 2 unresponsive episodes and did respond to glucose. Patient did have blood sugar dropped to 35. Patient states he feels fine at this time and has no complaints. Patient was also found to be in A. fib with rate of 120. Patient was Given Cardizem and placed on a drip. Patient states occasional palpitations. No chest pain. - Related Data Previous Rx's Medication Instructions Recorded Insulin Aspart [NovoLOG Flexpen] 5 units SQ AC-TID #1 each 04/30/22 Insulin Detemir [Levemir Flextouch 28 units SQ HS #1 each 04/30/22 Pen] Nicotine 21Mg/24Hr Patch [Habitrol] 1 patch TRANSDERM DAILY #14 patch 04/30/22 Allergies Allergy/AdvReac Type Severity Reaction Status Date / Time bee venom protein (honey bee) Allergy Anaphylaxis Verified 04/29/22 12:48 Review of Systems ROS Statement: Those systems with pertinent positive or pertinent negative responses have been documented in the HPI. ROS Other: All systems not noted in ROS Statement are negative. Constitutional: Denies: fever Eyes: Denies: eye pain ENT: Denies: ear pain Respiratory: Denies: cough Cardiovascular: Reports: as per HPI, palpitations. Denies: chest pain Endocrine: Denies: fatigue Gastrointestinal: Denies: abdominal pain Genitourinary: Denies: urgency Musculoskeletal: Denies: back pain Skin: Denies: rash Neurological: Reports: as per HPI Past Medical History Past Medical History: Diabetes Mellitus, Pneumonia, Seizure Disorder Additional Past Medical History / Comment(s): IDDM type I, DKA, seizures with hypoglycemia-last time April 2019, Covid 03/14/21 History of Any Multi-Drug Resistant Organisms: None Reported Past Surgical History: No Surgical Hx Reported Additional Past Surgical History / Comment(s): TOOTH EXTRACTED IN PAST AND YESTERDAY HAD A PUS POCKET NEAR FRONT TOOTH LANCED/DRAINED. Past Anesthesia/Blood Transfusion Reactions: No Reported Reaction Past Psychological History: No Psychological Hx Reported Smoking Status: Current every day smoker Past Alcohol Use History: None Reported Past Drug Use History: None Reported - Past Family History Father Family Medical History: No Reported History Additional Family Medical History / Comment(s): Father is healthy Mother Family Medical History: Asthma General Exam Limitations: no limitations General appearance: alert, in no apparent distress Head exam: Present: atraumatic, normocephalic Eye exam: Present: normal appearance, PERRL Neck exam: Present: normal inspection. Absent: tenderness Respiratory exam: Present: normal lung sounds bilaterally Cardiovascular Exam: Present: regular rate, normal rhythm GI/Abdominal exam: Present: soft. Absent: tenderness Extremities exam: Present: normal inspection, full ROM. Absent: tenderness Neurological exam: Present: alert, oriented X3, CN II-XII intact, normal gait. 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 sent in by a medical professional or institution (BRITNEY López, REAL ESTATE SUBAGENT, urgent care, hospital, or group home...) When possible be specific @ -Patient seen from the emergency department Tremayne pereira Did you speak to anyone other than the patient for history (EMS, parent, family, police, friend...)? What history was obtained from this source @ -Spoke with transferring practitioner Did you review nursing and triage notes (agree or disagree)? Why? @ -I reviewed and agree with nursing and triage notes Were old charts reviewed (outside hosp., previous admission, EMS record, old EKG, old radiological studies, urgent care reports/EKG's, group home records)? Report findings @ -Chart from transferring physician reviewed with limited information Differential Diagnosis (chest pain, altered mental status, abdominal pain women, abdominal pain men, vaginal bleeding, weakness, fever, dyspnea, syncope, headache, dizziness, GI bleed, back pain, seizure, CVA, palpatations, mental health)? @ -Differential Dyspnea: Coronary syndrome, arrhythmia, tamponade, asthma, COPD, pulmonary embolism, pneumonia, pneumothorax, pulmonary effusion, anaphylaxis, diabetic ketoacidosis, flailed chest, pulmonary contusion, diaphragmatic rupture, anemia, neuromuscular, this is not meant to be an all-inclusive list. EKG interpreted by me (3pts min.). @ -As above X-rays interpreted by me (1pt min.). @ -None done CT interpreted by me (1pt min.). @ -None done U/S interpreted by me (1pt. min.). @ -None done What testing was considered but not performed or refused? (CT, X-rays, U/S, labs)? Why? @ -None What meds were considered but not given or refused? Why? @ -None Did you discuss the management of the patient with other professionals (professionals i.e. , PA, REAL ESTATE SUBAGENT, lab, RT, psych nurse, professor of social work, leather roller, teacher, credit or loans officer, social work case manager)? Give summary @ -Case was discussed with Dr. Low who recently admitted this patient and will keep patient for observation Was smoking cessation discussed for >3mins.? @ -No Was critical care preformed (if so, how long)? @ -No Were there social determinants of health that impacted care today? How? (Ho melessness, low income, unemployed, alcoholism, drug addiction, transportation, low edu. Level, literacy, decrease access to med. care, correction, rehab)? @ -No Was there de-escalation of care discussed even if they declined (Discuss DNR or withdrawal of care, Hospice)? DNR status @ -No What co-morbidities impacted this encounter? (DM, HTN, Smoking, COPD, CAD, Cancer, CVA, ARF, Chemo, Hep., AIDS, mental health diagnosis, sleep apnea, morbid obesity)? @ -None Was patient admitted / discharged? Hospital course, mention meds given and route, prescriptions, significant lab abnormalities, going to OR and other pertinent info. @ -Patient reevaluated and updated with plan. Patient will be admitted. Cardiology placed on consult. New-onset A. fib with RVR Undiagnosed new problem with uncertain prognosis? @ -No Drug Therapy requiring intensive monitoring for toxicity (Heparin, Nitro, Insulin, Cardizem)? @ -No Were any procedures done? @ -No Diagnosis/symptom? @ -Refractory hypoglycemia, new-onset A. fib with RVR] Acute, or Chronic, or Acute on Chronic? @ -Acute, acute Uncomplicated (without systemic symptoms) or Complicated (systemic symptoms)? @ -default Side effects of treatment? @ -No Exacerbation, Progression, or Severe Exacerbation? @ -No Poses a threat to life or bodily function? How? (Chest pain, [place], [place], pneumonia, PE, COPD, DKA, ARF, appy, cholecystitis, CVA, Diverticulitis, Homicidal, Suicidal, threat to staff... and all critical care pts) @ -Hypoglycemia in A. fib both potentially post threat to life bodily function - Lab Data Lab Results 05/04/22 Range/Units 20:09 POC Glucose (mg/dL) 119 H (70-110) mg/dL POC Glu Silver Buffer ID Zuleta Guillermo Disposition Clinical Impression: Atrial fibrillation, Hypoglycemia Disposition: ADMITTED IP TO THIS HOSP Is patient prescribed a controlled substance at d/c from ED?: No Referrals: None,Stated [Primary Care Provider] - 1-2 days Time of Disposition: 20:32
[2022-05-04] MEDS ORDERED: NALOXONE 0.4 MG/ML 1 ML VIAL IV PRN (20:32)
[2022-05-04 20:42] LABS: Basophils # (A) 0.1 k/uL (0-0.2); Basophils % (A) 1 %; Eosinophils # (A) 0.2 k/uL (0-0.7); Eosinophils % (A) 2 %; HGB 15.1 gm/dL (13.0-17.5); Lymphocytes % (A) 25 %; MCH 32.3 pg (25.0-35.0); MCHC 34.3 g/dL (31.0-37.0); Mean Platelet Volume 7.5; Monocytes # (A) 0.3 k/uL (0-1.0); Monocytes % (A) 4 %; Neutrophils # (A) 5.4 k/uL (1.3-7.7); Neutrophils % (A) 67 %; Platelet Count 291 k/uL (150-450); RBC 4.67 m/uL (4.30-5.90); RDW 11.5 % (11.5-15.5)
[2022-05-04 20:50] LABS: INR 0.9 (<1.2); Partial Thromboplastin Time 24.6 sec (22.0-30.0); Prothrombin Time 9.6 sec (9.0-12.0)
[2022-05-04 20:56] LABS: ALT 34 U/L (4-49); AST 31 U/L (17-59); African American GFR (CKD) >90 (>60 ml/min/1.73 sqM); Albumin 4.4 g/dL (3.5-5.0); Alkaline Phosphatase 104 U/L (38-126); Anion Gap 3 mmol/L; Blood Urea Nitrogen 12 mg/dL (9-20); Calcium 9.2 mg/dL (8.4-10.2); Carbon Dioxide 32 mmol/L (22-30); Chloride 100 mmol/L (98-107); Glucose 93 mg/dL (74-99); Magnesium 1.9 mg/dL (1.6-2.3); Non-African American GFR(CKD) >90 (>60 ml/min/1.73 sqM); Potassium 4.2 mmol/L (3.5-5.1); Sodium 135 mmol/L (137-145); Total Protein 7.3 g/dL (6.3-8.2)
[2022-05-04 21:00] LABS: Glucose,Whole Blood 104 mg/dL (70-110)
[2022-05-04 21:25] LABS: MCV 94.2 fL (80.0-100.0)
[2022-05-04 21:35] LABS: Glucose,Whole Blood 213 mg/dL (70-110)
[2022-05-04] MEDS ORDERED: NICOTINE 21MG/24HR PATCH TRANSDERM PRN (21:48)
[2022-05-04 23:35] LABS: Glucose,Whole Blood 362 mg/dL (70-110)
[2022-05-05 01:24] LABS: Glucose,Whole Blood 277 mg/dL (70-110)
[2022-05-05 04:59] LABS: African American GFR (CKD) >90 (>60 ml/min/1.73 sqM); Anion Gap 3 mmol/L; Blood Urea Nitrogen 11 mg/dL (9-20); Calcium 8.8 mg/dL (8.4-10.2); Carbon Dioxide 28 mmol/L (22-30); Chloride 100 mmol/L (98-107); Glucose 391 mg/dL (74-99); Non-African American GFR(CKD) >90 (>60 ml/min/1.73 sqM); Potassium 4.9 mmol/L (3.5-5.1); Sodium 131 mmol/L (137-145)
[2022-05-05 07:07] LABS: Glucose,Whole Blood 402 mg/dL (70-110)
[2022-05-05] MEDS: INSULIN ASPART (NovoLOG) 100 UNIT/ML VIAL SQ SCH ×3 (07:09→17:16)
--- NOTE | 2022-05-05 09:11 | P.CRDCN ---
History of Present Illness Consult date: 05/05/22 History of present illness: History of Present Illness: The patient is a 31-year-old male with long-standing history of diabetes since the age of 9, not followed by a physician at this time who presented to [facility] outpatient center because of hypoglycemia and was noted to be in atrial fibrillation and subsequently converted to sinus mechanism. He's feeling well at this time. He did not feel the palpitations. He had no chest discomfort, or change in his breathing. He has any peripheral edema. He has no PND or orthopnea. He is active physically without difficulties. He has no prior cardiac history. He has no prior history of arrhythmia. No prior cardiac workup is available. He felt weak yesterday when his blood sugar was low. According to him he did not eat. He was recently in the hospital with elevated blood sugar. He has no documented history of hypertension or hyperlipidemia. He denies any alcohol or drug abuse. Medications: Insulin Review of Systems: Respiratory: No history of asthma, bronchitis or recent cough. GI: No nausea or vomiting . No history of peptic ulcer disease. No recent GI bleed. : No hematuria or dysuria. Nervous System: No stroke or seizure. Physical Examination: 31-year-old male, alert oriented no apparent distress ,Blood pressure 132/70, Heart rate 70 Head: Normocephalic. Eyes: Sclerae nonicteric. Neck: Good carotid upstroke, no bruit, no jugular venous distention. Lungs: Clear to auscultation. Heart: Regular rate and rhythm, S1-S2, no S3, no rub. Systolic ejection murmur, 1/6. Abdomen: Soft nontender, positive bowel sounds no organomegaly. Extremities: No edema, intact distal pulses. Labs: Troponin less than 0.012, potassium 4.9., BUN 12, creatinine 0.59. EKG: EKG at [facility] showed atrial fibrillation subsequently sinus mechanism. His EKG here shows sinus mechanism with early repolarization Impression: 1. Hypoglycemia resolved 2. Paroxysmal atrial fibrillation, his [id number] score is 1, probably induced by hypoglycemia 3. History of smoking 4. Long-standing history of diabetes Plan: 1. Obtain an echocardiogram with Doppler 2. Continue telemetry 3. If stable probable discharged home soon and follow-up as an outpatient 4. No indication for anticoagulation at this time 5. Thank you for this consult we will follow with you. Past Medical History Past Medical History: Diabetes Mellitus, Pneumonia, Seizure Disorder Additional Past Medical History / Comment(s): IDDM type I, DKA, seizures with hypoglycemia-last time April 2019, Covid 03/14/21 History of Any Multi-Drug Resistant Organisms: None Reported Past Surgical History: No Surgical Hx Reported Additional Past Surgical History / Comment(s): TOOTH EXTRACTED IN PAST AND YESTERDAY HAD A PUS POCKET NEAR FRONT TOOTH LANCED/DRAINED. Past Anesthesia/Blood Transfusion Reactions: No Reported Reaction Smoking Status: Current every day smoker - Past Family History Father Family Medical History: No Reported History Additional Family Medical History / Comment(s): Father is healthy Mother Family Medical History: Asthma Medications and Allergies Home Medications Medication Instructions Recorded Confirmed Type Insulin Aspart [NovoLOG Flexpen] 5 units SQ AC-TID #1 each 04/30/22 05/04/22 Rx Insulin Detemir [Levemir Flextouch 28 units SQ HS #1 each 04/30/22 05/04/22 Rx Pen] Nicotine 21Mg/24Hr Patch [Habitrol] 1 patch TRANSDERM DAILY PRN 05/04/22 05/04/22 History Allergies Allergy/AdvReac Type Severity Reaction Status Date / Time bee venom protein (honey bee) Allergy Anaphylaxis Verified 05/04/22 20:33 Physical Exam Vitals: Vital Signs Temp Pulse Pulse Resp BP BP Pulse Ox 05/05/22 08:24 99 05/05/22 07:50 97.5 F L 72 18 132/73 100 05/05/22 03:49 97.9 F 64 18 110/69 99 05/05/22 02:14 98.3 F 68 18 143/82 98 05/05/22 00:05 93 17 117/52 99 05/04/22 23:56 72 18 117/52 98 05/04/22 23:00 76 05/04/22 22:00 79 05/04/22 21:40 86 18 05/04/22 20:21 97.6 F 80 18 137/86 100 Intake and Output 05/04/22 05/05/22 05/05/22 22:59 06:59 14:59 Intake Total 180 Balance 180 Intake: Oral 180 Other: Voiding Method Toilet # Voids 2 Weight 65.317 kg 65.317 kg Results 05/04/22 20:27 05/05/22 04:13 Cardiac Enzymes 05/04/22 05/04/22 05/05/22 Range/Units 20: 20: 00:38 AST 31 (17-59) U/L Troponin I <0.012 <0.012 (0.000-0.034) ng/mL 05/05/22 Range/Units 04:13 AST (17-59) U/L Troponin I <0.012 (0.000-0.034) ng/mL Coagulation 05/04/22 Range/Units 20: PT 9.6 (9.0-12.0) sec APTT 24.6 (22.0-30.0) sec CBC 05/04/22 Range/Units 20: WBC 8.0 (3.8-10.6) k/uL RBC 4.67 (4.30-5.90) m/uL Hgb 15.1 (13.0-17.5) gm/dL Hct 44.0 (39.0-53.0) % Plt Count 291 (150-450) k/uL Comprehensive Metabolic Panel 05/04/22 05/05/22 Range/Units 20:27 04:13 Sodium 135 L 131 L (137-145) mmol/L Potassium 4.2 4.9 (3.5-5.1) mmol/L Chloride 100 100 (98-107) mmol/L Carbon Dioxide 32 H 28 (22-30) mmol/L BUN 12 11 (9-20) mg/dL Creatinine 0.59 L 0.72 (0.66-1.25) mg/dL Glucose 93 391 H (74-99) mg/dL Calcium 9.2 8.8 (8.4-10.2) mg/dL AST 31 (17-59) U/L ALT 34 (4-49) U/L Alkaline Phosphatase 104 (38-126) U/L Total Protein 7.3 (6.3-8.2) g/dL Albumin 4.4 (3.5-5.0) g/dL Current Medications Generic Name Dose Route Start Last Admin Trade Name Freq PRN Reason Stop Dose Admin Insulin Aspart 5 unit 05/05/22 07:30 05/05/22 07:09 Insulin Aspart (Novolog) 100 Unit/Ml Vial SQ 5 unit AC-TID JOY Administration Insulin Detemir 18 unit 05/05/22 21:00 Insulin Detemir (Levemir) 100 Unit/Ml Syr SQ HS JOY Naloxone HCl 0.2 mg 05/04/22 20:32 Naloxone 0.4 Mg/Ml 1 Ml Vial IV Q2M PRN Opioid Reversal Nicotine 1 patch 05/04/22 21:48 Nicotine 21mg/24hr Patch TRANSDERM DAILY PRN Nicotine Cravings Intake and Output 05/04/22 05/05/22 05/05/22 22:59 06:59 14:59 Intake Total 180 Balance 180 Intake: Oral 180 Other: Voiding Method Toilet # Voids 2 Weight 65.317 kg 65.317 kg 05/04/22 20:27 05/05/22 04:13
[2022-05-05 11:56] LABS: Glucose,Whole Blood 353 mg/dL (70-110)
[2022-05-05] MEDS ORDERED: INSULIN NPH 100 UNIT/ML 10 ML VIAL SQ ONE (13:30)
[2022-05-05] MEDS ORDERED: INSULIN REGULAR 100 UNIT/ML VIAL (IM/SQ) SQ ONE (16:30)
--- NOTE | 2022-05-05 16:37 | CA ---
Transthoracic Echo Report Name: Howard Ospina Age: 31 Gender: M : 1990 Exam Date: 05/05/2022 10:56 Exam Location: [facility] Ht (in): 67 Wt (lb): 144 Ordering Physician: Torrey Barrett MD ([id number]) Attending/Referring Phys: Recruiting Administrator Elvin Garsia RDCS Procedure CPT: Indications: afib Cardiac Hx: Technical Quality: Good Contrast 1: Total Dose (mL): Contrast 2: Total Dose (mL): MEASUREMENTS (Male / Female) Normal Values 2D ECHO LV Diastolic Diameter PLAX 4.5 cm 4.2 - 5.9 / 3.9 - 5.3 cm LV Systolic Diameter PLAX 3.1 cm IVS Diastolic Thickness 1.0 cm 0.6 - 1.0 / 0.6 - 0.9 cm LVPW Diastolic Thickness 1.2 cm 0.6 - 1.0 / 0.6 - 0.9 cm LV Relative Wall Thickness 0.5 RV Internal Dim ED PLAX 2.1 cm LA Systolic Diameter LX 3.6 cm 3.0 - 4.0 / 2.7 - 3.8 cm LV Diastolic Volume MOD 4C 82.2 cm??? LV Systolic Volume MOD 4C 44.5 cm??? LV Ejection Fraction MOD 4C 45.9 % LV Diastolic Length 4C 8.1 cm LV Systolic Length 4C 6.6 cm M-MODE Aortic Root Diameter MM 2.5 cm LA Systolic Diameter MM 3.1 cm LA Ao Ratio MM 1.3 MV E Point Septal Separation 0.4 cm AV Cusp Separation MM 2.1 cm DOPPLER AV Peak Velocity 139.0 cm/s AV Peak Gradient 7.7 mmHg LVOT Peak Velocity 74.8 cm/s LVOT Peak Gradient 2.2 mmHg MV Area PHT 2.6 cm??? Mitral E Point Velocity 106.0 cm/s Mitral A Point Velocity 44.5 cm/s Mitral E to A Ratio 2.4 MV Deceleration Time 293.2 ms TR Peak Velocity 241.7 cm/s TR Peak Gradient 23.4 mmHg FINDINGS Left Ventricle Left ventricular ejection fraction is estimated at 55-60%. Right Ventricle Normal right ventricular size and function. Right Atrium Normal right atrial size. Left Atrium Normal left atrial size. Mitral Valve Structurally normal mitral valve. Trace mitral regurgitation. Aortic Valve Trileaflet aortic valve. No aortic regurgitation. No aortic stenosis. Tricuspid Valve Structurally normal tricuspid valve. Trace tricuspid regurgitation. Pulmonic Valve Structurally normal pulmonic valve. Pericardium No pericardial effusion. No pleural effusion. Aorta Normal size aortic root and proximal ascending aorta. CONCLUSIONS Normal LV systolic function Previewed by: Dr. Jose Crum MD (Electronically Signed) Final Date: 05 May 2022 16:36
[2022-05-05 16:53] LABS: Glucose,Whole Blood 167 mg/dL (70-110)
[2022-05-05 18:01] VITALS: BP 157/90; PULSE 90; RESP 16; TEMP 97.9
--- NOTE | 2022-05-05 18:50 | P.HPIM ---
History of Present Illness H&P Date: 05/05/22 Chief Complaint: Hypoglycemia This is a 31-year-old patient with no family doctor. Normally takes Lantus 45- 50 units at night and Humalog 15 to to 20 units 3 times a day. Has been a diabetic since age of 9. He says his family doctor's currently not writing prescriptions. Patient admitted to hospital on April 29 and was subsequently discharged in April 30. He was to follow-up with Dr. jessie bautista. Patient was discharged on 28 units of Levemir at night and 5 units of NovoLog with meals. Yesterday patient went to the dentist in the afternoon. Had really not eating and taking his short-acting insulin. Became hypoglycemic that and was sent to the hospital via EMS. Accu-Cheks to drop down to 38. Found to be in atrial fibrillation with rapid ventricular rate rhythm admitted for the same. Patient reverted to sinus rhythm. Levemir that was ordered last night was not given by the nurse. This morning Accu-Chek at: Up to 400. Review of systems: GEN.: Tired EYES: None HEENT: None NECK: None RESPIRATORY: None CARDIOVASCULAR: None GASTROINTESTINAL: None GENITOURINARY: None MUSCULOSKELETAL: None LYMPHATICS: None HEMATOLOGICAL: None PSYCHIATRY: None NEUROLOGICAL: None Past medical history to include: Diabetes mellitus type 1 since age of 9. Social history: Smokes a pack a day last 16 years. Works in the [employer]. Has a girlfriend. Denies alcohol or drugs. Physical examination: VITAL SIGNS: 97.6, 80, 18, 1 3786, 100% room air GENERAL: Sitting up, comfortable EYES: Pupils equal. Conjunctiva normal. HEENT: External appearance of nose and ears normal, oral cavity dry. NECK: JVD not raised; masses not palpable. HEART: First and second heart sounds are normal; no edema. LUNGS: Respiratory rate normal; clear to auscultation. ABDOMEN: Soft, nontender, liver spleen not palpable, no masses palpable. PSYCH: Alert and oriented x3; mood and affect normal. NEUROLOGICAL: Cranial nerves grossly intact; no facial asymmetry, power and sensation grossly intact. LYMPHATICS: No lymph nodes palpable in the axilla and neck INVESTIGATIONS, reviewed in the clinical context: White count 8 hemoglobin 15.1. History of anyone potassium 4.2 BUN 12 creatinine 0.59 blood glucose 93 EKG tracing neck normal sinus rhythm. Assessment and plan: -Hypoglycemia from insulin. -Paroxysmal atrial fibrillation possibly precipitated with hyperglycemia. Chads score was reviewed. Not a candidate for medical evaluation. Cardiology consulted. -Diabetes mellitus type 1, chronic insulin Follow Accu-Cheks -Chronic nicotine dependence, single smoker Nicotine patch Cardiology consulted. Telemetry. 2-D echo. Past Medical History Past Medical History: Diabetes Mellitus, Pneumonia, Seizure Disorder Additional Past Medical History / Comment(s): IDDM type I, DKA, seizures with hypoglycemia-last time April 2019, Covid 03/14/21 History of Any Multi-Drug Resistant Organisms: None Reported Past Surgical History: No Surgical Hx Reported Additional Past Surgical History / Comment(s): TOOTH EXTRACTED IN PAST AND YESTERDAY HAD A PUS POCKET NEAR FRONT TOOTH LANCED/DRAINED. Past Anesthesia/Blood Transfusion Reactions: No Reported Reaction Smoking Status: Current every day smoker - Past Family History Father Family Medical History: No Reported History Additional Family Medical History / Comment(s): Father is healthy Mother Family Medical History: Asthma Medications and Allergies Home Medications Medication Instructions Recorded Confirmed Type Insulin Aspart [NovoLOG Flexpen] 5 units SQ AC-TID #1 each 04/30/22 05/04/22 Rx Nicotine 21Mg/24Hr Patch [Habitrol] 1 patch TRANSDERM DAILY PRN 05/04/22 05/04/22 History Insulin Detemir [Levemir Flextouch 22 units SQ HS #1 each 05/05/22 05/04/22 Rx Pen] Allergies Allergy/AdvReac Type Severity Reaction Status Date / Time bee venom protein (honey bee) Allergy Anaphylaxis Verified 05/04/22 20:33 Physical Exam Vitals: Vital Signs Temp Pulse Pulse Resp BP BP Pulse Ox 05/05/22 08:24 99 05/05/22 07:50 97.5 F L 72 18 132/73 100 05/05/22 03:49 97.9 F 64 18 110/69 99 05/05/22 02:14 98.3 F 68 18 143/82 98 05/05/22 00:05 93 17 117/52 99 05/04/22 23:56 72 18 117/52 98 05/04/22 23:00 76 05/04/22 22:00 79 05/04/22 21:40 86 18 05/04/22 20:21 97.6 F 80 18 137/86 100 Intake and Output 05/04/22 05/05/22 05/05/22 22:59 06:59 14:59 Intake Total 180 Balance 180 Intake: Oral 180 Other: Voiding Method Toilet Toilet # Voids 2 Weight 65.317 kg 65.317 kg Results CBC & Chem 7: 05/04/22 20:27 05/05/22 04:13 Labs: Abnormal Lab Results - Last 24 Hours (Table) 05/04/22 05/04/22 05/04/22 Range/Units 20:09 20:27 21:34 Sodium 135 L (137-145) mmol/L Carbon Dioxide 32 H (22-30) mmol/L Creatinine 0.59 L (0.66-1.25) mg/dL Glucose (74-99) mg/dL POC Glucose (mg/dL) 119 H 213 H (70-110) mg/dL 05/04/22 05/05/22 05/05/22 Range/Units 23:34 01:02 04:13 Sodium 131 L (137-145) mmol/L Carbon Dioxide (22-30) mmol/L Creatinine (0.66-1.25) mg/dL Glucose 391 H (74-99) mg/dL POC Glucose (mg/dL) 362 H 277 H (70-110) mg/dL 05/05/22 Range/Units 07:05 Sodium (137-145) mmol/L Carbon Dioxide (22-30) mmol/L Creatinine (0.66-1.25) mg/dL Glucose (74-99) mg/dL POC Glucose (mg/dL) 402 H (70-110) mg/dL Thrombosis Risk Factor Assmnt - Choose All That Apply Any of the Below Risk Factors Present?: No Other Risk Factors: No Other congenital or acquired thrombophilia - If yes, enter type in comment: No Thrombosis Risk Factor Assessment Level: Very Low Risk
--- NOTE | 2022-05-05 18:52 | P.DS ---
Providers Date of admission: 05/04/22 20:32 Expected date of discharge: 05/05/22 Attending physician: Tre Low Consults: 05/04/22 20:32 Consult Physician Routine Consulting Provider: Elier Wilson Consult Reason/Comments: new onset a fib Do you want consulting provider notified?: Yes, Notify in am Primary care physician: Stated None Hospital Course: Chief Complaint: Hypoglycemia This is a 31-year-old patient with no family doctor. Normally takes Lantus 45- 50 units at night and Humalog 15 to to 20 units 3 times a day. Has been a diabetic since age of 9. He says his family doctor's currently not writing prescriptions. Patient admitted to hospital on April 29 and was subsequently discharged in April 30. He was to follow-up with Dr. jessie bautista. Patient was discharged on 28 units of Levemir at night and 5 units of NovoLog with meals. Yesterday patient went to the dentist in the afternoon. Had really not eating and taking his short-acting insulin. Became hypoglycemic that and was sent to the hospital via EMS. Accu-Cheks to drop down to 38. Found to be in atrial fibrillation with rapid ventricular rate rhythm admitted for the same. Patient reverted to sinus rhythm. Levemir that was ordered last night was not given by the nurse. This morning Accu-Chek at: Up to 400. This afternoon NPH insulin was given. Seen by nataliia E. Cleared for discharge. No indication for anticoagulation. Insulin dose adjusted. Discussed with patient. Patient has an appointment to follow-up with PCP. Past medical history to include: Diabetes mellitus type 1 since age of 9. Social history: Smokes a pack a day last 16 years. Works in the [employer]. Has a girlfriend. Denies alcohol or drugs. Physical examination: VITAL SIGNS: 97.6, 80, 18, 1 3786, 100% room air GENERAL: Sitting up, comfortable EYES: Pupils equal. Conjunctiva normal. HEENT: External appearance of nose and ears normal, oral cavity dry. NECK: JVD not raised; masses not palpable. HEART: First and second heart sounds are normal; no edema. LUNGS: Respiratory rate normal; clear to auscultation. ABDOMEN: Soft, nontender, liver spleen not palpable, no masses palpable. PSYCH: Alert and oriented x3; mood and affect normal. NEUROLOGICAL: Cranial nerves grossly intact; no facial asymmetry, power and sensation grossly intact. LYMPHATICS: No lymph nodes palpable in the axilla and neck INVESTIGATIONS, reviewed in the clinical context: White count 8 hemoglobin 15.1. History of anyone potassium 4.2 BUN 12 creatinine 0.59 blood glucose 93 EKG tracing neck normal sinus rhythm. Assessment and plan: -Hypoglycemia from insulin.: Corrected -Paroxysmal atrial fibrillation possibly precipitated with hyperglycemia. Chads score was reviewed. Not a candidate for medical evaluation. Seen by Dr. Barrett from [facility]. -Diabetes mellitus type 1, chronic insulin Discharged on NovoLog 5 units before meals 3 times a day, Levemir 22 units at night -Chronic nicotine dependence, single smoker Nicotine patch Cardiology consulted. Telemetry. 2-D echo. Plan - Discharge Summary Discharge Rx Participant: Yes New Discharge Prescriptions: Continue Insulin Aspart [NovoLOG Flexpen] 5 units SQ AC-TID #1 each Nicotine 21Mg/24Hr Patch [Habitrol] 1 patch TRANSDERM DAILY PRN PRN Reason: Nicotine Cravings Changed Insulin Detemir [Levemir Flextouch Pen] 22 units SQ HS #1 each Discharge Medication List Insulin Aspart [NovoLOG Flexpen] 5 units SQ AC-TID #1 each 04/30/22 [Rx] Nicotine 21Mg/24Hr Patch [Habitrol] 1 patch TRANSDERM DAILY PRN 05/04/22 [History] Insulin Detemir [Levemir Flextouch Pen] 22 units SQ HS #1 each 05/05/22 [Rx] Follow up Appointment(s)/Referral(s): Torrey Barrett MD [STAFF PHYSICIAN] - 2 Weeks None,Stated [Primary Care Provider] - 1-2 days Discharge Disposition: HOME SELF-CARE
[2022-05-05] MEDS ORDERED: INSULIN DETEMIR (LEVEMIR) 100 UNIT/ML SYR SQ SCH (21:00)
== END 2022-05-05 18:33 | disposition home or self-care (01) ==
LOC: EC 20:03 → 6NMEDSUR 20:32 → 3SCARD 23:31
PROVIDERS: ADMIT Hospitalist; ATTEND Hospitalist
DX: E16.0 Drug-induced hypoglycemia without coma (principal); T38.3X5A Adverse effect of insulin and oral hypoglycemic [antidiabetic] drugs, initial encounter; I48.0 Paroxysmal atrial fibrillation; E10.9 Type 1 diabetes mellitus without complications; F17.200 Nicotine dependence, unspecified, uncomplicated; Z79.4 Long term (current) use of insulin
CPT/HCPCS: 96372; 99285; 36415; 94760; 93005; 93306; 80053; 80048; 84443; 83735; 84484 ×2; 85025; 85610; 85730; G0378 ×2

== ENCOUNTER 2022-05-10 18:21 | Emergency (ER) | payer OTHER ==
[2022-05-10 18:30] LABS: Glucose,Whole Blood 88 mg/dL (70-110)
[2022-05-10 18:31] VITALS: BP 146/90; PULSE 63; RESP 17
[2022-05-10 18:37] VITALS: TEMP 95.9
--- NOTE | 2022-05-10 18:59 | ED ---
General Adult HPI - General Chief complaint: Recheck/Abnormal Lab/Rx Stated complaint: low blood sugar Time Seen by Provider: 05/10/22 18:25 Source: patient, EMS, RN notes reviewed, old records reviewed Mode of arrival: EMS Limitations: no limitations - History of Present Illness Initial comments: This is a 31-year-old male who has been a type I diabetic since he was 9 years old. Patient states he takes NovoLog prior to meal. Patient states today he took his NovoLog but didn't get much to eat and then he had a hypoglycemic episode. Patient came in via ambulance and was given him D50 and the patient became alert and oriented almost immediately. Patient states prior to this episode he was feeling fine. He had no fever chills or cough. Patient states he has no nausea vomiting diarrhea. Patient states he is experiencing no pain. Patient states he just did not eat enough full. Patient currently has no complaints and would like to get something to eat. - Related Data Home Medications Medication Instructions Recorded Confirmed Nicotine 21Mg/24Hr Patch [Habitrol] 1 patch TRANSDERM DAILY PRN 05/04/22 05/04/22 Previous Rx's Medication Instructions Recorded Insulin Aspart [NovoLOG Flexpen] 5 units SQ AC-TID #1 each 04/30/22 Insulin Detemir [Levemir Flextouch 22 units SQ HS #1 each 05/05/22 Pen] Allergies Allergy/AdvReac Type Severity Reaction Status Date / Time bee venom protein (honey bee) Allergy Anaphylaxis Verified 05/10/22 18:31 Review of Systems ROS Statement: Those systems with pertinent positive or pertinent negative responses have been documented in the HPI. ROS Other: All systems not noted in ROS Statement are negative. Past Medical History Past Medical History: Diabetes Mellitus, Pneumonia, Seizure Disorder Additional Past Medical History / Comment(s): IDDM type I, DKA, seizures with hypoglycemia-last time April 2019, Covid 03/14/21 History of Any Multi-Drug Resistant Organisms: None Reported Past Surgical History: No Surgical Hx Reported Additional Past Surgical History / Comment(s): TOOTH EXTRACTED IN PAST AND YESTERDAY HAD A PUS POCKET NEAR FRONT TOOTH LANCED/DRAINED. Past Anesthesia/Blood Transfusion Reactions: No Reported Reaction Past Psychological History: No Psychological Hx Reported Smoking Status: Current every day smoker - Past Family History Father Family Medical History: No Reported History Additional Family Medical History / Comment(s): Father is healthy Mother Family Medical History: Asthma General Exam - General Exam Comments Initial Comments: GENERAL: Patient is well-developed and well-nourished. Patient is nontoxic and well- hydrated and is in no acute distress. ENT: Neck is soft and supple. No significant lymphadenopathy is noted. Oropharynx is clear. Moist mucous membranes. Neck has full range of motion without eliciting any pain. EYES: The sclera were anicteric and conjunctiva were pink and moist. Extraocular movements were intact and pupils were equal round and reactive to light. Eye lids were unremarkable. PULMONARY: Unlabored respirations. Good breath sounds bilaterally. No audible rales rhonchi or wheezing was noted. CARDIOVASCULAR: There is a regular rate and rhythm without any murmurs gallops or rubs. ABDOMEN: Soft and nontender with normal bowel sounds. SKIN: Skin is clear with no lesions or rashes and otherwise unremarkable. NEUROLOGIC: Patient is alert and oriented x3. Cranial nerves II through XII are grossly intact. Motor and sensory are also intact. Normal speech, volume and content. Symmetrical smile. MUSCULOSKELETAL: Normal extremities with adequate strength and full range of motion. No lower extremity swelling or edema. No calf tenderness. LYMPHATICS: No significant lymphadenopathy is noted PSYCHIATRIC: Normal psychiatric evaluation. Limitations: no limitations Course Vital Signs 05/10/22 18:25 Temperature 95.9 F L Pulse Rate 63 Respiratory 17 Rate Blood Pressure 146/90 O2 Sat by Pulse 100 Oximetry Medical Decision Making - Medical Decision Making Was pt. sent in by a medical professional or institution (, PA, GROUNDSKEEPER, urgent care, hospital, or senior living...) When possible be specific @ -No Did you speak to anyone other than the patient for history (EMS, parent, family, police, friend...)? What history was obtained from this source @ -EMS gave the history of what they did how the patient was found to them Did you review nursing and triage notes (agree or disagree)? Why? @ -I reviewed and agree with nursing and triage notes Were old charts reviewed (outside hosp., previous admission, EMS record, old EKG, old radiological studies, urgent care reports/EKG's, senior living records)? Report findings @ -No old charts were reviewed Differential Diagnosis (chest pain, altered mental status, abdominal pain women, abdominal pain men, vaginal bleeding, weakness, fever, dyspnea, syncope, headache, dizziness, GI bleed, back pain, seizure, CVA, palpatations, mental health)? @ -. Hypoglycemia, trauma, drugs, alcohol intoxication, electrolyte abnormality, hypoxia, this is not all inclusive list EKG interpreted by me (3pts min.). @ -As above X-rays interpreted by me (1pt min.). @ -None done CT interpreted by me (1pt min.). @ -None done U/S interpreted by me (1pt. min.). @ -None done What testing was considered but not performed or refused? (CT, X-rays, U/S, labs)? Why? @ -X-rays of the chest were considered however. Patient was not having any upper respiratory symptoms. No fever, no shortness of breath, so they were not done What meds were considered but not given or refused? Why? @ -Glucagon was considered however. Patient was alert and oriented after D50 so he was able to eat so we allowed him to eat and take his calories and orally Did you discuss the management of the patient with other professionals (professionals i.e. , PA, GROUNDSKEEPER, lab, RT, psych nurse, drug abuse social worker, sample maker, teacher, correction officer city or county jail, case folder)? Give summary @ -No Was smoking cessation discussed for >3mins.? @ -No Was critical care preformed (if so, how long)? @ -No Were there social determinants of health that impacted care today? How? (Homelessness, low income, unemployed, alcoholism, drug addiction, transportation, low edu. Level, literacy, decrease access to med. care, ch[facility], rehab)? @ -No Was there de-escalation of care discussed even if they declined (Discuss DNR or withdrawal of care, Hospice)? DNR status @ -No What co-morbidities impacted this encounter? (DM, HTN, Smoking, COPD, CAD, Cancer, CVA, ARF, Chemo, Hep., AIDS, mental health diagnosis, sleep apnea, morbid obesity)? @ -None Was patient admitted / discharged? Hospital course, mention meds given and route, prescriptions, significant lab abnormalities, going to OR and other pertinent info. @ -. Patient was able to eat and after that his sugar was stable. He felt good. He had no complaints and he understood what he had done wrong by not eating after he took his insulin so patient will be discharged home Undiagnosed new problem with uncertain prognosis? @ -No Drug Therapy requiring intensive monitoring for toxicity (Heparin, Nitro, Insulin, Cardizem)? @ -No Were any procedures done? @ -No Diagnosis/symptom? @ -Hypoglycemia Acute, or Chronic, or Acute on Chronic? @ -Acute Uncomplicated (without systemic symptoms) or Complicated (systemic symptoms)? @ -Uncomplicated Side effects of treatment? @ -No Exacerbation, Progression, or Severe Exacerbation? @ -No Poses a threat to life or bodily function? How? (Chest pain, USA, ND, pneumonia, PE, COPD, DKA, ARF, appy, cholecystitis, CVA, Diverticulitis, Homicidal, Suicidal, threat to staff... and all critical care pts) @ -No - Lab Data Result diagrams: 05/10/22 18:58 05/10/22 18:58 Lab Results 05/10/22 05/10/22 05/10/22 Range/Units 18:28 18:58 18:58 WBC 10.5 (3.8-10.6) k/uL RBC 4.60 (4.30-5.90) m/uL Hgb 14.7 (13.0-17.5) gm/dL Hct 43.7 (39.0-53.0) % MCV 94.9 (80.0-100.0) fL MCH 31.9 (25.0-35.0) pg MCHC 33.6 (31.0-37.0) g/dL RDW 12.2 (11.5-15.5) % Plt Count 316 (150-450) k/uL MPV 7.6 Neutrophils % 73 % Lymphocytes % 21 % Monocytes % 5 % Eosinophils % 1 % Basophils % 0 % Neutrophils # 7.6 (1.3-7.7) k/uL Lymphocytes # 2.2 (1.0-4.8) k/uL Monocytes # 0.5 (0-1.0) k/uL Eosinophils # 0.1 (0-0.7) k/uL Basophils # 0.0 (0-0.2) k/uL Sodium 141 (137-145) mmol/L Potassium 4.6 (3.5-5.1) mmol/L Chloride 103 (98-107) mmol/L Carbon Dioxide 31 H (22-30) mmol/L Anion Gap 7 mmol/L BUN 15 (9-20) mg/dL Creatinine 0.77 (0.66-1.25) mg/dL Est GFR (CKD-EPI)AfAm >90 (>60 ml/min/1.73 sqM) Est GFR (CKD-EPI)NonAf >90 (>60 ml/min/1.73 sqM) Glucose 61 L (74-99) mg/dL POC Glucose (mg/dL) 88 (70-110) mg/dL POC Glu Cop Winder ID Rosy Mast Calcium 9.8 (8.4-10.2) mg/dL Total Bilirubin 0.9 (0.2-1.3) mg/dL AST 43 (17-59) U/L ALT 33 (4-49) U/L Alkaline Phosphatase 93 (38-126) U/L Total Protein 8.1 (6.3-8.2) g/dL Albumin 5.0 (3.5-5.0) g/dL Disposition Clinical Impression: Hypoglycemia Disposition: HOME SELF-CARE Condition: Good Instructions (If sedation given, give patient instructions): Hypoglycemia in a Person with Diabetes (ED) Is patient prescribed a controlled substance at d/c from ED?: No Referrals: None,Stated [Primary Care Provider] - 1-2 days Time of Disposition: 20:05
[2022-05-10 19:06] LABS: Basophils % (A) 0 %; Eosinophils # (A) 0.1 k/uL (0-0.7); Eosinophils % (A) 1 %; HCT 43.7 % (39.0-53.0); HGB 14.7 gm/dL (13.0-17.5); Lymphocytes # (A) 2.2 k/uL (1.0-4.8); Lymphocytes % (A) 21 %; MCH 31.9 pg (25.0-35.0); MCHC 33.6 g/dL (31.0-37.0); MCV 94.9 fL (80.0-100.0); Mean Platelet Volume 7.6; Monocytes # (A) 0.5 k/uL (0-1.0); Monocytes % (A) 5 %; Neutrophils # (A) 7.6 k/uL (1.3-7.7); Neutrophils % (A) 73 %; Platelet Count 316 k/uL (150-450); RDW 12.2 % (11.5-15.5); WBC 10.5 k/uL (3.8-10.6)
[2022-05-10 19:23] LABS: ALT 33 U/L (4-49); AST 43 U/L (17-59); African American GFR (CKD) >90 (>60 ml/min/1.73 sqM); Alkaline Phosphatase 93 U/L (38-126); Anion Gap 7 mmol/L; Blood Urea Nitrogen 15 mg/dL (9-20); Calcium 9.8 mg/dL (8.4-10.2); Carbon Dioxide 31 mmol/L (22-30); Chloride 103 mmol/L (98-107); Glucose 61 mg/dL (74-99); Non-African American GFR(CKD) >90 (>60 ml/min/1.73 sqM); Sodium 141 mmol/L (137-145); Total Bilirubin 0.9 mg/dL (0.2-1.3); Total Protein 8.1 g/dL (6.3-8.2)
[2022-05-10 19:57] LABS: Potassium 4.6 mmol/L (3.5-5.1)
[2022-05-10 20:18] LABS: Glucose,Whole Blood 173 mg/dL (70-110)
== END 2022-05-10 20:25 | disposition home or self-care (01) ==
LOC: EC 18:21
DX: E10.649 Type 1 diabetes mellitus with hypoglycemia without coma (principal); F17.200 Nicotine dependence, unspecified, uncomplicated; Z91.030 Bee allergy status; Z86.16 Personal history of COVID-19
CPT/HCPCS: 36415; 80053; 85025; 99285

== ENCOUNTER 2022-10-13 23:42 | Inpatient (IN) | payer OTHER ==
[2022-10-14 00:06] VITALS: TEMP 98.3
[2022-10-14] MEDS ORDERED: SODIUM CHLORIDE 0.9% 500 ML 500 ML IV STA (00:15)
[2022-10-14] MEDS ORDERED: ONDANSETRON 4 MG/2 ML VIAL IVP STA (00:23)
[2022-10-14 00:35] LABS: Glucose,Whole Blood >600 mg/dL (70-110)
[2022-10-14 00:37] LABS: VBG PH 7.26 (7.31-7.41)
[2022-10-14 00:40] LABS: Basophils % (A) 0 %; Eosinophils # (A) 0.1 k/uL (0-0.7); Eosinophils % (A) 1 %; HGB 15.4 gm/dL (13.0-17.5); Lymphocytes # (A) 1.4 k/uL (1.0-4.8); Lymphocytes % (A) 12 %; MCH 31.3 pg (25.0-35.0); MCHC 30.9 g/dL (31.0-37.0); MCV 101.3 fL (80.0-100.0); Mean Platelet Volume 8.8; Monocytes # (A) 0.5 k/uL (0-1.0); Monocytes % (A) 4 %; Neutrophils # (A) 9.5 k/uL (1.3-7.7); Neutrophils % (A) 82 %; Platelet Count 320 k/uL (150-450); RBC 4.94 m/uL (4.30-5.90); RDW 11.8 % (11.5-15.5); WBC 11.7 k/uL (3.8-10.6)
[2022-10-14 00:51] LABS: ALT 32 U/L (4-49); AST 28 U/L (17-59); African American GFR (CKD) >90 (>60 ml/min/1.73 sqM); Albumin 4.4 g/dL (3.5-5.0); Alkaline Phosphatase 135 U/L (38-126); Amylase 74 U/L (30-110); Anion Gap 21 mmol/L; Blood Urea Nitrogen 19 mg/dL (9-20); Calcium 9.5 mg/dL (8.4-10.2); Carbon Dioxide 13 mmol/L (22-30); Chloride 93 mmol/L (98-107); Lipase 52 U/L (23-300); Magnesium 1.6 mg/dL (1.6-2.3); Non-African American GFR(CKD) 90 (>60 ml/min/1.73 sqM); Potassium 4.9 mmol/L (3.5-5.1); Sodium 127 mmol/L (137-145); Total Bilirubin 2.6 mg/dL (0.2-1.3); Total Protein 6.8 g/dL (6.3-8.2)
[2022-10-14 00:52] LABS: Partial Thromboplastin Time 22.7 sec (22.0-30.0); Prothrombin Time 10.3 sec (9.0-12.0)
[2022-10-14 01:01] LABS: Glucose 716 mg/dL (74-99)
[2022-10-14] MEDS ORDERED: INSULIN REGULAR BOLUS (FROM DRIP BAG) IV ONE (01:03)
[2022-10-14 01:09] LABS: Appearance,Urine Clear (Clear); Bilirubin,Urine Negative (Negative); Blood,Urine Negative (Negative); Color,Urine Colorless; Glucose,Urine (UA) 4+ (Negative); Leukocyte Esterase,Urine Negative (Negative); Nitrite,Urine Negative (Negative); Protein,Urine Negative (Negative); Specific Gravity,Urine 1.023 (1.001-1.035); Urobilinogen,Urine <2.0 mg/dL (<2.0)
[2022-10-14] MEDS ORDERED: SODIUM CHLORIDE 0.9% 1,000 ML IV SCH (01:15)
--- NOTE | 2022-10-14 01:20 | XR ---
EXAM: XR Chest, 2 Views CLINICAL HISTORY: ITS.REASON XR Reason: Chest Pain TECHNIQUE: Frontal and lateral views of the chest. COMPARISON: No relevant prior studies available. FINDINGS: Lungs: No consolidation or mass. Pleural space: No effusion. Heart: No cardiomegaly. Bones/joints: No acute findings. IMPRESSION: No acute cardiopulmonary process.
[2022-10-14 01:21] LABS: Glucose,Whole Blood >600 mg/dL (70-110)
[2022-10-14] MEDS: INSULIN REGULAR 100 UNIT in SODIUM CHLORIDE 0.9% 100 ML IV SCH ×2 (01:32→10:24)
--- NOTE | 2022-10-14 01:36 | ED ---
Nausea/Vomiting/Diarrhea HPI - General Chief complaint: Nausea/Vomiting/Diarrhea Stated complaint: hyperglycemia Time Seen by Provider: 10/14/22 00:11 Source: patient Mode of arrival: EMS Limitations: no limitations - History of Present Illness Initial comments: 32-year-old male history of type 1 diabetes presenting with chief complaint of nausea and vomiting. He states "I think I'm in DKA". Patient also states he had some shortness of breath this evening that resolved after he was picked up by EMS, he was given nothing for this shortness of breath. Patient states that he ran out of insulin and took his last dose this morning. No abdominal pain, fever, chills, dysuria, hematuria, flank pain. - Related Data Home Medications Medication Instructions Recorded Confirmed Nicotine 21Mg/24Hr Patch [Habitrol] 1 patch TRANSDERM DAILY PRN 05/04/22 05/04/22 Previous Rx's Medication Instructions Recorded Insulin Aspart [NovoLOG Flexpen] 5 units SQ AC-TID #1 each 04/30/22 Insulin Detemir [Levemir Flextouch 22 units SQ HS #1 each 05/05/22 Pen] Allergies Allergy/AdvReac Type Severity Reaction Status Date / Time bee venom protein (honey bee) Allergy Anaphylaxis Verified 10/14/22 00:01 Review of Systems ROS Statement: Those systems with pertinent positive or pertinent negative responses have been documented in the HPI. ROS Other: All systems not noted in ROS Statement are negative. Past Medical History Past Medical History: Diabetes Mellitus, Pneumonia, Seizure Disorder Additional Past Medical History / Comment(s): IDDM type I, DKA, seizures with hypoglycemia-last time April 2019, Covid 03/14/21 History of Any Multi-Drug Resistant Organisms: None Reported Past Surgical History: No Surgical Hx Reported Additional Past Surgical History / Comment(s): TOOTH EXTRACTED IN PAST AND YESTERDAY HAD A PUS POCKET NEAR FRONT TOOTH LANCED/DRAINED. Past Anesthesia/Blood Transfusion Reactions: No Reported Reaction Past Psychological History: No Psychological Hx Reported Smoking Status: Current every day smoker - Past Family History Father Family Medical History: No Reported History Additional Family Medical History / Comment(s): Father is healthy Mother Family Medical History: Asthma General Exam Limitations: no limitations General appearance: alert, in no apparent distress Head exam: Present: atraumatic, normocephalic, normal inspection Eye exam: Present: normal appearance, PERRL, EOMI. Absent: scleral icterus, con junctival injection, periorbital swelling Neck exam: Present: normal inspection, full ROM Respiratory exam: Present: normal lung sounds bilaterally. Absent: respiratory distress, wheezes, rales, rhonchi, stridor Cardiovascular Exam: Present: regular rate, normal rhythm, normal heart sounds. Absent: systolic murmur, diastolic murmur, rubs, gallop, clicks Neurological exam: Present: alert, oriented X3, CN II-XII intact Psychiatric exam: Present: normal affect, normal mood Skin exam: Present: warm, dry, intact, normal color. Absent: rash Course Vital Signs 10/14/22 10/14/22 10/14/22 00:01 01:00 01:30 Temperature 98.3 F Pulse Rate 90 74 88 Respiratory 26 H 12 15 Rate Blood Pressure 118/69 132/76 127/56 O2 Sat by Pulse 95 98 Oximetry 10/14/22 02:00 Temperature Pulse Rate 91 Respiratory 15 Rate Blood Pressure 116/63 O2 Sat by Pulse 96 Oximetry Medical Decision Making - Medical Decision Making Was pt. sent in by a medical professional or institution (, PA, [facility], urgent care, hospital, or shelter...) When possible be specific @ -No Did you speak to anyone other than the patient for history (EMS, parent, family, police, friend...)? What history was obtained from this source @ -No Did you review nursing and triage notes (agree or disagree)? Why? @ -I reviewed and agree with nursing and triage notes Were old charts reviewed (outside hosp., previous admission, EMS record, old EKG, old radiological studies, urgent care reports/EKG's, shelter records)? Report findings @ -No old charts were reviewed Differential Diagnosis (chest pain, altered mental status, abdominal pain women, abdominal pain men, vaginal bleeding, weakness, fever, dyspnea, syncope, headache, dizziness, GI bleed, back pain, seizure, CVA, palpatations, mental health, musculoskeletal)? @ -Differential includes DKA, gastroenteritis, appendicitis, this is not an all inclusive list EKG interpreted by me (3pts min.). @ -As above X-rays interpreted by me (1pt min.). @ -X-ray shows no acute process CT interpreted by me (1pt min.). @ -None done U/S interpreted by me (1pt. min.). @ -None done What testing was considered but not performed or refused? (CT, X-rays, U/S, labs)? Why? @ -None What meds were considered but not given or refused? Why? @ -None Did you discuss the management of the patient with other professionals (professionals i.e. Dr., PA, [facility], lab, RT, psych nurse, social work case manager, shell trim operator, teacher, executive officer, caseworker intake)? Give summary @ -I spoke with Dr. glasgow who accepted admission Was smoking cessation discussed for >3mins.? @ -No Was critical care preformed (if so, how long)? @ -No Were there social determinants of health that impacted care today? How? (Homelessness, low income, unemployed, alcoholism, drug addiction, transportation, low edu. Level, literacy, decrease access to med. care, longterm, rehab)? @ -No Was there de-escalation of care discussed even if they declined (Discuss DNR or withdrawal of care, Hospice)? DNR status @ -No What co-morbidities impacted this encounter? (DM, HTN, Smoking, COPD, CAD, Cancer, CVA, ARF, Chemo, Hep., AIDS, mental health diagnosis, sleep apnea, morbid obesity)? @ -Type 1 diabetes Was patient admitted / discharged? Hospital course, mention meds given and route, prescriptions, significant lab abnormalities, going to OR and other pertinent info. @ -32-year-old male presenting with chief complaint of nausea and vomiting. History of type 1 diabetes, recently ran out of his insulin. Physical examination is unremarkable. Blood glucose is 716. Anion gap 21. Positive acetone and 4+ ketones. Chest x-ray and EKG are unremarkable. Patient will be admitted for DKA, he started on insulin bolus and drip and IV fluids. I spoke with Dr. Glasgow who accepted admission. Patient is agreeable with this plan. I discussed this case with my attending Dr. Barakat Undiagnosed new problem with uncertain prognosis? @ -No Drug Therapy requiring intensive monitoring for toxicity (Heparin, Nitro, Insulin, Cardizem)? @ -Insulin Were any procedures done? @ -No Diagnosis/symptom? @ -DKA Acute, or Chronic, or Acute on Chronic? @ -Acute Uncomplicated (without systemic symptoms) or Complicated (systemic symptoms)? @ -Complicated Side effects of treatment? @ -No Exacerbation, Progression, or Severe Exacerbation? @ -No Poses a threat to life or bodily function? How? (Chest pain, USA, AR, pneumonia, PE, COPD, DKA, ARF, appy, cholecystitis, CVA, Diverticulitis, Homicidal, Suicidal, threat to staff... and all critical care pts) @ -yes - Lab Data Result diagrams: 10/14/22 00:15 10/14/22 00:15 Lab Results 10/13/22 10/14/22 10/14/22 Range/Units 23:53 00:15 00:15 WBC 11.7 H (3.8-10.6) k/uL RBC 4.94 (4.30-5.90) m/uL Hgb 15.4 (13.0-17.5) gm/dL Hct 50.0 (39.0-53.0) % MCV 101.3 H (80.0-100.0) fL MCH 31.3 (25.0-35.0) pg MCHC 30.9 L (31.0-37.0) g/dL RDW 11.8 (11.5-15.5) % Plt Count 320 (150-450) k/uL MPV 8.8 Neutrophils % 82 % Lymphocytes % 12 % Monocytes % 4 % Eosinophils % 1 % Basophils % 0 % Neutrophils # 9.5 H (1.3-7.7) k/uL Lymphocytes # 1.4 (1.0-4.8) k/uL Monocytes # 0.5 (0-1.0) k/uL Eosinophils # 0.1 (0-0.7) k/uL Basophils # 0.0 (0-0.2) k/uL PT 10.3 (9.0-12.0) sec INR 1.0 (<1.2) APTT 22.7 (22.0-30.0) sec VBG pH (7.31-7.41) VBG pCO2 (37-51) mmHg VBG HCO3 (24-28) mmol/L Sodium (137-145) mmol/L Potassium (3.5-5.1) mmol/L Chloride (98-107) mmol/L Carbon Dioxide (22-30) mmol/L Anion Gap mmol/L BUN (9-20) mg/dL Creatinine (0.66-1.25) mg/dL Est GFR (CKD-EPI)AfAm (>60 ml/min/1.73 sqM) Est GFR (CKD-EPI)NonAf (>60 ml/min/1.73 sqM) Glucose (74-99) mg/dL POC Glucose (mg/dL) >600 H (70-110) mg/dL POC Glu Rabbler ID Cheyenne Haddad Calcium (8.4-10.2) mg/dL Magnesium (1.6-2.3) mg/dL Total Bilirubin (0.2-1.3) mg/dL AST (17-59) U/L ALT (4-49) U/L Alkaline Phosphatase (38-126) U/L Troponin I (0.000-0.034) ng/mL Total Protein (6.3-8.2) g/dL Albumin (3.5-5.0) g/dL Amylase (30-110) U/L Lipase (23-300) U/L Urine Color Urine Appearance (Clear) Urine pH (5.0-8.0) Ur Specific Cornish (1.001-1.035) Urine Protein (Negative) Urine Glucose (UA) (Negative) Urine Ketones (Negative) Urine Blood (Negative) Urine Nitrite (Negative) Urine Bilirubin (Negative) Urine Urobilinogen (<2.0) mg/dL Ur Leukocyte Esterase (Negative) Acetone, Qual (Negative) 10/14/22 10/14/22 10/14/22 Range/Units 00:15 00:15 00:15 WBC (3.8-10.6) k/uL RBC (4.30-5.90) m/uL Hgb (13.0-17.5) gm/dL Hct (39.0-53.0) % MCV (80.0-100.0) fL MCH (25.0-35.0) pg MCHC (31.0-37.0) g/dL RDW (11.5-15.5) % Plt Count (150-450) k/uL MPV Neutrophils % % Lymphocytes % % Monocytes % % Eosinophils % % Basophils % % Neutrophils # (1.3-7.7) k/uL Lymphocytes # (1.0-4.8) k/uL Monocytes # (0-1.0) k/uL Eosinophils # (0-0.7) k/uL Basophils # (0-0.2) k/uL PT (9.0-12.0) sec INR (<1.2) APTT (22.0-30.0) sec VBG pH 7.26 L (7.31-7.41) VBG pCO2 37 (37-51) mmHg VBG HCO3 16 L (24-28) mmol/L Sodium 127 L (137-145) mmol/L Potassium 4.9 (3.5-5.1) mmol/L Chloride 93 L (98-107) mmol/L Carbon Dioxide 13 L (22-30) mmol/L Anion Gap 21 mmol/L BUN 19 (9-20) mg/dL Creatinine 1.08 (0.66-1.25) mg/dL Est GFR (CKD-EPI)AfAm >90 (>60 ml/min/1.73 sqM) Est GFR (CKD-EPI)NonAf 90 (>60 ml/min/1.73 sqM) Glucose 716 H* (74-99) mg/dL POC Glucose (mg/dL) (70-110) mg/dL POC Glu Rabbler ID Calcium 9.5 (8.4-10.2) mg/dL Magnesium 1.6 (1.6-2.3) mg/dL Total Bilirubin 2.6 H (0.2-1.3) mg/dL AST 28 (17-59) U/L ALT 32 (4-49) U/L Alkaline Phosphatase 135 H (38-126) U/L Troponin I <0.012 (0.000-0.034) ng/mL Total Protein 6.8 (6.3-8.2) g/dL Albumin 4.4 (3.5-5.0) g/dL Amylase 74 (30-110) U/L Lipase 52 (23-300) U/L Urine Color Urine Appearance (Clear) Urine pH (5.0-8.0) Ur Specific Cornish (1.001-1.035) Urine Protein (Negative) Urine Glucose (UA) (Negative) Urine Ketones (Negative) Urine Blood (Negative) Urine Nitrite (Negative) Urine Bilirubin (Negative) Urine Urobilinogen (<2.0) mg/dL Ur Leukocyte Esterase (Negative) Acetone, Qual Positive (Negative) 10/14/22 10/14/22 10/14/22 Range/Units 00:55 01:15 02:47 WBC (3.8-10.6) k/uL RBC (4.30-5.90) m/uL Hgb (13.0-17.5) gm/dL Hct (39.0-53.0) % MCV (80.0-100.0) fL MCH (25.0-35.0) pg MCHC (31.0-37.0) g/dL RDW (11.5-15.5) % Plt Count (150-450) k/uL MPV Neutrophils % % Lymphocytes % % Monocytes % % Eosinophils % % Basophils % % Neutrophils # (1.3-7.7) k/uL Lymphocytes # (1.0-4.8) k/uL Monocytes # (0-1.0) k/uL Eosinophils # (0-0.7) k/uL Basophils # (0-0.2) k/uL PT (9.0-12.0) sec INR (<1.2) APTT (22.0-30.0) sec VBG pH (7.31-7.41) VBG pCO2 (37-51) mmHg VBG HCO3 (24-28) mmol/L Sodium (137-145) mmol/L Potassium (3.5-5.1) mmol/L Chloride (98-107) mmol/L Carbon Dioxide (22-30) mmol/L Anion Gap mmol/L BUN (9-20) mg/dL Creatinine (0.66-1.25) mg/dL Est GFR (CKD-EPI)AfAm (>60 ml/min/1.73 sqM) Est GFR (CKD-EPI)NonAf (>60 ml/min/1.73 sqM) Glucose (74-99) mg/dL POC Glucose (mg/dL) >600 H 467 H (70-110) mg/dL POC Glu Rabbler ID Alissa Pastrana Dean Calcium (8.4-10.2) mg/dL Magnesium (1.6-2.3) mg/dL Total Bilirubin (0.2-1.3) mg/dL AST (17-59) U/L ALT (4-49) U/L Alkaline Phosphatase (38-126) U/L Troponin I (0.000-0.034) ng/mL Total Protein (6.3-8.2) g/dL Albumin (3.5-5.0) g/dL Amylase (30-110) U/L Lipase (23-300) U/L Urine Color Colorless Urine Appearance Clear (Clear) Urine pH 5.0 (5.0-8.0) Ur Specific Cornish 1.023 (1.001-1.035) Urine Protein Negative (Negative) Urine Glucose (UA) 4+ H (Negative) Urine Ketones 4+ H (Negative) Urine Blood Negative (Negative) Urine Nitrite Negative (Negative) Urine Bilirubin Negative (Negative) Urine Urobilinogen <2.0 (<2.0) mg/dL Ur Leukocyte Esterase Negative (Negative) Acetone, Qual (Negative) Disposition Clinical Impression: DKA (diabetic ketoacidosis) Disposition: ADMITTED IP TO THIS [facility] Condition: Fair Referrals: None,Stated [Primary Care Provider] - 1-2 days Time of Disposition: 01:36
[2022-10-14] MEDS ORDERED: ONDANSETRON 4 MG/2 ML VIAL IVP PRN (01:41)
[2022-10-14] MEDS ORDERED: NALOXONE 0.4 MG/ML 1 ML VIAL IV PRN (01:41)
[2022-10-14 01:42] LABS: Ketones,Urine 4+ (Negative)
[2022-10-14 02:49] LABS: Glucose,Whole Blood 467 mg/dL (70-110)
--- NOTE | 2022-10-14 03:43 | P.HPIM ---
History of Present Illness H&P Date: 10/14/22 The patient is a 32-year-old male with a PMH of type I DM on subcu insulin who presented to the emergency room with complaints of nausea, vomiting, and fatigue. The patient reports that his symptoms started this morning shortly after waking up. He reports having breakfast but then being unable to eat anything for the rest of the day due to severe nausea and multiple episodes of vomiting. He also reports not taking his insulin as he was not eating. The patient is insisting that he only missed today's doses of insulin and that he was taking them as prescribed prior to that. He reports feeling significantly better at the time of interview. Denies experiencing chest discomfort, shortness of breath, fever, chills, diarrhea. Chest x-ray in the emergency room was unremarkable. Laboratory evaluation was reviewed and was remarkable for leukocytosis of 11.7, sodium 127, chloride 93, CO2 13, anion gap 21, glucose 716, with troponin less than 0.012 and acetone positive. ED documentation reviewed and case discussed with ED provider. Review of systems: Pertinent positives and negatives as discussed in HPI, a complete review of systems was performed and all other systems are negative. Physical examination: Vital signs reviewed General: non toxic, no distress, appears at stated age, normal weight Derm: no unusual rashes/lesions, warm Head: atraumatic, normocephalic, symmetric Eyes: EOMI, no lid lag, anicteric sclera, pupils equal round reactive to light ENT: Nose and ears atraumatic Neck: No cervical lymphadenopathy, trachea midline, supple Mouth: no lip lesion, mucus membranes moist Cardiovascular: S1S2 reg, no murmur, positive dorsalis pedis pulse bilateral, no edema Lungs: CTA bilateral, no rhonchi, no rales, no accessory muscle use Abdominal: soft, nontender to palpation, no guarding Ext: muscle strength 5 out of 5 in all 4 extremities grossly, no gross muscle atrophy, no contractures, Neuro: CN II-XI grossly intact, no gross focal neuro deficits Psych: Alert, oriented, appropriate affect Assessment: Diabetic ketoacidosis Leukocytosis, likely due to dehydration from DKA Macrocytosis Hyponatremia, likely pseudo Imaging: Chest x-ray in the emergency room was unremarkable Data Review: Laboratory evaluation was reviewed and was remarkable for leukocytosis of 11.7, sodium 127, chloride 93, CO2 13, anion gap 21, glucose 716, with troponin less than 0.012 and acetone positive. Plan: Continue with insulin infusion per protocol Continue IV fluids with normal saline 200 mL/hr for now NPO Monitor electrolytes q2h Monitor blood glucose q1h Dieitician consulted DVT prophylaxis: Heparin subq The patient is admitted with an anticipated greater than 2 midnight stay for evaluation of DKA CODE STATUS: Full Code Discussed with: Patient Anticipated discharge place: Home Past Medical History Past Medical History: Diabetes Mellitus, Pneumonia, Seizure Disorder Additional Past Medical History / Comment(s): IDDM type I, DKA, seizures with hypoglycemia-last time April 2019, Covid 03/14/21 History of Any Multi-Drug Resistant Organisms: None Reported Past Surgical History: No Surgical Hx Reported Additional Past Surgical History / Comment(s): TOOTH EXTRACTED IN PAST AND YESTERDAY HAD A PUS POCKET NEAR FRONT TOOTH LANCED/DRAINED. Past Anesthesia/Blood Transfusion Reactions: No Reported Reaction Past Psychological History: No Psychological Hx Reported Smoking Status: Current every day smoker - Past Family History Father Family Medical History: No Reported History Additional Family Medical History / Comment(s): Father is healthy Mother Family Medical History: Asthma Medications and Allergies Home Medications Medication Instructions Recorded Confirmed Type Insulin Aspart [NovoLOG Flexpen] 5 units SQ AC-TID #1 each 04/30/22 05/04/22 Rx Nicotine 21Mg/24Hr Patch [Habitrol] 1 patch TRANSDERM DAILY PRN 05/04/22 05/04/22 History Insulin Detemir [Levemir Flextouch 22 units SQ HS #1 each 05/05/22 05/04/22 Rx Pen] Allergies Allergy/AdvReac Type Severity Reaction Status Date / Time bee venom protein (honey bee) Allergy Anaphylaxis Verified 10/14/22 00:01 Physical Exam Vitals: Vital Signs Temp Pulse Resp BP Pulse Ox 10/14/22 02:00 91 15 116/63 96 10/14/22 01:30 88 15 127/56 10/14/22 01:00 74 12 132/76 98 10/14/22 00:01 98.3 F 90 26 H 118/69 95 Intake and Output 10/13/22 10/13/22 10/14/22 14:59 22:59 06:59 Other: Weight 65.771 kg Results CBC & Chem 7: 10/14/22 00:15 10/14/22 00:15 Labs: Abnormal Lab Results - Last 24 Hours (Table) 10/13/22 10/14/22 10/14/22 Range/Units 23:53 00:15 00:15 WBC 11.7 H (3.8-10.6) k/uL MCV 101.3 H (80.0-100.0) fL MCHC 30.9 L (31.0-37.0) g/dL Neutrophils # 9.5 H (1.3-7.7) k/uL VBG pH (7.31-7.41) VBG HCO3 (24-28) mmol/L Sodium 127 L (137-145) mmol/L Chloride 93 L (98-107) mmol/L Carbon Dioxide 13 L (22-30) mmol/L Glucose 716 H* (74-99) mg/dL POC Glucose (mg/dL) >600 H (70-110) mg/dL Total Bilirubin 2.6 H (0.2-1.3) mg/dL Alkaline Phosphatase 135 H (38-126) U/L Urine Glucose (UA) (Negative) Urine Ketones (Negative) 10/14/22 10/14/22 10/14/22 Range/Units 00:15 00:55 01:15 WBC (3.8-10.6) k/uL MCV (80.0-100.0) fL MCHC (31.0-37.0) g/dL Neutrophils # (1.3-7.7) k/uL VBG pH 7.26 L (7.31-7.41) VBG HCO3 16 L (24-28) mmol/L Sodium (137-145) mmol/L Chloride (98-107) mmol/L Carbon Dioxide (22-30) mmol/L Glucose (74-99) mg/dL POC Glucose (mg/dL) >600 H (70-110) mg/dL Total Bilirubin (0.2-1.3) mg/dL Alkaline Phosphatase (38-126) U/L Urine Glucose (UA) 4+ H (Negative) Urine Ketones 4+ H (Negative) 10/14/22 Range/Units 02:47 WBC (3.8-10.6) k/uL MCV (80.0-100.0) fL MCHC (31.0-37.0) g/dL Neutrophils # (1.3-7.7) k/uL VBG pH (7.31-7.41) VBG HCO3 (24-28) mmol/L Sodium (137-145) mmol/L Chloride (98-107) mmol/L Carbon Dioxide (22-30) mmol/L Glucose (74-99) mg/dL POC Glucose (mg/dL) 467 H (70-110) mg/dL Total Bilirubin (0.2-1.3) mg/dL Alkaline Phosphatase (38-126) U/L Urine Glucose (UA) (Negative) Urine Ketones (Negative)
[2022-10-14 03:55] LABS: Glucose,Whole Blood 376 mg/dL (70-110)
[2022-10-14 04:20] LABS: African American GFR (CKD) >90 (>60 ml/min/1.73 sqM); Anion Gap 14 mmol/L; Blood Urea Nitrogen 19 mg/dL (9-20); Carbon Dioxide 19 mmol/L (22-30); Chloride 102 mmol/L (98-107); Glucose 393 mg/dL (74-99); Non-African American GFR(CKD) >90 (>60 ml/min/1.73 sqM); Phosphorus 3.7 mg/dL (2.5-4.5); Potassium 4.5 mmol/L (3.5-5.1); Sodium 135 mmol/L (137-145)
[2022-10-14 04:48] LABS: Glucose,Whole Blood 297 mg/dL (70-110)
[2022-10-14] MEDS: D5-0.45% NACL WITH KCL 20MEQ/L 1,000 ML IV SCH ×2 (05:15→12:24)
[2022-10-14 05:58] LABS: Glucose,Whole Blood 294 mg/dL (70-110)
[2022-10-14 06:44] LABS: Glucose,Whole Blood 286 mg/dL (70-110)
[2022-10-14 07:33] VITALS: RESP 18
[2022-10-14 07:56] LABS: Glucose,Whole Blood 231 mg/dL (70-110)
[2022-10-14] MEDS ORDERED: HEPARIN SODIUM,PORCINE/PF 5,000 UNIT/0.5 ML SYRINGE SQ SCH (08:00)
[2022-10-14 08:37] LABS: African American GFR (CKD) >90 (>60 ml/min/1.73 sqM); Anion Gap 11 mmol/L; Blood Urea Nitrogen 16 mg/dL (9-20); Carbon Dioxide 21 mmol/L (22-30); Chloride 106 mmol/L (98-107); Glucose 252 mg/dL (74-99); Non-African American GFR(CKD) >90 (>60 ml/min/1.73 sqM); Potassium 4.6 mmol/L (3.5-5.1); Sodium 138 mmol/L (137-145)
[2022-10-14 09:05] LABS: Glucose,Whole Blood 197 mg/dL (70-110)
[2022-10-14] MEDS: MAGNESIUM SULFATE-D5W PMX 1 GM in DEXTROSE/WATER 1 100ML.BAG IVPB SCH ×2 (10:01→11:19)
[2022-10-14 10:09] LABS: Glucose,Whole Blood 195 mg/dL (70-110)
[2022-10-14 11:08] LABS: Glucose,Whole Blood 135 mg/dL (70-110)
[2022-10-14 12:07] LABS: Glucose,Whole Blood 159 mg/dL (70-110)
[2022-10-14 13:08] LABS: Glucose,Whole Blood 120 mg/dL (70-110)
[2022-10-14 14:09] LABS: Glucose,Whole Blood 252 mg/dL (70-110)
[2022-10-14 14:32] VITALS: BP 133/84; PULSE 64
--- NOTE | 2022-10-14 14:42 | P.PN ---
Subjective Progress Note Date: 10/14/22 Hospital course: The patient is a 32-year-old male with a PMH of type I DM on subcu insulin who presented to the emergency room with complaints of nausea, vomiting, and fatigue and was found to be in DKA with initial blood glucose greater than 600, chloride 102, bicarb 19, anion gap 14, and positive acetone. Venous blood gas also consistent with metabolic acidosis with pH 7.26, pCO2 37, and bicarb of 16. Magnesium low at 1.6 and total bili elevated at 2.6. Troponin was negative at less than 0.012. Amylase and lipase normal findings. Urinalysis was also positive for glucose and ketones. Patient was given IV fluid bolus followed by continuous maintenance infusion and started on insulin infusion for DKA.. Patient admitted under our services. Physical examination: Patient seen and fully evaluated at bedside this morning. He reports feeling better than he did when he arrived to the hospital. Diet increased to clear liquids at this time. Order placed for BMP, magnesium, and VBG every 4 hours until anion gap closes DKA is resolved. General: non toxic, no distress, appears at stated age Derm: warm, dry Head: atraumatic, normocephalic, symmetric Eyes: EOMI, no lid lag, anicteric sclera Mouth: no lip lesion, mucus membranes moist Cardiovascular: S1S2 reg, no murmur, positive posterior tibial pulse bilateral, Lungs: CTA bilateral, no rhonchi, no rales , no accessory muscle use Abdominal: soft, nontender to palpation, no guarding, no appreciable organomegaly Ext: no gross muscle atrophy, no edema, no contractures Neuro: CN II-XI grossly intact, no focal neuro deficits Psych: Alert, oriented, appropriate affect Assessment : Diabetic ketoacidosis Leukocytosis, likely due to dehydration from DKA Macrocytosis Hyponatremia, likely pseudo -Continue with insulin infusion at 0.12 units/kg/hr or 7.643 milliliters per hour. Insulin infusion to be titrated based upon blood glucose levels. -Currently blood glucose 252 and patient started on D5.45 infusion at 150 mL's per hour. -Order placed for BMP, magnesium, and VBG every 4 hours until anion gap closes DKA is resolved. -Continue glucose checks hourly. -Diet to be advanced to clear liquid at this time. CODE STATUS: Full code DVT prophylaxis: Heparin Discussed with: Patient and RN Anticipated discharge date: Clinical course to determine Anticipated discharge place: Home Patient was seen independently by Nurse Practitioner. This document was prepared using [employer] dictation software. Please allow for errors in car carder while rare they do occur. .. Objective - Vital Signs Vital signs: Vital Signs Temp 98.3 F 10/14/22 00:01 Pulse 83 10/14/22 07:31 Resp 18 10/14/22 07:31 BP 119/77 10/14/22 07:31 Pulse Ox 99 10/14/22 06:00 FiO2 Intake & Output 10/13/22 10/14/22 10/14/22 18:59 06:59 18:59 Intake Total 34.654 Balance 34.654 Weight 65.771 kg Intake: Intake, IV Titration 34.654 Amount Insulin Regular 100 unit 34.654 In Sodium Chloride 0.9% 100 ml @ 0.1 UNITS/KG/HR 6.643 mls/hr IV .[id number] [facility] Rx#:[id number] - Labs CBC & Chem 7: 10/14/22 00:15 10/14/22 07:32 Labs: Abnormal Lab Results - Last 24 Hours (Table) 10/13/22 10/14/22 10/14/22 Range/Units 23:53 00:15 00:15 WBC 11.7 H (3.8-10.6) k/uL MCV 101.3 H (80.0-100.0) fL MCHC 30.9 L (31.0-37.0) g/dL Neutrophils # 9.5 H (1.3-7.7) k/uL VBG pH (7.31-7.41) VBG HCO3 (24-28) mmol/L Sodium 127 L (137-145) mmol/L Chloride 93 L (98-107) mmol/L Carbon Dioxide 13 L (22-30) mmol/L Glucose 716 H* (74-99) mg/dL POC Glucose (mg/dL) >600 H (70-110) mg/dL Total Bilirubin 2.6 H (0.2-1.3) mg/dL Alkaline Phosphatase 135 H (38-126) U/L Urine Glucose (UA) (Negative) Urine Ketones (Negative) 10/14/22 10/14/22 10/14/22 Range/Units 00:15 00:55 01:15 WBC (3.8-10.6) k/uL MCV (80.0-100.0) fL MCHC (31.0-37.0) g/dL Neutrophils # (1.3-7.7) k/uL VBG pH 7.26 L (7.31-7.41) VBG HCO3 16 L (24-28) mmol/L Sodium (137-145) mmol/L Chloride (98-107) mmol/L Carbon Dioxide (22-30) mmol/L Glucose (74-99) mg/dL POC Glucose (mg/dL) >600 H (70-110) mg/dL Total Bilirubin (0.2-1.3) mg/dL Alkaline Phosphatase (38-126) U/L Urine Glucose (UA) 4+ H (Negative) Urine Ketones 4+ H (Negative) 10/14/22 10/14/22 10/14/22 Range/Units 02:47 03:47 03:47 WBC (3.8-10.6) k/uL MCV (80.0-100.0) fL MCHC (31.0-37.0) g/dL Neutrophils # (1.3-7.7) k/uL VBG pH (7.31-7.41) VBG HCO3 (24-28) mmol/L Sodium 135 L (137-145) mmol/L Chloride (98-107) mmol/L Carbon Dioxide 19 L (22-30) mmol/L Glucose 393 H (74-99) mg/dL POC Glucose (mg/dL) 467 H 376 H (70-110) mg/dL Total Bilirubin (0.2-1.3) mg/dL Alkaline Phosphatase (38-126) U/L Urine Glucose (UA) (Negative) Urine Ketones (Negative) 10/14/22 10/14/22 10/14/22 Range/Units 04:46 05:52 06:41 WBC (3.8-10.6) k/uL MCV (80.0-100.0) fL MCHC (31.0-37.0) g/dL Neutrophils # (1.3-7.7) k/uL VBG pH (7.31-7.41) VBG HCO3 (24-28) mmol/L Sodium (137-145) mmol/L Chloride (98-107) mmol/L Carbon Dioxide (22-30) mmol/L Glucose (74-99) mg/dL POC Glucose (mg/dL) 297 H 294 H 286 H (70-110) mg/dL Total Bilirubin (0.2-1.3) mg/dL Alkaline Phosphatase (38-126) U/L Urine Glucose (UA) (Negative) Urine Ketones (Negative) 10/14/22 10/14/22 10/14/22 Range/Units 07:32 07:55 09:03 WBC (3.8-10.6) k/uL MCV (80.0-100.0) fL MCHC (31.0-37.0) g/dL Neutrophils # (1.3-7.7) k/uL VBG pH (7.31-7.41) VBG HCO3 (24-28) mmol/L Sodium (137-145) mmol/L Chloride (98-107) mmol/L Carbon Dioxide 21 L (22-30) mmol/L Glucose 252 H (74-99) mg/dL POC Glucose (mg/dL) 231 H 197 H (70-110) mg/dL Total Bilirubin (0.2-1.3) mg/dL Alkaline Phosphatase (38-126) U/L Urine Glucose (UA) (Negative) Urine Ketones (Negative)
--- NOTE | 2022-10-14 16:11 | P.DS ---
Providers Date of admission: 10/14/22 03:22 Expected date of discharge: 10/14/22 Attending physician: Douglas Glasgow MD Primary care physician: Stated None Hospital Course: THIS IS NOT A DISCHARGE SUMMARY, BUT A SUMMARY OF CARE PT LEFT AGAINST MEDICAL ADVICE ON 10/14/22 at 2:48 PM. Discharge Diagnosis: Diabetic ketoacidosis Metabolic acidosis secondary to above Hospital Course: The patient is a 32-year-old male with a PMH of type I DM on subcu insulin who presented to the emergency room with complaints of nausea, vomiting, and fatigue and was found to be in DKA with initial blood glucose greater than 600, chloride 102, bicarb 19, anion gap 14, and positive acetone. Venous blood gas also consistent with metabolic acidosis with pH 7.26, pCO2 37, and bicarb of 16. Magnesium low at 1.6 and total bili elevated at 2.6. Troponin was negative at less than 0.012. Amylase and lipase normal findings. Urinalysis was also positive for glucose and ketones. Patient was given IV fluid bolus followed by continuous maintenance infusion and started on insulin infusion for DKA.. Patient admitted under our services. While patient was still on insulin infusion, RN reports patient refused any further labs and demanded to have insulin infusion turned off and left AGAINST MEDICAL ADVICE. He was notified that patient left AGAINST MEDICAL ADVICE at 2:48 PM. This document was prepared using [employer] dictation software. Please allow for errors in automatic spinning lathe operator while rare they do occur. Patient Condition at Discharge: Undetermined Plan - Discharge Summary New Discharge Prescriptions: No Action Insulin Aspart [NovoLOG Flexpen] 10 - 15 units SQ AC-TID Insulin Detemir [Levemir Flextouch Pen] 40 units SQ HS Discharge Medication List Insulin Aspart [NovoLOG Flexpen] 10 - 15 units SQ AC-TID 10/14/22 [History] Insulin Detemir [Levemir Flextouch Pen] 40 units SQ HS 10/14/22 [History] Follow up Appointment(s)/Referral(s): None,Stated [Primary Care Provider] - 1-2 days
== END 2022-10-14 16:58 | disposition left against medical advice (07) | DRG 420 ==
LOC: EC 23:42 → 3SCARD 10-14 03:22
PROVIDERS: ADMIT Internal Medicine; ATTEND Internal Medicine
DX: E10.10 Type 1 diabetes mellitus with ketoacidosis without coma (principal); E86.0 Dehydration; D75.89 Other specified diseases of blood and blood-forming organs; F17.210 Nicotine dependence, cigarettes, uncomplicated; T38.3X6A Underdosing of insulin and oral hypoglycemic [antidiabetic] drugs, initial encounter; X58.XXXA Exposure to other specified factors, initial encounter; G40.909 Epilepsy, unspecified, not intractable, without status epilepticus; Z87.01 Personal history of pneumonia (recurrent); Z86.16 Personal history of COVID-19; Z53.29 Procedure and treatment not carried out because of patient's decision for other reasons; Z79.4 Long term (current) use of insulin; Z91.128 Patient's intentional underdosing of medication regimen for other reason; Z91.148 Patient's other noncompliance with medication regimen for other reason; Z91.030 Bee allergy status
CPT/HCPCS: 36415; 71046; 80051; 80053; 81003; 82009; 82150; 82565; 82803; 82947; 83690; 83735; 84100; 84484; 84520; 85025; 85610; 85730; 93005; 96361; 96365; 96366; 96372; 96375; 96376; 99285

== ENCOUNTER 2023-01-24 20:37 | Emergency (ER) | payer OTHER ==
[2023-01-24] MEDS ORDERED: DEXTROSE 50% SYRINGE 50 ML IVP STA ×2 (20:56→22:11)
[2023-01-24 21:01] LABS: Glucose,Whole Blood 34 mg/dL (70-110)
[2023-01-24 21:19] LABS: Glucose,Whole Blood 112 mg/dL (70-110)
[2023-01-24] MEDS ORDERED: DEXTROSE 5%-0.9% NACL 1,000 ML IV SCH (21:30)
[2023-01-24 21:46] LABS: Basophils % (A) 0 %; Eosinophils # (A) 0.1 k/uL (0-0.7); Eosinophils % (A) 2 %; HCT 50.1 % (39.0-53.0); HGB 16.4 gm/dL (13.0-17.5); Lymphocytes % (A) 23 %; MCH 31.9 pg (25.0-35.0); MCHC 32.8 g/dL (31.0-37.0); MCV 97.1 fL (80.0-100.0); Mean Platelet Volume 7.7; Monocytes # (A) 0.4 k/uL (0-1.0); Monocytes % (A) 4 %; Neutrophils # (A) 6.1 k/uL (1.3-7.7); Neutrophils % (A) 70 %; Platelet Count 267 k/uL (150-450); RBC 5.16 m/uL (4.30-5.90); RDW 11.5 % (11.5-15.5); WBC 8.7 k/uL (3.8-10.6)
[2023-01-24 22:02] LABS: ALT 35 U/L (4-49); AST 44 U/L (17-59); African American GFR (CKD) >90 (>60 ml/min/1.73 sqM); Albumin 4.3 g/dL (3.5-5.0); Alkaline Phosphatase 87 U/L (38-126); Anion Gap 10 mmol/L; Blood Urea Nitrogen 8 mg/dL (9-20); Calcium 9.4 mg/dL (8.4-10.2); Carbon Dioxide 30 mmol/L (22-30); Chloride 100 mmol/L (98-107); Glucose 131 mg/dL (74-99); Non-African American GFR(CKD) >90 (>60 ml/min/1.73 sqM); Sodium 140 mmol/L (137-145); Total Bilirubin 0.8 mg/dL (0.2-1.3); Total Protein 7.2 g/dL (6.3-8.2)
[2023-01-24 22:08] LABS: Glucose,Whole Blood 47 mg/dL (70-110)
[2023-01-24 22:09] LABS: Potassium 4.3 mmol/L (3.5-5.1)
--- NOTE | 2023-01-24 22:39 | ED ---
General Adult HPI - General Chief complaint: Recheck/Abnormal Lab/Rx Stated complaint: Diabetic Issues Time Seen by Provider: 01/24/23 20:49 Source: EMS Mode of arrival: EMS - History of Present Illness Initial comments: 32-year-old male with history of type 1 diabetes presenting with chief complaint of hypoglycemia. Patient arrived via EMS. Per EMS blood glucose was 41, EMS gave 25 of dextrose and got up to 150. Patient is very lethargic. Poor historian at this time. He is unsure when he last took his insulin. He has been seen here multiple occasions for similar symptoms. - Related Data Home Medications Medication Instructions Recorded Confirmed Insulin Aspart [NovoLOG Flexpen] 15 - 25 units SQ TID-W/MEALS 10/14/22 01/24/23 Insulin Detemir [Levemir Flextouch 22 units SQ DAILY 10/14/22 01/24/23 Pen] Cyclobenzaprine HCl 5 mg PO HS PRN 01/24/23 01/24/23 Ergocalciferol (Vitamin D2) 1,250 mcg PO MO 01/24/23 01/24/23 [Drisdol (50,000 Iu)] Insulin Degludec [Tresiba 20 units SQ DIRECTED 01/24/23 01/24/23 Flextouch U-100 Pen] Meloxicam [Mobic] 7.5 mg PO DAILY PRN 01/24/23 01/24/23 Allergies Allergy/AdvReac Type Severity Reaction Status Date / Time bee venom protein (honey bee) Allergy Anaphylaxis Verified 01/24/23 22:15 Review of Systems ROS Statement: Those systems with pertinent positive or pertinent negative responses have been documented in the HPI. ROS Other: All systems not noted in ROS Statement are negative. Past Medical History Past Medical History: Diabetes Mellitus, Pneumonia, Seizure Disorder Additional Past Medical History / Comment(s): IDDM type I, DKA, seizures with hypoglycemia-last time April 2019, Covid 03/14/21 History of Any Multi-Drug Resistant Organisms: None Reported Past Surgical History: No Surgical Hx Reported Additional Past Surgical History / Comment(s): TOOTH EXTRACTED IN PAST AND YESTERDAY HAD A PUS POCKET NEAR FRONT TOOTH LANCED/DRAINED. Past Anesthesia/Blood Transfusion Reactions: No Reported Reaction Past Psychological History: No Psychological Hx Reported Smoking Status: Current every day smoker - Past Family History Father Family Medical History: No Reported History Additional Family Medical History / Comment(s): Father is healthy Mother Family Medical History: Asthma General Exam Limitations: altered mental status General appearance: alert, obtunded Head exam: Present: atraumatic, normocephalic, normal inspection Eye exam: Present: normal appearance, EOMI Neck exam: Present: normal inspection, full ROM Respiratory exam: Present: normal lung sounds bilaterally. Absent: respiratory distress, wheezes, rales, rhonchi, stridor Cardiovascular Exam: Present: regular rate, normal rhythm, normal heart sounds. Absent: systolic murmur, diastolic murmur, rubs, gallop, clicks Neurological exam: Present: alert, altered Psychiatric exam: Present: normal affect, normal mood Skin exam: Present: warm, dry, intact, normal color. Absent: rash Course Vital Signs 01/24/23 01/24/23 01/25/23 20:43 23:00 00:00 Temperature 99.0 F 98.8 F Pulse Rate 73 81 78 Respiratory 16 18 18 Rate Blood Pressure 157/100 128/72 135/87 O2 Sat by Pulse 100 97 98 Oximetry EKG Findings - EKG Comments: EKG Findings:: Sinus bradycardia ventricular rate 51. ND interval 129. QRS 106. QT 406. QTc 384. Early repolarization. Normal axis. Medical Decision Making - Medical Decision Making Was pt. sent in by a medical professional or institution (BRITNEY López, RIP/MOULD OPERATOR, urgent care, hospital, or assisted...) When possible be specific @ -No Did you speak to anyone other than the patient for history (EMS, parent, family, police, friend...)? What history was obtained from this source @ -No Did you review nursing and triage notes (agree or disagree)? Why? @ -I reviewed and agree with nursing and triage notes Were old charts reviewed (outside hosp., previous admission, EMS record, old EKG, old radiological studies, urgent care reports/EKG's, assisted records)? Report findings @ -No old charts were reviewed Differential Diagnosis (chest pain, altered mental status, abdominal pain women, abdominal pain men, vaginal bleeding, weakness, fever, dyspnea, syncope, headache, dizziness, GI bleed, back pain, seizure, CVA, palpatations, mental health, musculoskeletal)? @ -MDM Differential Altered Mental Status: Hypoglycemia, DKA, hypercapnia, ETOH, overdose, CO poisoning, trauma, myxedema coma, HTN encephalopathy, infection, encephalitis, psychosis, intercranial hemorrhage, hepatic encephalopathy, meningitis, CVA this is not meant to be an all-inclusive list EKG interpreted by me (3pts min.). @ -As above X-rays interpreted by me (1pt min.). @ -None done CT interpreted by me (1pt min.). @ -None done U/S interpreted by me (1pt. min.). @ -None done What testing was considered but not performed or refused? (CT, X-rays, U/S, labs)? Why? @ -None What meds were considered but not given or refused? Why? @ -None Did you discuss the management of the patient with other professionals (professionals i.e. , PA, RIP/MOULD OPERATOR, lab, RT, psych nurse, social work administrator, scorer single, teacher, correctional officer chief, case folder)? Give summary @ -No Was smoking cessation discussed for >3mins.? @ -No Was critical care preformed (if so, how long)? @ -No Were there social determinants of health that impacted care today? How? (Homelessness, low income, unemployed, alcoholism, drug addiction, transportation, low edu. Level, literacy, decrease access to med. care, alf, rehab)? @ -No Was there de-escalation of care discussed even if they declined (Discuss DNR or withdrawal of care, Hospice)? DNR status @ -No What co-morbidities impacted this encounter? (DM, HTN, Smoking, COPD, CAD, Cancer, CVA, ARF, Chemo, Hep., AIDS, mental health diagnosis, sleep apnea, morbid obesity)? @ -None Was patient admitted / discharged? Hospital course, mention meds given and route, prescriptions, significant lab abnormalities, going to OR and other pertinent info. @ -32-year-old male with history of type 1 diabetes presenting with hypoglycemia. Brought in by EMS. Patient was administered dextrose by EMS, upon arrival blood glucose is 34. He is given 1 amp of D50 which brought his glucose up to 112. He was also placed on D5 and normal saline at a rate of 130cc per hour. Lab work shows normal anion No ketonuria. Patient had one other hypoglycemic episode here which resolved after one episode of D50. On reassessment the patient is walking and talking in the drinking and eating. Patient is able to tell me that he took his insulin today but had a low appetite and did not eat which caused him to become hypoglycemic. Patient was observed and had no recurrence of these symptoms. He is able to tolerate food and drink. He is walking around his room. he'll be discharged home, instructed not to take insulin without eating. Follow-up with PCP. Report back to ER with any new or worsening symptoms. Discussed return parameters and answered all questions. Patient conveyed verbal understanding and agreed to the plan. I discussed this case in detail with my attending Dr. Enrique Undiagnosed new problem with uncertain prognosis? @ -No Drug Therapy requiring intensive monitoring for toxicity (Heparin, Nitro, Insulin, Cardizem)? @ -No Were any procedures done? @ -No Diagnosis/symptom? @ -Hypoglycemia Acute, or Chronic, or Acute on Chronic? @ -Acute Uncomplicated (without systemic symptoms) or Complicated (systemic symptoms)? @ -Uncomplicated Side effects of treatment? @ -No Exacerbation, Progression, or Severe Exacerbation? @ -No Poses a threat to life or bodily function? How? (Chest pain, [place], [place], pneumonia, PE, COPD, DKA, ARF, appy, cholecystitis, CVA, Diverticulitis, Homicidal, Suicidal, threat to staff... and all critical care pts) @ -Low likelihood - Lab Data Result diagrams: 01/24/23 21:01 01/24/23 21:01 Lab Results 01/24/23 01/24/23 01/24/23 Range/Units 20:55 21:01 21:01 WBC 8.7 (3.8-10.6) k/uL RBC 5.16 (4.30-5.90) m/uL Hgb 16.4 (13.0-17.5) gm/dL Hct 50.1 (39.0-53.0) % MCV 97.1 (80.0-100.0) fL MCH 31.9 (25.0-35.0) pg MCHC 32.8 (31.0-37.0) g/dL RDW 11.5 (11.5-15.5) % Plt Count 267 (150-450) k/uL MPV 7.7 Neutrophils % 70 % Lymphocytes % 23 % Monocytes % 4 % Eosinophils % 2 % Basophils % 0 % Neutrophils # 6.1 (1.3-7.7) k/uL Lymphocytes # 2.0 (1.0-4.8) k/uL Monocytes # 0.4 (0-1.0) k/uL Eosinophils # 0.1 (0-0.7) k/uL Basophils # 0.0 (0-0.2) k/uL Sodium (137-145) mmol/L Potassium (3.5-5.1) mmol/L Chloride (98-107) mmol/L Carbon Dioxide (22-30) mmol/L Anion Gap mmol/L BUN (9-20) mg/dL Creatinine (0.66-1.25) mg/dL Est GFR (CKD-EPI)AfAm (>60 ml/min/1.73 sqM) Est GFR (CKD-EPI)NonAf (>60 ml/min/1.73 sqM) Glucose (74-99) mg/dL POC Glucose (mg/dL) 34 L (70-110) mg/dL POC Glu Template Reproduction Technician ID Patel, Sherry Plasma Lactic Acid Jonas (0.7-2.0) mmol/L Calcium (8.4-10.2) mg/dL Total Bilirubin (0.2-1.3) mg/dL AST (17-59) U/L ALT (4-49) U/L Alkaline Phosphatase (38-126) U/L Total Protein (6.3-8.2) g/dL Albumin (3.5-5.0) g/dL Urine Color Colorless Urine Appearance Clear (Clear) Urine pH 6.5 (5.0-8.0) Ur Specific [place] 1.007 (1.001-1.035) Urine Protein Negative (Negative) Urine Glucose (UA) 3+ H (Negative) Urine Ketones Negative (Negative) Urine Blood Negative (Negative) Urine Nitrite Negative (Negative) Urine Bilirubin Negative (Negative) Urine Urobilinogen <2.0 (<2.0) mg/dL Ur Leukocyte Esterase Negative (Negative) Urine Opiates Screen (NotDetected) Ur Oxycodone Screen (NotDetected) Urine Methadone Screen (NotDetected) Ur Propoxyphene Screen (NotDetected) Ur Barbiturates Screen (NotDetected) U Tricyclic Antidepress (NotDetected) Ur Phencyclidine Scrn (NotDetected) Ur Amphetamines Screen (NotDetected) U Methamphetamines Scrn (NotDetected) U Benzodiazepines Scrn (NotDetected) Urine Cocaine Screen (NotDetected) U Marijuana (THC) Screen (NotDetected) 01/24/23 01/24/23 01/24/23 Range/Units 21:01 21:01 21:01 WBC (3.8-10.6) k/uL RBC (4.30-5.90) m/uL Hgb (13.0-17.5) gm/dL Hct (39.0-53.0) % MCV (80.0-100.0) fL MCH (25.0-35.0) pg MCHC (31.0-37.0) g/dL RDW (11.5-15.5) % Plt Count (150-450) k/uL MPV Neutrophils % % Lymphocytes % % Monocytes % % Eosinophils % % Basophils % % Neutrophils # (1.3-7.7) k/uL Lymphocytes # (1.0-4.8) k/uL Monocytes # (0-1.0) k/uL Eosinophils # (0-0.7) k/uL Basophils # (0-0.2) k/uL Sodium 140 (137-145) mmol/L Potassium 4.3 (3.5-5.1) mmol/L Chloride 100 (98-107) mmol/L Carbon Dioxide 30 (22-30) mmol/L Anion Gap 10 mmol/L BUN 8 L (9-20) mg/dL Creatinine 0.77 (0.66-1.25) mg/dL Est GFR (CKD-EPI)AfAm >90 (>60 ml/min/1.73 sqM) Est GFR (CKD-EPI)NonAf >90 (>60 ml/min/1.73 sqM) Glucose 131 H (74-99) mg/dL POC Glucose (mg/dL) (70-110) mg/dL POC Glu Template Reproduction Technician ID Plasma Lactic Acid Jonas 2.0 (0.7-2.0) mmol/L Calcium 9.4 (8.4-10.2) mg/dL Total Bilirubin 0.8 (0.2-1.3) mg/dL AST 44 (17-59) U/L ALT 35 (4-49) U/L Alkaline Phosphatase 87 (38-126) U/L Total Protein 7.2 (6.3-8.2) g/dL Albumin 4.3 (3.5-5.0) g/dL Urine Color Urine Appearance (Clear) Urine pH (5.0-8.0) Ur Specific [place] (1.001-1.035) Urine Protein (Negative) Urine Glucose (UA) (Negative) Urine Ketones (Negative) Urine Blood (Negative) Urine Nitrite (Negative) Urine Bilirubin (Negative) Urine Urobilinogen (<2.0) mg/dL Ur Leukocyte Esterase (Negative) Urine Opiates Screen Not Detected (NotDetected) Ur Oxycodone Screen Not Detected (NotDetected) Urine Methadone Screen Not Detected (NotDetected) Ur Propoxyphene Screen Not Detected (NotDetected) Ur Barbiturates Screen Not Detected (NotDetected) U Tricyclic Antidepress Not Detected (NotDetected) Ur Phencyclidine Scrn Not Detected (NotDetected) Ur Amphetamines Screen Not Detected (NotDetected) U Methamphetamines Scrn Not Detected (NotDetected) U Benzodiazepines Scrn Not Detected (NotDetected) Urine Cocaine Screen Not Detected (NotDetected) U Marijuana (THC) Screen Detected H (NotDetected) 01/24/23 01/24/23 01/24/23 Range/Units 21:18 22:06 23:04 WBC (3.8-10.6) k/uL RBC (4.30-5.90) m/uL Hgb (13.0-17.5) gm/dL Hct (39.0-53.0) % MCV (80.0-100.0) fL MCH (25.0-35.0) pg MCHC (31.0-37.0) g/dL RDW (11.5-15.5) % Plt Count (150-450) k/uL MPV Neutrophils % % Lymphocytes % % Monocytes % % Eosinophils % % Basophils % % Neutrophils # (1.3-7.7) k/uL Lymphocytes # (1.0-4.8) k/uL Monocytes # (0-1.0) k/uL Eosinophils # (0-0.7) k/uL Basophils # (0-0.2) k/uL Sodium (137-145) mmol/L Potassium (3.5-5.1) mmol/L Chloride (98-107) mmol/L Carbon Dioxide (22-30) mmol/L Anion Gap mmol/L BUN (9-20) mg/dL Creatinine (0.66-1.25) mg/dL Est GFR (CKD-EPI)AfAm (>60 ml/min/1.73 sqM) Est GFR (CKD-EPI)NonAf (>60 ml/min/1.73 sqM) Glucose (74-99) mg/dL POC Glucose (mg/dL) 112 H 47 L 233 H (70-110) mg/dL POC Glu Template Reproduction Technician ID Patel, Sherry Sweeney, Sherry Madrigal Plasma Lactic Acid Jonas (0.7-2.0) mmol/L Calcium (8.4-10.2) mg/dL Total Bilirubin (0.2-1.3) mg/dL AST (17-59) U/L ALT (4-49) U/L Alkaline Phosphatase (38-126) U/L Total Protein (6.3-8.2) g/dL Albumin (3.5-5.0) g/dL Urine Color Urine Appearance (Clear) Urine pH (5.0-8.0) Ur Specific [place] (1.001-1.035) Urine Protein (Negative) Urine Glucose (UA) (Negative) Urine Ketones (Negative) Urine Blood (Negative) Urine Nitrite (Negative) Urine Bilirubin (Negative) Urine Urobilinogen (<2.0) mg/dL Ur Leukocyte Esterase (Negative) Urine Opiates Screen (NotDetected) Ur Oxycodone Screen (NotDetected) Urine Methadone Screen (NotDetected) Ur Propoxyphene Screen (NotDetected) Ur Barbiturates Screen (NotDetected) U Tricyclic Antidepress (NotDetected) Ur Phencyclidine Scrn (NotDetected) Ur Amphetamines Screen (NotDetected) U Methamphetamines Scrn (NotDetected) U Benzodiazepines Scrn (NotDetected) Urine Cocaine Screen (NotDetected) U Marijuana (THC) Screen (NotDetected) 01/24/23 Range/Units 23:56 WBC (3.8-10.6) k/uL RBC (4.30-5.90) m/uL Hgb (13.0-17.5) gm/dL Hct (39.0-53.0) % MCV (80.0-100.0) fL MCH (25.0-35.0) pg MCHC (31.0-37.0) g/dL RDW (11.5-15.5) % Plt Count (150-450) k/uL MPV Neutrophils % % Lymphocytes % % Monocytes % % Eosinophils % % Basophils % % Neutrophils # (1.3-7.7) k/uL Lymphocytes # (1.0-4.8) k/uL Monocytes # (0-1.0) k/uL Eosinophils # (0-0.7) k/uL Basophils # (0-0.2) k/uL Sodium (137-145) mmol/L Potassium (3.5-5.1) mmol/L Chloride (98-107) mmol/L Carbon Dioxide (22-30) mmol/L Anion Gap mmol/L BUN (9-20) mg/dL Creatinine (0.66-1.25) mg/dL Est GFR (CKD-EPI)AfAm (>60 ml/min/1.73 sqM) Est GFR (CKD-EPI)NonAf (>60 ml/min/1.73 sqM) Glucose (74-99) mg/dL POC Glucose (mg/dL) 180 H (70-110) mg/dL POC Glu Template Reproduction Technician ID Sweeney, [place] Plasma Lactic Acid Jonas (0.7-2.0) mmol/L Calcium (8.4-10.2) mg/dL Total Bilirubin (0.2-1.3) mg/dL AST (17-59) U/L ALT (4-49) U/L Alkaline Phosphatase (38-126) U/L Total Protein (6.3-8.2) g/dL Albumin (3.5-5.0) g/dL Urine Color Urine Appearance (Clear) Urine pH (5.0-8.0) Ur Specific [place] (1.001-1.035) Urine Protein (Negative) Urine Glucose (UA) (Negative) Urine Ketones (Negative) Urine Blood (Negative) Urine Nitrite (Negative) Urine Bilirubin (Negative) Urine Urobilinogen (<2.0) mg/dL Ur Leukocyte Esterase (Negative) Urine Opiates Screen (NotDetected) Ur Oxycodone Screen (NotDetected) Urine Methadone Screen (NotDetected) Ur Propoxyphene Screen (NotDetected) Ur Barbiturates Screen (NotDetected) U Tricyclic Antidepress (NotDetected) Ur Phencyclidine Scrn (NotDetected) Ur Amphetamines Screen (NotDetected) U Methamphetamines Scrn (NotDetected) U Benzodiazepines Scrn (NotDetected) Urine Cocaine Screen (NotDetected) U Marijuana (THC) Screen (NotDetected) Disposition Clinical Impression: Hypoglycemia due to insulin Disposition: HOME SELF-CARE Condition: Fair Instructions (If sedation given, give patient instructions): Hypoglycemia in a Person with Diabetes (ED), Diabetes Type 1: Management (ED) Additional Instructions: Follow-up with PCP. Report back to ER with any new or worsening symptoms. Is patient prescribed a controlled substance at d/c from ED?: No Referrals: None,Stated [Primary Care Provider] - 1-2 days Time of Disposition: 23:57
[2023-01-24 23:06] LABS: Glucose,Whole Blood 233 mg/dL (70-110)
[2023-01-24 23:34] LABS: Appearance,Urine Clear (Clear); Bilirubin,Urine Negative (Negative); Blood,Urine Negative (Negative); Color,Urine Colorless; Glucose,Urine (UA) 3+ (Negative); Ketones,Urine Negative (Negative); Leukocyte Esterase,Urine Negative (Negative); Nitrite,Urine Negative (Negative); PH, Urine 6.5 (5.0-8.0); Protein,Urine Negative (Negative); Specific Gravity,Urine 1.007 (1.001-1.035); Urobilinogen,Urine <2.0 mg/dL (<2.0)
[2023-01-24 23:56] LABS: Amphetamine Screen,Urine Not Detected (NotDetected); Barbiturate Screen,Urine Not Detected (NotDetected); Benzodiazepines Screen,Urine Not Detected (NotDetected); Cocaine Screen,Urine Not Detected (NotDetected); Methadone Screen, Urine Not Detected (NotDetected); Opiate Screen,Urine Not Detected (NotDetected); Oxycodone Screen, Urine Not Detected (NotDetected); Phencyclidine Screen,Urine Not Detected (NotDetected); Tricyclic Antidepressant,Urine Not Detected (NotDetected); Urn Cannabinoid Scrn Detected (NotDetected)
[2023-01-24 23:58] LABS: Glucose,Whole Blood 180 mg/dL (70-110)
[2023-01-25 00:26] VITALS: BP 135/87; PULSE 78; RESP 18; TEMP 98.8
== END 2023-01-25 00:24 | disposition home or self-care (01) ==
LOC: EC 20:37
DX: E10.649 Type 1 diabetes mellitus with hypoglycemia without coma (principal); T38.3X5A Adverse effect of insulin and oral hypoglycemic [antidiabetic] drugs, initial encounter; R00.1 Bradycardia, unspecified; F17.200 Nicotine dependence, unspecified, uncomplicated; Z79.4 Long term (current) use of insulin; Z86.16 Personal history of COVID-19; Z91.030 Bee allergy status
CPT/HCPCS: 36415; 80053; 80306; 81003; 83605; 85025; 93005; 96361; 96374; 96376; 99284

== ENCOUNTER → 2023-12-05 | Outpatient (CLI) | payer OTHER ==
--- NOTE | 2023-12-06 11:07 | MR ---
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 IV Contrast: cc . (None if empty) FINDINGS: Alignment: The lumbar vertebral bodies have preserved heights and alignment. Cord: The conus medullaris and the distal spinal cord appear unremarkable with regards to their signa l intensity and morphology. Bones/Discs: Mild degeneration changes throughout the spine with osteophyte formation and facet joint arthropathy. Intervertebral disc signal is maintained. No abnormal inversion recovery signal to sugg est bony edema. T12-L1: No evidence of significant spinal canal stenosis or neural foraminal stenosis. L1-L2: No evidence of significant spinal canal stenosis or neural foraminal stenosis. L2-L3: No evidence of significant spinal canal stenosis or neural foraminal stenosis. L3-L4: No evidence of significant spinal canal stenosis or neural foraminal stenosis. L4-L5: No evidence of significant spinal canal stenosis or neural foraminal stenosis. L5-S1: The disc has a rounded posterior morphology without significant spinal canal stenosis. Facet j oint arthropathy with mild bilateral neural foraminal stenosis. No significant spinal canal or neural foraminal stenosis in the remainder of the visualized levels. Other findings: None. IMPRESSION: 1. No definitive evidence of disc herniation or significant spinal canal stenosis. 2. No significant degeneration.
== END | disposition home or self-care (01) ==
LOC: RADMRIMAIN 18:34
PROVIDERS: ATTEND Family Medicine
DX: M51.9 Unspecified thoracic, thoracolumbar and lumbosacral intervertebral disc disorder
CPT/HCPCS: 72148

== ENCOUNTER 2024-09-19 14:16 | Emergency (ER) | payer OTHER ==
[2024-09-19 14:32] VITALS: RESP 16
[2024-09-19 14:36] LABS: Glucose,Whole Blood 113 mg/dL (70-110)
--- NOTE | 2024-09-19 14:46 | ED ---
Recheck HPI - General Chief Complaint: Recheck/Abnormal Lab/Rx Stated Complaint: Low Blood Sugar Time Seen by Provider: 09/19/24 14:35 Source: patient, EMS, RN notes reviewed Mode of arrival: EMS - History of Present Illness Initial Comments: 33-year-old male with history of type 1 diabetes on insulin presented emergency room via EMS for complaints of hyperglycemia. Patient states that he woke up this morning and gave himself his morning insulin however was not feeling well and did not have anything to eat or drink afterwards. He states that he woke up feeling like he was having hot and cold sweats with a mild dry cough. Patient woke up from a nap confused and sweating where his blood sugar was low. Patient was given a half an amp of dextrose and route. Currently patient states that he is hungry. He denies abdominal pain, headaches, difficulty in breathing, heart palpitations, nausea, urinary complaints. - Related Data Home Medications Medication Instructions Recorded Confirmed Insulin Aspart [NovoLOG Flexpen] 10 units SQ AC-TID 10/14/22 05/16/24 Insulin Degludec [Tresiba 20 units SQ AC-SUPPER 01/24/23 05/16/24 Flextouch U-100 Pen] Insulin Aspart [NovoLOG Flexpen] See Protocol SQ AC-TID PRN 05/16/24 05/16/24 Previous Rx's Medication Instructions Recorded Ondansetron Odt [Zofran Odt] 4 mg PO Q8HR PRN #20 tab 05/31/24 Oseltamivir [Tamiflu] 75 mg PO Q12HR 5 Days #10 cap 05/31/24 Allergies Allergy/AdvReac Type Severity Reaction Status Date / Time bee venom protein (honey bee) Allergy Anaphylaxis Verified 05/31/24 20:33 Review of Systems ROS Statement: Those systems with pertinent positive or pertinent negative responses have been documented in the HPI. ROS Other: All systems not noted in ROS Statement are negative. Past Medical History Past Medical History: Diabetes Mellitus, Pneumonia, Seizure Disorder Additional Past Medical History / Comment(s): IDDM type I, DKA, seizures with hypoglycemia-last time April 2019, Covid 03/14/21 History of Any Multi-Drug Resistant Organisms: None Reported Past Surgical History: No Surgical Hx Reported Additional Past Surgical History / Comment(s): TOOTH EXTRACTED IN PAST AND YESTERDAY HAD A PUS POCKET NEAR FRONT TOOTH LANCED/DRAINED. Past Anesthesia/Blood Transfusion Reactions: No Reported Reaction Past Psychological History: No Psychological Hx Reported Smoking Status: Current every day smoker Past Alcohol Use History: None Reported Past Drug Use History: None Reported - Past Family History Father Family Medical History: No Reported History Additional Family Medical History / Comment(s): Father is healthy Mother Family Medical History: Asthma General Exam General appearance: alert, in no apparent distress Eye exam: Present: normal appearance, PERRL, EOMI. Absent: scleral icterus, conjunctival injection, periorbital swelling Neck exam: Present: normal inspection. Absent: tenderness, meningismus, lymphadenopathy Respiratory exam: Present: normal lung sounds bilaterally. Absent: respiratory distress, wheezes, rales, rhonchi, stridor Cardiovascular Exam: Present: regular rate, normal rhythm, normal heart sounds. Absent: systolic murmur, diastolic murmur, rubs, gallop, clicks GI/Abdominal exam: Present: soft, normal bowel sounds. Absent: distended, tenderness, guarding, rebound, rigid Extremities exam: Present: normal inspection, full ROM, normal capillary refill. Absent: tenderness, pedal edema, joint swelling, calf tenderness Back exam: Present: normal inspection. Absent: CVA tenderness (R), CVA tenderness (L) Skin exam: Present: warm, dry, intact, normal color. Absent: rash Course Vital Signs 09/19/24 14:25 Temperature 99.4 F Pulse Rate 78 Respiratory 16 Rate Blood Pressure 150/112 O2 Sat by Pulse 100 Oximetry Medical Decision Making - Medical Decision Making Was pt. sent in by a medical professional or institution (Dr. PA, CHIEF OPHTHALMIC TECHNICIAN, urgent care, hospital, or skilled nursing...) When possible be specific @ -No Did you speak to anyone other than the patient for history (EMS, parent, family, police, friend...)? What history was obtained from this source @ -No Did you review nursing and triage notes (agree or disagree)? Why? @ -I reviewed and agree with nursing and triage notes Were old charts reviewed (outside hosp., previous admission, EMS record, old EKG, old radiological studies, urgent care reports/EKG's, skilled nursing records)? Report findings @ -No old charts were reviewed Differential Diagnosis (chest pain, altered mental status, abdominal pain women, abdominal pain men, vaginal bleeding, weakness, fever, dyspnea, syncope, headache, dizziness, GI bleed, back pain, seizure, CVA, palpatations, mental health, musculoskeletal)? @ -Hypoglycemia, electrolyte abnormality, viral syndrome, pancreatitis, DKA, HHS, this list not all inclusive EKG interpreted by me (3pts min.). @ -None X-rays interpreted by me (1pt min.). @ -None done CT interpreted by me (1pt min.). @ -None done U/S interpreted by me (1pt. min.). @ -None done What testing was considered but not performed or refused? (CT, X-rays, U/S, labs)? Why? @ -None What meds were considered but not given or refused? Why? @ -None Did you discuss the management of the patient with other professionals (professionals i.e. , PA, CHIEF OPHTHALMIC TECHNICIAN, lab, RT, psych nurse, dialysis social worker, veterans contact representative, teacher, security officer supervisor, sample case porter)? Give summary @ -No Was smoking cessation discussed for >3mins.? @ -No Was critical care preformed (if so, how long)? @ -No Were there social determinants of health that impacted care today? How? (Homelessness, low income, unemployed, alcoholism, drug addiction, transportation, low edu. Level, literacy, decrease access to med. care, usp, rehab)? @ -No Was there de-escalation of care discussed even if they declined (Discuss DNR or withdrawal of care, Hospice)? DNR status @ -No What co-morbidities impacted this encounter? (DM, HTN, Smoking, COPD, CAD, Cancer, CVA, ARF, Chemo, Hep., AIDS, mental health diagnosis, sleep apnea, morbid obesity)? @ -None Was patient admitted / discharged? Hospital course, mention meds given and route, prescriptions, significant lab abnormalities, going to OR and other pertinent info. @ -Discharge. 33-year-old male presenting to the emergency department via EMS for concerns of hypoglycemia. Patient's [id number] glucose on arrival was 113. Overall patient is well-appearing in no signs of distress. Patient is hypertensive on arrival to blood pressure 150/112. Patient provided with IV flu ids. Laboratory testing is unremarkable including CBC, CMP. Acetone is negative. Patient does not have an elevated anion gap, lactic acid is negative. Patient stable for discharge with appropriate follow-up. Return parameters discussed. Case with Dr. Madden Undiagnosed new problem with uncertain prognosis? @ -No Drug Therapy requiring intensive monitoring for toxicity (Heparin, Nitro, Insulin, Cardizem)? @ -No Were any procedures done? @ -No Diagnosis/symptom? @ -History of hypoglycemia in a patient with type 1 diabetes Acute, or Chronic, or Acute on Chronic? @ -acute Uncomplicated (without systemic symptoms) or Complicated (systemic symptoms)? @ -Uncomplicated Side effects of treatment? @ -No Exacerbation, Progression, or Severe Exacerbation? @ -No Poses a threat to life or bodily function? How? (Chest pain, USA, NM, pneumonia, PE, COPD, DKA, ARF, appy, cholecystitis, CVA, Diverticulitis, Homicidal, Suicidal, threat to staff... and all critical care pts) @ -No - Lab Data Result diagrams: 09/19/24 15:00 09/19/24 15:00 Lab Results 09/19/24 09/19/24 09/19/24 Range/Units 14:35 15:00 15:00 WBC 4.78 (4.50-10.00) 10*3/uL RBC 5.21 (4.40-5.60) 10*6/uL Hgb 17.0 (13.0-17.0) g/dL Hct 48.0 (39.6-50.0) % MCV 92.1 (80.0-97.0) fL MCH 32.6 H (27.0-32.0) pg MCHC 35.4 (32.0-37.0) g/dL Plt Count 248 (140-440) 10*3/uL MPV 9.8 (9.5-12.2) fL Immature Gran % (Auto) 0.4 % Neutrophils % 74.3 % Lymphocytes % 8.8 % Monocytes % 15.5 % Eosinophils % 0.2 % Basophils % 0.8 % Immature Gran # 0.02 (0.00-0.04) 10*3/uL Neutrophils # 3.55 (1.80-7.70) 10*3/uL Lymphocytes # 0.42 L (0.90-5.00) 10*3/uL Monocytes # 0.74 (0.20-1.00) 10*3/uL Eosinophils # 0.01 L (0.04-0.35) 10*3/uL Basophils # 0.04 (0.00-0.10) 10*3/uL Sodium 137 (137-145) mmol/L Potassium 3.9 (3.5-5.1) mmol/L Chloride 102 (98-107) mmol/L Carbon Dioxide 31 H (22-30) mmol/L Anion Gap 4 mmol/L BUN 10 (9-20) mg/dL Creatinine 0.80 (0.66-1.25) mg/dL Est GFR (CKD-EPI)AfAm >90 (>60 ml/min/1.73 sqM) Est GFR (CKD-EPI)NonAf >90 (>60 ml/min/1.73 sqM) Glucose 103 H (74-99) mg/dL POC Glucose (mg/dL) 113 H (70-110) mg/dL POC Glu Senior Commissions Analyst ID [place] [facility] Plasma Lactic Acid Jonas (0.7-2.0) mmol/L Calcium 9.4 (8.4-10.2) mg/dL Magnesium 1.7 (1.6-2.3) mg/dL Total Bilirubin 1.0 (0.2-1.3) mg/dL AST 27 (17-59) U/L ALT 25 (4-49) U/L Alkaline Phosphatase 79 (38-126) U/L Total Protein 7.4 (6.3-8.2) g/dL Albumin 4.5 (3.5-5.0) g/dL Acetone, Qual Negative (Negative) 09/19/24 Range/Units 15:00 WBC (4.50-10.00) 10*3/uL RBC (4.40-5.60) 10*6/uL Hgb (13.0-17.0) g/dL Hct (39.6-50.0) % MCV (80.0-97.0) fL MCH (27.0-32.0) pg MCHC (32.0-37.0) g/dL Plt Count (140-440) 10*3/uL MPV (9.5-12.2) fL Immature Gran % (Auto) % Neutrophils % % Lymphocytes % % Monocytes % % Eosinophils % % Basophils % % Immature Gran # (0.00-0.04) 10*3/uL Neutrophils # (1.80-7.70) 10*3/uL Lymphocytes # (0.90-5.00) 10*3/uL Monocytes # (0.20-1.00) 10*3/uL Eosinophils # (0.04-0.35) 10*3/uL Basophils # (0.00-0.10) 10*3/uL Sodium (137-145) mmol/L Potassium (3.5-5.1) mmol/L Chloride (98-107) mmol/L Carbon Dioxide (22-30) mmol/L Anion Gap mmol/L BUN (9-20) mg/dL Creatinine (0.66-1.25) mg/dL Est GFR (CKD-EPI)AfAm (>60 ml/min/1.73 sqM) Est GFR (CKD-EPI)NonAf (>60 ml/min/1.73 sqM) Glucose (74-99) mg/dL POC Glucose (mg/dL) (70-110) mg/dL POC Glu Senior Commissions Analyst ID Plasma Lactic Acid Jonas 1.3 (0.7-2.0) mmol/L Calcium (8.4-10.2) mg/dL Magnesium (1.6-2.3) mg/dL Total Bilirubin (0.2-1.3) mg/dL AST (17-59) U/L ALT (4-49) U/L Alkaline Phosphatase (38-126) U/L Total Protein (6.3-8.2) g/dL Albumin (3.5-5.0) g/dL Acetone, Qual (Negative) Disposition Clinical Impression: History of hypoglycemia Disposition: HOME SELF-CARE Condition: Stable Instructions (If sedation given, give patient instructions): Hypoglycemia in a Person with Diabetes (DC) Additional Instructions: Please return to the Emergency Department if symptoms worsen or any other concerns. Is patient prescribed a controlled substance at d/c from ED?: No Referrals: Eloisa Luciano MD [Primary Care Provider] - 1-2 days Time of Disposition: 16:02
[2024-09-19] MEDS: ACETAMINOPHEN TAB 325 MG TAB PO STA (15:03)
[2024-09-19] MEDS: SODIUM CHLORIDE 0.9% 1,000 ML IV ONE (15:04)
[2024-09-19 15:15] LABS: Basophils # (A) 0.04 10*3/uL (0.00-0.10); Basophils % (A) 0.8 %; Eosinophils # (A) 0.01 10*3/uL (0.04-0.35); Eosinophils % (A) 0.2 %; Lymphocytes # (A) 0.42 10*3/uL (0.90-5.00); Lymphocytes % (A) 8.8 %; MCH 32.6 pg (27.0-32.0); MCHC 35.4 g/dL (32.0-37.0); MCV 92.1 fL (80.0-97.0); Mean Platelet Volume 9.8 fL (9.5-12.2); Monocytes # (A) 0.74 10*3/uL (0.20-1.00); Monocytes % (A) 15.5 %; Neutrophils # (A) 3.55 10*3/uL (1.80-7.70); Neutrophils % (A) 74.3 %; Platelet Count 248 10*3/uL (140-440); RBC 5.21 10*6/uL (4.40-5.60); RDW 11.3 % (11.5-14.5); WBC 4.78 10*3/uL (4.50-10.00)
[2024-09-19 15:30] LABS: ALT 25 U/L (4-49); AST 27 U/L (17-59); African American GFR (CKD) >90 (>60 ml/min/1.73 sqM); Albumin 4.5 g/dL (3.5-5.0); Alkaline Phosphatase 79 U/L (38-126); Anion Gap 4 mmol/L; Blood Urea Nitrogen 10 mg/dL (9-20); Calcium 9.4 mg/dL (8.4-10.2); Carbon Dioxide 31 mmol/L (22-30); Chloride 102 mmol/L (98-107); Glucose 103 mg/dL (74-99); Magnesium 1.7 mg/dL (1.6-2.3); Non-African American GFR(CKD) >90 (>60 ml/min/1.73 sqM); Potassium 3.9 mmol/L (3.5-5.1); Sodium 137 mmol/L (137-145); Total Protein 7.4 g/dL (6.3-8.2)
[2024-09-19 16:14] VITALS: BP 144/86; PULSE 72; TEMP 98.4
[2024-09-19 16:38] LABS: Influenza A Not Detected (Not Detectd); Influenza B Not Detected (Not Detectd); RSV Not Detected (Not Detectd)
== END 2024-09-19 16:14 | disposition home or self-care (01) ==
LOC: EC 14:16
DX: E10.649 Type 1 diabetes mellitus with hypoglycemia without coma (principal); F17.200 Nicotine dependence, unspecified, uncomplicated; Z91.030 Bee allergy status
CPT/HCPCS: 36415; 80053; 82009; 83605; 83735; 85025; 87636; 96360; 99285